=== PATIENT | female | born 1960 | race Caucasian/White ===

== ENCOUNTER 2017-08-24 15:13 | Emergency (ER) | payer OTHER, SELFPAY ==
[2017-08-24 15:14] VITALS: BP 154/72; PULSE 92; RESP 16; TEMP 36.4; O2SAT 100; BMI 22.1
[2017-08-24 15:16] VITALS: BP 154/72; PULSE 92; RESP 16; O2SAT 100
--- NOTE | 2017-08-24 15:32 | EKG12_ITS ---
Test Reason : VERTIGO Blood Pressure : / mmHG Vent. Rate : 078 BPM Atrial Rate : 078 BPM P-R Int : 194 ms QRS Dur : 082 ms QT Int : 398 ms P-R-T Axes : 075 069 052 degrees QTc Int : 453 ms Normal sinus rhythm Normal ECG Confirmed by PAUL CLAYTON, PAWEL ([id number]), social media editor JONAH TAPIA ([id number]) on 08/28/2017 3:16:38 PM Referred By: DAYANARA Confirmed By:PAWEL MILLER MD
--- NOTE | 2017-08-24 15:32 | CT_ITS ---
STUDY: CT BRAIN WITHOUT CONTRAST REASON FOR EXAM: Female, 56 years old. COOK RADIATION DOSAGE (If Supplied By Facility): CTDIvol = ( 44.99 ) mGy, DLP = ( 812.98 ) mGycm TECHNIQUE: Transaxial CT imaging of the brain was performed without administration of intravenous contrast material. Individualized dose optimization techniques were used for this CT. COMPARISON: None. FINDINGS: Normal soft tissue structures. Normal calvarium. Normal size ventricles and extra-axial spaces for the patient's age. Normal white matter tracts of the cerebral hemispheres. Normal basal ganglia and thalami. Normal brainstem. Normal cerebellum. There is no intracranial hemorrhage. There are no findings of an acute ischemic infarction. Normal visualized paranasal sinuses. CT/Brain/Head without Contrast IMPRESSION: Normal unenhanced CT scan of the brain. Electronically Signed: Wilder Arroyo MD at 16:21 EST , Service support ,
--- NOTE | 2017-08-24 15:37 | ED.DCSUM_ITS ---
- ER Visit Summary Date of Service: 08/24/17 Chief Complaint: Dizzy and headache History of Present Illness: The patient is a 56 F who reports flulike illness last week with body aches, cough, fever, chills. This week the patient has had intermittent nausea and body aches. She states other day she feels perfectly normal. She woke yesterday morning with vertigo symptoms. She also complains of mild waxing and waning headache to the bilateral temples for the past 1 week. Patient is diabetic and states her blood sugars have been fluctuating with her illness. She denies chest pain or palpitations. Physical Examination: Blood pressure is 154/72, temperature 97.6, heart rate 92 , respiratory rate 16, pulse ox 100% on room air. Patient sitting in a bedside chair no acute distress. Head neck examination is unremarkable. TMs are clear. She has moist mucous membranes. No nystagmus is noted. Heart is regular rate and rhythm. Lung sounds are clear. Abdomen is soft nontender. Neuro exam is unremarkable. Test Results: CT the head is unremarkable. EKG is sinus at 78 with no sign of acute ischemia. CBC and chemistry studies are significant only for glucose of 291. Emergency Department Course and Treatment: Patient was given IV fluids and p.o. Antivert. On repeat evaluation she has ambulated to the bathroom and back without difficulty. She is sitting in a bedside chair fully dressed requesting to go home. She will be given prescription for Antivert at home. Treatment Plan: [] Disposition: Discharge Impression: Vertigo, improved This note was generated with [employer] dictation software. It may contain incorrect words, spelling, and punctuation that were not noted in review of the chart prior to signing ED Disposition - Plan for ED Patient: Chief Complaint: Dizziness Referrals: Nitin Falcon MD [Primary Care Provider] -
[2017-08-24] MEDS: Meclizine 12.5 MG Tablet 25 MG PO (15:40)
[2017-08-24] MEDS: 0.9% Normal Saline 1,000 ML 1000 ML IV (15:42)
[2017-08-24 16:11] LABS: Absolute Lymphocyte Count 1.83 X10^3/ul (0.83-4.51); Absolute Neutrophil Count 2.9 X10^3/uL (2.0-7.7); Basophil# 0.02 X10^3/uL; Basophil% 0.4 % (0-1); Eosinophil# 0.11 X10^3/uL; Eosinophils% 2.1 % (0-5); Hematocrit 36.7 % (37-47); Hemoglobin 12.4 g/dl (12.0-15.0); Lymphocyte # 1.83 X10^3/ul (4.0); Lymphocyte % 34.9 % (19-41); Mean Corp Hgb Conc 33.8 g/gl (32-36); Mean Corpuscular Hgb 30.2 pg (27.0-32.0); Mean Corpuscular Volume 89.5 fL (81-99); Mean Platelet Vol. 11.4 fl (6.2-12.0); Monocyte# 0.42 X10^3/uL; Neutrophil # 2.85 X10^3/uL (2.7-7.7); Neutrophil % 54.4 % (47-70); Platelet Count 165 K/mm3 (150-450); RBC Distribution Width CV 11.8 % (11.6-14.6); RBC Distribution Width SD 37.4 fl (35.1-43.9); White Blood Count 5.2 K/mm3 (4.4-11.0)
[2017-08-24 16:12] LABS: POSITIVE COUNT NO; POSITIVE DIFFERENTIAL NO; POSITIVE MORPHOLOGY NO
[2017-08-24 16:23] LABS: Anion Gap 9 (5-15); BUN 16 mg/dL (7-18); BUN/Creat Ratio 18.6 RATIO (10-20); Calcium,Total 9.6 mg/dL (8.5-10.1); Chloride 101 mmol/L (98-107); Creatinine, Serum 0.86 mg/dL (0.55-1.02); EST Glomerular Filtration Rate 72 mL/min (>60); Est Glom Filt Rate - Afr Amer 87 mL/min (>60); Estimated Creatinine Clearance 72.81 ml/min; Glucose 291 mg/dL (70-110); Potassium 3.9 mmol/L (3.5-5.1); Sodium Level 137 mmol/L (136-145)
[2017-08-24 16:49] VITALS: BP 133/74; PULSE 70; RESP 16; O2SAT 99
--- NOTE | 2017-08-24 17:36 | ED.DEP ---
ED Disposition - Plan for ED Patient: Disposition: Home or Assisted Living Chief Complaint: Dizziness Instructions: ED Vertigo Unspecified Prescriptions: Meclizine HCl [Antivert] 25 mg PO 4X/DAY PRN PRN #20 tablet PRN Reason: Dizziness Referrals: Nitin Falcon MD [Primary Care Provider] - 3-5 Days if not improving
[2017-08-24 17:40] VITALS: RESP 12
== END 2017-08-24 17:40 | disposition home or self-care (01) ==
PROVIDERS: Emergency Provider Emergency Medicine; Family Provider Family Medicine; PCP Family Medicine
DX: R42 Dizziness and giddiness (principal); R51 Headache; E11.9 Type 2 diabetes mellitus without complications; Z79.4 Long term (current) use of insulin; Z79.899 Other long term (current) drug therapy
CPT/HCPCS: 70450; 80048; 85025; 93005; 99284

== ENCOUNTER → 2017-11-27 14:50 | Outpatient (CLI) | payer OTHER, SELFPAY ==
[2017-11-27 16:21] LABS: Cholesterol 189 mg/dL (200); High Density Lipoprotein 92 mg/dL; Triglycerides 80 mg/dL; Very Low Density Lipoprotein 16 mg/dL (5-40)
[2017-11-27 16:27] LABS: Hemoglobin A1c 8.7 % (4.2-6.3)
== END ==
PROVIDERS: Family Provider Family Medicine; PCP Family Medicine; Visit Provider Family Medicine
DX: E10.9 Type 1 diabetes mellitus without complications (principal); E78.5 Hyperlipidemia, unspecified
CPT/HCPCS: 36415; 80061; 83036

== ENCOUNTER → 2017-12-12 14:50 | Outpatient (CLI) | payer OTHER, SELFPAY ==
--- NOTE | 2017-12-12 14:52 | RAD_ITS ---
STUDY: X-RAY - RIGHT SHOULDER REASON FOR EXAM: Female, 57 years old. Pain TECHNIQUE: 3 view(s) of the shoulder. COMPARISON: None. FINDINGS: Narrowed glenohumeral articulation. Normal acromioclavicular joint. Normal acromion. Normal humeral head and visualized proximal humerus. The soft tissue structures are unremarkable. Incidental finding of small irregular nodular density in the right upper lobe possibly scarring. Recommend correlation with prior chest radiograph if and when available. CT may be necessary for further evaluation. RAD/Shoulder min 2 Views IMPRESSION: Mild degenerative changes. No evidence for acute fracture Cannot exclude right upper lobe nodule. Electronically Signed: Ajith Pablo MD at 18:05 EDT , Service support ,
== END ==
PROVIDERS: Family Provider Family Medicine; PCP Family Medicine; Visit Provider Orthopaedic Surgery
DX: M19.011 Primary osteoarthritis, right shoulder (principal)
CPT/HCPCS: 73030

== ENCOUNTER → 2018-01-26 14:54 | Outpatient (CLI) | payer OTHER, SELFPAY ==
--- NOTE | 2018-01-26 14:56 | CT_ITS ---
STUDY: CT CHEST WITHOUT CONTRAST REASON FOR EXAM: Female, 57 years old. Pulmonary nodule RADIATION DOSAGE (If Supplied By Facility): CTDIvol = ( 7.23 ) mGy, DLP = ( 254.40 ) mGycm TECHNIQUE: Transaxial imaging was performed without the administration of intravenous contrast material. Coronal and sagittal reformatted images were created. Individualized dose optimization techniques were used for this CT. COMPARISON: X-ray dated 12/12/2017 FINDINGS: There are no pulmonary infiltrates or pleural effusions. There are 2 spiculated nodules in the right upper lobe, measuring 1.8 x 1.2 cm (image 66 series 4) and 2.1 x 1.9 cm (image 73 series 4). There are no additional pulmonary nodules or masses. There is no pneumothorax. The heart and pericardium are within normal limits. There is no thoracic lymphadenopathy. There is no evidence of thoracic aortic aneurysm. Images through the upper abdomen demonstrate no significant abnormality. There are no destructive osseous lesions. There is asymmetric soft tissue density in the lateral aspect of the left breast with a 2.6 cm nodular density present (image [address]/Chest without Contrast IMPRESSION: 2 spiculated nodules in the right upper lobe with the larger measuring 2.1 x 1.9 cm. Further evaluation with PET/CT is recommended to exclude neoplasm. Asymmetric soft tissue density in the lateral aspect of the left breast measuring up to 2.6 cm. Correlation with mammography is recommended. Electronically Signed: Michael Callahan, at 16:00 EDT Tel , Service support ,
== END ==
PROVIDERS: Family Provider Family Medicine; PCP Family Medicine; Visit Provider Family Medicine
DX: R91.8 Other nonspecific abnormal finding of lung field (principal)
CPT/HCPCS: 71250

== ENCOUNTER → 2018-02-12 08:14 | Outpatient (CLI) | payer OTHER, SELFPAY ==
--- NOTE | 2018-02-12 09:00 | PET_ITS ---
EXAMINATION: FDG PET CT INDICATIONS: A 57-year-old female with reported history of pulmonary nodularity. COMPARISON EXAMINATION: CT of the chest report dated 01/26/18. INDEX LESION SIZE SUV INTERPRETATION Right hemithorax pulmonary parenchyma, right upper lobe (n = 2) 19.8 mm largest (frame 194) 0.8 (max) Quantitative criteria for viable neoplasm are not fulfilled, sequential radiologic investigation recommended Midline mid pelvic mesentery-uterus 30.2 mm x 40.1 mm (frame 45) 18.5 May be further investigated with pelvic ultrasound secondary to the quantitative degree of uptake TECHNIQUE: Following the intravenous administration of 14.44 mCi of F-18 deoxyglucose via the left hand, multiplanar image acquisitions of the neck, chest, abdomen and pelvis to level of mid thigh, obtained at one hour post radiopharmaceutical administration contemporaneously interpreted with the current CT of the neck, chest, abdomen and pelvis to level of mid thigh, dated 02/12/[address] of the chest report dated 01/26/18 reveal: SERUM GLUCOSE LEVEL: 166 mg/dl. HEIGHT: 68 inches. WEIGHT: 145 lbs. FINDINGS: 1. Mild increased glucose metabolism is defined in the right upper hemithorax pulmonary parenchyma, right upper lobe in two separate nodular presentations generating a calculated maximum standard uptake value of 0.8. The maximal axial diameter of the largest individual noncalcified density on review of CT of the thorax dated 02/12/18 is 19.8 mm (AP). 2. Intense increased glucose metabolism is defined in the mid pelvic mesentery contiguous to the uterus generating a calculated maximum standard uptake value 18.5. The maximal axial diameter of the corresponding metabolic, morphologic abnormality on review of CT of the pelvis dated 02/12/18 is 30.2 mm (transverse) x 40.1 mm (AP). 3. Normal physiologic distribution of the radiopharmaceutical is apparent in the hepatic (3.1) and splenic parenchyma, both renal units, bladder and visualized intestinal tract. There is uniform distribution of the radiopharmaceutical concentration compared on the cerebellar hemispheres and cerebral cortex. Diffuse intestinal tract activity is noted throughout all four quadrants of the abdominal-pelvic retroperitoneum, mesentery consistent with normal physiologic distribution of the radiopharmaceutical. Prominent glucose metabolism is defined in the descending thoracic aorta. Pertinent CT findings are as follows. CHEST: Atherosclerotic calcification is defined in the thoracic aorta without evidence of dilatation, aneurysm formation. Bilateral axillary soft tissue densities demonstrate no evidence of quantitatively significant increased glucose metabolism. There are no additional parenchymal densities-nodules noted in the right-left hemithorax demonstrating discernible, quantitatively significant enhanced glucose metabolism. ABDOMEN AND PELVIS: Atherosclerotic calcification is defined in the abdominal aorta without evidence of dilatation, aneurysm formation. Abdominal-pelvic arterial calcification is observed. Right-left inguinal soft tissue densities are ametabolic. Calcification is demonstrated in the lower pelvis contiguous to the adnexal regions, uterus without evidence of facilitated glucose metabolism. Calcifications are defined in the bilateral lower hemipelvis. SKELETAL: Degenerative changes defined in the cervical, thoracic and lumbar spine demonstrate no evidence for glucose hypermetabolism. PET/PET/CT Tumor Base -Thigh Init IMPRESSION: 1. Increased glucose metabolism manifest in the lower pelvis contiguous to the uterus may be further investigated with pelvic ultrasound secondary to the quantitative degree of uptake. 2. Subtle increased radiopharmaceutical concentration barely perceptible in the right upper hemithorax pulmonary parenchyma in two separate nodular presentations does not fulfill quantitative criteria for viable neoplasm. (Marcano et al, Annals of Internal Medicine, 138:724, 2003). 3. Metabolic and/or anatomic stability may be ensured in the right hemithorax pulmonary parenchymal abnormalities with repeat FDG PET study and/or CT of the thorax in three months. (Xiu, Journal of Nuclear Medicine 45:88, P2004. Srikanth, Seminars in Thoracic and Cardiovascular Surgery 14:292, 2002). 4. Facilitated FDG uptake observed in the descending thoracic aorta is commensurate with activated leukocytes associated with atherosclerotic plaque formation. (Brianna et al, Clinical Nuclear Medicine 29:93, 2004). Electronic Signature Jf Landaverde D.O. Electronically Signed: Jf Landaverde DO at 9:51 EDT Tel , Service support ,
--- NOTE | 2018-02-12 10:48 | BI_ITS ---
MAMMOGRAPHY - BILATERAL SCREENING 3-D VISHNU SYNTHESIS REASON FOR EXAM: Female, 57 years old. Bilateral Screening 3-D tomosynthesis PERTINENT HISTORY: History of benign breast biopsy.. TECHNIQUE: 2-D mammograms and 3-D Vishnu synthesis of the breast (s) were performed. CAD was performed. COMPARISON: 02/25/2015 FINDINGS: The breast composition is heterogeneously dense that can obscure small breast masses. Scattered benign calcifications are seen. No dense spiculated masses or suspicious microcalcifications are identified. No architectural distortion is identified. There is no skin thickening or retraction. There has been no significant change since the prior study. BI/SCREENING MAMM (CAD), BILAT IMPRESSION: No mammographic signs of malignancy. Routine yearly mammograms recommended. ASSESSMENT CATEGORY: BIRADS Category 2: Benign. A letter regarding these results will be sent to the patient by the facility within 30 days. FOLLOW UP RECOMMENDATION: Yearly follow up mammogram recommended. (A) Approximately 10% of breast cancers are not detected by mammography. A normal mammogram should not delay biopsy of a clinically suspicious abnormality. Electronically Signed: Yohannes Sánchez MD at 8:11 EDT , Service support ,
== END ==
PROVIDERS: Family Provider Family Medicine; PCP Family Medicine; Visit Provider Family Medicine
DX: R91.1 Solitary pulmonary nodule (principal); Z12.31 Encounter for screening mammogram for malignant neoplasm of breast
CPT/HCPCS: 77063; 77067; 78815; A9552; A4216

== ENCOUNTER → 2018-02-16 14:22 | Outpatient (CLI) | payer OTHER, SELFPAY ==
--- NOTE | 2018-02-16 14:23 | US_ITS ---
STUDY: ULTRASOUND OF THE FEMALE PELVIS - COMPLETE REASON FOR EXAM: Female, 57 years old. Abnormal PET scan in a postmenopausal female. LMP: 4 years ago. TECHNIQUE: Transabdominal and Transvaginal TECHNICAL QUALITY: Adequate. COMPARISON: PET/CT scan, February 12, 2018. FINDINGS: The uterus is retroverted and is in a midline position. The uterus measures 9.9 x 5.6 x 4.9 cm. Normal uterine cervix. The endometrium measures 4 mm in thickness, and is hyperechoic. There is no demonstrated endometrial mass. There are 2 fibroids within the uterus measuring 1.2 x 2.1 0.8 cm 3.4 x 3.7 x 3.4 cm actively. There is also a 8 mm calcification in the lower uterine segment. I.U.D. - The patient does not have an I.U.D. The right ovary is visualized. The right ovary measures 2.9 x 1.6 x 1.0 cm. There is no right ovarian cyst or ovarian mass. There is no visualized right adnexal mass or complex lesion. There is normal arterial and normal venous vascularity. The left ovary is not visualized. There is no visualized left adnexal mass or complex lesion. There is no fluid in the cul-de-sac. The pre void volume of the bladder was 157 ml. The urinary bladder is grossly unremarkable. US/Pelvic (Non ) IMPRESSION: 1. Retroverted fibroid uterus. The largest fibroid appears to coincide with the enhancing lesion seen on the PET/CT. 2. Normal right ovary. The left ovary is not visualized. Electronically Signed: De Bailey DO at 16:23 EDT Tel [phone], Service support ,
--- NOTE | 2018-02-16 15:06 | US_ITS ---
STUDY: ULTRASOUND OF THE FEMALE PELVIS - COMPLETE REASON FOR EXAM: Female, 57 years old. Abnormal PET scan in a postmenopausal female. LMP: 4 years ago. TECHNIQUE: Transabdominal and Transvaginal TECHNICAL QUALITY: Adequate. COMPARISON: PET/CT scan, February 12, 2018. FINDINGS: The uterus is retroverted and is in a midline position. The uterus measures 9.9 x 5.6 x 4.9 cm. Normal uterine cervix. The endometrium measures 4 mm in thickness, and is hyperechoic. There is no demonstrated endometrial mass. There are 2 fibroids within the uterus measuring 1.2 x 2.1 0.8 cm 3.4 x 3.7 x 3.4 cm actively. There is also a 8 mm calcification in the lower uterine segment. I.U.D. - The patient does not have an I.U.D. The right ovary is visualized. The right ovary measures 2.9 x 1.6 x 1.0 cm. There is no right ovarian cyst or ovarian mass. There is no visualized right adnexal mass or complex lesion. There is normal arterial and normal venous vascularity. The left ovary is not visualized. There is no visualized left adnexal mass or complex lesion. There is no fluid in the cul-de-sac. The pre void volume of the bladder was 157 ml. The urinary bladder is grossly unremarkable. US/Transvaginal Non- IMPRESSION: 1. Retroverted fibroid uterus. The largest fibroid appears to coincide with the enhancing lesion seen on the PET/CT. 2. Normal right ovary. The left ovary is not visualized. Electronically Signed: De Bailey DO at 16:23 EDT Tel [phone], Service support ,
== END ==
PROVIDERS: Family Provider Family Medicine; PCP Family Medicine; Visit Provider Nurse Practitioner Family
DX: R94.8 Abnormal results of function studies of other organs and systems (principal)
CPT/HCPCS: 76830; 76856; 93976

== ENCOUNTER 2018-02-19 14:30 | Outpatient (RCR) | payer OTHER, SELFPAY ==
--- NOTE | 2017-12-20 15:46 | HP.PTEVAL_ITS ---
Patient's Visit Information FORREST PERES is a 57 year old F referred to Physical Therapy by Leonor Lowe DO with a diagnosis of Right shoulder- adhesive capsulitis. Date of Evaluation: 12/20/17 Physical Therapist: Joyce Robertson - Visit Plan Frequency: 2x /Week Duration: 6 Weeks Plan: Focus on ROM and strength of the right shoulder - Subjective Subjective: Right shoulder has not been moving for about 4 years. 2010 her left shoulder was frozen and had PT. 2013 the right one started getting stiff. Tried to keep it moving- end of 2013 had PT and manipulation and it just never really got any better. Has just gotten use to the pain and uses the left to reach overhead and behind her. Right hand dominate. Has had an x-ray of the shoulder but no MRI. Best: 0/10 Eases: not using it. Worst: 9/10 agg: movement. Pain is located in the top of the shoulder and into the axilla- no pain radiates to the fingers but the neck does get stiff. No increase in COOK, blurred vision, dizziness. NT in the fingers. Sleep: disturbed- wants to sleep on that side. 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 PMHx: DM (41 years), retinopathy, frozen shoulder bilateral, cataract surgery, retina surgery. Meds: fosinopril, insulin x 2, novolog, basaglar, pravastatin, fosinopril, omeprazole. Is very diligent of checking sugars (60-400). Does not passout- can regulate depending on her feelings. - Objective Posture: guarding of the right UE. Gait: decreased arm swing. Palpation: not tender to touch. AROM: 115 flexion, 110 abduction, IR: Belt line, ER: 20 degrees. Strength:4+/5 in neutral Scap: fair - Goals Goal 1:: Patient will be i with HEP and progression Goal Time Frame: 4-6 Weeks Goal 2:: Patient will demo full AROM of the right shoulder Goal Time Frame: 4-6 Weeks Goal 3:: Patient will demo ability to stack cones on a shelf x3 Goal Time Frame: 4-6 Weeks - Rehabilitation Potential Physical Therapy Diagnosis: Patient presents with hypomobility- she has decreased ROm, strength and muscular endurance leading to abnormal ADL's and pain Rehabilitation Potential: Fair - Anticipated Interventions Patient/Client Instruction: Educate patient on: Benefits of Fitness Program For the Purpose of:: To improve ability to perform ADL's Therapeutic Exercise to Include: Strength training, Endurance training, Body mechanics, Postural training, In an aquatic setting, Passive ROM, Active ROM, Scapular Strength/Stabilization For the Purpose of:: To increase ROM, To improve muscle performance and motor function Thank you for the opportunity to evaluate your patient. For Medicare and Medicare HMO plans, please review the plan of care and approve it. It will need to be FAXED BACK to us at [phone] for Medicare purposes. Please let me know if there are questions or concerns regarding this plan of care. Physician Signature: Date:
--- NOTE | 2018-03-16 10:31 | HP.PT.NRP ---
HP - Discharge Summary (1) - Patient Information FORREST PERES was seen in my office for initial evaluation on 12/20/17. The following Plan of Care was established for this patient: Initial Frequency: 2x /Week Initial Duration: 6 Weeks - Anticipated Interventions Patient/Client Instruction: Educate patient on: Benefits of Fitness Program For the Purpose of:: To improve ability to perform ADL's Therapeutic Exercise to Include: Strength training, Endurance training, Body mechanics, Postural training, In an aquatic setting, Passive ROM, Active ROM, Scapular Strength/Stabilization For the Purpose of:: To increase ROM, To improve muscle performance and motor function This patient was last seen in our office . Pertinent comments regarding their Physical therapy will appear below: Return to MD for further evaluation- d/c at this time At this point I will be discontinuing this patient from physical therapy. I would be happy to see this patient again in the future if found appropriate by the physician. Thank you! Joyce Robertson
== END 2018-02-19 19:00 | disposition home or self-care (01) ==
LOC: PT 14:30
PROVIDERS: Family Provider Family Medicine; PCP Family Medicine; Visit Provider Orthopaedic Surgery
DX: M75.01 Adhesive capsulitis of right shoulder (principal)
CPT/HCPCS: 97113; 97161; 97164

== ENCOUNTER 2018-02-27 08:10 | Day surgery (SDC) | payer OTHER, SELFPAY ==
[2018-02-27] VITALS (7 sets, daily range): BP systolic 84–126; BP diastolic 46–55; PULSE 70–76; RESP 16; TEMP 36.2–36.4; O2SAT 95–99; BMI 21.8
[2018-02-27 09:01] LABS: Bedside Glucose 235 mg/dL (70-110)
--- NOTE | 2018-02-27 09:21 | H&P.OPEN ---
Past Medical/Surgical History - Planned Operation Planned Operative Procedure/s: cscope Date of Operative Procedure: 02/27/18 Permit Signed: No S.O.S: No Is This Patient Having a Total Joint: No - Previous Hospitalizations/Surgeries HX Hospitalizations: No HX of Surgeries: 2003 fx left hip. retina surgery 1997. tubal ligation 1996. csection 1980. cataract bilat 2002. biopsy breast bilat. bunionectomy. left thumb surgery Any Problems With Anesthesia: Yes - sensitive to anesthesia/nausea You/Your Family Experience Fever (Hyperthermia) With Anes: No Cholinesterase deficiency: No - Cardiovascular Hx Chest Pain within Last 2 months: No Hx of Irregular Heartbeat and/or Afib: Yes - irreg Hx Heart Attack: No Hx Congestive Heart Failure: No Hx Rheumatic Fever: No Hx Hypertension: Yes - controlled with med Hx Internal Defibrillator: No Hx Pacemaker: No Hx Cardiac Catheterization: No Hx Cardiac Surgery/Stents/Etc.: No Hx Stress Test: Yes - 2017 at [facility] HX Edema: No Hx Pain in Legs when Walking/Leg Cramps: No - Respiratory Chronic Cough: No HX of Shortness of Breath: No Hoarseness: No Hx Chronic Obstructive Pulmonary Disease (COPD): No Hx Asthma: No Hx Emphysema: No Hx Sleep Apnea: No Hx Oxygen Use at Home: No Hx Respiratory Tract Infection/Cold (presently): No Do You Snore Loudly (louder than talking or can be heard): Yes Do You Often Feel Tired/ Fatigued/ Sleepy Dring Daytime?: No Has Anyone Observed You Stop Breathing During Sleep?: No Result (for STOP score): Positive Hx Smoking: No Smoking Status: Never smoker - Gastrointestinal Hx Gastroesophageal Reflux: No Hx Gastrointestinal Disorders: No Hx Gastrointestinal Bleed: No Hx Ulcer: No Hx Hiatal Hernia: No Difficulty Chewing/Swallowing: No Recent Onset of Swallowing Problems: No Special diet followed at home: Yes - diabetic Hx Unplanned Weight Loss of 20#: No HX Unplanned Weight Gain of 20#: No - Neurological Hx Seizures: No HX Syncope/Blackout Spells/Unconsciousness: Yes - vertigo in the past Hx CVA/Stroke: No Hx Transient Ischemic Attacks (TIA): No Hx Multiple Sclerosis: No Hx Parkinson's Disease: No Hx Head/Neck Injury: No Hx Headaches: No Hx Back Injury/Pain: No Recent Onset of Speech Difficulty: No Restless Legs: No Does patient have nerve stimulator: No Patient instructed to have device shut off: No Rep notified?: No - Blood Disorder Hx Leukemia: No Bleeding Tendencies: No Hx Deep Vein Thrombosis: No Hx High Cholesterol: No Blood Transmitted Disease: No Hx Hepatitis: No Hx Cirrhosis: No Hx Anemia: No Hx Blood Disorders: No - Reproduction : No Is Patient Lactating: No Hx Hysterectomy: No Hx Tubal Ligation: Yes Are You Post Menopause: Yes - Genitourinary Hx Renal Disease: No - Musculoskeletal Hx Arthritis: Yes Hx Rheumatoid Arthritis: No Hx Gout: No Recent Onset of an Orthopedic Problem: No - Endocrine Hx Diabetes: Yes Insulin: Yes Thyroid Disease: No Hx Steroid Therapy: No - Psycho/Social Hx Substance Use: No Hx Alcohol Use: Yes - 2 drinks daily Hx Anxiety: Yes - on med Hx Depression: Yes - on med Mental Illness: No Hx Dementia: No - Miscellaneous Hx Cancer: No Recent Exposure to Contagious Disease: No Active MRSA: No Hx of C-Diff: No Any Loose Teeth: No Allergies No Known Allergies Allergy (Verified 02/26/18 13:42) - Discharge Is Pt Admitted From a Custodial, or a Snf: No Who Could Help: family After D/C, Where Do you Plan to Go: Return Home Subjective: Patient reports she has never had a colonoscopy in the past. She says she is having no bleeding or abdominal pain. She has no family history of colon cancer. - Physical Exam General: Alert, Oriented x3, Cooperative Neck: No JVD Lungs: Normal air movement Cardiovascular: Regular rate, Regular Rhythm Abdomen: Soft, Non Tender, Non-Distended Vital Signs Temp Pulse Resp BP Pulse Ox 97.6 F L 76 16 126/51 H 99 02/27/18 08:40 02/27/18 08:40 02/27/18 08:40 02/27/18 08:40 02/27/18 08:40 Oxygen Delivery Method Room Air Weight: 143 lb 11.862 oz Body Mass Index (BMI) 21.8 POC Glucose 02/27/18 08:47 POC Glucose 235 H Assessment/Plan All Active Problems (Last Updated 11/15/17 @ 16:16 by Beth Allen) Onychomycosis due to dermatophyte (Acute) History of hip fracture (Acute) 57-year-old female for screening colonoscopy 1. I explained endoscopy in detail to the patient. I explained the risks including but not limited to stroke or heart attack with anesthesia, perforation of the GI tract, bleeding, infection. I explained that any of these could necessitate further emergency surgery. The patient understands and all questions were answered sufficiently. The patient wishes to proceed with procedure. Zoran Obrien MD Pager: [facility] [address] [place] [address] [address] [place] [address] Office: Surgery Risks - Colonoscopy Risks Include but are not Limited To: Risks include but are not limited to: Bleeding, perforation requiring further surgery, inability to complete colonoscopy requiring barium enema.
--- NOTE | 2018-02-27 09:59 | PCM.OPRPT ---
Problem List (1) Screen for colon cancer Status: Acute Report of Operation Date of Procedure: 02/27/18 Pre-Operative Diagnosis: Colon cancer screening Post-Operative Diagnosis: Normal colonoscopy Surgery/Procedure Performed:: Colonoscopy Description of Procedure: The major risks and benefits associated with the procedure were explained to the patient in detail. The patient verbalized understanding and agreement with the same. The patient was brought to the endoscopy suite. After adequate sedation was achieved, the patient was placed in the left lateral decubitus position and a digital rectal exam was performed. This examination was within normal limits. A well-lubricated colonoscope was then inserted into the rectum and advanced under direct visualization to the level of the cecum. The bowel prep was good. The cecum was identified by both visual and anatomic landmarks. A photograph was taken of the end of the cecum. The scope was then fully withdrawn while examining the color, texture, anatomy and integrity of the mucosa from the cecum to the anal canal. The findings were consistent with normal colonic mucosa. Over 6 minutes were taken to examine the colonic mucosa. Upon reaching the rectum the scope was retroflexed to examine the distal rectal vault. The scope was then straightened and was completely retrieved upon exiting the anal canal and the procedure was terminated. The patient was then transferred to the recovery room in stable condition. Recommendations for follow up: 10 years
== END 2018-02-27 10:53 | disposition home or self-care (01) ==
LOC: EN 08:10 → AC 08:11
PROVIDERS: Family Provider Family Medicine; PCP Family Medicine; Visit Provider Surgery
PROC: 0DJD8ZZ Inspection of Lower Intestinal Tract, Via Natural or Artificial Opening Endoscopic (ICD-10-PCS; CPT 45378; principal; 2018-02-27 09:10)
DX: Z12.11 Encounter for screening for malignant neoplasm of colon (principal); I10 Essential (primary) hypertension; F32.9 Major depressive disorder, single episode, unspecified; F41.9 Anxiety disorder, unspecified; E10.9 Type 1 diabetes mellitus without complications; Z79.4 Long term (current) use of insulin; Z79.899 Other long term (current) drug therapy
CPT/HCPCS: 45378; 82962; J7120; J2405

== ENCOUNTER → 2018-03-16 14:37 | Outpatient (CLI) | payer OTHER, SELFPAY ==
[2018-03-16 16:18] LABS: Hemoglobin A1c 7.7 % (4.2-6.3)
== END ==
PROVIDERS: Family Provider Family Medicine; PCP Family Medicine; Visit Provider Family Medicine
DX: M75.41 Impingement syndrome of right shoulder (principal); E78.5 Hyperlipidemia, unspecified; E10.9 Type 1 diabetes mellitus without complications; H81.10 Benign paroxysmal vertigo, unspecified ear
CPT/HCPCS: 36415; 83036

== ENCOUNTER 2018-03-28 15:00 | Outpatient (RCR) | payer OTHER, SELFPAY ==
--- NOTE | 2018-03-21 17:16 | HP.PTEVAL_ITS ---
Patient's Visit Information FORREST PERES is a 57 year old F referred to Physical Therapy by Nitin Falcon DO with a diagnosis of vertigo. Date of Evaluation: 03/21/18 Physical Therapist: Nicholas Goldberg DPT, OC - Visit Plan Frequency: 1x/Week Duration: 2-4 Plan: weekly as needed for positional checks and ex and other vestibular if indicated. - Subjective Subjective: Vertigo started in October and never had it before. Woke up with room spinning in am and spinning lying down the night before. It lasted for short duration if laid still and that lasted a couple weeks. Still spins wtih turning in bed. Went away but came back a month ago. 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 In between these episodes pf postiional vertigo, she feels normal, no COKO , no lightheadedness, no balance problems. Sleep is OK. Has not missed work due to this but must slow down at times. Enjoys shopping and still can. Basic ADLs are OK for the most part unless she has to bend over. No falls and balance is good outside of spinning. - Objective Neck ROM is good and painfree, R shoulder limited AROM to 130 and L to 150. - R hallpike lobo. + L hallpike for asymmetrical dizzyness but no obnvious nystagmus, treated with L Adalberto and then no dizzyness. Balance looks good and transfer and walk I. - Goals Goal 1:: Abolish dizzyness at work with bending over. Goal Time Frame: 2-4 Weeks Goal 2:: Turn at night without dizzyness. Goal Time Frame: 2-4 Weeks Goal 3:: Pt feel back to 100% normal Goal Time Frame: 2-4 Weeks - Rehabilitation Potential Physical Therapy Diagnosis: BPPV L posterior Rehabilitation Potential: Good - Anticipated Interventions Patient/Client Instruction: Educate patient on: Condition, Plan of Care For the Purpose of:: To increase tolerance to activity/condition/position, To improve ability of physical actions for home/community/work/leisure Comment: positional ex adn techniques and vestibular For the Purpose of:: To increase tolerance to activity/condition/position Thank you for the opportunity to evaluate your patient. For Medicare and Medicare HMO plans, please review the plan of care and approve it. It will need to be FAXED BACK to us at [phone] for Medicare purposes. Please let me know if there are questions or concerns regarding this plan of care. Physician Signature: Date:
--- NOTE | 2018-06-19 11:48 | HP.PT.NRP ---
HP - Discharge Summary (1) - Patient Information FORREST PERES was seen in my office for initial evaluation on 03/21/18. The following Plan of Care was established for this patient: Initial Frequency: 1x/Week Initial Duration: 2-4 - Anticipated Interventions Patient/Client Instruction: Educate patient on: Condition, Plan of Care For the Purpose of:: To increase tolerance to activity/condition/position, To improve ability of physical actions for home/community/work/leisure For the Purpose of:: To increase tolerance to activity/condition/position This patient was last seen in our office 03/28/18. Pertinent comments regarding their Physical therapy will appear below: Pt seen 2 visits of positional treatments adn was much better. She was to f/u a week later to ensure abolishment but did not attend. at this point, it has been over 6 weeks adn I will disocntinue due to nonattendance. At this point I will be discontinuing this patient from physical therapy. I would be happy to see this patient again in the future if found appropriate by the physician. Thank you! Nicholas Goldberg, DPT, OC
== END 2018-03-28 19:00 | disposition home or self-care (01) ==
LOC: PT 15:00
PROVIDERS: Family Provider Family Medicine; PCP Family Medicine; Visit Provider Family Medicine
DX: H81.10 Benign paroxysmal vertigo, unspecified ear (principal); M75.41 Impingement syndrome of right shoulder; M75.01 Adhesive capsulitis of right shoulder
CPT/HCPCS: 97161; 97530

== ENCOUNTER → 2018-04-19 20:46 | Outpatient (CLI) | payer OTHER, SELFPAY ==
[2018-04-25 20:08] LABS: HPV Genotype 16, Aptima Negative (Negative)
[2018-04-26 13:25] LABS: HPV APTIMA, High Risk Positive (Negative); HPV Genotype 18,45 Aptima Negative (Negative)
== END ==
PROVIDERS: Family Provider Family Medicine; PCP Family Medicine; Referring Provider Obstetrics & Gynecology; Visit Provider Obstetrics & Gynecology
DX: Z12.4 Encounter for screening for malignant neoplasm of cervix (principal)
CPT/HCPCS: 88175; G0145

== ENCOUNTER → 2018-06-07 15:04 | Outpatient (CLI) | payer OTHER, SELFPAY ==
[2018-06-06 15:16] VITALS: BMI 23.4
[2018-06-07 16:18] LABS: Hemoglobin A1c 8.4 % (4.2-6.3)
== END ==
PROVIDERS: Family Provider Family Medicine; PCP Family Medicine; Referring Provider Family Medicine; Visit Provider Family Medicine
DX: E10.9 Type 1 diabetes mellitus without complications (principal)
CPT/HCPCS: 36415; 83036

== ENCOUNTER 2018-07-03 09:47 | Day surgery (SDC) | payer OTHER, SELFPAY ==
[2018-06-06 15:16] VITALS: BMI 23.4
[2018-07-03] VITALS (12 sets, daily range): BP systolic 126–145; BP diastolic 51–68; PULSE 59–81; RESP 14–16; TEMP 36.5–37.1; O2SAT 95–100; BMI 23.8
[2018-07-03 10:19] LABS: Absolute Lymphocyte Count 1.65 X10^3/ul (0.83-4.51); Absolute Neutrophil Count 3.7 X10^3/uL (2.0-7.7); Basophil# 0.01 X10^3/uL; Basophil% 0.2 % (0-1); Eosinophil# 0.09 X10^3/uL; Eosinophils% 1.5 % (0-5); Hematocrit 40.5 % (37-47); Hemoglobin 13.4 g/dl (12.0-15.0); Lymphocyte # 1.65 X10^3/ul (4.0); Mean Corp Hgb Conc 33.1 g/gl (32-36); Mean Corpuscular Hgb 30.3 pg (27.0-32.0); Mean Corpuscular Volume 91.6 fL (81-99); Mean Platelet Vol. 10.4 fl (6.2-12.0); Monocyte# 0.48 X10^3/uL; Monocyte% 8.1 % (0-10); Neutrophil # 3.66 X10^3/uL (2.7-7.7); Neutrophil % 62.2 % (47-70); Platelet Count 215 K/mm3 (150-450); RBC Distribution Width CV 12.2 % (11.6-14.6); RBC Distribution Width SD 41.3 fl (35.1-43.9); Red Blood Count 4.42 M/mm3 (4.2-5.4); White Blood Count 5.9 K/mm3 (4.4-11.0)
[2018-07-03 10:20] LABS: POSITIVE COUNT NO; POSITIVE DIFFERENTIAL NO; POSITIVE MORPHOLOGY NO
[2018-07-03] MEDS: Phenazopyridine 95 MG Tablet 190 MG PO (10:28)
[2018-07-03 10:29] LABS: Anion Gap 4 (5-15); BUN 18 mg/dL (7-18); BUN/Creat Ratio 28.3 RATIO (10-20); Calcium,Total 9.2 mg/dL (8.5-10.1); Chloride 105 mmol/L (98-107); Creatinine, Serum 0.64 mg/dL (0.55-1.02); EST Glomerular Filtration Rate 102 mL/min (>60); Est Glom Filt Rate - Afr Amer 123 mL/min (>60); Estimated Creatinine Clearance 96.65 ml/min; Glucose 201 mg/dL (74-106); Sodium Level 137 mmol/L (136-145)
--- NOTE | 2018-07-03 10:54 | PCM.HPOB.BLA ---
History and Physical Date of Admission: 07/03/18 Intake Visit Reasons: F/U FROM DR. DONOVAN - DISCUSS SURGERY Chief Complaint: Surgical Consult Employment Security Officer Required: No Allergies No Known Allergies Allergy (Verified 05/25/18 08:05) Medications fluoxetine 20 mg capsule 20 mg PO DAILY #90 cap 11/15/17 [Rx Confirmed 05/25/18] pravastatin 20 mg tablet 20 mg PO QHS #90 tab 11/15/17 [Rx Confirmed 05/25/18] Ascorbic Acid [Vitamin C] 500 mg PO DAILY@0800 02/26/18 [History Confirmed 05/25/18] Insulin Aspart [Novolog Flexpen] 8 unit SC TID 02/26/18 [History Confirmed 05/25/18] Insulin Glargine,Hum.rec.anlog [Basaglar Kwikpen U-100] 24 unit SC QHS 02/26/18 [History Confirmed 05/25/18] Multivitamin [Multiple Vitamins] 1 ea PO DAILY 02/26/18 [History Confirmed 05/25/18] fosinopril 20 mg tablet 20 mg PO DAILY tab 03/14/18 [History Confirmed 05/25/18] estradiol 0.01% (0.1 mg/gram) vaginal cream See Rx Instructions VAGINAL .COMPLEX #42.5 g 04/19/18 [Rx Confirmed 05/25/18] Is last menstrual period known: No Post menopausal: Yes Patient : No : No PFSH Medical History History of hip fracture (Acute) Retinopathy (Chronic) Hyperlipemia (Chronic) Type 1 diabetes mellitus (Chronic) Surgical History History of section (Acute) History of colonoscopy (Acute) History of endometrial ablation (Acute) History of eye surgery (Acute) Family History Mother Cancer Hypertension Arthritis Father Arthritis Myocardial infarction, Onset Age: 40 Heart disease Sister Diabetes Social History Smoking Status: Never smoker alcohol intake: current alcohol intake frequency: a few times a week Alcohol type: wine details: social substance use type: does not use caffeine: Yes what type of physical activity do you participate in: walking, yoga frequency: 3-4 times per week seatbelt use: always do you feel safe at home: Yes additional social history: Akshat- Teacher at [employer] 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 HPI F/U FROM DR. DONOVAN - DISCUSS SURGERY: Details: FORREST PERES is a 57 year old who presents for discussion of surgery. she denies any urinary complaints or loss of urine, she had abnormal uptake in her fibroids in her uterus and was originally referred to me for evaluation and after consultation with funeral assistant onc and oncology it has been recommended to have diagnostic hysterectomy or close follow up for treatment. she has decided on treatment. Pregancy History 1 Elective abortions Hx Para 1 Spontaneous abortions Hx # Term Pregnancies Ectopic pregnancies Hx # Pregnancies Multiple births # of living children Past Pregnancies Del. Date Name GA/Weeks Outcome Route Bth Weight Infant Gen Labor Lgth Anesthesia Del Locatn Provider FOB Unknown 1980 Joyce live - full term Female Dr. Falcon BIM ROS Const Constitutional: Denies poor appetite, headache(s), fever(s), increased appetite, weight gain, weight loss or fatigue ENT ENT: Denies dry mouth GI GI: Reports as per HPI; denies vomiting, nausea, abdominal pain or constipation : Reports as per HPI; denies difficulty urinating, blood in urine, pelvic pain, urinary frequency, urinary incontinence, urinary hesitancy, urinary urgency, vaginal discharge, vaginal dryness, vaginal odor, vaginal itching, other, painful urination or nipple discharge Skin Skin/Breast: Denies hair loss, change in hair, dry skin, breast pain, breast skin changes, breast lump or nipple discharge Exam Const General: cooperative, healthy appearing, comfortable, no acute distress, well developed Nutritional Appearance: average body habitus Orientation: alert [facility] Head: normal to inspection, normocephalic Ears: hearing grossly normal bilaterally, external ears normal Nose: external nose normal, nares normal Face and sinus: normal facial exam Neck Neck: normal visual inspection, trachea midline, no lymphadenopathy Thyroid: thyroid normal Resp Effort & Inspection: normal respiratory effort Musc Other: gross motor intact no deficits, full bilateral strength Skin General: no rashes or lesions noted Neuro Motor: muscle tone normal throughout Assessment & Plan Problems 1. Abnormal positron emission tomography (PET) scan R94.8 Status post ONCGYN (Colin) hyst ([facility]) vs repeat imaging in 3-4 months. Patient to call and decide. Needs EMB Plan discussed surgical risks including risks of anesthesia, infection, bleeding, injury to bowel, bladder or blood vessels, and patient wishes to proceed with surgery. UPDATE- I have seen the patient and performed any clinically relevant updates to the history and physical exam. Mery Ingram MD
--- NOTE | 2018-07-03 12:00 | UT_PTH ---
PATIENT: FORREST PERES LOC: [facility] [place] U#:[id number] AGE/SX: 57/F ROOM: RE07/03/[address]: Dr. Mery Ingram MD : 1960 BED: DIS: 07/03/2018 SPEC #: [id number] RECD: 07/03/18 15:34 STATUS: KAMALJIT REBella #: [id number] RALEIGH: 07/03/18 12:[address]: Mery Ingram DEPT: SURGICAL PATHOLOGY RECD BY: Jeramie Valenzuela ENTERED: 07/04/18 08:32 SP TYPE: UTERUS OTHR DR: Dr. 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 See comment. Additional findings: Cervix - chronic inflammation. Endometrium - weakly proliferative endometrium. Myometrium - intramural leiomyomas. Bilateral fallopian tubes - no pathologic diagnosis. SJ:enma 07/10/18 COMMENT All the slides of tumor (leiomyosarcoma) are sent to [facility] for expert opinion and reviewed by Dr. Vizcaino and above diagnosis is rendered. Dr. Vizcaino also commented that the tumor consists of cellular smooth muscle tumor with brisk mitosis, marked cytologic atypia and coagulative necrosis consistent with leiomyosarcoma. The complete report is viewable in the patient's EMR. The tumor is circumscribed, does not infiltrates into the adjacent myometrium and appears to be completely excised. Case has been reviewed in consultation with Dr. Colon who concurs with the above diagnosis. IDC:AM MICROSCOPIC DESCRIPTION Slides are reviewed. GROSS DESCRIPTION Received in fixative is one container labeled with the patient's name and designated uterus, cervix, bilateral fallopian tubes. The specimen consists of a hysterectomy specimen which is previously opened anteriorly and consisting of uterus with cervix and attached bilateral fallopian tubes. The uterus with cervix weighs 129 gm and measures 9 x 7 x 6 cm. The serosal surface is pritchett, glistening. The ectocervical mucosa shows a focal area of erosion. The external os is circular in contour. The endocervical canal measures 3 cm in length and the endocervical mucosa is pritchett, glistening and unremarkable. The endometrial cavity is compressed to one side and measures 3 cm in length and up to 1 cm in width. The endometrium appears completely denuded and without any mass lesion. Sections of the uterine wall reveal multiple pritchett, nodular masses The largest mass measures 3.5 cm in diameter. . Sections of the largest nodular mass reveal soft and fleshy cut surfaces Areas of hemorrhage and necrosis are not seen. Sections of the other masses reveal pritchett whorled cut surfaces without areas of hemorrhage, necrosis or cystic degeneration. The uninvolved uterine wall measures up to 2.5 cm in thickness. The right fallopian tube measures 6 cm in length and 0.5 cm in diameter. The fimbrial end is identified. The proximal portion of the fallopian tube also shows two Filshie clips which appear intact. Sections do not reveal any mass lesion. The left fallopian tube is also similar appearance to right and shows two Filshie clips which appear intact and measures 7 cm in length and 0.6 cm in diameter. Bronzer sections are submitted in 12 cassettes as follows: 1 - anterior cervix, 2 - posterior cervix, 3 & 4 - anterior uterine wall, 5 & 6 - posterior uterine wall. The uterine wall section also contains the smaller nodular masses. 7-10 - largest nodular mass, 11 - right fallopian tube, 12 - left fallopian tube. / SJ:rg 07/04/18 The largest nodular mass appears to be circumscribed and no invasion into the adjacent uterine wall is noted. More sections are submitted as follows: 13-15 - largest nodular mass with adjacent uterine wall, 16 - largest nodular mass with adjacent uterine wall and uterine wall with possible endometrium. / SJ:rg 07/05/18 TC:0 CPT: 66474
--- NOTE | 2018-07-03 12:48 | PCM.OPRPT ---
Problem List (1) Uterine fibroid Status: Acute Report of Operation Date of Procedure: 07/03/18 Pre-Operative Diagnosis: uterine fibroids Post-Operative Diagnosis: same Surgery/Procedure Performed:: lavh bs cysto Description of Surgical Findings:: endoetriosis severe lateral side wall adhesion and thickening of broad ligament metal building assembler: Monica Dupree Type of Anesthesia:: General Special Medications: bryan Specimen's removed: uterus tubes Drains: mojica Estimated Blood Loss (mL): 100 Fluids Replaced: crystalloid Description of Procedure: Patient received preoperative antibiotics and SCDs were on preoperatively. Patient was taken back to the operating room and placed in the dorsal lithotomy position. General anesthesia was induced and patient was prepped and draped in normal sterile fashion. Uterine manipulator was placed inside the uterus and Mojica catheter placed in the bladder. The umbilicus was grasped with towel clamps and an intraumbilical incision was made after injecting with quarter percent Marcaine and a Veress needle entered into the abdomen confirmed to be intra-abdominal with a low opening pressure. Abdomen was insufflated with CO2 gas and the Veress needle removed and the 5 mm trocar was placed under direct visualization without complication. Right and left lower quadrants were transilluminated and injected with quarter percent Marcaine and 5 mm ports placed under direct visualization. Pelvis was well visualized see operative findings for additional information. Bilateral fallopian tubes were identified and transected with the LigaSure device across the mesosalpinx to the level of the utero-ovarian ligament which was also transected with the LigaSure device. The broad ligament was opened up by transecting the round ligament bilaterally and skeletonizing the uterine vessels bilaterally and creating a bladder flap using the LigaSure device. extenive thickening and scar tisue was encountered and taken down sharply and bluntly. The uterine arteries were transected bilaterally with good visualization of the bladder and the ureters were seen to be inferior lateral to the operative area. Attention was then paid to the vaginal portion of the procedure and the cervix was grasped with Yossi clamps and circumferentially injected with dilute vasopressin. A circumferential incision was made and the vaginal mucosa was mobilized off posteriorly and the cul-de-sac entered into sharply and a longneck speculum placed. The anterior cul-de-sac was then identified and entered into sharply. The uterosacral ligaments were clamped cut and suture ligated with 0 Monocryl bilaterally followed by the cardinal ligaments which were clamped cut and suture ligated bilaterally with 0 Monocryl. The uterus serially descended and was removed without difficulty with minimal morcellation. Pelvic sidewall pedicles were checked and noted to have excellent hemostasis. The vaginal mucosa was reapproximated incorporating the posterior peritoneum. This was reapproximated using 0 Vicryl [id number] sutures. Excellent hemostasis was noted. The cystoscopy was then performed and bilateral ureteral strong spray was noted and the bladder was noted to have no abnormality or lesions seen. Mojica catheter was replaced and then attention paid to the abdominal portion of the procedure again. The pelvis and cul-de-sac was well visualized and no significant active bleeding noted but some raw areas were seen on the peritoneum and therefore Bryan was applied. Pressure was taken down and the areas visualized and noted of excellent hemostasis. All ports were removed under direct visualization without complication and the abdomen was desufflated of air. The instruments removed from the abdomen and the vagina vaginal sweep was negative. Port sites on the abdomen were closed with 4-0 Monocryl interrupted sutures and Steri's and windows were applied. She was awoken and taken recovery in stable condition. Grafts/Implants Used: none - Complications none - Admit VTE Documentation VTE Present on Admission: No VTE Mechan Device Prophylaxis: SCD's
--- NOTE | 2018-07-03 12:51 | DCINST_ITS ---
Discharge Diet: No Restrictions Discharge Activity: Return to Normal Activity, May Not Drive, May Shower May resume sexual activity in: 6-8 weeks Call your doctor if your incision/area has: Continuous Slow Oozing, Sudden Increased Bleeding, Increased Pain/ Swelling, Increased Redness, Foul Smelling Discharge Call your doctor if you observe: Fever of 101 or Higher, Inability to urinate, Inability to have a bowel movement, Using more than one pad per hour Allergies/Adverse Reactions: Allergies No Known Allergies Allergy (Verified 06/26/18 12:46) Medications to take at Discharge fluoxetine 20 mg capsule 20 mg PO DAILY #90 cap 11/15/17 pravastatin 20 mg tablet 20 mg PO QHS #90 tab 11/15/17 Ascorbic Acid [Vitamin C] 500 mg PO DAILY@0800 02/26/18 Insulin Glargine,Hum.rec.anlog [Basaglar Kwikpen U-100] 24 unit SC QHS 02/26/18 Multivitamin [Multiple Vitamins] 1 ea PO DAILY 02/26/18 fosinopril 20 mg tablet 20 mg PO DAILY tab 03/14/18 estradiol 0.01% (0.1 mg/gram) vaginal cream See Rx Instructions VAGINAL .COMPLEX #42.5 g 04/19/18 insulin aspart U- 100 100 unit/mL subcutaneous pen 8 unit SC TID #15 ml 06/06/18 Naproxen [Naprosyn] 250 - 500 mg PO Q8H PRN PRN #30 tablet 07/03/18 Oxycodone HCl/Acetaminophen [Percocet 5-325] 1 - 2 tablet PO Q4H PRN PRN 7 Days #15 tablet 07/03/18 The following prescriptions were given: Oxycodone HCl/Acetaminophen [Percocet 5-325] 1 - 2 tablet PO Q4H PRN PRN 7 Days #15 tablet PRN Reason: Pain Naproxen [Naprosyn] 250 - 500 mg PO Q8H PRN PRN #30 tablet PRN Reason: MILD PAIN Orders to be completed after discharge: Type & Screen Time Frame: 07/03/18, Location: None Selected Basic Metabolic Profile (BMP) Time Frame: 07/03/18, Location: Laboratory CBC W/Diff, Automated Time Frame: 07/03/18, Location: Laboratory Primary Care Physician: Brown,Nitin R, DO [Primary Care Provider] - Test Results: Test results from this visit will be discussed in further detail at your follow- up appointment, if applicable. Please Follow Up With: Mery Ingram MD - [phone]
[2018-07-03] MEDS: Lubricating Jelly 60 GM Tube 30 GM TOPICAL (13:00)
[2018-07-03] MEDS: Vasopressin 20 UNITS/ML Vial (13:57)
[2018-07-03] MEDS: Bupivacaine 0.25% 30 ML Vial (14:40)
[2018-07-03 15:16] LABS: Bedside Glucose 242 mg/dL (70-110)
[2018-07-03] MEDS: Acetaminophen 500 MG Tablet 1000 MG PO (17:30)
[2018-07-03] MEDS: oxyCODONE 5 MG Tablet PO (17:31)
[2018-07-03] MEDS: Ondansetron ODT 4 MG Tablet PO (17:37)
[2018-07-03 18:37] LABS: Absolute Lymphocyte Count 0.82 X10^3/ul (0.83-4.51); Absolute Neutrophil Count 8.1 X10^3/uL (2.0-7.7); Basophil# 0.01 X10^3/uL; Basophil% 0.1 % (0-1); Eosinophil# 0.02 X10^3/uL; Eosinophils% 0.2 % (0-5); Hematocrit 39.1 % (37-47); Hemoglobin 13.1 g/dl (12.0-15.0); Lymphocyte # 0.82 X10^3/ul (4.0); Lymphocyte % 8.6 % (19-41); Mean Corp Hgb Conc 33.5 g/gl (32-36); Mean Corpuscular Hgb 30.8 pg (27.0-32.0); Mean Corpuscular Volume 91.8 fL (81-99); Mean Platelet Vol. 11.2 fl (6.2-12.0); Monocyte# 0.49 X10^3/uL; Monocyte% 5.2 % (0-10); Neutrophil # 8.13 X10^3/uL (2.7-7.7); Neutrophil % 85.7 % (47-70); Platelet Count 178 K/mm3 (150-450); RBC Distribution Width SD 39.1 fl (35.1-43.9); Red Blood Count 4.26 M/mm3 (4.2-5.4); White Blood Count 9.5 K/mm3 (4.4-11.0)
[2018-07-03 18:38] LABS: POSITIVE COUNT NO; POSITIVE DIFFERENTIAL NO; POSITIVE MORPHOLOGY NO
[2018-07-03 20:20] LABS: Bedside Glucose 300 mg/dL (70-110)
[2018-07-03] MEDS: Ketorolac 30 MG/ML Syringe IV (20:28)
[2018-07-03] MEDS: 0.9% NaCl Peripheral Flush Adult/Peds IV (20:28)
--- OUTSIDE RECORDS SUMMARY | 2018-08-19 09:38 | XMS RPT_ITS ---
:1960 Author Organization OHIP Support Name Relationship Address Phone HOME [employer] Unavailable [address] + [place] [address] MAST, AKSHAT Unavailable [address] + [place] [address] [employer] Unavailable [address] + [place] [address] MAST, AKSHAT Unavailable [address] + [place] [address] [employer] Unavailable [address] + [place] [address] MAST, AKSHAT Unavailable [address] + [place] [address] [employer] Unavailable [address] + [place] [address] MAST, AKSHAT Unavailable [address] + [place] [address] [employer] Unavailable [address] + [place] [address] MAST, AKSHAT Unavailable [address] + [place] [address] [employer] Unavailable [address] + [place] [address] MAST, AKSHAT Unavailable [address] + [place] [address] [employer] Unavailable [address] + [place] [address] MAST, AKSHAT Unavailable [address] + [place] [address] [employer] Unavailable [address] + [place] [address] MAST, AKSHAT Unavailable [address] + [place] [address] [employer] Unavailable [address] + [place] [address] MAST, AKSHAT Unavailable [address] + [place] [address] [employer] Unavailable [address] + [place] [address] MAST, AKSHAT Unavailable [address] + [place] [address] [employer] Unavailable [address] + [place] [address] MAST, AKSHAT Unavailable [address] + [place] [address] [employer] Unavailable [address] + [place] [address] MAST, AKSHAT Unavailable [address] + [place] [address] [employer] Unavailable [address] + [place] [address] MAST, AKSHAT Unavailable [address] + [place] [address] [employer] Unavailable [address] + [place] [address] MAST, AKSHAT Unavailable [address] + [place] [address] [employer] Unavailable [address] + [place] [address] MAST, AKSHAT Unavailable [address] + [place] [address] [employer] Unavailable [address] + [place] [address] MAST, AKSHAT Unavailable [address] + [place] [address] [employer] Unavailable [address] + [place] [address] MAST, AKSHAT Unavailable [address] + [place] [address] [employer] Unavailable [address] + [place] [address] MAST, AKSHAT Unavailable [address] + [place] [address] [employer] Un[address] + [place] [address] MAST, AKSHAT Unavailable [address] + [place] [address] [employer] Un[address] + [place] [address] MAST, AKSHAT Unavailable [address] + [place] [address] [employer] Unavailable [address] + [place] [address] MAST, AKSHAT Unavailable [address] + [place] [address] [employer] Unavailable [address] + [place] [address] MAST, AKSHAT Unavailable [address] + [place] [address] [employer] Un[address] + [place] [address] MAST, AKSHAT Unavailable [address] + [place] [address] [employer] Unavailable [address] + [place] [address] MAST, AKSHAT Unavailable [address] + [place] [address] [employer] Unavailable . + ., [place] [address] MAST, AKSHAT Unavailable [address] + [place] [address] MAST, AKSHAT Unavailable [address] + [place] [address] [employer] Unavailable [address] + [place] [address] MAST, AKSHAT Unavailable [address] + [place] [address] [employer] Unavailable [address] + [place] [address] Care Team Providers Name Role Phone Mery Ingram Attending Unavailable Mery Ingram Referring Unavailable Brown, Nitin Primary Care Unavailable Mery Ingram Consulting Unavailable JaydenonyMery Attending Unavailable Brown, Nitin Referring Unavailable Brown, Nitin Primary Care Unavailable Jovana Medina Attending Unavailable Brown, Nitin Attending Unavailable Brown, Nitin Referring Unavailable Brown, Nitin Attending Unavailable Brown, Nitin Referring Unavailable Brown, Nitin Primary Care Unavailable Mery Ingram Attending Unavailable Marcanthony, Mery Referring Unavailable Brown, Nitin Primary Care Unavailable Kilo Shaw Unavailable Brown, Nitin Attending Unavailable Brown, Nitin Referring Unavailable Brown, Nitin Primary Care Unavailable Leonor Lowe Attending Unavailable Brown, Nitin Referring Unavailable Brown, Nitin Primary Care Unavailable Chicorelli, Leonor Attending Unavailable Chicorelli, Leonor Referring Unavailable Brown, Nitin Primary Care Unavailable Chicorelli, Leonor Attending Unavailable Chicorelli, Leonor Referring Unavailable Brown, Nitin Primary Care Unavailable Brown, Nitin Attending Unavailable Brown, Nitin Referring Unavailable Brown, Nitin Primary Care Unavailable Brown, Nitin Attending Unavailable Brown, Nitin Referring Unavailable Brown, Nitin Primary Care Unavailable Brown, Nitin Attending Unavailable Brown, Nitin Primary Care Unavailable Kota Dooley FEED MANAGER-C Attending Unavailable Kota Dooley FEED MANAGER-C Referring Unavailable Brown, Nitin Primary Care Unavailable Nurse, Surgery Attending Unavailable Brown, Nitin Referring Unavailable Zoran Obrien Attending Unavailable Calabretta, Zoran Referring Unavailable Brown, Nitin Primary Care Unavailable Jez Veloz Attending Unavailable Brown, Nitin Referring Unavailable Brown, Nitin Primary Care Unavailable Moustapha Obrienony Attending Unavailable Calabretta, Zoran Referring Unavailable Brown, Nitin Primary Care Unavailable Calabretta Zoran Consulting Unavailable Brown, Nitin Attending Unavailable Brown, Nitin Referring Unavailable Brown, Nitin Primary Care Unavailable Brown, Nitin Attending Unavailable Brown, Nitin Primary Care Unavailable Brown, Nitin Attending Unavailable Brown, Nitin Referring Unavailable Brown, Nitin Primary Care Unavailable Marcanthony, Mery Attending Unavailable Brown, Nitin Referring Unavailable Marcanthony, Mery Attending Unavailable Brown, Nitin Primary Care Unavailable Marcanthony, Mery Referring Unavailable Marcanthony, Mery Attending Unavailable Brown, Nitin Referring Unavailable Brown, Nitin Attending Unavailable Brown, Nitin Referring Unavailable Brown, Nitin Attending Unavailable Brown, Nitin Referring Unavailable Brown, Nitin Primary Care Unavailable Marcanthony, Mery Attending Unavailable Marcanthony, Mery Referring Unavailable Brown, Nitin Primary Care Unavailable PROBLEMS PROBLEMS DATE TYPE CONDITION / CODE ATTENDING STATUS SOURCE 08/10/2018 Unknown C55 - Malignant Marcanthony, Active [place] neoplasm of uterus, [facility] part unspecified / Hospital C55(ICD-10) Repository 07/20/2018 Unknown C49.9 - Malignant Marcanthony, Active [place] neoplasm of [facility] connective and soft Hospital tissue, unspecified Repository / C49.9(ICD-10) 07/03/2018 Unknown G89.18 - Other acute Marcanthony, Active [place] postprocedural pain [facility] / G89.18(ICD-10) Hospital Repository 06/06/2018 Unknown E10.9 - Type 1 Brown, Nitin Active [place] diabetes mellitus [facility] without Hospital complications / Repository E10.9(ICD-10) 04/20/2018 Unknown Z12.4 - Encounter Marcanthony, Active [place] for screening for [facility] malignant neoplasm Hospital of cervix / Repository Z12.4(ICD-10) 06/27/2018 Unknown H81.10 - Benign Brown, Nitin Active [place] paroxysmal vertigo, [facility] unspecified ear / Hospital H81.10(ICD-10) Repository 03/16/2018 Unknown E78.5 - Brown, Nitin Active [place] Hyperlipidemia, Community unspecified / Hospital E78.5(ICD-10) Repository 03/16/2018 Unknown M75.41 - Impingement Brown, Nitin Active [place] syndrome of right [facility] shoulder / Hospital M75.41(ICD-10) Repository 03/19/2018 Unknown 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, 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 / Hospital M75.01(ICD-10) Repository 12/12/2017 Unknown M25.511 - Pain in Chicorelli, Active [place] right shoulder / [facility] M25.511(ICD-10) Hospital Repository PROCEDURES PROCEDURES No Procedure Records FoundRESULTS RESULTS ABDOMEN/PELVIS WITH Observed: 08/03/2018 Status: F Source: [place] CONTRAST 1:51 PM [facility] REPOSITORY [facility] Imaging Services [address] [place] [address] Abdomen/Pelvis WITH Contrast MR#: [id number] Acct: [id number] Name: FORREST PERES Rep #: [id number] : 1960 F 57 From: Ajith Pablo MD PCP: Nitin Falcon, Status: REG CLI Study: Abdomen/Pelvis WITH Contrast Date of Exam: 08/03/18 Exam# [id number] Ordering Dr: Mery Ingram MD STUDY: CT ABDOMEN AND PELVIS WITH CONTRAST REASON FOR EXAM: Female, 57 years old. Leiomyosarcoma status post hysterectomy RADIATION DOSAGE (If Supplied By Facility): CTDIvol = ( 12.15 ) mGy, DLP = ( 1475.56 ) mGycm TECHNIQUE: Transaxial images were obtained from the dome of the diaphragm to the symphysis pubis without oral contrast. 100 ml of Isovue 300 contrast was administered. Sagittal and coronal images were reconstructed. Individualized dose optimization techniques were used for this CT. COMPARISON: None. FINDINGS: The visualized lung bases are unremarkable. The visualized portions of the heart are within normal limits. Normal liver. Normal gallbladder and extrahepatic biliary system. Normal spleen. Normal pancreas. Normal bilateral adrenal glands. Normal right kidney. Normal left kidney. Normal visualized stomach. Normal small intestine. Normal colon. No evidence for acute appendicitis. Minor atherosclerotic changes of the aorta without evidence for aneurysm.. Normal inferior vena cava. Normal retroperitoneum. Normal urinary bladder. Uterus not visualized consistent with hysterectomy. Normal abdominal wall. Lumbar spine demonstrates mild spondylosis. CT/Abdomen/Pelvis WITH Contrast IMPRESSION: No acute abnormality status post hysterectomy No definitive evidence for recurrent tumor lymphadenopathy or metastatic disease. Electronically Signed: Ajith Pablo MD at 19:55 EST , Service support , CC: Nitin Falcon DO; Mery Ingram MD Program Developer: Signed CHEST WITH CONTRAST Observed: 08/03/2018 Status: F Source: [place] 1:51 PM [facility] REPOSITORY [facility] Imaging Services [address] [place] [address] Chest WITH Contrast MR#: [id number] Acct: [id number] Name: FORREST PERES Rep #: [id number] : 1960 F 57 From: Ajith Pablo MD PCP: Nitin Falcon DO Status: REG CLI Study: Chest WITH Contrast Date of Exam: 08/03/18 Exam# [id number] Ordering Dr: Mery Ingram MD STUDY: CT CHEST WITH CONTRAST REASON FOR EXAM: Female, 57 years old. Leiomyosarcoma of the uterus RADIATION DOSAGE (If Supplied By Facility): CTDIvol = ( 12.15 ) mGy, DLP = ( 1475.56 ) mGycm TECHNIQUE: Transaxial imaging was performed following intravenous administration of 100 ml of Isovue 300 contrast material. Individualized dose optimization techniques were used for this CT. COMPARISON: January 26, 2018 FINDINGS: Examination is limited due to omission of the upper portion of the lungs bilaterally due to less than optimal positioning Irregular nodular airspace opacity in the right upper lobe measuring 2.35 x 1.85 cm There is no demonstrated pleural abnormality. Normal heart and pericardium. Normal mediastinum. Normal hilar regions. Normal enhanced pulmonary arteries. Normal aorta arch and descending thoracic aorta. Dorsal spine demonstrates moderate spondylosis There is an asymmetric density in the left breast unchanged since previous study There is no demonstrated abnormality of the visualized upper abdomen. The nodule in the right upper lobe is relatively unchanged in size since previous study. The second previously noted nodule was not identified due to omission from the film CT/Chest WITH Contrast IMPRESSION: Persistent irregular nodular density in the right upper lobe not significantly changed since previous study. The second previously noted nodules not visualized as it has likely not been included on the film due to suboptimal positioning. No other significant change Electronically Signed: Ajith Pablo MD at 22:48 EST , Service support , CC: Nitin Falcon DO; Mery Ingram MD Program Developer: Signed LOG CHECK SCALER OFFICE VISIT Observed: 07/20/2018 Status: F Source: [place] REPORT 10:11 AM [facility] REPOSITORY [facility] [address] [place] [address]. 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 Is patient in pain?: No Allergies No Known Allergies Allergy (Verified 07/20/18 09:48) Medications fluoxetine 20 mg capsule 20 mg PO DAILY #90 cap 11/15/17 [Rx Confirmed 07/20/18] pravastatin 20 mg tablet 20 mg PO QHS #90 tab 11/15/17 [Rx Confirmed 07/20/18] Ascorbic Acid [Vitamin C] 500 mg PO DAILY@0800 02/26/18 [History Confirmed 07/20/18] Insulin Glargine,Hum.rec.anlog [Basaglar Kwikpen U-100] 24 unit SC QHS 02/26/18 [History Confirmed 07/20/18] Multivitamin [Multiple Vitamins] 1 ea PO DAILY 02/26/18 [History Confirmed 07/20/18] fosinopril 20 mg tablet 20 mg PO DAILY tab 03/14/18 [History Confirmed 07/20/18] estradiol 0.01% (0.1 mg/gram) vaginal cream See Rx Instructions VAGINAL .COMPLEX #42.5 g 04/19/18 [Rx Confirmed 07/20/18] insulin aspart U- 100 100 unit/mL subcutaneous pen 8 unit SC TID #15 ml 06/06/18 [Rx Confirmed 07/20/18] Naproxen [Naprosyn] 250 - 500 mg PO Q8H PRN PRN #30 tab 07/03/18 [Rx Confirmed 07/20/18] Is last menstrual period known: No Post menopausal: No Patient : No : No PFSH Medical History History of hip fracture (Acute) Retinopathy (Chronic) Hyperlipemia (Chronic) Type 1 diabetes mellitus (Chronic) Surgical History History of section (Acute) History of colonoscopy (Acute) History of endometrial ablation (Acute) History of eye surgery (Acute) Family History Mother Cancer Hypertension Arthritis Father Arthritis Myocardial infarction, Onset Age: 40 Heart disease Sister Diabetes Social History Smoking Status: Never smoker alcohol intake: current alcohol intake frequency: a few times a week Alcohol type: wine details: social substance use type: does not use caffeine: Yes what type of physical activity do you participate in: walking, yoga frequency: 3-4 times per week seatbelt use: always do you feel safe at home: Yes additional social history: Akshat- Teacher at [employer] 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 HPI 2 WEEK POST OP: Details: FORREST PERES is a 57 year old who presents for fu after surgery. path was leiomyosarcoma with complete excision Pregancy History 1 Elective abortions Hx Para 1 Spontaneous abortions Past Pregnancies Del. DatName GA/WeeksOutcome [facility] LgAn[facility]hesDel LocaProviderFOB e ht en ia tn Unknown 1980 Manuel[facility] live birC-sectio Female Dr. Salmeron n th - jason n BIM l term ROS Const Constitutional: Denies poor appetite, headache(s), fever(s), increased appetite, weight gain, weight loss or fatigue ENT ENT: Denies dry mouth GI GI: Reports as per HPI; denies vomiting, nausea, abdominal pain or constipation : Reports as per HPI; denies difficulty urinating, blood in urine, pelvic pain, urinary frequency, urinary incontinence, urinary hesitancy, urinary urgency, vaginal discharge, vaginal dryness, vaginal odor, vaginal itching, other, painful urination or nipple discharge Skin Skin/Breast: Denies hair loss, change in hair, dry skin, breast pain, breast skin changes, breast lump or nipple discharge Exam Const General: cooperative, healthy appearing, comfortable, no acute distress, well developed Nutritional Appearance: average body habitus Orientation: alert HENMS Head: normal to inspection, normocephalic Ears: hearing grossly normal bilaterally, external ears normal Nose: external nose normal, nares normal Face and sinus: normal facial exam Neck Neck: normal visual inspection, trachea midline, no lymphadenopathy Thyroid: thyroid normal Resp Effort AND Inspection: normal respiratory effort Musc Other: gross motor intact no deficits, full bilateral strength Skin General: no rashes or lesions noted Neuro Motor: muscle tone normal throughout Assessment AND Plan Problems 1. Leiomyosarcoma C49.[address] scans, fu with Dr Shaw. Plan recommend imaging and fu with dr shaw. Coding Level of Care Code No Charge Diagnoses Leiomyosarcoma C49.9 07/20/18 1011 <Electronically signed by Mery Ingram MD> Date Mery Ingram MD Cosigner Signature: Date (if applicable) CC: OPERATIVE REPORT Observed: 07/03/2018 Status: F Source: [place] 10:46 PM [facility] REPOSITORY [facility] Medical Records Department [address] [place] [address] Operative Report 07/03/18 1248 MR#: [id number] Acct: [id number] Name: FORREST PERES Rep #: [id number] : 1960 57 From: Mery Ingram MD PCP: Nitin Falcon DO Status: DEP [facility] Y Location: [facility] Problem List (1) Uterine fibroid Status: Acute Report of Operation Date of Procedure: 07/03/18 Pre-Operative Diagnosis: uterine fibroids Post-Operative Diagnosis: same Surgery/Procedure Performed:: lavh bs cysto Description of Surgical Findings:: endoetriosis severe lateral side wall adhesion and thickening of broad ligament police officer booking: Monica Dupree Type of Anesthesia:: General Special Medications: maulik Specimen's removed: uterus tubes Drains: mojica Estimated Blood Loss (mL): 100 Fluids Replaced: crystalloid Description of Procedure: Patient received preoperative antibiotics and SCDs were on preoperatively. Patient was taken back to the operating room and placed in the dorsal lithotomy position. General anesthesia was induced and patient was prepped and draped in normal sterile fashion. Uterine manipulator was placed inside the uterus and Mojica catheter placed in the bladder. The umbilicus was grasped with towel clamps and an intraumbilical incision was made after injecting with quarter percent Marcaine and a Veress needle entered into the abdomen confirmed to be intra-abdominal with a low opening pressure. Abdomen was insufflated with CO2 gas and the Veress needle removed and the 5 mm trocar was placed under direct visualization without complication. Right and left lower quadrants were transilluminated and injected with quarter percent Marcaine and 5 mm ports placed under direct visualization. Pelvis was well visualized see operative findings for additional information. Bilateral fallopian tubes were identified and transected with the LigaSure device across the mesosalpinx to the level of the utero-ovarian ligament which was also transected with the LigaSure device. The broad ligament was opened up by transecting the round ligament bilaterally and skeletonizing the uterine vessels bilaterally and creating a bladder flap using the LigaSure device. extenive thickening and scar tisue was encountered and taken down sharply and bluntly. The uterine arteries were transected bilaterally with good visualization of the bladder and the ureters were seen to be inferior lateral to the operative area. Attention was then paid to the vaginal portion of the procedure and the cervix was grasped with Yossi clamps and circumferentially injected with dilute vasopressin. A circumferential incision was made and the vaginal mucosa was mobilized off posteriorly and the cul-de-sac entered into sharply and a longneck speculum placed. The anterior cul-de-sac was then identified and entered into sharply. The uterosacral ligaments were clamped cut and suture ligated with 0 Monocryl bilaterally followed by the cardinal ligaments which were clamped cut and suture ligated bilaterally with 0 Monocryl. The uterus serially descended and was removed without difficulty with minimal morcellation. Pelvic sidewall pedicles were checked and noted to have excellent hemostasis. The vaginal mucosa was reapproximated incorporating the posterior peritoneum. This was reapproximated using 0 Vicryl [id number] sutures. Excellent hemostasis was noted. The cystoscopy was then performed and bilateral ureteral strong spray was noted and the bladder was noted to have no abnormality or lesions seen. Mojica catheter was replaced and then attention paid to the abdominal portion of the procedure again. The pelvis and cul-de-sac was well visualized and no significant active bleeding noted but some raw areas were seen on the peritoneum and therefore Maulik was applied. Pressure was taken down and the areas visualized and noted of excellent hemostasis. All ports were removed under direct visualization without complication and the abdomen was desufflated of air. The instruments removed from the abdomen and the vagina vaginal sweep was negative. Port sites on the abdomen were closed with 4-0 Monocryl interrupted sutures and Steri's and windows were applied. She was awoken and taken recovery in stable condition. Grafts/Implants Used: none - Complications none - Admit VTE Documentation VTE Present on Admission: No VTE Mechan Device Prophylaxis: SCD's 07/03/182245 <Electronically signed by Mery Ingram MD> Date Mery Ingram MD CC: Nitin Falcon DO; Mery Ingram MD Signed BEDSIDE GLUCOSE Collected: 07/03/2018 Status: F Source: [place] 8:12 PM [facility] REPOSITORY TYPE CODE TESTS RESULT OUT OF REFERENCE UNITS RANGE LAB L501.080 70-110 mg/dL High BEDSIDE GLU 300 Result Comment: MANAGEMENT OF PATIENT CARE PER NURSING PROTOCOL Performed By: #### L501.080 #### [facility] Laboratory Point of Care [address] [place] [address] CBC W/DIFF, AUTOMATED Collected: 07/03/2018 Status: F Source: [place] 6:10 PM [facility] REPOSITORY TYPE CODE TESTS RESULT OUT OF RANGE REFERENCE UNITS LAB L100.1000 4.4-11.0 K/mm3 Normal WBC 9.5 LAB L100.1200 4.2-5.4 M/mm3 Normal RBC 4.26 LAB L100.1300 12.0-15.0 g/dl Normal HGB 13.1 LAB L100.1400 37-47 % Normal HCT 39.1 LAB L100.1500 81-99 fL Normal MCV 91.8 LAB L100.1600 27.0-32.0 pg Normal MCH 30.8 LAB L100.1700 32-36 g/gl Normal MCHC 33.5 LAB L100.1810 11.6-14.6 % Normal RDW CV 12.0 LAB L100.1820 35.1-43.9 fl Normal RDW SD 39.1 LAB L100.1900 150-450 K/mm3 Normal PLT 178 LAB L100.2000 6.2-12.0 fl Normal MPV 11.2 LAB L100.2100 47-70 % High NEUT% 85.7 LAB L100.2200 19-41 % Low LY% 8.6 LAB L100.2300 0-10 % Normal MONO% 5.2 LAB L100.2400 0-5 % Normal EO% 0.2 LAB L100.2500 0-1 % Normal BASO% 0.1 LAB L100.2550 0.0-0.9 % Normal IM GRAN % 0.200 Result Comment: IG% - Immature Granulocytes (promyelocytes, myelocytes and metamyelocytes) > 1% indicates that a LEFT SHIFT is Present. LAB L100.2620 2.0-7.7 X10 3/uL High Absolute Neut 8.1 LAB L100.2720 0.83-4.51 X10 3/ul Low Absolute Lymph 0.82 Performed By: #### L100.0100 #### [facility] [address] [place], [place], [address] BEDSIDE GLUCOSE Collected: 07/03/2018 Status: F Source: [place] 3:10 PM [facility] REPOSITORY TYPE CODE TESTS RESULT OUT OF REFERENCE UNITS RANGE LAB L501.080 70-110 mg/dL High BEDSIDE GLU 242 Result Comment: MANAGEMENT OF PATIENT CARE PER NURSING PROTOCOL Performed By: #### L501.080 #### [facility] Point of Care [address] [place] [address] DISCHARGE INSTRUCTION Observed: 07/03/2018 Status: F Source: [place] 12:51 PM [facility] REPOSITORY [facility] Medical Records Department [address] [place] [address] Instructions for Home/Discharge Instructions 07/03/18 1250 MR#: [id number] Acct: [id number] Name: FORREST PERES Rep #: [id number] : 1960 57 From: Mery Ingram MD PCP: Nitin Falcon, DO Status: REG SDC Discharge Diet: No Restrictions Discharge Activity: Return to Normal Activity, May Not Drive, May Shower May resume sexual activity in: 6-8 weeks Call your doctor if your incision/area has: Continuous Slow Oozing, Sudden Increased Bleeding, Increased Pain/ Swelling, Increased Redness, Foul Smelling Discharge Call your doctor if you observe: Fever of 101 or Higher, Inability to urinate, Inability to have a bowel movement, Using more than one pad per hour Allergies/Adverse Reactions: Allergies No Known Allergies Allergy (Verified 06/26/18 12:46) Medications to take at Discharge fluoxetine 20 mg capsule 20 mg PO DAILY #90 cap 11/15/17 pravastatin 20 mg tablet 20 mg PO QHS #90 tab 11/15/17 Ascorbic Acid [Vitamin C] 500 mg PO DAILY@0800 02/26/18 Insulin Glargine,Hum.rec.anlog [Basaglar Kwikpen U-100] 24 unit SC QHS 02/26/18 Multivitamin [Multiple Vitamins] 1 ea PO DAILY 02/26/18 fosinopril 20 mg tablet 20 mg PO DAILY tab 03/14/18 estradiol 0.01% (0.1 mg/gram) vaginal cream See Rx Instructions VAGINAL .COMPLEX #42.5 g 04/19/18 insulin aspart U- 100 100 unit/mL subcutaneous pen 8 unit SC TID #15 ml 06/06/18 Naproxen [Naprosyn] 250 - 500 mg PO Q8H PRN PRN #30 tablet 07/03/18 Oxycodone HCl/Acetaminophen [Percocet 5-325] 1 - 2 tablet PO Q4H PRN PRN 7 Days #15 tablet 07/03/18 The following prescriptions were given: Oxycodone HCl/Acetaminophen [Percocet 5-325] 1 - 2 tablet PO Q4H PRN PRN 7 Days #15 tablet PRN Reason: Pain Naproxen [Naprosyn] 250 - 500 mg PO Q8H PRN PRN #30 tablet PRN Reason: MILD PAIN Orders to be completed after discharge: Type AND Screen Time Frame: 07/03/18, Location: None Selected Basic Metabolic Profile (BMP) Time Frame: 07/03/18, Location: Laboratory CBC W/Diff, Automated Time Frame: 07/03/18, Location: Laboratory Primary Care Physician: Nitin Falcon DO [Primary Care Provider] - Test Results: Test results from this visit will be discussed in further detail at your follow-up appointment, if applicable. Please Follow Up With: Mery Ingram MD - [phone] 07/03/18 1251 <Electronically signed by Mery Ingram MD> Date Mery Ingram MD CC: Nitin Falcon DO HISTORY AND PHYSICAL Observed: 07/03/2018 Status: F Source: [place] EXAM 12:46 PM [facility] REPOSITORY [facility] Medical Records Department [address] [place] [address] History and Physical 07/03/18 1054 MR#: [id number] Acct: [id number] Name: FORREST PERES Rep #: [id number] : 1960 57 From: Mery Ingram MD PCP: Nitin Falcon DO Status: REG SDC Y Location: [facility] LP303-3 History and Physical Date of Admission: 07/03/18 Intake Visit Reasons: F/U FROM DR. 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 Allergies No Known Allergies Allergy (Verified 05/25/18 08:05) Medications fluoxetine 20 mg capsule 20 mg PO DAILY #90 cap 11/15/17 [Rx Confirmed 05/25/18] pravastatin 20 mg tablet 20 mg PO QHS #90 tab 11/15/17 [Rx Confirmed 05/25/18] Ascorbic Acid [Vitamin C] 500 mg PO DAILY@0800 02/26/18 [History Confirmed 05/25/18] Insulin Aspart [Novolog Flexpen] 8 unit SC TID 02/26/18 [History Confirmed 05/25/18] Insulin Glargine,Hum.rec.anlog [Basaglar Kwikpen U-100] 24 unit SC QHS 02/26/18 [History Confirmed 05/25/18] Multivitamin [Multiple Vitamins] 1 ea PO DAILY 02/26/18 [History Confirmed 05/25/18] fosinopril 20 mg tablet 20 mg PO DAILY tab 03/14/18 [History Confirmed 05/25/18] estradiol 0.01% (0.1 mg/gram) vaginal cream See Rx Instructions VAGINAL .COMPLEX #42.5 g 04/19/18 [Rx Confirmed 05/25/18] Is last menstrual period known: No Post menopausal: Yes Patient : No : No PFSH Medical History History of hip fracture (Acute) Retinopathy (Chronic) Hyperlipemia (Chronic) Type 1 diabetes mellitus (Chronic) Surgical History History of section (Acute) History of colonoscopy (Acute) History of endometrial ablation (Acute) History of eye surgery (Acute) Family History Mother Cancer Hypertension Arthritis Father Arthritis Myocardial infarction, Onset Age: 40 Heart disease Sister Diabetes Social History Smoking Status: Never smoker alcohol intake: current alcohol intake frequency: a few times a week Alcohol type: wine details: social substance use type: does not use caffeine: Yes what type of physical activity do you participate in: walking, yoga frequency: 3-4 times per week seatbelt use: always do you feel safe at home: Yes additional social history: Akshat- Teacher at [employer] 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 HPI F/U FROM DR. SHAW - DISCUSS SURGERY: Details: FORREST PERES is a 57 year old who presents for discussion of surgery. she denies any urinary complaints or loss of urine, she had abnormal uptake in her fibroids in her uterus and was originally referred to me for evaluation and after consultation with scrubber system attendant onc and oncology it has been recommended to have diagnostic hysterectomy or close follow up for treatment. she has decided on treatment. Pregancy History 1 Elective abortions Hx Para 1 Spontaneous abortions Past Pregnancies Del. DatName GA/WeeksOutcome Route [facility] LocaProviderFOB e ht en th ia tn Unknown 1980 Manuela live birC-sectio Female Dr. Salmeron n th - fuln n BIM l term ROS Const Constitutional: Denies poor appetite, headache(s), fever(s), increased appetite, weight gain, weight loss or fatigue ENT ENT: Denies dry mouth GI GI: Reports as per HPI; denies vomiting, nausea, abdominal pain or constipation : Reports as per HPI; denies difficulty urinating, blood in urine, pelvic pain, urinary frequency, urinary incontinence, urinary hesitancy, urinary urgency, vaginal discharge, vaginal dryness, vaginal odor, vaginal itching, other, painful urination or nipple discharge Skin Skin/Breast: Denies hair loss, change in hair, dry skin, breast pain, breast skin changes, breast lump or nipple discharge Exam Const General: cooperative, healthy appearing, comfortable, no acute distress, well developed Nutritional Appearance: average body habitus Orientation: alert HENMS Head: normal to inspection, normocephalic Ears: hearing grossly normal bilaterally, external ears normal Nose: external nose normal, nares normal Face and sinus: normal facial exam Neck Neck: normal visual inspection, trachea midline, no lymphadenopathy Thyroid: thyroid normal Resp Effort AND Inspection: normal respiratory effort Musc Other: gross motor intact no deficits, full bilateral strength Skin General: no rashes or lesions noted Neuro Motor: muscle tone normal throughout Assessment AND Plan Problems 1. Abnormal positron emission tomography (PET) scan R94.8 Status post ONCGYN (Colin) hyst ([facility]) vs repeat imaging in 3-4 months. Patient to call and decide. Needs EMB Plan discussed surgical risks including risks of anesthesia, infection, bleeding, injury to bowel, bladder or blood vessels, and patient wishes to proceed with surgery. UPDATE- I have seen the patient and performed any clinically relevant updates to the history and physical exam. Mery Ingram MD 07/03/18 3310 <Electronically signed by Mery Ingram MD> Date Mery Ingram MD Cosigner Signature: Date (if applicable) CC: Nitin Falcon DO; Mery Ingram MD Signed UTERUS Observed: 07/03/2018 Status: F Source: [place] 12:00 PM [facility] REPOSITORY Patient: FORREST PERES : 1960 (57/F) Acct Num: [id number] Phys: Nataly CLAYTON,Mery Unit Num: [id number] Loc: [facility] [place] Specimen: [id number] Received: 07/03/181533 Spec Type: UTERUS TISSUES 1 TISSUES: Uterus, NOS COMMENT All the slides of tumor (leiomyosarcoma) are sent to [facility] for expert opinion and reviewed by Dr. Vizcaino and above diagnosis is rendered. Dr. Vizcaino also commented that the tumor consists of cellular smooth muscle tumor with brisk mitosis, marked cytologic atypia and coagulative necrosis consistent with leiomyosarcoma. The complete report is viewable in the patient's EMR. The tumor is circumscribed, does not infiltrates into the adjacent myometrium and appears to be completely excised. Case has been reviewed in consultation with Dr. Colon who concurs with the above diagnosis. IDC:AM GROSS DESCRIPTION Received in fixative is one container labeled with the patient's name and designated uterus, cervix, bilateral fallopian tubes. The specimen consists of a hysterectomy specimen which is previously opened anteriorly and consisting of uterus with cervix and attached bilateral fallopian tubes. The uterus with cervix weighs 129 gm and measures 9 x 7 x 6 cm. The serosal surface is pritchett, glistening. The ectocervical mucosa shows a focal area of erosion. The external os is circular in contour. The endocervical canal measures 3 cm in length and the endocervical mucosa is pritchett, glistening and unremarkable. The endometrial cavity is compressed to one side and measures 3 cm in length and up to 1 cm in width. The endometrium appears completely denuded and without any mass lesion. Sections of the uterine wall reveal multiple pritchett, nodular masses The largest mass measures 3.5 cm in diameter. . Sections of the largest nodular mass reveal soft and fleshy cut surfaces Areas of hemorrhage and necrosis are not seen. Sections of the other masses reveal pritchett whorled cut surfaces without areas of hemorrhage, necrosis or cystic degeneration. The uninvolved uterine wall measures up to 2.5 cm in thickness. The right fallopian tube measures 6 cm in length and 0.5 cm in diameter. The fimbrial end is identified. The proximal portion of the fallopian tube also shows two Filshie clips which appear intact. Sections do not reveal any mass lesion. The left fallopian tube is also similar appearance to right and shows two Filshie clips which appear intact and measures 7 cm in length and 0.6 cm in diameter. Center Rep sections are submitted in 12 cassettes as follows: 1 - anterior cervix, 2 - posterior cervix, 3 AND 4 - anterior uterine wall, 5 AND 6 - posterior uterine wall. The uterine wall section also contains the smaller nodular masses. 7-10 - largest nodular mass, 11 - right fallopian tube, 12 - left fallopian tube. / ROSEMARIE:enma 07/04/18 The largest nodular mass appears to be circumscribed and no invasion into the adjacent uterine wall is noted. More sections are submitted as follows: 13-15 - largest nodular mass with adjacent uterine wall, 16 - largest nodular mass with adjacent uterine wall and uterine wall with possible endometrium. / ROSEMARIE:enma 07/05/18 TC:0 CPT: 83943 HEADER OPERATION: Laparoscopic assisted vaginal hysterectomy, bilateral salpingectomy PRE-OP DIAGNOSIS: Abnormal positron emission tomography scan TISSUE SUBMITTED: Uterus, cervix, bilateral fallopian tubes MICROSCOPIC DESCRIPTION Slides are reviewed. 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 See comment. Additional findings: Cervix - chronic inflammation. Endometrium - weakly proliferative endometrium. Myometrium - intramural leiomyomas. Bilateral fallopian tubes - no pathologic diagnosis. ROSEMARIE:enma 07/10/18 Signed Nile Lang MD 07/10/18 <signature on file> Performed By: #### PUT #### [facility] [address] [place], [place], [address] CBC W/DIFF, AUTOMATED Collected: 07/03/2018 Status: F Source: LUZ 10:12 AM [facility] REPOSITORY TYPE CODE TESTS RESULT OUT OF RANGE REFERENCE UNITS LAB L100.1000 4.4-11.0 K/mm3 Normal WBC 5.9 LAB L100.1200 4.2-5.4 M/mm3 Normal RBC 4.42 LAB L100.1300 12.0-15.0 g/dl Normal HGB 13.4 LAB L100.1400 37-47 % Normal HCT 40.5 LAB L100.1500 81-99 fL Normal MCV 91.6 LAB L100.1600 27.0-32.0 pg Normal MCH 30.3 LAB L100.1700 32-36 g/gl Normal MCHC 33.1 LAB L100.1810 11.6-14.6 % Normal RDW CV 12.2 LAB L100.1820 35.1-43.9 fl Normal RDW SD 41.3 LAB L100.1900 150-450 K/mm3 Normal PLT 215 LAB L100.2000 6.2-12.0 fl Normal MPV 10.4 LAB L100.2100 47-70 % Normal NEUT% 62.2 LAB L100.2200 19-41 % Normal LY% 28.0 LAB L100.2300 0-10 % Normal MONO% 8.1 LAB L100.2400 0-5 % Normal EO% 1.5 LAB L100.2500 0-1 % Normal BASO% 0.2 LAB L100.2550 0.0-0.9 % Normal IM GRAN % 0.000 Result Comment: IG% - Immature Granulocytes (promyelocytes, myelocytes and metamyelocytes) > 1% indicates that a LEFT SHIFT is Present. LAB L100.2620 2.0-7.7 X10 3/uL Normal Absolute Neut 3.7 LAB L100.2720 0.83-4.51 X10 3/ul Normal Absolute Lymph 1.65 Performed By: #### L100.0100 #### [facility] [address] [place], [address] BASIC METABOLIC Collected: 07/03/2018 Status: F Source: [place] PROFILE (BMP) 10:12 AM [facility] REPOSITORY TYPE CODE TESTS RESULT OUT OF RANGE REFERENCE UNITS LAB L501.0100 74-106 mg/dL High GLU 201 Result Comment: Glucose result greater than or equal to 200 mg/dL suggests DIABETES MELLITUS per A.D.A. criteria. Please note revised GLUCOSE reference range effective 2017. LAB L501.1000 7-18 mg/dL Normal BUN 18 LAB L501.1100 0.55-1.02 mg/dL Normal CREAT,SERUM 0.64 Result Comment: The validity of the calculated GFR AND GFRAA in patients over 70 years has not been determined. Clinical correlation is essential. LAB L501.1110 >60 mL/min Normal EST GFR 102 Result Comment: Non- GFR Calc LAB L501.1115 >60 mL/min Normal EST GFR - AA 123 Result Comment: GFR Calc LAB L501.1255 ml/min Normal Estimated CRCL 96.65 LAB L501.1300 10-20 RATIO High BUN/CRE 28.3 LAB L501.2200 8.5-10 mg/dL Normal .1 CA 9.2 LAB L501.5300 136-14 mmol/L Normal 5 NA 137 LAB L501.5600 3.5-5. mmol/L Normal 1 K 4.0 LAB L501.5900 98-107 mmol/L Normal CL 105 LAB L501.6100 21.0-3 mmol/L Normal 2.0 CO2 28.0 LAB L501.6200 5-15 Low GAP 4 Performed By: #### L500.2500 #### [facility] [address] [facility] [place], [place], [address] TYPE AND SCREEN Collected: 07/03/2018 Status: F Source: [place] 10:12 AM [facility] REPOSITORY Order Comment: Reason for Type AND Screen/Red Cells: SURGERY TYPE CODE TESTS RESULT OUT OF RANGE REFERENCE UNITS LAB B10.0800 O Normal BLOOD TYPE GEL POSITIVE LAB B100.4000 Normal Antibody NEGATIVE Screen Performed By: #### B101.7450 #### [facility] [address] [facility] [place], [place], [address] HEMOGLOBIN A1C Collected: 06/07/2018 Status: F Source: [place] 3:15 PM [facility] REPOSITORY TYPE CODE TESTS RESULT OUT OF RANGE REFERENCE UNITS LAB L501.9985 4.2-6.3 % High HGB A1C 8.4 Performed By: #### L501.9985 #### [facility] [address] [place], [address] INTERNAL MEDICINE Observed: 06/06/2018 Status: F Source: [place] OFFICE VISIT 4:02 PM [facility] REPOSITORY [facility] [address] [place] [address] [place] [address] OFFICE VISIT Date of Service: 06/06/18 MR#: [id number] Acct: [id number] Name: FORREST PERES Rep #: [id number] : 1960 Provider: Nitin Falcon DO Age/Sex: 57/F Location: [facility] Status: Signed Intake Vital Signs06/06/18 Body Mass Index (BMI) 23.4 06/06/18 Height 5 ft 8 in 06/06/18 Weight: 155 lb 06/06/18 Body Mass Index (BMI) 23.6 06/06/18 Blood Pressure 150/78 H Intake Visit Reasons: 3 MO FU Chief Complaint: 3 Mo FU Is patient in pain?: No Allergies No Known Allergies Allergy (Verified 06/06/18 15:13) Medications fluoxetine 20 mg capsule 20 mg PO DAILY #90 cap 11/15/17 [Rx Confirmed 06/06/18] pravastatin 20 mg tablet 20 mg PO QHS #90 tab 11/15/17 [Rx Confirmed 06/06/18] Ascorbic Acid [Vitamin C] 500 mg PO DAILY@0800 02/26/18 [History Confirmed 06/06/18] Insulin Glargine,Hum.rec.anlog [Basaglar Kwikpen U-100] 24 unit SC QHS 02/26/18 [History Confirmed 06/06/18] Multivitamin [Multiple Vitamins] 1 ea PO DAILY 02/26/18 [History Confirmed 06/06/18] fosinopril 20 mg tablet 20 mg PO DAILY tab 03/14/18 [History Confirmed 06/06/18] estradiol 0.01% (0.1 mg/gram) vaginal cream See Rx Instructions VAGINAL .COMPLEX #42.5 g 04/19/18 [Rx Confirmed 06/06/18] insulin aspart U- 100 100 unit/mL subcutaneous pen 8 unit SC TID #15 ml 06/06/18 [Rx Confirmed 06/06/18] PFSH Medical History History of hip fracture (Acute) Retinopathy (Chronic) Hyperlipemia (Chronic) Type 1 diabetes mellitus (Chronic) Surgical History History of section (Acute) History of colonoscopy (Acute) History of endometrial ablation (Acute) History of eye surgery (Acute) Family History Mother Cancer Hypertension Arthritis Father Arthritis Myocardial infarction, Onset Age: 40 Heart disease Sister Diabetes Social History Smoking Status: Never smoker alcohol intake: current alcohol intake frequency: a few times a week Alcohol type: wine details: social substance use type: does not use caffeine: Yes what type of physical activity do you participate in: walking, yoga frequency: 3-4 times per week seatbelt use: always do you feel safe at home: Yes additional social history: Akshat- Teacher at [employer] 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 HPI HPI Chief Complaint: 3 Mo FU Details: FORREST PERES, is a 57 F who presents to the office today for a recheck on her blood sugar. She has had a Pap smear was HPV positive has had a PET scan which showed activity in the uterus presumably from fibroids but they were unable to complete eliminate the possibility of malignancy. Therefore she is scheduled for a hysterectomy in June. ROS Const Constitutional: No chills, fatigue, fever(s), frequent falls, malaise, weakness, sleep problems or change in appetite Eyes Eyes: No blurry vision, change in vision, double vision, discharge or visual disturbances ENT ENT: No abnormal hearing, ear pain, ear pressure, tinnitus or dizziness/vertigo Resp Respiratory: No cough, shortness of breath or wheezing Cardio Cardiology: No chest pain at rest, chest pain with exertion, shortness of breath, dyspnea on exertion, generalized swelling, irregular heart rhythm, lightheadedness, orthopnea, fast heart rate or palpitations Gastro GI: No abdominal pain, change in bowel habits, constipation, diarrhea, nausea/dyspepsia or vomiting Genitourinary-Female: No difficulty urinating, burning urination, painful urination, urinary incontinence, urinary frequency, urinary urgency, urinary hesitancy, urinary retention, Frequent nighttime urination/ nocturia, sexual problems, genital lesions, abnormal vaginal bleeding, pelvic pain, vaginal dryness, vaginal odor or Vaginal Itching Musc Musculoskeletal: No joint pain, back pain, joint swelling, limited range of motion, numbness, tingling or muscle weakness Skin Skin: No change in skin color, itching, rash or wounds Breast Breast: No breast lump or breast pain Neuro Neurology: No frequent falls, weakness, visual disturbances, abnormal hearing, numbness, tingling, unsteady gait/balance, dizziness, loss of vision or memory loss Psych Psychiatric: No change in appetite, No memory loss, No anxiety, No depression, No Thoughts of harming yourself/Others Endo Endocrine: No fatigue, heat intolerance, increased thirst/drinking, increased hunger or increased urination Aller/Imm Allergy/Immunologic: No wheezing, itchy eyes or seasonal allergy symptoms Asher/Lymp Hematologic/Lymphatic: No easy bleeding, easy bruising or enlarged lymph nodes Exam Const General: cooperative, healthy appearing Nutritional Appearance: average body habitus Resp Effort AND Inspection: normal respiratory effort Auscultation: Bilateral: Clear to Auscultation Cardio Rate: regular rate Rhythm: regular rhythm Musc Musculoskeletal: No muscle weakness Skin General: no rashes or lesions noted Neuro General: normal sensation to monofilament Extrem General: no clubbing, cyanosis or edema Assessment AND Plan Problems 1. Type 1 diabetes mellitus E10.9 2. Hyperlipemia E78.5 3. Impingement syndrome of right shoulder M75.41 4. 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 The last time we checked her hemoglobin A1c it was quite good she is anticipating a hysterectomy on 03 July. This examination was normal and I see no reason she could not go through the surgery hemoglobin A1c was ordered I would communicate those results to her. She was encouraged to continue her long-acting insulin and discontinue her short acting insulin through the hospital stay and to contact me if she had any other questions on medications preoperatively. 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 06/06/18 1602 <Electronically signed by Nitin Falcon DO> Date Nitin Falcon DO Cosigner Signature: Date (if applicable) CC: LOG CHECK SCALER OFFICE VISIT Observed: 05/25/2018 Status: F Source: [place] REPORT 8:27 AM [facility] [address] [place] [address] OFFICE VISIT Date of Service: 05/25/18 MR#: [id number] Acct: [id number] Name: FORREST PERES Rep #: [id number] : 1960 Provider: Mery Ingram MD Age/Sex: 57/F Location: [facility] [place] [facility] Status: Signed Intake Vital Signs05/25/18 Height 5 ft 8 in 05/25/18 Weight: 154 lb 05/25/18 Body Mass Index (BMI) 23.4 05/25/18 Blood Pressure 138/70 H Intake Visit Reasons: F/U FROM DR. 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 Allergies No Known Allergies Allergy (Verified 05/25/18 08:05) Medications fluoxetine 20 mg capsule 20 mg PO DAILY #90 cap 11/15/17 [Rx Confirmed 05/25/18] pravastatin 20 mg tablet 20 mg PO QHS #90 tab 11/15/17 [Rx Confirmed 05/25/18] Ascorbic Acid [Vitamin C] 500 mg PO DAILY@0800 02/26/18 [History Confirmed 05/25/18] Insulin Aspart [Novolog Flexpen] 8 unit SC TID 02/26/18 [History Confirmed 05/25/18] Insulin Glargine,Hum.rec.anlog [Basaglar Kwikpen U-100] 24 unit SC QHS 02/26/18 [History Confirmed 05/25/18] Multivitamin [Multiple Vitamins] 1 ea PO DAILY 02/26/18 [History Confirmed 05/25/18] fosinopril 20 mg tablet 20 mg PO DAILY tab 03/14/18 [History Confirmed 05/25/18] estradiol 0.01% (0.1 mg/gram) vaginal cream See Rx Instructions VAGINAL .COMPLEX #42.5 g 04/19/18 [Rx Confirmed 05/25/18] Is last menstrual period known: No Post menopausal: Yes Patient : No : No [facility] Medical History History of hip fracture (Acute) Retinopathy (Chronic) Hyperlipemia (Chronic) Type 1 diabetes mellitus (Chronic) Surgical History History of section (Acute) History of colonoscopy (Acute) History of endometrial ablation (Acute) History of eye surgery (Acute) Family History Mother Cancer Hypertension Arthritis Father Arthritis Myocardial infarction, Onset Age: 40 Heart disease Sister Diabetes Social History Smoking Status: Never smoker alcohol intake: current alcohol intake frequency: a few times a week Alcohol type: wine details: social substance use type: does not use caffeine: Yes what type of physical activity do you participate in: walking, yoga frequency: 3-4 times per week seatbelt use: always do you feel safe at home: Yes additional social history: Akshat- Teacher at [employer] 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 HPI F/U FROM DR. SHAW - DISCUSS SURGERY: Details: FORREST PERES is a 57 year old who presents for discussion of surgery. she denies any urinary complaints or loss of urine, she had abnormal uptake in her fibroids in her uterus and was originally referred to me for evaluation and after consultation with scrubber system attendant onc and oncology it has been recommended to have diagnostic hysterectomy or close follow up for treatment. she has decided on treatment. Pregancy History 1 Elective abortions Hx Para 1 Spontaneous abortions Past Pregnancies Del. DatName GA/WeeksOutcome Route [facility] LgAnesthesDel LocaProviderFOB e ht en tn Unknown 1980 Manuela live birC-sectio Female Dr. Salmeron n th - fuln n BIM l term ROS Const Constitutional: Denies poor appetite, headache(s), fever(s), increased appetite, weight gain, weight loss or fatigue ENT ENT: Denies dry mouth GI GI: Reports as per HPI; denies vomiting, nausea, abdominal pain or constipation : Reports as per HPI; denies difficulty urinating, blood in urine, pelvic pain, urinary frequency, urinary incontinence, urinary hesitancy, urinary urgency, vaginal discharge, vaginal dryness, vaginal odor, vaginal itching, other, painful urination or nipple discharge Skin Skin/Breast: Denies hair loss, change in hair, dry skin, breast pain, breast skin changes, breast lump or nipple discharge Exam Const General: cooperative, healthy appearing, comfortable, no acute distress, well developed Nutritional Appearance: average body habitus Orientation: alert HENMT Head: normal to inspection, normocephalic Ears: hearing grossly normal bilaterally, external ears normal Nose: external nose normal, nares normal Face and sinus: normal facial exam Neck Neck: normal visual inspection, trachea midline, no lymphadenopathy Thyroid: thyroid normal Resp Effort AND Inspection: normal respiratory effort Musc Other: gross motor intact no deficits, full bilateral strength Skin General: no rashes or lesions noted Neuro Motor: muscle tone normal throughout Assessment AND Plan Problems 1. Abnormal positron emission tomography (PET) scan R94.8 Status post ONCGYN ([facility]) hyst ([facility]) vs repeat imaging in 3-4 months. Patient to call and decide. Needs EMB Plan discussed surgical risks including risks of anesthesia, infection, bleeding, injury to bowel, bladder or blood vessels, and patient wishes to proceed with surgery. Coding Level of Care Code Off vis,est,level 4 Diagnoses Abnormal positron emission tomography (PET) scan R94.8 05/25/18 0827 <Electronically signed by Mery Ingram MD> Date Mery Ingram MD Cosigner Signature: Date (if applicable) CC: LOG CHECK SCALER OFFICE VISIT Observed: 04/19/2018 Status: F Source: [place] REPORT 4:16 PM [facility] Emergency Department [address] [place] [address] OFFICE VISIT Date of Service: 04/19/18 MR#: [id number] Acct: [id number] Name: FORREST PERES Rep #: [id number] : 1960 Provider: Mery Ingram MD Age/Sex: 57/F Location: [facility] Status: Signed Intake Vital Signs04/19/18 Height 5 ft 8 in 04/19/18 Weight: 150 lb 04/19/18 Body Mass Index (BMI) 22.8 04/19/18 Blood Pressure 120/70 Intake Visit Reasons: Referral from [facility]- Fibroids Chief Complaint: Referral from Dr. 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 Is patient in pain?: No Allergies No Known Allergies Allergy (Verified 04/19/18 15:33) Medications fluoxetine 20 mg capsule 20 mg PO DAILY #90 cap 11/15/17 [Rx Confirmed 04/19/18] pravastatin 20 mg tablet 20 mg PO QHS #90 tab 11/15/17 [Rx Confirmed 04/19/18] Ascorbic Acid [Vitamin C] 500 mg PO DAILY@0800 02/26/18 [History Confirmed 04/19/18] Insulin Aspart [Novolog Flexpen] 8 unit SC TID 02/26/18 [History Confirmed 04/19/18] Insulin Glargine,Hum.rec.anlog [Basaglar Kwikpen U-100] 24 unit SC QHS 02/26/18 [History Confirmed 04/19/18] Multivitamin [Multiple Vitamins] 1 ea PO DAILY 02/26/18 [History Confirmed 04/19/18] fosinopril 20 mg tablet 20 mg PO DAILY tab 03/14/18 [History Confirmed 04/19/18] estradiol 0.01% (0.1 mg/gram) vaginal cream See Rx Instructions VAGINAL .COMPLEX #42.5 g 04/19/18 [Rx Confirmed 04/19/18] Is last menstrual period known: No Post menopausal: Yes Patient : No : No [facility] Medical History History of hip fracture (Acute) Retinopathy (Chronic) Hyperlipemia (Chronic) Type 1 diabetes mellitus (Chronic) Surgical History History of section (Acute) History of colonoscopy (Acute) History of endometrial ablation (Acute) History of eye surgery (Acute) Family History Mother Cancer Hypertension Arthritis Father Arthritis Myocardial infarction, Onset Age: 40 Heart disease Sister Diabetes Social History Smoking Status: Never smoker alcohol intake: current alcohol intake frequency: a few times a week Alcohol type: wine details: social substance use type: does not use caffeine: Yes what type of physical activity do you participate in: walking, yoga frequency: 3-4 times per week seatbelt use: always do you feel safe at home: Yes additional social history: Akshat- Teacher at [employer] 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 HPI Referral from [facility]- Fibroids: Details: FORREST PERES is a 57 year old who presents for uterine fibroids diagnosed on pet scan and confirmed on ultrasound- they were 3 and 2 cm i nsize. she has had an ablation in the past. she had talked about a hysterectomy in the past but didn't end u pneeding one. she has been postmenopausal for 4 years. she hasn't had a pap in a few years. Pregancy History 1 Elective abortions Hx Para 1 Spontaneous abortions Past Pregnancies Del. DatName GA/WeeksOutcome [facility] LocaProviderFOB e ht en ia tn Unknown 1980 Manuela live birC-sectio Female Dr. Salmeron n th - jason n BIM l term ROS Const Constitutional: Denies poor appetite, headache(s), fever(s), increased appetite, weight gain, weight loss or fatigue Cardio Card: Denies chest pain Resp Resp: Denies dyspnea or cough GI GI: Reports as per HPI; denies vomiting, nausea, abdominal pain or constipation : Reports as per HPI; denies urinary urgency, vaginal discharge, urinary frequency, vaginal itching, vaginal odor, vaginal dryness, urinary incontinence, urinary hesitancy, difficulty urinating, painful urination or nipple discharge Skin Skin/Breast: Denies breast lump, breast pain, breast skin changes, nipple discharge or change in hair Exam Const General: cooperative, healthy appearing, comfortable, no acute distress, well developed Nutritional Appearance: average body habitus Orientation: alert [facility] Head: normal to inspection, normocephalic Neck Neck: normal visual inspection, trachea midline Thyroid: thyroid normal Resp Effort AND Inspection: normal respiratory effort GI Inspection: normal to inspection, non-distended Palpation: soft, no hepatosplenomegaly General: bladder normal to palpation External Female Exam: normal external appearance, normal appearance of the urethra Urethra: normal appearance of the urethra, normal palpation, no discharge Speculum Exam - Vagina: normal appearance of the vagina, normal vaginal discharge Speculum Exam - Cervix: normal appearance of the cervix, nontender, no masses Bimanual Exam- Vagina AND Uterus: bladder normal to palpation, No cervical tenderness, normal bimanual exam, uterine size normal, uterine shape normal, uterine mobility normal, uterine consistency normal, normal cervical palpation, uterus non-tender Bimanual Exam- Adnexa, other: normal adnexae, adnexae mobile, no adnexal masses, pelvic support normal Pelvic Support: normal Skin General: no rashes or lesions noted Assessment AND Plan Problems 1. Screening for HPV (human papillomavirus) Z11.51 2. Screening for cervical cancer Z12.4 3. Intramural leiomyoma of uterus D25.1 4. Dyspareunia Plan discussed fibroid likely a normal finding. also discussed dyspareunia and prescribed estrace cream. pap done because due. will discussed fibroid seen on pet scan with oncology to ensure no further followup needed. Orders Orders: Medications New: estradiol 0.01%(0.1mg/gram) (Estrace) use fingertip amount or 1-2g every night vaginally x 2 weeks, then 1-3x weekly for maintenance 42.5 gram s 3RF Coding Level of Care Code Off vis,new,level 3 Diagnoses Screening for HPV (human papillomavirus) Z11.51 Screening for cervical cancer Z12.4 Intramural leiomyoma of uterus D25.1 Uterine leiomyoma location: intramural Dyspareunia 04/19/18 1616 <Electronically signed by Mery Ingram MD> Date Mery Ingram MD [facility] Signature: Date (if applicable) CC: PAP IG HPV APTIMA Collected: 04/19/2018 Status: F Source: [place] 16/18,45 3:30 PM [facility] REPOSITORY Order Comment: CYTOLOGY INFORMATION: - CLINICAL INFORMATION: - DATE LMP/MENOPAUSE: - COLLECTION VIAL: Thin Prep Vial - INDUSTRIAL ROOFER SOURCE: CERVICAL - COLLECTION TECHNIQUE: CX BROOM ONLY Specimen Comment: [id number] Specimen Comment: Source.............Cervix Specimen Comment: No. of containers..01 ThinPrep Vial TYPE CODE TESTS RESULT OUT OF RANGE REFERENCE UNITS LAB L7400.0800 . Normal DIAGN Comment Result Comment: NEGATIVE FOR INTRAEPITHELIAL LESION AND MALIGNANCY. FUNGAL ORGANISMS MORPHOLOGICALLY CONSISTENT WITH SHIREEN SPECIES ARE PRESENT. LAB L7400.0900 . Normal ADEQ Comment Result Comment: Satisfactory for evaluation. Endocervical and/or squamous metaplastic cells (endocervical component) are present. LAB L7400.1400 . Normal PERFORM Comment Result Comment: Roscoe Tucker Carbon Paper Machine Operator (ASCP) LAB L7400.2575 . Normal TEST METHOD Comment Result Comment: This liquid based ThinPrep(R) pap test was screened with the use of an image guided system. LAB L7400.2600 . Normal . COMM LAB L7400.2700 . Normal PAPSMR Comment Result Comment: The Pap smear is a screening test designed to aid in the detection of premalignant and malignant conditions of the uterine cervix. It is not a diagnostic procedure and should not be used as the sole means of detecting cervical cancer. Both false-positive and false-negative reports do occur. LAB L7400.2760 Negative High HPV APTIMA, HR Positive Result Comment: This test detects fourteen high-risk HPV types (16/18/31/33/35/39/45/ 51/52/56/58/59/66/68) without differentiation. LAB L7400.2940 Negative Normal HPV Genotype Negative 16 LAB L7400.2945 Negative Normal HPV Zahra 18,45 Negative Result Comment: Performed at: [facility] - [facility] [address], [place] [id number] Extension Forester: Penny Russ MD, Phone: [phone] Performed at: =G - [facility] [place] [address] [place], [place] [id number] Extension Forester: Penny Russ MD, Phone: [phone] Performed By: #### L7400.0280 #### [facility] (refer to report for specific site) refer to report for address and phone number INITAL EVALUATION (1) Observed: 03/22/2018 Status: F Source: [place] - PT 9:32 AM [facility] REPOSITORY [facility] Physical Therapy Health[address] [place] [address] Fax REHABILITATION SERVICES INITIAL EVALUATION MR#: [id number] Acct: [id number] Name: FORREST PERES Rep #: [id number] : 1960 57 From: Nicholas Goldberg DPT, OCS, CSCS Referring Dr.: Nitin Falcon DO Status: REG RCR Insurance: [facility] SELF PAY INSURANCE Patient's Visit Information FORREST PERES is a 57 year old F referred to Physical Therapy by Nitin Falcon DO with a diagnosis of vertigo. Date of Evaluation: 03/21/18 Physical Therapist: Nicholas Goldberg DPT, OC - Visit Plan Frequency: 1x/Week Duration: 2-4 Plan: weekly as needed for positional checks and ex and other vestibular if indicated. - Subjective Subjective: Vertigo started in October and never had it before. Woke up with room spinning in am and spinning lying down the night before. It lasted for short duration if laid still and that lasted a couple weeks. Still spins wtih turning in bed. Went away but came back a month ago. 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 In between these episodes pf postiional vertigo, she feels normal, no COOK, no lightheadedness, no balance problems. Sleep is OK. Has not missed work due to this but must slow down at times. Enjoys shopping and still can. Basic ADLs are OK for the most part unless she has to bend over. No falls and balance is good outside of spinning. - Objective Neck ROM is good and painfree, R shoulder limited AROM to 130 and L to 150. - R hallpike lobo. + L hallpike for asymmetrical dizzyness but no obnvious nystagmus, treated with L Adalberto and then no dizzyness. Balance looks good and transfer and walk I. - Goals Goal 1:: Abolish dizzyness at work with bending over. Goal Time Frame: 2-4 Weeks Goal 2:: Turn at night without dizzyness. Goal Time Frame: 2-4 Weeks Goal 3:: Pt feel back to 100% normal Goal Time Frame: 2-4 Weeks - Rehabilitation Potential Physical Therapy Diagnosis: BPPV L posterior Rehabilitation Potential: Good - Anticipated Interventions Patient/Client Instruction: Educate patient on: Condition, Plan of Care For the Purpose of:: To increase tolerance to activity/condition/position, To improve ability of physical actions for home/community/work/leisure Comment: positional ex adn techniques and vestibular For the Purpose of:: To increase tolerance to activity/condition/position Thank you for the opportunity to evaluate your patient. For Medicare and Medicare HMO plans, please review the plan of care and approve it. It will need to be FAXED BACK to us at [phone] for Medicare purposes. Please let me know if there are questions or concerns regarding this plan of care. Physician Signature: Date: <Electronically signed by Nicholas Goldberg DPT, OCS, CSCS> 03/22/18 0932 CC: Nitin Falcon DO EBHelena Signed For Medicare only, by signing this I certify the plan of care. Physicians Signature Date HEMOGLOBIN A1C Collected: 03/16/2018 Status: F Source: [place] 2:49 PM [facility] REPOSITORY TYPE CODE TESTS RESULT OUT OF RANGE REFERENCE UNITS LAB L501.9985 4.2-6.3 % High HGB A1C 7.7 Performed By: #### L501.9985 #### [facility] [address] [place], [address] INTERNAL MEDICINE Observed: 03/14/2018 Status: F Source: [place] OFFICE VISIT 4:40 PM [facility] REPOSITORY [facility] [address] [place] [address] [place] [address] OFFICE VISIT Date of Service: 03/14/18 MR#: [id number] Acct: [id number] Name: FORREST PERES Rep #: [id number] : 1960 Provider: Nitin Falcon DO Age/Sex: 57/F Location: [facility] Status: Signed Intake Vital Signs03/14/18 Height 5 ft 8 in 03/14/18 Weight: 148 lb 03/14/18 Body Mass Index (BMI) 22.5 03/14/18 Blood Pressure 148/78 Intake Visit Reasons: 3 mo fu Chief Complaint: 3 mo follow-up diabetes AND results of tests Is patient in pain?: No Allergies No Known Allergies Allergy (Verified 03/14/18 16:03) Medications fluoxetine 20 mg capsule 20 mg PO DAILY #90 cap 11/15/17 [Rx Confirmed 03/14/18] pravastatin 20 mg tablet 20 mg PO QHS #90 tab 11/15/17 [Rx Confirmed 03/14/18] Ascorbic Acid [Vitamin C] 500 mg PO DAILY@0800 02/26/18 [History Confirmed 03/14/18] Insulin Aspart [Novolog Flexpen] 8 unit SC TID 02/26/18 [History Confirmed 03/14/18] Insulin Glargine,Hum.rec.anlog [Basaglar Kwikpen U-100] 24 unit SC QHS 02/26/18 [History Confirmed 03/14/18] Multivitamin [Multiple Vitamins] 1 ea PO DAILY 02/26/18 [History Confirmed 03/14/18] terbinafine HCl 250 mg tablet 250 mg PO QDAY #30 tab 03/06/18 [Rx Confirmed 03/14/18] fosinopril 20 mg tablet 20 mg PO DAILY tab 03/14/18 [History Confirmed 03/14/18] meclizine 25 mg tablet 25 mg PO .qid tab 03/14/18 [History Confirmed 03/14/18] [facility] Medical History History of hip fracture (Acute) Retinopathy (Chronic) Hyperlipemia (Chronic) Type 1 diabetes mellitus (Chronic) Surgical History History of section (Acute) History of colonoscopy (Acute) History of endometrial ablation (Acute) History of eye surgery (Acute) Family History Mother Cancer Hypertension Arthritis Father Arthritis Myocardial infarction, Onset Age: 40 Heart disease Sister Diabetes Social History Smoking Status: Never smoker alcohol intake: current alcohol intake frequency: a few times a week Alcohol type: wine substance use type: does not use what type of physical activity do you participate in: walking, yoga frequency: 3-4 times per week HPI HPI Chief Complaint: 3 mo follow-up diabetes AND results of tests Details: FORREST PERES, is a 57 F who presents to the office today for discussion of lab results and recheck of the diabetes ROS Const Constitutional: No chills, fatigue, fever(s), frequent falls, malaise, weakness, sleep problems or change in appetite Eyes Eyes: No blurry vision, change in vision, double vision, discharge or visual disturbances ENT ENT: Positive for dizziness/vertigo (x 2 weeks); no abnormal hearing, ear pain, ear pressure or tinnitus Resp Respiratory: No cough, shortness of breath or wheezing Cardio Cardiology: No chest pain at rest, chest pain with exertion, shortness of breath, dyspnea on exertion, generalized swelling, irregular heart rhythm, lightheadedness, orthopnea, fast heart rate or palpitations Gastro GI: No abdominal pain, change in bowel habits, constipation, diarrhea, nausea/dyspepsia or vomiting Genitourinary-Female: No difficulty urinating, burning urination, painful urination, urinary incontinence, urinary frequency, urinary urgency, urinary hesitancy, urinary retention, Frequent nighttime urination/ nocturia, sexual problems, genital lesions, abnormal vaginal bleeding, pelvic pain, vaginal dryness, vaginal odor or Vaginal Itching Musc Musculoskeletal: No joint pain, back pain, joint swelling, limited range of motion, muscle weakness, numbness or tingling Skin Skin: No change in skin color, itching, rash or wounds Breast Breast: No breast lump or breast pain Neuro Neurology: No frequent falls, weakness, abnormal hearing, numbness, tingling, unsteady gait/balance, dizziness, loss of vision, memory loss or visual disturbances Psych Psychiatric: No memory loss, No anxiety, No change in appetite, No depression, No Thoughts of harming yourself/Others Endo Endocrine: No fatigue, heat intolerance, increased thirst/drinking, increased hunger or increased urination Aller/Imm Allergy/Immunologic: No wheezing, itchy eyes or seasonal allergy symptoms Asher/Lymp Hematologic/Lymphatic: No easy bleeding, easy bruising or enlarged lymph nodes Exam Const General: cooperative, healthy appearing Nutritional Appearance: average body habitus Resp Effort AND Inspection: normal respiratory effort Auscultation: Bilateral: Clear to Auscultation Cardio Rate: regular rate Rhythm: regular rhythm Musc Musculoskeletal: No muscle weakness Skin General: no rashes or lesions noted Neuro General: normal sensation to monofilament Extrem General: no clubbing, cyanosis or edema Assessment AND Plan Problems 1. Impingement syndrome of right shoulder M75.41 2. History of hip fracture Z87.81 3. Hyperlipemia E78.5 4. Type 1 diabetes mellitus E10.9 5. BPV (benign positional vertigo) H81.10 Plan Patient is here for checkup of her diabetes. I discussed the PET scan and the ultrasound and we decided to do repeat chest x-ray in 3-4 months to make sure that the shadow on the chest x-ray and PET scan shows no sign of progression. She is having problems with vertigo so we send her to physical therapy for repositioning exercises her shoulder is much better but she would like to continue for therapy for the shoulder. Physical examination remained unchanged Orders Orders: Referrals: Plan Detail Follow Up 3 Months Coding Level of Care Code Off vis,est,level 3 Diagnoses Impingement syndrome of right shoulder M75.41 History of hip fracture Z87.81 Hyperlipemia E78.5 Type 1 diabetes mellitus E10.9 BPV (benign positional vertigo) H81.10 03/14/18 1640 <Electronically signed by Nitin Falcon DO> Date [facility]itin Falcon DO [facility] Signature: Date (if applicable) CC: OPERATIVE REPORT Observed: 02/27/2018 Status: F Source: [place] 10:01 AM [facility] REPOSITORY [facility] Medical Records Department [address] [place] [address] Operative Report 02/27/18 0959 MR#: [id number] Acct: [id number] Name: FORREST PERES Rep #: [id number] : 1960 57 From: Zoran Obrien MD PCP: Nitin Falcon, DO Status: REG [facility] Location: [place] [address] Problem List (1) Screen for colon cancer Status: Acute Report of Operation Date of Procedure: 02/27/18 Pre-Operative Diagnosis: Colon cancer screening Post-Operative Diagnosis: Normal colonoscopy Surgery/Procedure Performed:: Colonoscopy Description of Procedure: The major risks and benefits associated with the procedure were explained to the patient in detail. The patient verbalized understanding and agreement with the same. The patient was brought to the endoscopy suite. After adequate sedation was achieved, the patient was placed in the left lateral decubitus position and a digital rectal exam was performed. This examination was within normal limits. A well- lubricated colonoscope was then inserted into the rectum and advanced under direct visualization to the level of the cecum. The bowel prep was good. The cecum was identified by both visual and anatomic landmarks. A photograph was taken of the end of the cecum. The scope was then fully withdrawn while examining the color, texture, anatomy and integrity of the mucosa from the cecum to the anal canal. The findings were consistent with normal colonic mucosa. Over 6 minutes were taken to examine the colonic mucosa. Upon reaching the rectum the scope was retroflexed to examine the distal rectal vault. The scope was then straightened and was completely retrieved upon exiting the anal canal and the procedure was terminated. The patient was then transferred to the recovery room in stable condition. Recommendations for follow up: 10 years 02/27/18 1001 <Electronically signed by Zoran Obrien MD> Date Zoran Obrien MD CC: Zoran Obrien MD; Nitin Falcon DO Signed HISTORY AND PHYSICAL Observed: 02/27/2018 Status: F Source: [place] EXAM 9:22 AM [facility] REPOSITORY [facility] Medical Records Department [address] [place] [address] History and Physical 02/27/18 0921 MR#: [id number] Acct: [id number] Name: FORREST PERES Rep #: [id number] : 1960 57 From: Zoran Obrien MD PCP: Nitin Falcon DO Status: REG [facility] Location: [place] [address] Past Medical/Surgical History - Planned Operation Planned Operative Procedure/s: cscope Date of Operative Procedure: 02/27/18 Permit Signed: No S.O.S: No Is This Patient Having a Total Joint: No - Previous Hospitalizations/Surgeries HX Hospitalizations: No HX of Surgeries: 2003 fx left hip. retina surgery 1997. tubal ligation 1996. csection 1980. cataract bilat 2002. biopsy breast bilat. bunionectomy. left thumb surgery Any Problems With Anesthesia: Yes - sensitive to anesthesia/nausea You/Your Family Experience Fever (Hyperthermia) With Anes: No Cholinesterase deficiency: No - Cardiovascular Hx Chest Pain within Last 2 months: No Hx of Irregular Heartbeat and/or Afib: Yes - irreg Hx Heart Attack: No Hx Congestive Heart Failure: No Hx Rheumatic Fever: No Hx Hypertension: Yes - controlled with med Hx Internal Defibrillator: No Hx Pacemaker: No Hx Cardiac Catheterization: No Hx Cardiac Surgery/Stents/Etc.: No Hx Stress Test: Yes - 2017 at [facility] HX Edema: No Hx Pain in Legs when Walking/Leg Cramps: No - Respiratory Chronic Cough: No HX of Shortness of Breath: No Hoarseness: No Hx Chronic Obstructive Pulmonary Disease (COPD): No Hx Asthma: No Hx Emphysema: No Hx Sleep Apnea: No Hx Oxygen Use at Home: No Hx Respiratory Tract Infection/Cold (presently): No Do You Snore Loudly (louder than talking or can be heard): Yes Do You Often Feel Tired/ Fatigued/ Sleepy Dring Daytime?: No Has Anyone Observed You Stop Breathing During Sleep?: No Result (for STOP score): Positive Hx Smoking: No Smoking Status: Never smoker - Gastrointestinal Hx Gastroesophageal Reflux: No Hx Gastrointestinal Disorders: No Hx Gastrointestinal Bleed: No Hx Ulcer: No Hx Hiatal Hernia: No Difficulty Chewing/Swallowing: No Recent Onset of Swallowing Problems: No Special diet followed at home: Yes - diabetic Hx Unplanned Weight Loss of 20#: No HX Unplanned Weight Gain of 20#: No - Neurological Hx Seizures: No HX Syncope/Blackout Spells/Unconsciousness: Yes - vertigo in the past Hx CVA/Stroke: No Hx Transient Ischemic Attacks (TIA): No Hx Multiple Sclerosis: No Hx Parkinson's Disease: No Hx Head/Neck Injury: No Hx Headaches: No Hx Back Injury/Pain: No Recent Onset of Speech Difficulty: No Restless Legs: No Does patient have nerve stimulator: No Patient instructed to have device shut off: No Rep notified?: No - Blood Disorder Hx Leukemia: No Bleeding Tendencies: No Hx Deep Vein Thrombosis: No Hx High Cholesterol: No Blood Transmitted Disease: No Hx Hepatitis: No Hx Cirrhosis: No Hx Anemia: No Hx Blood Disorders: No - Reproduction : No Is Patient Lactating: No Hx Hysterectomy: No Hx Tubal Ligation: Yes Are You Post Menopause: Yes - Genitourinary Hx Renal Disease: No - Musculoskeletal Hx Arthritis: Yes Hx Rheumatoid Arthritis: No Hx Gout: No Recent Onset of an Orthopedic Problem: No - Endocrine Hx Diabetes: Yes Insulin: Yes Thyroid Disease: No Hx Steroid Therapy: No - Psycho/Social Hx Substance Use: No Hx Alcohol Use: Yes - 2 drinks daily Hx Anxiety: Yes - on med Hx Depression: Yes - on med Mental Illness: No Hx Dementia: No - Miscellaneous Hx Cancer: No Recent Exposure to Contagious Disease: No Active MRSA: No Hx of C-Diff: No Any Loose Teeth: No Allergies No Known Allergies Allergy (Verified 02/26/18 13:42) - Discharge Is Pt Admitted From a Skilled Nursing, or a Half-Way: No Who Could Help: family After D/C, Where Do you Plan to Go: Return Home Subjective: Patient reports she has never had a colonoscopy in the past. She says she is having no bleeding or abdominal pain. She has no family history of colon cancer. - Physical Exam General: Alert, Oriented x3, Cooperative Neck: No JVD Lungs: Normal air movement Cardiovascular: Regular rate, Regular Rhythm Abdomen: Soft, Non Tender, Non-Distended Vital Signs Temp Pulse Resp BP Pulse Ox 97.6 F L 76 16 126/51 H 99 02/27/18 08:40 02/27/18 08:40 02/27/18 08:40 02/27/18 08:40 02/27/18 08:40 Oxygen Delivery Method Room Air Weight: 143 lb 11.862 oz Body Mass Index (BMI) 21.8 POC Glucose POC Glucose 235 H Assessment/Plan All Active Problems (Last Updated 11/15/17 @ 16:16 by Beth Allen) Onychomycosis due to dermatophyte (Acute) History of hip fracture (Acute) 57-year-old female for screening colonoscopy 1. I explained endoscopy in detail to the patient. I explained the risks including but not limited to stroke or heart attack with anesthesia, perforation of the GI tract, bleeding, infection. I explained that any of these could necessitate further emergency surgery. The patient understands and all questions were answered sufficiently. The patient wishes to proceed with procedure. Zoran Obrien MD Pager: [facility] [address] [place] [address], [address] [place] [address] Office: Surgery Risks - Colonoscopy Risks Include but are not Limited To: Risks include but are not limited to: Bleeding, perforation requiring further surgery, inability to complete colonoscopy requiring barium enema. 02/27/18921 <Electronically signed by Zoran Obrien MD> Date Zoran Obrien MD Cosigner Signature: Date (if applicable) CC: Zoran Obrien MD; Nitin Falcon DO Signed BEDSIDE GLUCOSE Collected: 02/27/2018 Status: F Source: [place] 8:47 AM [facility] REPOSITORY TYPE CODE TESTS RESULT OUT OF REFERENCE UNITS RANGE LAB L501.080 70-110 mg/dL High BEDSIDE GLU 235 Result Comment: MANAGEMENT OF PATIENT CARE PER NURSING PROTOCOL Performed By: #### L501.080 #### [facility] Point [place] [address] ORTHOPEDIC VISIT Observed: 02/22/2018 Status: F Source: LUZ REPORT 12:14 PM [facility] REPOSITORY [facility] [address] [address] [place] [address] OFFICE VISIT Date of Service: 02/20/18 MR#: [id number] Acct: [id number] Name: FORREST PERES Rep #: [id number] : 1960 Provider: SANDOVAL Veloz Age/Sex: 57/F Location: [facility] [place] [place] Status: Signed Intake Intake Visit Reasons: RIGHT SHOULDER Chief Complaint: follow-up diabetes Is patient in pain?: Yes Allergies No Known Allergies Allergy (Verified 02/20/18 14:18) Medications fluoxetine 20 mg capsule 20 mg PO DAILY #90 cap 11/15/17 [Rx Confirmed 11/15/17] fosinopril 20 mg tablet 20 mg PO QDAY #90 tab 11/15/17 [Rx Confirmed 11/15/17] insulin aspart U-100 100 unit/mL subcutaneous pen 8 unit SC 4X/DAY #15 ml 11/15/17 [Rx Confirmed 11/15/17] insulin glargine (U-100) 100 unit/mL (3 mL) subcutaneous pen 12 unit SC QHS #15 ml 11/15/17 [Rx Confirmed 11/15/17] pravastatin 20 mg tablet 20 mg PO QHS #90 tab 11/15/17 [Rx Confirmed 11/15/17] terbinafine HCl 250 mg tablet 250 mg PO QDAY #30 tab 11/15/17 [Rx Confirmed 11/15/17] omeprazole 20 mg capsule,delayed release 20 mg PO QDAY 12/12/17 [History Confirmed 12/12/17] PFSH Medical History History of hip fracture (Acute) Retinopathy (Chronic) Hyperlipemia (Chronic) Type 1 diabetes mellitus (Chronic) Surgical History History of section (Acute) History of endometrial ablation (Acute) History of eye surgery (Acute) Family History Mother Cancer Hypertension Arthritis Father Arthritis Myocardial infarction, Onset Age: 40 Heart disease Sister Diabetes Social History Smoking Status: Never smoker alcohol intake: current alcohol intake frequency: a few times a week Alcohol type: wine substance use type: does not use what type of physical activity do you participate in: walking, yoga frequency: 3-4 times per week HPI RIGHT SHOULDER: Details: FORREST PERES is a 57 year old F here today for a followup on her right shoulder. She states that she is doing better. Her range of motion has improved especially with reaching behind her. She completed aquatic therapy which was helpful. Patient has pain only with range of motion past normal range of motion. She is able to sleep on her right shoulder now. Denies numbness, tingling or other associated symptoms. ROS Const Reports system reviewed and no additional complaints, except as docu Eyes Reports system reviewed and no additional complaints, except as docu ENT Reports system reviewed and no additional complaints, except as docu Card Reports system reviewed and no additional complaints, except as docu Resp Reports system reviewed and no additional complaints, except as docu GI Reports system reviewed and no additional complaints, except as docu Reports system reviewed and no additional complaints, except as docu Musc Reports joint pain Skin/Breast Reports system reviewed and no additional complaints, except as docu Neuro Yes system reviewed and no additional complaints, except as docu Psych Reports system reviewed and no additional complaints, except as docu Endo Reports system reviewed and no additional complaints, except as docu Ortho Exam Right Shoulder Contralateral Normal: Yes Testing: Positive Hawkin's, Neer's and AROM-External Rotation at side 0-60; negative AROM-Forward Elevation 0-180 (110), PROM-Forward Elevation 0-180 (130), TTP AC Joint, Speed's or TTP Biceps Internal Rotation: Tip of Scapula SHOULDER: She still has decreased ROM of the shoulder with abduction and forward flexion at the same time is improved from previous visit. Strength against resistance is also improved. Her internal rotation is vastly improved as is her strength . Assessment AND Plan Problems 1. Impingement syndrome of right shoulder M75.41 2. Adhesive capsulitis of right shoulder M75.01 Plan Patient has seen good improvement in strength and ROM with PT at the same time there is still plenty of motion to be gained. Although she is pleased I would like to continue with PT to try and increase her ROM. She is going to check with her insurance and let use know about how much she has available Coding Level of Care Code Off vis,est,level 3 Diagnoses Impingement syndrome of right shoulder M75.41 Adhesive capsulitis of right shoulder M75.01 Laterality: right 02/22/18 1214 <Electronically signed by Jez NICK> Date Jez NICK Cosigner Signature: Date (if applicable) CC: TRANSVAGINAL Observed: 02/16/2018 Status: F Source: [place] NON- 3:07 PM [facility] REPOSITORY [facility] Imaging Services [address] [place] [address] Transvaginal Non- MR#: [id number] Acct: [id number] Name: FORREST PERES Rep #: [id number] : 1960 F 57 From: De Bailey DO PCP: Nitin Falcon DO Status: REG CLI Study: Transvaginal Non- Date of Exam: 02/16/18 Exam# [id number] Ordering Dr: Kota Dooley FEED MANAGER-C STUDY: ULTRASOUND OF THE FEMALE PELVIS - COMPLETE REASON FOR EXAM: Female, 57 years old. Abnormal PET scan in a postmenopausal female. LMP: 4 years ago. TECHNIQUE: Transabdominal and Transvaginal TECHNICAL QUALITY: Adequate. COMPARISON: PET/CT scan, February 12, 2018. FINDINGS: The uterus is retroverted and is in a midline position. The uterus measures 9.9 x 5.6 x 4.9 cm. Normal uterine cervix. The endometrium measures 4 mm in thickness, and is hyperechoic. There is no demonstrated endometrial mass. There are 2 fibroids within the uterus measuring 1.2 x 2.1 0.8 cm 3.4 x 3.7 x 3.4 cm actively. There is also a 8 mm calcification in the lower uterine segment. I.U.D. - The patient does not have an I.U.D. The right ovary is visualized. The right ovary measures 2.9 x 1.6 x 1.0 cm. There is no right ovarian cyst or ovarian mass. There is no visualized right adnexal mass or complex lesion. There is normal arterial and normal venous vascularity. The left ovary is not visualized. There is no visualized left adnexal mass or complex lesion. There is no fluid in the cul-de-sac. The pre void volume of the bladder was 157 ml. The urinary bladder is grossly unremarkable. US/Transvaginal Non- IMPRESSION: 1. Retroverted fibroid uterus. The largest fibroid appears to coincide with the enhancing lesion seen on the PET/CT. 2. Normal right ovary. The left ovary is not visualized. Electronically Signed: De Bailey DO at 16:23 EDT Tel [phone], Service support , CC: Nitin Falcon DO; Kota Dooley NP Program Developer: Signed PELVIC (NON ) Observed: 02/16/2018 Status: F Source: [place] 2:24 PM [facility] REPOSITORY [facility] Imaging Services [address] [place] [address] Pelvic (Non ) MR#: [id number] Acct: [id number] Name: FORREST PERES Rep #: [id number] : 1960 F 57 From: De Bailey DO PCP: Nitin Falcon DO Status: REG CLI Study: Pelvic (Non ) Date of Exam: 02/16/18 Exam# [id number] Ordering Dr: Kota Dooley FEED MANAGER-C STUDY: ULTRASOUND OF THE FEMALE PELVIS - COMPLETE REASON FOR EXAM: Female, 57 years old. Abnormal PET scan in a postmenopausal female. LMP: 4 years ago. TECHNIQUE: Transabdominal and Transvaginal TECHNICAL QUALITY: Adequate. COMPARISON: PET/CT scan, February 12, 2018. FINDINGS: The uterus is retroverted and is in a midline position. The uterus measures 9.9 x 5.6 x 4.9 cm. Normal uterine cervix. The endometrium measures 4 mm in thickness, and is hyperechoic. There is no demonstrated endometrial mass. There are 2 fibroids within the uterus measuring 1.2 x 2.1 0.8 cm 3.4 x 3.7 x 3.4 cm actively. There is also a 8 mm calcification in the lower uterine segment. I.U.D. - The patient does not have an I.U.D. The right ovary is visualized. The right ovary measures 2.9 x 1.6 x 1.0 cm. There is no right ovarian cyst or ovarian mass. There is no visualized right adnexal mass or complex lesion. There is normal arterial and normal venous vascularity. The left ovary is not visualized. There is no visualized left adnexal mass or complex lesion. There is no fluid in the cul-de-sac. The pre void volume of the bladder was 157 ml. The urinary bladder is grossly unremarkable. US/Pelvic (Non ) IMPRESSION: 1. Retroverted fibroid uterus. The largest fibroid appears to coincide with the enhancing lesion seen on the PET/CT. 2. Normal right ovary. The left ovary is not visualized. Electronically Signed: De Bailey DO at 16:23 EDT Tel [phone], Service support , CC: Nitin Falcon DO; Kota Dooley NP Program Developer: Signed SCREENING MAMM (CAD), Observed: 02/12/2018 Status: F Source: LUZ BILAT 10:51 AM [facility] REPOSITORY [facility] Imaging Services [address] [place] [address] SCREENING MAMM (CAD), BILAT MR#: [id number] Acct: [id number] Name: FORREST PERES Rep #: [id number] : 1960 F 57 From: Marquez Sánchez MD PCP: Nitin Falcon DO Status: REG CLI Study: SCREENING MAMM (CAD), BILAT Date of Exam: 02/12/18 Exam# [id number] Ordering Dr: Nitin Falcon DO MAMMOGRAPHY - BILATERAL SCREENING 3-D LUIS ALFREDO SYNTHESIS REASON FOR EXAM: Female, 57 years old. Bilateral Screening 3-D tomosynthesis PERTINENT HISTORY: History of benign breast biopsy.. TECHNIQUE: 2-D mammograms and 3-D Luis Alfredo synthesis of the breast (s) were performed. CAD was performed. COMPARISON: 02/25/2015 FINDINGS: The breast composition is heterogeneously dense that can obscure small breast masses. Scattered benign calcifications are seen. No dense spiculated masses or suspicious microcalcifications are identified. No architectural distortion is identified. There is no skin thickening or retraction. There has been no significant change since the prior study. BI/SCREENING MAMM (CAD), BILAT IMPRESSION: No mammographic signs of malignancy. Routine yearly mammograms recommended. ASSESSMENT CATEGORY: BIRADS Category 2: Benign. A letter regarding these results will be sent to the patient by the facility within 30 days. FOLLOW UP RECOMMENDATION: Yearly follow up mammogram recommended. (A) Approximately 10% of breast cancers are not detected by mammography. A normal mammogram should not delay biopsy of a clinically suspicious abnormality. Electronically Signed: Yohannes Sánchez MD at 8:11 EDT , Service support , CC: Nitin Falcon DO Program Developer: Signed PET/CT TUMOR BASE Observed: 02/12/2018 Status: F Source: LUZ -THIGH INIT 6:15 AM [facility] REPOSITORY [facility] Imaging Services [address] [place] [address] PET/CT Tumor Base -Thigh Init MR#: [id number] Acct: [id number] Name: FORREST PERES Rep #: [id number] : 1960 F 57 From: Jf Landaverde DO PCP: Nitin Falcon DO Status: REG CLI Study: PET/CT Tumor Base -Thigh Init Date of Exam: 02/12/18 Exam# [id number] Ordering Dr: Nitin Falcon DO EXAMINATION: FDG PET CT INDICATIONS: A 57-year-old female with reported history of pulmonary nodularity. COMPARISON EXAMINATION: CT of the chest report dated 01/26/18. INDEX LESION SIZE SUV INTERPRETATION Right hemithorax pulmonary parenchyma, right upper lobe (n = 2) 19.8 mm largest (frame 194) 0.8 (max) Quantitative criteria for viable neoplasm are not fulfilled, sequential radiologic investigation recommended Midline mid pelvic mesentery-uterus 30.2 mm x 40.1 mm (frame 45) 18.5 May be further investigated with pelvic ultrasound secondary to the quantitative degree of uptake TECHNIQUE: Following the intravenous administration of 14.44 mCi of F-18 deoxyglucose via the left hand, multiplanar image acquisitions of the neck, chest, abdomen and pelvis to level of mid thigh, obtained at one hour post radiopharmaceutical administration contemporaneously interpreted with the current CT of the neck, chest, abdomen and pelvis to level of mid thigh, dated 02/12/[address] of the chest report dated 01/26/18 reveal: SERUM GLUCOSE LEVEL: 166 mg/dl. HEIGHT: 68 inches. WEIGHT: 145 lbs. FINDINGS: 1. Mild increased glucose metabolism is defined in the right upper hemithorax pulmonary parenchyma, right upper lobe in two separate nodular presentations generating a calculated maximum standard uptake value of 0.8. The maximal axial diameter of the largest individual noncalcified density on review of CT of the thorax dated 02/12/18 is 19.8 mm (AP). 2. Intense increased glucose metabolism is defined in the mid pelvic mesentery contiguous to the uterus generating a calculated maximum standard uptake value 18.5. The maximal axial diameter of the corresponding metabolic, morphologic abnormality on review of CT of the pelvis dated 02/12/18 is 30.2 mm (transverse) x 40.1 mm (AP). 3. Normal physiologic distribution of the radiopharmaceutical is apparent in the hepatic (3.1) and splenic parenchyma, both renal units, bladder and visualized intestinal tract. There is uniform distribution of the radiopharmaceutical concentration compared on the cerebellar hemispheres and cerebral cortex. Diffuse intestinal tract activity is noted throughout all four quadrants of the abdominal-pelvic retroperitoneum, mesentery consistent with normal physiologic distribution of the radiopharmaceutical. Prominent glucose metabolism is defined in the descending thoracic aorta. Pertinent CT findings are as follows. CHEST: Atherosclerotic calcification is defined in the thoracic aorta without evidence of dilatation, aneurysm formation. Bilateral axillary soft tissue densities demonstrate no evidence of quantitatively significant increased glucose metabolism. There are no additional parenchymal densities- nodules noted in the right-left hemithorax demonstrating discernible, quantitatively significant enhanced glucose metabolism. ABDOMEN AND PELVIS: Atherosclerotic calcification is defined in the abdominal aorta without evidence of dilatation, aneurysm formation. Abdominal-pelvic arterial calcification is observed. Right-left inguinal soft tissue densities are ametabolic. Calcification is demonstrated in the lower pelvis contiguous to the adnexal regions, uterus without evidence of facilitated glucose metabolism. Calcifications are defined in the bilateral lower hemipelvis. SKELETAL: Degenerative changes defined in the cervical, thoracic and lumbar spine demonstrate no evidence for glucose hypermetabolism. PET/PET/CT Tumor Base -Thigh Init IMPRESSION: 1. Increased glucose metabolism manifest in the lower pelvis contiguous to the uterus may be further investigated with pelvic ultrasound secondary to the quantitative degree of uptake. 2. Subtle increased radiopharmaceutical concentration barely perceptible in the right upper hemithorax pulmonary parenchyma in two separate nodular presentations does not fulfill quantitative criteria for viable neoplasm. (Marcano et al, Annals of Internal Medicine, 138:724, 2003). 3. Metabolic and/or anatomic stability may be ensured in the right hemithorax pulmonary parenchymal abnormalities with repeat FDG PET study and/or CT of the thorax in three months. (Xiu, Journal of Nuclear Medicine 45:88, P2004. Srikanth, Seminars in Thoracic and Cardiovascular Surgery 14:292, 2002). 4. Facilitated FDG uptake observed in the descending thoracic aorta is commensurate with activated leukocytes associated with atherosclerotic plaque formation. (Brianna jara al, Clinical Nuclear Medicine 29:93, 2004). Electronic Signature Jf Landaverde D.O. Electronically Signed: Jf Landaverde DO at 9:51 EDT Tel , Service support , CC: Nitin Falcon DO Program Developer: Signed CHEST WITHOUT Observed: 01/26/2018 Status: F Source: [place] CONTRAST 2:57 PM [facility] REPOSITORY [facility] Imaging Services [address] [place] [address] Chest without Contrast MR#: [id number] Acct: [id number] Name: FORREST PERES Rep #: [id number] : 1960 F 57 From: Michael Callahan MD PCP: Nitin Falcon DO Status: REG CLI Study: Chest without Contrast Date of Exam: 01/26/18 Exam# [id number] Ordering Dr: Nitin Falcon DO STUDY: CT CHEST WITHOUT CONTRAST REASON FOR EXAM: Female, 57 years old. Pulmonary nodule RADIATION DOSAGE (If Supplied By Facility): CTDIvol = ( 7.23 ) mGy, DLP = ( 254.40 ) mGycm TECHNIQUE: Transaxial imaging was performed without the administration of intravenous contrast material. Coronal and sagittal reformatted images were created. Individualized dose optimization techniques were used for this CT. COMPARISON: X-ray dated 12/12/2017 FINDINGS: There are no pulmonary infiltrates or pleural effusions. There are 2 spiculated nodules in the right upper lobe, measuring 1.8 x 1.2 cm (image 66 series 4) and 2.1 x 1.9 cm (image 73 series 4). There are no additional pulmonary nodules or masses. There is no pneumothorax. The heart and pericardium are within normal limits. There is no thoracic lymphadenopathy. There is no evidence of thoracic aortic aneurysm. Images through the upper abdomen demonstrate no significant abnormality. There are no destructive osseous lesions. There is asymmetric soft tissue density in the lateral aspect of the left breast with a 2.6 cm nodular density present (image [address]/Chest without Contrast IMPRESSION: 2 spiculated nodules in the right upper lobe with the larger measuring 2.1 x 1.9 cm. Further evaluation with PET/CT is recommended to exclude neoplasm. Asymmetric soft tissue density in the lateral aspect of the left breast measuring up to 2.6 cm. Correlation with mammography is recommended. Electronically Signed: Michael Callahan, at 16:00 EDT Tel , Service support , CC: Nitin Falcon DO Program Developer: Signed ORTHOPEDIC VISIT Observed: 01/09/2018 Status: F Source: [place] REPORT 12:23 PM [facility] REPOSITORY [facility] [address] [place] [address] [address] [place] [address] OFFICE VISIT Date of Service: 12/12/17 MR#: [id number] Acct: [id number] Name: FORREST PERES Rep #: [id number] : 1960 Provider: Leonor Lowe DO Age/Sex: 57/F Location: [facility] [place] [place] Status: Signed Intake Vital Signs12/12/17 Height 5 ft 8 in Intake Visit Reasons: RIGHT SHOULDER Chief Complaint: follow-up diabetes 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 Accompanied by: None Is patient in pain?: No Allergies No Known Allergies Allergy (Verified 08/24/17 15:15) Medications fluoxetine 20 mg capsule 20 mg PO DAILY #90 cap 11/15/17 [Rx Confirmed 11/15/17] fosinopril 20 mg tablet 20 mg PO QDAY #90 tab 11/15/17 [Rx Confirmed 11/15/17] insulin aspart U-100 100 unit/mL subcutaneous pen 8 unit SC 4X/DAY #15 ml 11/15/17 [Rx Confirmed 11/15/17] insulin glargine (U-100) 100 unit/mL (3 mL) subcutaneous pen 12 unit SC QHS #15 ml 11/15/17 [Rx Confirmed 11/15/17] pravastatin 20 mg tablet 20 mg PO QHS #90 tab 11/15/17 [Rx Confirmed 11/15/17] terbinafine HCl 250 mg tablet 250 mg PO QDAY #30 tab 11/15/17 [Rx Confirmed 11/15/17] omeprazole 20 mg capsule,delayed release 20 mg PO QDAY 12/12/17 [History Confirmed 12/12/17] [facility] Medical History History of hip fracture (Acute) Retinopathy (Chronic) Hyperlipemia (Chronic) Type 1 diabetes mellitus (Chronic) Surgical History History of section (Acute) History of endometrial ablation (Acute) History of eye surgery (Acute) Family History Mother Cancer Hypertension Arthritis Father Arthritis Myocardial infarction, Onset Age: 40 Heart disease Sister Diabetes Social History Smoking Status: Never smoker alcohol intake: current alcohol intake frequency: a few times a week Alcohol type: wine substance use type: does not use what type of physical activity do you participate in: walking, yoga frequency: 3-4 times per week HPI RIGHT SHOULDER: Details: FORREST PERES is a 57 year old F here today for right shoulder pain. Patient had no known injury. Patient states in 2013 her shoulder was frozen and she had it manipulated by Dr. Temple and he then referred her for PT. Patient states her pain is when moving certain ways upon reaching back or above the pain is then described as intense and can radiate to her neck. Denies swelling and popping/clicking. Has occasional numbness and tingling when laying on right side. No recent xray, mri, or injections. PT was in 2014. Patient takes ibuprofen for the pain which seems to help. Ortho Exam Right Shoulder Skin/Wound: Yes CDI Contralateral Normal: Yes Testing: Positive AROM-Forward Elevation 0-180 (90), PROM- Forward Elevation 0-180 (110), AROM-External Rotation at side 0-60 (40) and PROM-External Rotation at side 0-60 (50) Internal Rotation: L3 Assessment AND Plan 1. Adhesive capsulitis of right shoulder M75.01 Plan Personally reviewed the patient's medical history, medications, surgeries and recent exams if available. X-rays were reviewed. There is no obvious fracture, dislocation, or lucency noted. Educated the patient on the anatomy of the shoulder and etiology of her pain, on exam she has adhesive capsulitis, her treatment options are aquatic therapy, MEÑO, topical anti inflammatory cream, injections though they will increase her sugars and her A1C is 8.7 last check. Educated on the relationship to increased sugar and inflammation and that better controlled DM she will have better control of the shoulder rom. Today we will give PT script to work on ROM while she works on reducing her A1C prior to doing an MEÑO, if the meño fails discussed a shoulder scope for debridement. Follow up in 3 months or sooner if pain, swelling, numbness or associated symptoms, or concerns develop. All questions answered. Patient in agreement of plan. Plan Detail Other Orders Orders: Coding Diagnoses Adhesive capsulitis of right shoulder M75.01 01/09/18 1223 <Electronically signed by Leonor Lowe DO> Date Leonor Lowe DO Cosigner Signature: Date (if applicable) CC: INITAL EVALUATION (1) Observed: 12/20/2017 Status: F Source: [place] - PT 3:46 PM [facility] REPOSITORY [facility] Physical Therapy Health[address] [place], [place] [address] Fax REHABILITATION SERVICES INITIAL EVALUATION MR#: [id number] Acct: [id number] Name: FORREST PERES Rep #: [id number] : 1960 57 From: Joyce Robertson DPT Referring Dr.: Leonor Lowe DO Status: REG R Insurance: [facility] SELF PAY INSURANCE Patient's Visit Information FORREST PERES is a 57 year old F referred to Physical Therapy by Leonor Lowe DO with a diagnosis of Right shoulder- adhesive capsulitis. Date of Evaluation: 12/20/17 Physical Therapist: Joyce Robertson - Visit Plan Frequency: 2x /Week Duration: 6 Weeks Plan: Focus on ROM and strength of the right shoulder - Subjective Subjective: Right shoulder has not been moving for about 4 years. 2010 her left shoulder was frozen and had PT. 2013 the right one started getting stiff. Tried to keep it moving- end of 2013 had PT and manipulation and it just never really got any better. Has just gotten use to the pain and uses the left to reach overhead and behind her. Right hand dominate. Has had an x-ray of the shoulder but no MRI. Best: 0/10 Eases: not using it. Worst: 9/10 agg: movement. Pain is located in the top of the shoulder and into the axilla- no pain radiates to the fingers but the neck does get stiff. No increase in COOK, blurred vision, dizziness. NT in the fingers. Sleep: disturbed- wants to sleep on that side. 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 PMHx: DM (41 years), retinopathy, frozen shoulder bilateral, cataract surgery, retina surgery. Meds: fosinopril, insulin x 2, novolog, basaglar, pravastatin, fosinopril, omeprazole. Is very diligent of checking sugars (60-400). Does not passout- can regulate depending on her feelings. - Objective Posture: guarding of the right UE. Gait: decreased arm swing. Palpation: not tender to touch. AROM: 115 flexion, 110 abduction, IR: Belt line, ER: 20 degrees. Strength:4+/5 in neutral Scap: fair - Goals Goal 1:: Patient will be i with HEP and progression Goal Time Frame: 4-6 Weeks Goal 2:: Patient will demo full AROM of the right shoulder Goal Time Frame: 4-6 Weeks Goal 3:: Patient will demo ability to stack cones on a shelf x3 Goal Time Frame: 4-6 Weeks - Rehabilitation Potential Physical Therapy Diagnosis: Patient presents with hypomobility- she has decreased ROm, strength and muscular endurance leading to abnormal ADL's and pain Rehabilitation Potential: Fair - Anticipated Interventions Patient/Client Instruction: Educate patient on: Benefits of Fitness Program For the Purpose of:: To improve ability to perform ADL's Therapeutic Exercise to Include: Strength training, Endurance training, Body mechanics, Postural training, In an aquatic setting, Passive ROM, Active ROM, Scapular Strength/Stabilization For the Purpose of:: To increase ROM, To improve muscle performance and motor function Thank you for the opportunity to evaluate your patient. For Medicare and Medicare HMO plans, please review the plan of care and approve it. It will need to be FAXED BACK to us at [phone] for Medicare purposes. Please let me know if there are questions or concerns regarding this plan of care. Physician Signature: Date: <Electronically signed by Joyce Robertson DPT> 12/20/17 1546 CC: Leonor Lowe DO; Nitin Falcon DO ELR Signed For Medicare only, by signing this I certify the plan of care. Physicians Signature Date SHOULDER MIN 2 VIEWS Observed: 12/12/2017 Status: F Source: [place] 2:52 PM [facility] REPOSITORY [facility] Imaging Services [address] [place] [address] Shoulder min 2 Views MR#: [id number] Acct: [id number] Name: FORREST PERES Rep #: [id number] : 1960 F 57 From: jAith Pablo MD PCP: Nitin Falcon DO Status: REG CLI Study: Shoulder min 2 Views Date of Exam: 12/12/17 Exam# [id number] Ordering Dr: eLonor Lowe DO STUDY: X-RAY - RIGHT SHOULDER REASON FOR EXAM: Female, 57 years old. Pain TECHNIQUE: 3 view(s) of the shoulder. COMPARISON: None. FINDINGS: Narrowed glenohumeral articulation. Normal acromioclavicular joint. Normal acromion. Normal humeral head and visualized proximal humerus. The soft tissue structures are unremarkable. Incidental finding of small irregular nodular density in the right upper lobe possibly scarring. Recommend correlation with prior chest radiograph if and when available. CT may be necessary for further evaluation. RAD/Shoulder min 2 Views IMPRESSION: Mild degenerative changes. No evidence for acute fracture Cannot exclude right upper lobe nodule. Electronically Signed: Ajith Pablo MD at 18:05 EDT , Service support , CC: Leonor Lowe DO; Nitin Falcon DO Program Developer: Signed LIPID PROFILE Collected: 11/27/2017 Status: F Source: [place] 2:55 PM [facility] REPOSITORY TYPE CODE TESTS RESULT OUT OF RANGE REFERENCE UNITS LAB L501.4900 200 mg/dL Normal CHOL 189 Result Comment: <200 mg/dL Desirable 200-240 mg/dL Borderline >240 mg/dL High Risk LAB L501.5000 mg/dL Normal TRIG 80 Result Comment: The drugs N-Acetylcysteine and Metamizole may falsely depress this assay. Serum Triglycerides Reference Interval Normal <150 mg/dL Borderline high 150 - 199 mg/dL High 200 - 499 mg/dL Very High > or = 500 mg/dL LAB L501.6400 mg/dL Normal HDL 92 Result Comment: The drugs N-Acetylcysteine and Metamizole may falsely depress this assay. Reference Range HDL <40 mg/dL Low HDL Cholesterol HDL >or= 60 mg/dL High HDL Cholesterol LAB L501.6500 0-130 mg/dL Normal LDL 81 LAB L501.6600 5-40 mg/dL Normal VLDL 16 Performed By: #### L500.4100 #### [facility] [address] [place], [address] HEMOGLOBIN A1C Collected: 11/27/2017 Status: F Source: [place] 2:55 PM [facility] REPOSITORY TYPE CODE TESTS RESULT OUT OF RANGE REFERENCE UNITS LAB L501.9985 4.2-6.3 % High HGB A1C 8.7 Performed By: #### L501.9985 #### [facility] [address] [place], [address] INTERNAL MEDICINE Observed: 11/16/2017 Status: F Source: LUZ OFFICE VISIT 9:18 AM [facility] REPOSITORY [facility] [address] [place] [address] OFFICE VISIT Date of Service: 11/15/17 MR#: [id number] Acct: [id number] Name: FORREST PERES Rep #: [id number] : 1960 Provider: Nitin Falcon DO Age/Sex: 57/F Location: [facility] Status: Signed Intake Vital Signs11/15/17 Height 5 ft 8 in Intake Visit Reasons: CHECK UP Chief Complaint: follow-up diabetes Is patient in pain?: No Allergies No Known Allergies Allergy (Verified 08/24/17 15:15) Medications fluoxetine 20 mg capsule 20 mg PO DAILY #90 cap 11/15/17 [Rx Confirmed 11/15/17] fosinopril 20 mg tablet 20 mg PO QDAY #90 tab 11/15/17 [Rx Confirmed 11/15/17] insulin aspart U-100 100 unit/mL subcutaneous pen 8 unit SC 4X/DAY #15 ml 11/15/17 [Rx Confirmed 11/15/17] insulin glargine (U-100) 100 unit/mL (3 mL) subcutaneous pen 12 unit SC QHS #15 ml 11/15/17 [Rx Confirmed 11/15/17] pravastatin 20 mg tablet 20 mg PO QHS #90 tab 11/15/17 [Rx Confirmed 11/15/17] terbinafine HCl 250 mg tablet 250 mg PO QDAY #30 tab 11/15/17 [Rx Confirmed 11/15/17] PFSH Medical History History of hip fracture (Acute) Retinopathy (Chronic) Hyperlipemia (Chronic) Type 1 diabetes mellitus (Chronic) Surgical History History of section (Acute) History of endometrial ablation (Acute) History of eye surgery (Acute) Family History Mother Cancer Hypertension Arthritis Father Arthritis Myocardial infarction, Onset Age: 40 Heart disease Sister Diabetes Social History Smoking Status: Never smoker alcohol intake: current alcohol intake frequency: a few times a week Alcohol type: wine substance use type: does not use what type of physical activity do you participate in: walking, yoga frequency: 3-4 times per week HPI HPI Chief Complaint: follow-up diabetes Details: FORREST PERES is a 57 F who presents to the office today for ROS Const Constitutional: No weight change, body ache, chills, fatigue, sleep problems, fever(s), change in appetite, snoring, weakness, frequent falls, headache(s) or excessive sweating Eyes Eyes: No change in vision, eye pain, light sensitivity or blurry vision ENT ENT: No headache(s), abnormal hearing, ear pain, tinnitus, nasal congestion, sore throat or neck pain Resp Respiratory: No snoring, cough, shortness of breath or wheezing Cardio Cardiology: No excessive sweating, chest pain at rest, chest pain with exertion, shortness of breath, dyspnea on exertion, palpitations, orthopnea or lightheadedness Gastro GI: No abdominal pain, change in bowel habits, constipation, diarrhea, vomiting, nausea/dyspepsia or cramping Genitourinary-Female: No burning urination, painful urination, urinary incontinence, urinary frequency, abnormal vaginal bleeding, pelvic pain or other Musc Musculoskeletal: Positive for joint pain (in hands and knees); no neck pain, abnormal walking, back pain, limited range of motion, numbness or tingling Skin Skin: No redness, dry skin, itching, lesions, wounds or rash Neuro Neurology: No weakness, frequent falls, headache(s), abnormal hearing, abnormal walking, numbness, tingling, abnormal speech, dizziness or memory loss Psych Psychiatric: No change in appetite, No memory loss, No anxiety, No depression, No Thoughts of harming yourself/Others Endo Endocrine: No fatigue, excessive sweating, cold intolerance, increased thirst/drinking, heat intolerance, flushing or increased hunger Aller/Imm Allergy/Immunologic: No wheezing, itchy eyes, hives or seasonal allergy symptoms Asher/Lymp Hematologic/Lymphatic: No easy bleeding, easy bruising or enlarged lymph nodes Exam Const General: healthy appearing, no acute distress Nutritional Appearance: average body habitus Orientation: oriented x3 [facility] Head: normal to inspection Ears: hearing grossly normal bilaterally Neck Neck mass: No Thyroid: thyroid normal Resp Effort AND Inspection: normal respiratory effort Auscultation: Bilateral: Clear to Auscultation Cardio Rate: regular rate Rhythm: regular rhythm Heart Sounds: S1 normal, S2 normal Musc Musculoskeletal: Yes joint tenderness and decreased ROM (right shoulder, marked decrease) Skin General: no rashes or lesions noted Neuro General: normal sensation to monofilament Assessment AND Plan Problems 1. Type 1 diabetes mellitus E10.9 2. Retinopathy H35.00 3. Hyperlipemia E78.5 4. Onychomycosis due to dermatophyte B35.1 5. Impingement syndrome of right shoulder M75.41 Plan This patient is an insulin-dependent diabetic who has been moderately well controlled over the years and has remained free of any secondary side effects from her diabetes. At this visit her basic concern was her right shoulder which is getting worse so she was referred to orthopedic surgery she also showed me nails that were markedly affected by onychomycosis and medication was prescribed for that Orders Orders: Referrals: Medications New: Changed: Plan Detail Follow Up 3 Months Coding Level of Care Code Off vis,est,level 4 Diagnoses Type 1 diabetes mellitus E10.9 Retinopathy H35.00 Hyperlipemia E78.5 Onychomycosis due to dermatophyte B35.1 Impingement syndrome of right shoulder M75.41 11/16/17 0918 <Electronically signed by Nitin Falcon DO> Date Nitin Falcon DO Cosigner Signature: Date (if applicable) CC: 12 LEAD ELECTROCARDIOGRAM Observed: 08/28/2017 Status: F Source: [place] 3:17 PM [facility] REPOSITORY [facility] Cardiovascular Services [address] [place] [address] 12 Lead EKG 08/24/17 1628 MR#: [id number] Acct: [id number] Name: FORREST PERES Rep #: [id number] : 1960 56 From: Tono Castillo MD Attending Dr: Status: DEP ER Ordering Dr: Jovana Medina MD Date: 08/24/17 Location: ED Sex: F C Admitted: Test Reason : VERTIGO Blood Pressure : / mmHG Vent. Rate : 078 BPM Atrial Rate : 078 BPM P-R Int : 194 ms QRS Dur : 082 ms QT Int : 398 ms P-R-T Axes : 075 069 052 degrees QTc Int : 453 ms Normal sinus rhythm Normal ECG Confirmed by PAUL CLAYTON, TONO ([id number]), editor managing newspaper JONAH TAPIA ([id number]) on 08/28/2017 3:16:38 PM Referred By: DAYANARA Confirmed By:TONO CASTILLO MD 08/28/17 1516 Date Tono Castillo MD CC: Nitin Falcon MD Signed EMERGENCY DEPARTMENT Observed: 08/24/2017 Status: F Source: [place] SUMMARY 11:21 PM [facility] REPOSITORY [facility] Medical Records Department [address] [place] [address] Emergency Department Summary 08/24/17 1536 MR#: [id number] Acct: [id number] Name: FORREST PERES Rep #: [id number] : 1960 56 From: Jovana Medina MD PCP: Nitin Falcon MD Status: DEP ER - ER Visit Summary Date of Service: 08/24/17 Chief Complaint: Dizzy and headache History of Present Illness: The patient is a 56 F who reports flulike illness last week with body aches, cough, fever, chills. This week the patient has had intermittent nausea and body aches. She states other day she feels perfectly normal. She woke yesterday morning with vertigo symptoms. She also complains of mild waxing and waning headache to the bilateral temples for the past 1 week. Patient is diabetic and states her blood sugars have been fluctuating with her illness. She denies chest pain or palpitations. Physical Examination: Blood pressure is 154/72, temperature 97.6, heart rate 92, respiratory rate 16, pulse ox 100% on room air. Patient sitting in a bedside chair no acute distress. Head neck examination is unremarkable. TMs are clear. She has moist mucous membranes. No nystagmus is noted. Heart is regular rate and rhythm. Lung sounds are clear. Abdomen is soft nontender. Neuro exam is unremarkable. Test Results: CT the head is unremarkable. EKG is sinus at 78 with no sign of acute ischemia. CBC and chemistry studies are significant only for glucose of 291. Emergency Department Course and Treatment: Patient was given IV fluids and p.o. Antivert. On repeat evaluation she has ambulated to the bathroom and back without difficulty. She is sitting in a bedside chair fully dressed requesting to go home. She will be given prescription for Antivert at home. Treatment Plan: [] Disposition: Discharge Impression: Vertigo, improved This note was generated with [employer] management dictation software. It may contain incorrect words, spelling, and punctuation that were not noted in review of the chart prior to signing ED Disposition - Plan for ED Patient: Chief Complaint: Dizziness Referrals: Nitin Falcon MD [Primary Care Provider] - What to do if you have Problems For any increased pain, shortness of breath, bleeding, nausea or vomiting, chest pain, or any unexpected problems, contact your Primary Care Provider. Call [facility] ([phone]) or report to the closest Emergency Room. Call 911 if necessary. 08/24/17 2321 <Electronically signed by Jovana Medina MD> Date Jovana Medina MD Cosigner Signature (If Indicated): Date CC: Nitin Falcon MD DISCHARGE INSTRUCTION Observed: 08/24/2017 Status: F Source: [place] 5:37 PM [facility] REPOSITORY [facility] Medical Records Department [address] [place] [address] Discharge Instruction 08/24/17 1736 MR#: [id number] Acct: [id number] Name: FORREST PERES Rep #: [id number] : 1960 56 From: Jovana Medina MD PCP: Nitin Falcon MD Status: REG ER ED Disposition - Plan for ED Patient: Disposition: Home or Assisted Living Chief Complaint: Dizziness Instructions: ED Vertigo Unspecified Prescriptions: Meclizine HCl [Antivert] 25 mg PO 4X/DAY PRN PRN #20 tablet PRN Reason: Dizziness Referrals: Nitin Falcon MD [Primary Care Provider] - 3-5 Days if not improving What to do if you have Problems For any increased pain, shortness of breath, bleeding, nausea or vomiting, chest pain, or any unexpected problems, contact your Primary Care Provider. Call [facility] ([phone]) or report to the closest Emergency Room. Call 911 if necessary. 08/24/17 5648 <Electronically signed by Jovana Medina MD> Date Jovana Medina MD Cosigner Signature (If Indicated): Date CC: Nitin Falcon MD CBC W/DIFF, AUTOMATED Collected: 08/24/2017 Status: F Source: [place] 3:50 PM [facility] REPOSITORY TYPE CODE TESTS RESULT OUT OF RANGE REFERENCE UNITS LAB L100.1000 4.4-11.0 K/mm3 Normal WBC 5.2 LAB L100.1200 4.2-5.4 M/mm3 Low RBC 4.10 LAB L100.1300 12.0-15.0 g/dl Normal HGB 12.4 LAB L100.1400 37-47 % Low HCT 36.7 LAB L100.1500 81-99 fL Normal MCV 89.5 LAB L100.1600 27.0-32.0 pg Normal MCH 30.2 LAB L100.1700 32-36 g/gl Normal MCHC 33.8 LAB L100.1810 11.6-14.6 % Normal RDW CV 11.8 LAB L100.1820 35.1-43.9 fl Normal RDW SD 37.4 LAB L100.1900 150-450 K/mm3 Normal PLT 165 LAB L100.2000 6.2-12.0 fl Normal MPV 11.4 LAB L100.2100 47-70 % Normal NEUT% 54.4 LAB L100.2200 19-41 % Normal LY% 34.9 LAB L100.2300 0-10 % Normal MONO% 8.0 LAB L100.2400 0-5 % Normal EO% 2.1 LAB L100.2500 0-1 % Normal BASO% 0.4 LAB L100.2550 0.0-0.9 % Normal IM GRAN % 0.200 Result Comment: IG% - Immature Granulocytes (promyelocytes, myelocytes and metamyelocytes) > 1% indicates that a LEFT SHIFT is Present. LAB L100.2620 2.0-7.7 X10 3/uL Normal Absolute Neut 2.9 LAB L100.2720 0.83-4.51 X10 3/ul Normal Absolute Lymph 1.83 Performed By: #### L100.0100 #### [facility] [address] [place], [place], [address] BASIC METABOLIC Collected: 08/24/2017 Status: F Source: [place] PROFILE ([facility]) 3:50 PM [facility] REPOSITORY TYPE CODE TESTS RESULT OUT OF RANGE REFERENCE UNITS LAB L501.0100 70-110 mg/dL High GLU 291 Result Comment: Glucose result greater than or equal to 200 mg/dL suggests DIABETES MELLITUS per A.D.A. criteria. LAB L501.1000 7-18 mg/dL Normal BUN 16 LAB L501.1100 0.55-1.02 mg/dL Normal CREAT,SERUM 0.86 Result Comment: The validity of the calculated GFR AND GFRAA in patients over 70 years has not been determined. Clinical correlation is essential. LAB L501.1110 >60 mL/min Normal EST GFR 72 Result Comment: Non- GFR Calc LAB L501.1115 >60 mL/min Normal EST GFR - AA 87 Result Comment: GFR Calc LAB L501.1255 ml/min Normal Estimated CRCL 72.81 LAB L501.1300 10-20 RATIO Normal BUN/CRE 18.6 LAB L501.2200 8.5-10 mg/dL Normal .1 CA 9.6 LAB L501.5300 136-14 mmol/L Normal 5 NA 137 LAB L501.5600 3.5-5. mmol/L Normal 1 K 3.9 LAB L501.5900 98-107 mmol/L Normal CL 101 LAB L501.6100 21.0-3 mmol/L Normal 2.0 CO2 27.0 LAB L501.6200 5-15 Normal GAP 9 Performed By: #### L500.2500 #### [facility] [address] [place], [address] BRAIN/HEAD WITHOUT Observed: 08/24/2017 Status: F Source: [place] CONTRAST 3:33 PM [facility] REPOSITORY [facility] [place] [address] Brain/Head without Contrast MR#: [id number] Acct: [id number] Name: FORREST PERES Rep #: [id number] : 1960 F 56 From: Wilder Arroyo MD PCP: Nitin Falcon MD Status: PRE ER Study: Brain/Head without Contrast Date of Exam: 08/24/17 Exam# [id number] Ordering Dr: Jovana Medina MD STUDY: CT BRAIN WITHOUT CONTRAST REASON FOR EXAM: Female, 56 years old. COOK RADIATION DOSAGE (If Supplied By Facility): CTDIvol = ( 44.99 ) mGy, DLP = ( 812.98 ) mGycm TECHNIQUE: Transaxial CT imaging of the brain was performed without administration of intravenous contrast material. Individualized dose optimization techniques were used for this CT. COMPARISON: None. FINDINGS: Normal soft tissue structures. Normal calvarium. Normal size ventricles and extra-axial spaces for the patient's age. Normal white matter tracts of the cerebral hemispheres. Normal basal ganglia and thalami. Normal brainstem. Normal cerebellum. There is no intracranial hemorrhage. There are no findings of an acute ischemic infarction. Normal visualized paranasal sinuses. CT/Brain/Head without Contrast IMPRESSION: Normal unenhanced CT scan of the brain. Electronically Signed: Wilder Arroyo MD at 16:21 EST , Service support , CC: Nitin Falcon MD; Jovana Medina MD Program Developer: Signed ALLERGIES ALLERGIES DATE TYPE / CODE NAME / CODE REACTION SEVERITY SOURCE 07/20/2018 Drug No Known Unknown [facility] Allergy/4160 Allergies/F00 Hospital 80617(SNOMED 0742100(RXNOR Repository CT) M) ENCOUNTERS ENCOUNTERS ADMIT/DISCHARGE ACCOUNT ADMITTING ENCOUNTER LOCATION SOURCE NUMBER CLASS 08/03/2018 [id number] Ambulatory [place] 2 [facility] ing:CT Repository 07/20/2018/ [id number] Ambulatory BMSBuilding:B [place] 8 4 [facility] Repository 07/03/2018 [id number] Ambulatory BMSBuilding:B [place] 1 [facility] Repository 07/03/2018/ [id number] Ambulatory [place] 8 1 [facility] ing:SDCRoom: Repository MS213 06/07/2018 [id number] Ambulatory [place] 8 [facility] ing:LAB Repository 06/06/2018/ [id number] Ambulatory BMSBuilding:B [place] 8 6 [facility] Repository 05/25/2018/ [id number] Ambulatory BMSBuilding:B [place] 0 [facility] Repository 04/19/2018 [id number] Ambulatory [place] 0 [facility] ing:LABSPEC Repository 04/19/2018/ [id number] Ambulatory BMSBuilding:B [place] 9 [facility] Repository 03/28/2018/ [id number] Ambulatory [place] 8 0 [facility] ing:PT Repository 03/16/2018 [id number] Ambulatory [place] 4 [facility] ing:LAB Repository 03/14/2018/ [id number] Ambulatory BMSBuilding:B [place] 8 9 [facility] Repository 02/27/2018/ [id number] Ambulatory [place] 8 0 [facility] ing:EN Repository 02/27/2018 [id number] Ambulatory BMSBuilding:B [place] 2 [facility] Repository 02/20/2018/ [id number] Ambulatory BMSBuilding:B [place] 8 [facility] Repository 02/19/2018/ [id number] Ambulatory [place] 8 7 [facility] ing:PT Repository 02/16/2018/ [id number] Ambulatory BMSBuilding:B [place] 8 1 [place] Repository 02/16/2018 [id number] Ambulatory [place] 7 [facility] ing:US Repository 02/12/2018 [id number] Ambulatory [place] 3 [facility] ing:OPBI Repository 02/12/2018 [id number] Ambulatory [place] 1 [facility] ing:ONC Repository 01/26/2018 [id number] Ambulatory [place] 2 [facility] ing:CT Repository 12/12/2017 [id number] Ambulatory [place] 3 [facility] ing:HPRAD Repository 12/12/2017/ [id number] Ambulatory BMSBuilding:B [place] 8 2 [place].[facility] Repository 11/27/2017 [id number] Ambulatory [place] 7 [facility] ing:LAB Repository 11/15/2017/ [id number] Ambulatory BMSBuilding:B Luz 8 1 MS.BIM [facility] Repository 10/26/2017 [id number] Ambulatory BMSBuilding:B Luz 6 MS.BIM [facility] Repository 08/24/2017/ [id number] Emergency Luz [place] 8 0 [facility] ing:ED Repository PAYERS PAYERS ENCOUNTER GUARANTOR PAYER SUBSCRIBER SOURCE 08/03/2018 FORREST Abbott Primary AKSHAT L MASTDOB: [place] [id number] Insurance:MEDICAL [id number] Community Hospital [address]Dja: Number: Repository [id number] (HP) Date:1007-58-10JP [address] [place] [address]FS: 08/03/2018 Secondary NOT GIVENUNK [place] Insurance:SELF PAY [facility] Number: Effective Repository Date:2018-07-27 07/20/2018 FORREST L Primary AKSHAT L MASTDOB: Luz [id number] Insurance:MEDICAL [id number] Community Hospital [address]Mdf: Number: Repository [id number] (HP) Date:6274-34-31OF [address] [place], [place] [phone]: 07/20/2018 Secondary NOT GIVENUNK [place] Insurance:SELF PAY [facility] Number: Effective Repository Date:2018-07-20 07/03/2018 AKSHAT L [id number] Primary AKSHAT L MASTDOB: Luz [address] Insurance:MEDICAL [id number] Springs Hospital [address]Csb: (330) Number: Repository [phone] () [id number] Date:5496-53-79HT [place] [phone]: 07/03/2018 Secondary NOT GIVENUNK [place] Insurance:SELF PAY [facility] Number: Effective Repository Date:2018-07-03 07/03/2018 AKSHAT L [id number] Primary AKSHAT L MASTDOB: [place] [address] Insurance:MEDICAL [id number] Springs Hospital [address]Rcx: (330) Number: Repository [phone] () [id number] Date:1375-23-83OY [place] [phone]: 07/03/2018 Secondary NOT GIVENUNK [place] Insurance:SELF PAY [facility] Number: Effective Repository Date:2018-05-25 06/07/2018 FORREST L Primary AKSHAT L MASTDOB: Luz [id number] Insurance:MEDICAL [id number] Community Hospital [address]Cxi: Number: Repository [id number] (HP) Date:4461-21-78GB [place] [phone]: 06/07/2018 Secondary NOT GIVENUNK Luz Insurance:SELF PAY [facility] Number: Effective Repository Date:2018-06-07 06/06/2018 FORREST L Primary AKSHAT L MASTDOB: Luz [id number] Insurance:MEDICAL [id number] Community Hospital [address]Sfs: Number: Repository [id number] (HP) Date:6529-11-86ME [address] [place], [place] [phone]: 06/06/2018 Secondary NOT GIVENUNK [place] Insurance:SELF PAY [facility] Number: Effective Repository Date:2018-06-06 05/25/2018 AKSHAT L [id number] Primary AKSHAT L MASTDOB: [place] [address] Insurance:MEDICAL [id number] [place] [address]Tel: (330) Number: Repository [phone] () [id number] Date:2675-34-39TI [address] [place], [place] [phone]: 05/25/2018 Secondary NOT GIVENUNK Luz Insurance:SELF PAY [facility] Number: Effective Repository Date:2018-05-25 04/19/2018 AKSHAT L [id number] Primary AKSHAT L MASTDOB: [place] [address] Insurance:MEDICAL [id number] [place] [address]Tel: (330) Number: Repository [phone] () [id number] Date:8542-80-04HI [address] [place], [place] [phone]: 04/19/2018 Secondary NOT GIVENUNK Luz Insurance:SELF PAY [facility] Number: Effective Repository Date:2018-04-19 04/19/2018 Akshat L [id number] Primary Akshat L MastDOB: [place] [address] Insurance:MEDICAL [id number] Springs Hospital [address]Ztv: (330) Number: Repository [phone] () [id number] Date:1347-37-37WC [address] [place] [address]NK: 04/19/2018 Secondary NOT GIVENUNK Luz Insurance:SELF PAY [facility] Number: Effective Repository Date:2018-04-04 03/28/2018 Akshat L [id number] Primary Akshat L MastDOB: [place] [address] Insurance:MEDICAL [id number] Springs Hospital [address]Fhl: (330) Number: Repository [phone] () [id number] Date:8034-99-17VE [address] [place], [place] [phone]: 03/28/2018 Secondary NOT GIVENUNK [place] Insurance:SELF PAY [facility] Number: Effective Repository Date:2018-03-16 03/16/2018 Akshat L [id number] Primary Akshat L MastDOB: Luz [address] Insurance:MEDICAL [id number] Springs Hospital [address]Hfg: (330) Number: Repository [phone] () [id number] Date:2245-30-78NV [address] [address]HW: 03/16/2018 Secondary NOT GIVENUNK Luz Insurance:SELF PAY [facility] Number: Effective Repository Date:2018-03-16 03/14/2018 Akshat L [id number] Primary Akshat L MastDOB: Luz [address] Insurance:MEDICAL [id number] Springs Hospital [address]Pim: (330) Number: Repository [phone] () [id number] Date:0822-73-43DA [address] [place] [address]YH: 03/14/2018 Secondary NOT GIVENUNK Luz Insurance:SELF PAY [facility] Number: Effective Repository Date:2017-11-16 02/27/2018 Akshat L [id number] Primary Akshat L MastDOB: Luz [address] Insurance:MEDICAL [id number] Springs Hospital [address]Lem: (330) Number: Repository [phone] () [id number] Date:9708-42-51UG [place] [phone]: 02/27/2018 Secondary NOT GIVENUNK Luz Insurance:SELF PAY [facility] Number: Effective Repository Date:2018-02-16 02/27/2018 Akshat L [id number] Primary Akshat L MastDOB: Luz [address] Insurance:MEDICAL [id number] Springs Hospital [address]Ysz: (330) Number: Repository [phone] () [id number] Date:6789-85-88RZ[place] [phone]: 02/27/2018 Secondary NOT GIVENUNK Luz Insurance:SELF PAY [facility] Number: Effective Repository Date:2018-02-27 02/20/2018 Akshat L [id number] Primary Akshat L MastDOB: [place] [address] Insurance:MEDICAL [id number] Springs Hospital [address]Vtm: (330) Number: Repository [phone] () [id number] Date:2019-22-25GZ [address] [place] [phone]: 02/20/2018 Secondary NOT GIVENUNK [place] Insurance:SELF PAY [facility] Number: Effective Repository Date:2018-02-20 02/19/2018 Akshat L [id number] Primary Akshat L MastDOB: Luz [address] Insurance:MEDICAL [id number] Springs Hospital [address]Qqd: (330) Number: Repository [phone] () [id number] Date:6889-23-11XD [address] [address]KW: 02/19/2018 Secondary NOT GIVENUNK Luz Insurance:SELF PAY [facility] Number: Effective Repository Date:2017-12-12 02/16/2018 Akshat L [id number] Primary Akshat L MastDOB: [place] [address] Insurance:MEDICAL [id number] Springs Hospital [address]Bqz: (330) Number: Repository [phone] () [id number] Date:3461-52-07BY [place] [phone]: 02/16/2018 Secondary NOT GIVENUNK [place] Insurance:SELF PAY [facility] Number: Effective Repository Date:2018-02-16 02/16/2018 Akshat L [id number] Primary Akshat L MastDOB: Luz [address] Insurance:MEDICAL [id number] Springs Hospital [address]Nbo: (330) Number: Repository [phone] () [id number] Date:1788-88-69MH [place] [phone]: 02/16/2018 Secondary NOT GIVENUNK Luz Insurance:SELF PAY [facility] Number: Effective Repository Date:2018-02-14 02/12/2018 Akshat L [id number] Primary Akshat L MastDOB: [place] [address] [place] Insurance:MEDICAL [id number] Army Community Hospital [address]Xyd: (330) Number: Repository [phone] () [id number] Date:5077-45-50QT [address] [address]JS: 02/12/2018 Secondary NOT GIVENUNK Luz Insurance:SELF PAY [facility] Number: Effective Repository Date:2018-01-30 02/12/2018 Akshat L [id number] Primary Akshat L MastDOB: Luz [address] Insurance:MEDICAL [id number] [facility] [address]Zvl: (330) Number: Repository [phone] () [id number] Date:4415-41-81PR [place] [phone]: 02/12/2018 Secondary NOT GIVENUNK [place] Insurance:SELF PAY [facility] Number: Effective Repository Date:2018-02-08 01/26/2018 Akshat L [id number] Primary Akshat L MastDOB: Luz [address] [place] Insurance:MEDICAL [id number] Army Community Hospital [address]Zeo: (330) Number: Repository [phone] () [id number] Date:8353-75-98OJ [place] [address]: 01/26/2018 Secondary NOT GIVENUNK [place] Insurance:SELF PAY [facility] Number: Effective Repository Date:2018-01-15 12/12/2017 Akshat L [id number] Primary Akshat L MastDOB: Luz [address] [place] Insurance:MEDICAL [id number] Army Community Hospital [address]Hqg: (330) Number: Repository [phone] () [id number] Date:6260-89-16CK [place] [phone]: 12/12/2017 Secondary NOT GIVENUNK [place] Insurance:SELF PAY [facility] Number: Effective Repository Date:2017-12-12 12/12/2017 Akshat L [id number] Primary Akshat L MastDOB: Lu[place] [address] [place] Insurance:MEDICAL [id number] Army Community Hospital [address]Eee: (330) Number: Repository [phone] () [id number] Date:7728-29-56EU [place] [phone]: 12/12/2017 Secondary NOT GIVENUNK [place] Insurance:SELF PAY [facility] Number: Effective Repository Date:2017-12-12 11/27/2017 Akshat L [id number] Primary Akshat L MastDOB: [place] [address] [place] Insurance:MEDICAL [id number] [place] [id number]: (330) Number: Repository [phone] () [id number] Date:4157-94-00GB [place] [phone]: 11/27/2017 Secondary NOT GIVENUNK [place] Insurance:SELF PAY [facility] Number: Effective Repository Date:2017-11-27 11/15/2017 Akshat L [id number] Primary Akshat L MastDOB: [place] [address] [place] Insurance:MEDICAL [id number] [place] [address]Tel: (330) Number: Repository [phone] () [id number] Date:3302-84-56AX [place] [phone]: 11/15/2017 Secondary NOT GIVENUNK Luz Insurance:SELF PAY [facility] Number: Effective Repository Date:2017-11-15 10/26/2017 Akshat L [id number] Primary Akshat L MastDOB: Luz [address] [place] Insurance:MEDICAL [id number] [place] [address]Tel: (330) Number: Repository [phone] () [id number] Date:6618-87-01CW [place] [phone]: 10/26/2017 Secondary NOT GIVENUNK Luz Insurance:SELF PAY [facility] Number: Effective Repository Date:2017-10-02 08/24/2017 Akshat L [id number] Primary Akshat L MastDOB: [place] [address] [place] Insurance:MEDICAL [id number] [facility] HospitalmelissaBrad[facility] [address]Wdy: (330) Number: Repository [phone] ) [id number] Date:4233-73-97[address] [address]XC: 08/24/2017 Secondary NOT GIVENUNK [place] Insurance:SELF PAY [facility] Number: Effective Repository Date:2017-08-24
== END 2018-07-03 20:43 | disposition home or self-care (01) ==
LOC: SDC 09:48 → AC 09:49 → MS2 09:56
PROVIDERS: Family Provider Family Medicine; PCP Family Medicine; Referring Provider Obstetrics & Gynecology; Visit Provider Obstetrics & Gynecology
PROC: 0UT9FZZ Resection of Uterus, Via Natural or Artificial Opening With Percutaneous Endoscopic Assistance (ICD-10-PCS; CPT 58552; principal; 2018-07-03 11:35)
DX: D25.1 Intramural leiomyoma of uterus (principal); I10 Essential (primary) hypertension; E78.5 Hyperlipidemia, unspecified; E10.319 Type 1 diabetes mellitus with unspecified diabetic retinopathy without macular edema; E78.00 Pure hypercholesterolemia, unspecified; F32.9 Major depressive disorder, single episode, unspecified; Z79.4 Long term (current) use of insulin; Z79.899 Other long term (current) drug therapy
CPT/HCPCS: 00840; 58552; 36415; 80048; 82962; 85025; 86850; 86900; 88307; 88309; 94762; J7120; A4216; J2405

== ENCOUNTER → 2018-08-03 13:49 | Outpatient (CLI) | payer OTHER, SELFPAY ==
[2018-07-20 09:49] VITALS: BMI 23.8
--- NOTE | 2018-08-03 13:51 | CT_ITS ---
STUDY: CT CHEST WITH CONTRAST REASON FOR EXAM: Female, 57 years old. Leiomyosarcoma of the uterus RADIATION DOSAGE (If Supplied By Facility): CTDIvol = ( 12.15 ) mGy, DLP = ( 1475.56 ) mGycm TECHNIQUE: Transaxial imaging was performed following intravenous administration of 100 ml of Isovue 300 contrast material. Individualized dose optimization techniques were used for this CT. COMPARISON: January 26, 2018 FINDINGS: Examination is limited due to omission of the upper portion of the lungs bilaterally due to less than optimal positioning Irregular nodular airspace opacity in the right upper lobe measuring 2.35 x 1.85 cm There is no demonstrated pleural abnormality. Normal heart and pericardium. Normal mediastinum. Normal hilar regions. Normal enhanced pulmonary arteries. Normal aorta arch and descending thoracic aorta. Dorsal spine demonstrates moderate spondylosis There is an asymmetric density in the left breast unchanged since previous study There is no demonstrated abnormality of the visualized upper abdomen. The nodule in the right upper lobe is relatively unchanged in size since previous study. The second previously noted nodule was not identified due to omission from the film CT/Chest WITH Contrast IMPRESSION: Persistent irregular nodular density in the right upper lobe not significantly changed since previous study. The second previously noted nodules not visualized as it has likely not been included on the film due to suboptimal positioning. No other significant change Electronically Signed: Ajith Pablo MD at 22:48 EST , Service support ,
--- NOTE | 2018-08-03 13:51 | CT_ITS ---
STUDY: CT ABDOMEN AND PELVIS WITH CONTRAST REASON FOR EXAM: Female, 57 years old. Leiomyosarcoma status post hysterectomy RADIATION DOSAGE (If Supplied By Facility): CTDIvol = ( 12.15 ) mGy, DLP = ( 1475.56 ) mGycm TECHNIQUE: Transaxial images were obtained from the dome of the diaphragm to the symphysis pubis without oral contrast. 100 ml of Isovue 300 contrast was administered. Sagittal and coronal images were reconstructed. Individualized dose optimization techniques were used for this CT. COMPARISON: None. FINDINGS: The visualized lung bases are unremarkable. The visualized portions of the heart are within normal limits. Normal liver. Normal gallbladder and extrahepatic biliary system. Normal spleen. Normal pancreas. Normal bilateral adrenal glands. Normal right kidney. Normal left kidney. Normal visualized stomach. Normal small intestine. Normal colon. No evidence for acute appendicitis. Minor atherosclerotic changes of the aorta without evidence for aneurysm.. Normal inferior vena cava. Normal retroperitoneum. Normal urinary bladder. Uterus not visualized consistent with hysterectomy. Normal abdominal wall. Lumbar spine demonstrates mild spondylosis. CT/Abdomen/Pelvis WITH Contrast IMPRESSION: No acute abnormality status post hysterectomy No definitive evidence for recurrent tumor lymphadenopathy or metastatic disease. Electronically Signed: Ajith Pablo MD at 19:55 EST , Service support ,
== END ==
PROVIDERS: Family Provider Family Medicine; PCP Family Medicine; Referring Provider Obstetrics & Gynecology; Visit Provider Obstetrics & Gynecology
DX: C55 Malignant neoplasm of uterus, part unspecified (principal)
CPT/HCPCS: 71260; 74177; Q9967

== ENCOUNTER → 2018-12-25 14:52 | Outpatient (CLI) | payer OTHER, SELFPAY ==
[2018-09-05 14:45] VITALS: BMI 23.8
[2018-12-05 15:13] VITALS: BMI 23.8
--- NOTE | 2018-12-25 14:58 | CT_ITS ---
STUDY: CT ABDOMEN AND PELVIS WITH CONTRAST REASON FOR EXAM: Female, 58 years old. History of leiomyosarcoma of the uterus RADIATION DOSAGE (If Supplied By Facility): CTDIvol = ( 11.41 ) mGy, DLP = ( 1004.59 ) mGycm TECHNIQUE: Transaxial images were obtained from the dome of the diaphragm to the symphysis pubis without oral contrast. 100ml IV/Oral Isovue 300 was administered. Sagittal and coronal images were reconstructed. Individualized dose optimization techniques were used for this CT. COMPARISON: None. FINDINGS: A 2.6 x 1.4 cm pleuroparenchymal density in the lingula division of the left upper The liver is normal. No dilated intrahepatic biliary radicles. The gallbladder is normal with no calcifications within it. There is no pericholecystic fluid collection or streakiness The spleen is normal. The pancreas is normal. Both adrenals are normal. The kidneys are normal with no masses, calculi or hydronephrosis The stomach is normal. There is no bowel distention, acute appendicitis or diverticulitis. No constricting lesions are seen in large bowel. The abdominal wall is intact with no hernias. There is no ascites or any free intraperitoneal air. No indication of epiploic appendagitis The vascular structures in the retroperitoneum are normal. There is no retrocrural, retroperitoneal or mesenteric adenopathy. Mild degenerative changes at L4-5. No osteolytic or osteoblastic changes The urinary bladder is normal.--Previous hysterectomy. There is no inguinal or pelvic adenopathy. There is no inguinal hernia. . CT/Abdomen/Pelvis WITH Contrast IMPRESSION: No acute findings in the abdomen or pelvis. Specifically there is no acute appendicitis or diverticulitis. No indication of any metastatic disease. A 2.6 x 1.4 cm pleuroparenchymal density in the lingula division of the left upper lobe Electronically Signed: Gamal Olivo MD at 4:55 EDT Tel , Service support ,
--- NOTE | 2018-12-25 14:58 | CT_ITS ---
STUDY: CT CHEST WITH CONTRAST REASON FOR EXAM: Female, 58 years old. History of a leiomyosarcoma of the uterus RADIATION DOSAGE (If Supplied By Facility): CTDIvol = ( 11.41 ) mGy, DLP = ( 1004.59 ) mGycm TECHNIQUE: Transaxial imaging was performed following intravenous administration of 100ml IV Isovue 300. Individualized dose optimization techniques were used for this CT. COMPARISON: Previous studies of January 26, 2018 and August 03, 2018. PET/CT study of February 12, 2018 FINDINGS: TRACHEA, THYROID, ESOPHAGUS: No tracheomalacia,stricture or wall thickening. Thyroid and esophagus are normal CARDIOVASCULAR SYSTEM: The thoracic aorta is normal with no focal aneurysm or dissection. There are no abnormal calcifications/metallic densities at the aortic root. The pulmonary trunk and the left and right pulmonary arteries and their lobar and segmental branches all fail to show any abnormal and persistent filling defects to indicate the presence of pulmonary embolism. The heart is normal in size with no demonstration of any right ventricular strain. No developmental vascular anomalies are seen. MARTELL AND LYMPH NODES: No hilar masses and no mediastinal, hilar, axillary or supraclavicular adenopathy LUNGS, LOW-ATTENUATION: No traction bronchiectasis, honeycombing,emphysema, lung cysts or cavitations LUNGS, HIGH ATTENUATION: There continues to be 2 spiculated groundglass nodules n the right upper lobe measuring 1.8 x 1.1 cm and 2.5 x 2.4 cm. These have not changed since the last examination. The smaller of the 2 was not included in the [id number] in the latest study of August 03, 2018 but must have been present at the time. A new 2.1 x 1.8 cm pleuroparenchymal density is now noted in the lingula division of the left upper lobe. No ground glass opacities/consolidations or increased interstitial markings LUNGS, MOSAIC/CRAZY PAVING: Not evident PLEURA AND CHEST WALL: No plural effusions, pneumothoraces,rib fractures or any osteolytic/osteoblastic changes . The soft tissue chest wall including the breasts are normal UPPER ABDOMEN: Unremarkable . CT/Chest WITH Contrast IMPRESSION: Stable spiculated groundglass nodules in the right upper lobe. They have not changed since January 26, 2018 and were demonstrated by a PET CT scan on February 12, 2018 to not represent a viable neoplastic process. A new 2.1 x 1.8 cm pleuroparenchymal density in the lingula division of the left upper lobe. A PET CT scan is suggested for further elucidation Electronically Signed: Gamal Olivo MD at 4:21 EDT Tel , Service support ,
[2018-12-25 15:16] LABS: CREATININE FINGERSTICK 0.6 mg/dL (0.55-1.02)
== END ==
PROVIDERS: Family Provider Family Medicine; PCP Family Medicine; Referring Provider Obstetrics & Gynecology Gynecologic Oncology; Visit Provider Obstetrics & Gynecology Gynecologic Oncology
DX: C55 Malignant neoplasm of uterus, part unspecified (principal)
CPT/HCPCS: 71260; 74177; Q9967

== ENCOUNTER → 2019-01-05 09:35 | Outpatient (CLI) | payer OTHER, SELFPAY ==
[2018-12-05 15:13] VITALS: BMI 23.8
[2019-01-05 10:43] LABS: Microalbumin:Creatinine Ratio 4.8 mg/g CRE (<30 mg/g CRE)
[2019-01-05 11:23] LABS: AST(SGOT) 22 U/L (15-37); Alanine Aminotransfer ALT/SGPT 35 U/L (13-56); Albumin, Serum 3.4 g/dL (3.2-5.0); Alkaline Phosphatase 82 U/L (45-117); Anion Gap 4 (5-15); BUN 14 mg/dL (7-18); BUN/Creat Ratio 22.5 RATIO (10-20); Calcium,Total 9.2 mg/dL (8.5-10.1); Chloride 109 mmol/L (98-107); Cholesterol 189 mg/dL (200); Creatinine, Serum 0.62 mg/dL (0.55-1.02); EST Glomerular Filtration Rate 104 mL/min (>60); Est Glom Filt Rate - Afr Amer 126 mL/min (>60); Globulin 3.3 g/dL (2.2-4.2); Glucose 110 mg/dL (74-106); High Density Lipoprotein 89 mg/dL; Potassium 4.2 mmol/L (3.5-5.1); Protein, Total 6.7 g/dL (6.4-8.2); Sodium Level 144 mmol/L (136-145); Triglycerides 47 mg/dL; Very Low Density Lipoprotein 9 mg/dL (5-40)
== END ==
PROVIDERS: Family Provider Family Medicine; PCP Family Medicine; Referring Provider Family Medicine; Visit Provider Family Medicine
DX: E10.9 Type 1 diabetes mellitus without complications (principal); E78.5 Hyperlipidemia, unspecified
CPT/HCPCS: 36415; 80053; 80061; 82043; 82570

== ENCOUNTER → 2019-07-16 14:52 | Outpatient (CLI) | payer OTHER, SELFPAY ==
[2019-05-21 15:11] VITALS: BMI 24.0
--- NOTE | 2019-07-16 14:56 | CT_ITS ---
STUDY: CT ABDOMEN AND PELVIS WITH CONTRAST REASON FOR EXAM: Female, 58 years old. LEIOMYOSARCOMA, 6 MON F/U, HYSTER 1 YR AGO, TUBAL LIGATION, , DB, HTN RADIATION DOSAGE (If Supplied By Facility): CTDIvol = ( 16.62 ) mGy, DLP = ( 1469.89 ) mGycm TECHNIQUE: Transaxial images were obtained from the dome of the diaphragm to the symphysis pubis without with contrast. 100ML ISOVUE 300 was administered. Sagittal and coronal images were reconstructed. Individualized dose optimization techniques were used for this CT. COMPARISON: Prior abdomen and pelvic CT exam of December 25, 2018 FINDINGS: Atelectasis at the base of the lingula has essentially resolved. Mild posterior atelectatic versus chronic changes. The visualized portions of the heart are within normal limits. Normal liver. Normal gallbladder and extrahepatic biliary system. Normal spleen. 2 small splenules. There is diffuse atrophy of the pancreas. Normal bilateral adrenal glands. Normal right kidney. Normal left kidney. Normal visualized stomach. Normal small intestine. Normal colon. The appendix is visualized and appears normal. Minimal calcified plaque of the aorta. Normal inferior vena cava. Normal retroperitoneum. Normal urinary bladder. There is absence of the uterus consistent with a prior hysterectomy. Negative for pelvic mass or free fluid of the pelvis. Normal abdominal wall. Negative for osteolytic or blastic bone lesion. Degenerative changes of the lumbar spine. Status post prior left femoral fracture repair with hardware removed. There aren''t calcific/sclerotic densities within the left femoral head without osteochondral collapse. Stable finding from prior exam. CT/Abdomen/Pelvis WITH Contrast IMPRESSION: No acute abdominal or pelvic findings and no evidence of recurrent or metastatic disease of the abdomen or pelvis. Atelectasis resolved at the base of the lingula. Mild posterior atelectatic versus chronic changes. A benign osseous findings as described above. Electronically Signed: Gena Kaufman MD at 19:33 EST , Service support ,
--- NOTE | 2019-07-16 14:57 | CT_ITS ---
STUDY: CT CHEST WITH CONTRAST REASON FOR EXAM: Female, 58 years old. LEIOMYOSARCOMA OF UTERUS,, 6 MON F/U, HYSTER 1 YR AGO, TUBAL LIGATION, , DB, HTN RADIATION DOSAGE (If Supplied By Facility): CTDIvol = ( 16.62 ) mGy, DLP = ( 1469.89 ) mGycm TECHNIQUE: Transaxial imaging was performed following intravenous administration of 100ML ISOVUE 300. Multiplanar coronal and sagittal images were reformatted. Individualized dose optimization techniques were used for this CT. COMPARISON: Prior chest CT exam of December 25, 2018 FINDINGS: 2 completely stable appearing areas of apical retraction and spiculation in the right upper lobe. Minimal posterior atelectatic changes of the right lower lung zone. Negative for pleural effusion. Substantial improvement in the lingular atelectasis from prior exam. Mild posterior atelectatic changes of the left lower lung zone. Normal heart and pericardium. Normal mediastinum. Normal hilar regions. Normal enhanced pulmonary arteries. Mild plaque and elongation of the thoracic aorta. There are multi-level degenerative changes of the thoracic spine. Negative for osteolytic or blastic bone lesions. CT/Chest WITH Contrast IMPRESSION: 2 stable appearing spiculated areas of apical retraction not substantially changed from the prior exam. Resolving lingular atelectasis. Mild posterior bibasilar atelectatic versus chronic changes. Negative for new evidence of metastatic disease. Negative for osteolytic or blastic bone lesions. Electronically Signed: Gena Kaufman MD at 19:48 EST , Service support ,
[2019-07-16 15:11] LABS: CREATININE FINGERSTICK < 0.6 mg/dL (0.55-1.02); EGFR FINGERSTICK > 60.0000 mL/min (>60)
== END ==
PROVIDERS: Family Provider Family Medicine; PCP Family Medicine; Referring Provider Obstetrics & Gynecology Gynecologic Oncology; Visit Provider Obstetrics & Gynecology Gynecologic Oncology
DX: C54.9 Malignant neoplasm of corpus uteri, unspecified (principal)
CPT/HCPCS: 71260; 74177; Q9967

== ENCOUNTER → 2020-01-13 07:52 | Outpatient (CLI) | payer OTHER, SELFPAY ==
[2019-11-19 14:22] VITALS: BMI 24.0
--- NOTE | 2020-01-13 08:06 | CT_ITS ---
STUDY: CT CHEST WITH CONTRAST REASON FOR EXAM: Female, 59 years old. LEIOMYOSARCOMA OF UTERUS, TUBAL LIGATION, PEDRO -STILL HAS OVARIES, TYPE DB-INSULIN, BREAST BX RADIATION DOSAGE (If Supplied By Facility): CTDIvol = ( 13.05 ) mGy, DLP = ( 891.85 ) mGycm TECHNIQUE: Transaxial imaging was performed following intravenous administration of Oral and amp; IV Read i-CAT and amp; 100mL Isovue-300. Multiplanar coronal and sagittal images were reformatted. Individualized dose optimization techniques were used for this CT. COMPARISON: 07/16/2019 FINDINGS: Lung windows show stable fibrotic scarring and spiculation in the right upper lobe. No new suspicious noncalcified mass or nodule. No organized infiltrate or effusion. Soft tissue windows show normal-appearing thyroid gland. There are scattered subcentimeter axillary and mediastinal lymph nodes. No pleural or pericardial effusions. The lungs are normal. There is no demonstrated pleural abnormality. Normal heart and pericardium. Normal mediastinum. Normal hilar regions. Normal enhanced pulmonary arteries. Peripheral calcifications in the thoracic aorta without aneurysm or dissection. There are multi-level degenerative changes of the thoracic spine. CT/Chest WITH Contrast IMPRESSION: Stable fibrotic scarring and spiculation in the right upper lobe. No change dating back to 01/26/2018. No new suspicious noncalcified mass or nodule. No organized infiltrate or suspicious groundglass opacifications No pleural or pericardial effusions No suspicious adenopathy No significant interval change Electronically Signed: Yohannes Sánchez MD at 9:06 EDT , Service support ,
--- NOTE | 2020-01-13 08:07 | CT_ITS ---
STUDY: CT ABDOMEN AND PELVIS WITH CONTRAST REASON FOR EXAM: Female, 59 years old. LEIOMYOSARCOMA OF UTERUS, TUBAL LIGATION, PEDRO -STILL HAS OVARIES, TYPE DB-INSULIN, BREAST BX RADIATION DOSAGE (If Supplied By Facility): CTDIvol = ( 13.05 ) mGy, DLP = ( 891.85 ) mGycm TECHNIQUE: Transaxial images were obtained from the dome of the diaphragm to the symphysis pubis without oral contrast. Oral and amp; IV Read i-CAT and amp; 100mL Isovue-300 was administered. Sagittal and coronal images were reconstructed. Individualized dose optimization techniques were used for this CT. COMPARISON: 07/16/2019 FINDINGS: Normal liver. Normal gallbladder and extrahepatic biliary system. Normal spleen. Normal pancreas. Normal bilateral adrenal glands. Normal right kidney. Normal left kidney. Normal visualized stomach. Normal small intestine. Retained stool noted throughout the colon. There is non-visualization of the appendix. Normal abdominal aorta. Normal inferior vena cava. Normal retroperitoneum. Normal urinary bladder. There is absence of the uterus consistent with a prior hysterectomy. Normal abdominal wall. There are diffuse degenerative changes of the visualized lumbar spine, and pelvis. Stable postsurgical changes in the left femur CT/Abdomen/Pelvis WITH Contrast IMPRESSION: No suspicious solid organ abnormality No free intraperitoneal fluid, air, or suspicious adenopathy Retained stool in the colon Degenerative bony changes Electronically Signed: Yohannes Sánchez MD at 9:09 EDT , Service support ,
[2020-01-13 08:25] LABS: CREATININE FINGERSTICK < 0.6 mg/dL (0.55-1.02)
== END ==
PROVIDERS: PCP Family Medicine; Referring Provider Obstetrics & Gynecology Gynecologic Oncology; Visit Provider Obstetrics & Gynecology Gynecologic Oncology
DX: C55 Malignant neoplasm of uterus, part unspecified (principal)
CPT/HCPCS: 71260; 74177; Q9967

== ENCOUNTER → 2020-07-01 16:33 | Outpatient (CLI) | payer OTHER, SELFPAY ==
[2020-07-01 15:56] VITALS: BMI 24.1
[2020-07-01 17:25] LABS: Microalbumin,Random Urine 6.1 mg/L (NO RANGE EST.); Microalbumin:Creatinine Ratio 2.8 mg/g CRE (<30 mg/g CRE)
[2020-07-01 17:45] LABS: ALB/GLOB Ratio 1.3 RATIO (0.9-2.4); AST(SGOT) 14 U/L (15-37); Alanine Aminotransfer ALT/SGPT 31 U/L (13-56); Albumin, Serum 4.1 g/dL (3.2-5.0); Alkaline Phosphatase 111 U/L (45-117); Anion Gap 5 (5-15); BUN 15 mg/dL (7-18); BUN/Creat Ratio 10.8 RATIO (10-20); Chloride 104 mmol/L (98-107); Cholesterol 216 mg/dL (200); Creatinine, Serum 1.39 mg/dL (0.55-1.02); EST Glomerular Filtration Rate 41 mL/min (>60); Est Glom Filt Rate - Afr Amer 50 mL/min (>60); Globulin 3.1 g/dL (2.2-4.2); Glucose 234 mg/dL (74-106); High Density Lipoprotein 100 mg/dL; Potassium 4.5 mmol/L (3.5-5.1); Protein, Total 7.2 g/dL (6.4-8.2); Sodium Level 140 mmol/L (136-145); Triglycerides 134 mg/dL; Very Low Density Lipoprotein 27 mg/dL (5-40)
== END ==
PROVIDERS: PCP Family Medicine; Referring Provider Family Medicine; Visit Provider Family Medicine
DX: E10.9 Type 1 diabetes mellitus without complications (principal); E78.5 Hyperlipidemia, unspecified
CPT/HCPCS: 36415; 80053; 80061; 82043; 82570

== ENCOUNTER → 2020-07-20 16:55 | Outpatient (CLI) | payer OTHER, SELFPAY ==
[2020-07-01 15:56] VITALS: BMI 24.1
--- NOTE | 2020-07-20 16:58 | CT_ITS ---
STUDY: CT ABDOMEN AND PELVIS WITH CONTRAST REASON FOR EXAM: Female, 59 years old. LEIOMYOSARCOMA OF BODY OF UTERUS. RADIATION DOSAGE (If Supplied By Facility): CTDIvol = ( 6.225 ) mGy, DLP = ( 317.26 ) mGycm TECHNIQUE: Transaxial images were obtained from the dome of the diaphragm to the symphysis pubis without oral contrast. Oral and amp; IV Readi-CAT and amp; 100mL Isovue-370 was administered. Sagittal and coronal images were reconstructed. Individualized dose optimization techniques were used for this CT. COMPARISON: None. FINDINGS: The visualized lung bases are unremarkable. The visualized portions of the heart are within normal limits. Normal liver. Normal gallbladder and extrahepatic biliary system. Normal spleen. Normal pancreas. Normal bilateral adrenal glands. Normal right kidney. Normal left kidney. Normal visualized stomach. Normal small intestine. Normal colon. There is non-visualization of the appendix. Normal abdominal aorta. Normal inferior vena cava. Normal retroperitoneum. Normal urinary bladder. Normal abdominal wall. Normal osseous structures. CT/Abdomen/Pelvis WITH Contrast IMPRESSION: No evidence of metastatic lesion in the abdomen and pelvis. Electronically Signed: Florencia Monroy, at 12:52 EST Tel , Service support ,
--- NOTE | 2020-07-20 16:58 | CT_ITS ---
STUDY: CT CHEST WITH CONTRAST REASON FOR EXAM: Female, 59 years old. LEIOMYOSARCOMA OF BODY OF UTERUS RADIATION DOSAGE (If Supplied By Facility): CTDIvol = ( 6.225 ) mGy, DLP = ( 317.26 ) mGycm TECHNIQUE: Transaxial imaging was performed following intravenous administration of Oral and IV Readi-CAT and 100mL Isovue-370. Individualized dose optimization techniques were used for this CT. COMPARISON: 07/16/2019 FINDINGS: 2 groundglass nodules are seen in the right lung upper lobe. Lesion #1 is superior, measures 2.8 x 1.2 x 2.5 cm, measured previously 2.5 x 1.1 x 2.2 cm. Lesion #2 there is rather, measures 2.7 x 1.7 x 1.6 cm, it measured previously 2.7 x 2 x 1.6. There is no demonstrated pleural abnormality. Normal heart and pericardium. Normal mediastinum. Normal hilar regions. Normal enhanced pulmonary arteries. Normal aorta arch and descending thoracic aorta. Normal osseous structures. There is no demonstrated abnormality of the visualized upper abdomen. CT/Chest WITH Contrast IMPRESSION: 2 groundglass nodules are seen in the right lung upper lobe without change since the previous study. Electronically Signed: Florencia Monroy, at 13:25 EST Tel , Service support ,
== END ==
PROVIDERS: PCP Family Medicine; Referring Provider Obstetrics & Gynecology Gynecologic Oncology; Visit Provider Obstetrics & Gynecology Gynecologic Oncology
DX: C54.9 Malignant neoplasm of corpus uteri, unspecified (principal); R93.89 Abnormal findings on diagnostic imaging of other specified body structures
CPT/HCPCS: 71260; 74177; Q9967

== ENCOUNTER → 2020-10-22 10:37 | Outpatient (CLI) | payer OTHER, SELFPAY ==
[2020-10-22 10:05] VITALS: BMI 24.1
[2020-10-22 13:16] LABS: Progesterone Level < 0.21 ng/mL (See Comment)
[2020-11-02 16:40] LABS: Androstenedione 41 ng/dL (17-99)
== END ==
PROVIDERS: PCP Family Medicine; Referring Provider Family Medicine; Visit Provider Family Medicine
DX: F52.9 Unspecified sexual dysfunction not due to a substance or known physiological condition (principal)
CPT/HCPCS: 36415; 82157; 82627; 82670; 84144; 84270; 84403; 82626

== ENCOUNTER → 2020-12-16 | Outpatient (CLI) | payer OTHER, SELFPAY ==
[2020-12-16 14:55] VITALS: BMI 24.1
[2020-12-16 15:33] LABS: Bacteria 0 SEEN /hpf (None Seen); Mucous, Urine 0 SEEN /hpf (<or=2+); Red Blood Cells-Urine 0 SEEN /hpf (0-5)
[2020-12-16 16:46] LABS: Color, Urine Yellow (Yellow); Glucose, Dipstick Normal (Normal); Ketone-Dipstick Negative (Negative); Leukocyte Esterase-Dipstick Negative /ul (Negative); Nitrite-Dipstick Negative (Negative); Occult Blood-Urine Negative /ul (Negative); Protein-Dipstick Negative (Negative); Urine Bilirubin Dipstick Negative (Negative); Urine Clarity Clear (Clear); Urine Urobilinogen Normal (Normal)
[2020-12-16 17:00] LABS: Squamous Epithelial Cells - UA 0-5 SEEN /hpf (5-10)
[2020-12-16 17:01] LABS: White Blood Cells 0-5 SEEN /hpf (0-5)
== END | disposition home or self-care (01) ==
LOC: LABSPEC 15:31
PROVIDERS: PCP Family Medicine; Referring Provider Physician Assistant; Visit Provider Physician Assistant
DX: R30.0 Dysuria (principal)
CPT/HCPCS: 81001; 87086; 87088

== ENCOUNTER → 2021-01-08 15:18 | Outpatient (CLI) | payer OTHER, SELFPAY ==
[2021-01-08 14:46] VITALS: BMI 24.1
[2021-01-08 16:53] LABS: Anion Gap 6 (5-15); BUN 15 mg/dL (7-18); BUN/Creat Ratio 20.6 RATIO (10-20); Calcium,Total 9.9 mg/dL (8.5-10.1); Chloride 101 mmol/L (98-107); Creatinine, Serum 0.73 mg/dL (0.55-1.02); EST Glomerular Filtration Rate 86 mL/min (>60); Est Glom Filt Rate - Afr Amer 105 mL/min (>60); Glucose 199 mg/dL (74-106); Sodium Level 137 mmol/L (136-145)
== END ==
PROVIDERS: PCP Family Medicine; Referring Provider Family Medicine; Visit Provider Family Medicine
DX: E10.9 Type 1 diabetes mellitus without complications (principal)
CPT/HCPCS: 36415; 80048

== ENCOUNTER 2021-03-03 01:58 | Emergency (ER) | payer OTHER, SELFPAY ==
[2021-01-08 14:46] VITALS: BMI 24.1
[2021-03-03 01:59] VITALS: BP 174/79; PULSE 75; RESP 18; TEMP 36; O2SAT 100; BMI 23.3
[2021-03-03 02:01] VITALS: BP 174/79; PULSE 75; RESP 18; TEMP 36; O2SAT 100
[2021-03-03 02:16] LABS: Mucous, Urine 0 SEEN /hpf (<or=2+); Squamous Epithelial Cells - UA 0 SEEN /hpf (5-10)
[2021-03-03 02:17] LABS: Color, Urine Yellow (Yellow); Glucose, Dipstick Normal (Normal); Ketone-Dipstick Negative (Negative); Leukocyte Esterase-Dipstick 500 /ul (Negative); Nitrite-Dipstick Positive (Negative); Occult Blood-Urine 250 /ul (Negative); Protein-Dipstick 100 mg/dl (Negative); Urine Bilirubin Dipstick Negative (Negative); Urine Clarity Cloudy (Clear); Urine Urobilinogen Normal (Normal)
[2021-03-03 02:33] LABS: Bacteria 2+ /hpf (None Seen); White Blood Cells >100 SEEN /hpf (0-5)
[2021-03-03 02:35] LABS: Red Blood Cells-Urine 10-25 SEEN /hpf (0-5)
--- NOTE | 2021-03-03 02:46 | EX.ED.DYSGE1 ---
HPI History of Present Illness Chief Complaint: Complaint Informant: patient Onset/Context/Timing Onset: Yesterday Context: Gradual Onset Current Severity: Moderate Maximum Severity: Moderate Narrative Narrative: Patient presents with dysuria and frequency consistent with prior UTIs. Symptoms started approximately 6 hours prior to arrival. She denies back pain. She has had some chills. [facility] Medical History (Updated 03/03/21 @ 02:[address] Jovana Medina MD) History of hip fracture Hyperlipemia Retinopathy Type 1 diabetes mellitus Home Medications ascorbic acid (vitamin C) 500 mg PO DAILY@0800 02/26/18 [History Last Taken 07/02/18 08:00] multivitamin 1 ea PO DAILY 02/26/18 [History Last Taken 07/02/18 10:00] estradiol See Rx Instructions VAGINAL .COMPLEX #42.5 g 04/19/18 [Rx Last Taken Unknown] flash glucose scanning reader #1 ea 05/21/19 [Rx Last Taken Unknown] flash glucose sensor #1 ea 05/21/19 [Rx Last Taken Unknown] fluoxetine 20 mg capsule 20 mg PO DAILY #90 cap 06/10/20 [Rx Last Taken Unknown] fosinopril 20 mg tablet 20 mg PO DAILY #90 tab 06/10/20 [Rx Last Taken Unknown] insulin glargine 100 unit/mL (3 mL) subcutaneous pen 24 unit SC QHS #15 ml 06/10/20 [Rx Last Taken Unknown] blood sugar diagnostic #100 each 11/09/20 [Rx Last Taken Unknown] blood-glucose meter #1 each 11/09/20 [Rx Last Taken Unknown] pravastatin 20 mg tablet 20 mg PO QHS #90 tab 11/13/20 [Rx Last Taken Unknown] insulin aspart U-100 5 - 6 unit SC TID 03/03/21 [History Last Taken Unknown] phenazopyridine [Pyridium] 200 mg PO BID PRN PRN #6 tab 03/03/21 [Rx Last Taken Unknown] sulfamethoxazole-trimethoprim [Bactrim DS] 1 tab PO BID #6 tab 03/03/21 [Rx Last Taken Unknown] Allergy/AdvReac Type Severity Reaction Status Date / Time No Known Allergies Allergy Verified 01/08/21 14:44 Family History Mother Cancer Hypertension Arthritis Father Arthritis Myocardial infarction, Onset Age: 40 Heart disease Sister Diabetes Surgical History History of bunionectomy History of section History of colonoscopy History of endometrial ablation History of eye surgery History of hysterectomy for cancer Social History Smoking Status: Never smoker alcohol intake: current alcohol intake frequency: a few times a week Alcohol type: wine details: social substance use type: does not use caffeine: Yes what type of physical activity do you participate in: walking and yoga frequency: 3-4 times per week seatbelt use: always do you feel safe at home: Yes additional social history: Akshat- Teacher at [employer] 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 ROS ROS ED Constitutional Constitutional ED: Reports chills; Denies fever(s) Eyes Eyes: Denies change in vision ENT ENT ED: Denies sore throat Cardiovascular Cardiovascular: Denies chest pain Respiratory/Chest Respiratory/Chest: Denies cough or dyspnea Gastrointestinal Gastrointestinal: Reports abdominal pain; Denies diarrhea, nausea or vomiting Genitourinary Genitourinary ED: Reports dysuria and urinary frequency; Denies hematuria Musculoskeletal Musculoskeletal: Denies back pain Integumentary Denies rash Neurologic Neurologic: Denies headache(s) or weakness Psychiatric Psychiatric: Denies anxiety or depression Allergic/Immunologic Allergic/Immunologic ED: Denies urticaria EXAM Physical Exam Const Vital Signs: 03/03/21 01:59 03/03/21 02:01 Temperature 96.8 F L 96.8 F L Temperature Source Temporal Temporal Pulse Rate 75 75 Respiratory Rate 18 18 Blood Pressure 174/79 H 174/79 H Blood Pressure Mean 110 110 Pulse Ox 100 100 Oxygen Delivery Method Room Air Room Air Positive well nourished and well developed General Appearance ED: well developed HEENT Reports normocephalic and head/scalp atraumatic Eyes PERRL and EOMs intact bilaterally Neck supple Chest Wall inspection of chest normal and palpation of chest normal Resp normal respiratory effort and clear to auscultation bilaterally Cardio regular rate and regular rhythm GI normal to inspection, nondistended, normoactive bowel sounds Palpation: soft and tender suprapubic Back/Spine no CVA tenderness Extremity normal to inspection Neuro oriented x3 and no sensory deficits noted Sensorium / Orientation: alert Motor Exam: strength 5/5 throughout Psych mental status grossly normal Skin no rashes or lesions noted MDM MDM MDM Narrative Medical decision making narrative: Urinalysis was sent per nursing protocol. Lab Data Labs: Laboratory Results - last 24 hr 03/03/21 02:10 Urine Color Yellow Urine Clarity Cloudy Urine pH 6.0 Ur Specific [place] 1.020 Urine Protein 100 H Urine Glucose (UA) Normal Urine Ketones Negative Urine Occult Blood 250 H Urine Nitrite Positive H Urine Bilirubin Negative Urine Urobilinogen Normal Ur Leukocyte Esterase 500 H Urine RBC 10-25 SEEN Urine WBC >100 SEEN Ur Squamous Epith Cells 0 SEEN Urine Bacteria 2+ Urine Mucus 0 SEEN Treatment and Re-Evaluation Comments:: Patient does have evidence of UTI. She will be treated with a course of Bactrim as well as Azo to help control pain. Urine culture has been sent. Discharge Plan Triage Chief Complaint: Complaint ED Provider: Jovana Medina Dx/Rx/DC Orders Clinical Impression: Cystitis Instructions: ED CYSTITIS Female Adult Prescriptions: New sulfamethoxazole-trimethoprim [Bactrim DS] 800-160 mg tablet 1 tab PO BID Qty: 6 RF: 0 phenazopyridine [Pyridium] 200 mg tablet 200 mg PO BID PRN PRN (Reason: Pain) Qty: 6 RF: 0 No Action estradiol [Estrace] 0.01 % (0.1 mg/gram) cream See Rx Instructions Vaginal .COMPLEX Qty: 42.5 RF: 3 (DME) FreeStyle Bruna 14 Day [place] Misc See Rx Instructions .ROUTE .MEDSUPPLY Qty: 1 RF: 3 (DME) FreeStyle Bruna 14 Day Sensor Kit See Rx Instructions .ROUTE .MEDSUPPLY Qty: 1 RF: 3 multivitamin 1 EACH tablet 1 ea PO DAILY RF: 0 ascorbic acid (vitamin C) 500 MG tablet 500 mg PO DAILY@0800 RF: 0 insulin aspart U-100 100 unit/mL (3 mL) insulin pen 5 - 6 unit SC TID RF: 0 fluoxetine 20 mg capsule 20 mg PO DAILY Qty: 90 RF: 4 fosinopril 20 mg tablet 20 mg PO DAILY Qty: 90 RF: 4 insulin glargine 100 unit/mL (3 mL) insulin pen 24 unit SC QHS Qty: 15 RF: 3 (DME) OneTouch Ultra Blue Test Strip Strip See Rx Instructions .ROUTE .MEDSUPPLY Qty: 100 RF: 3 (DME) blood-glucose meter [OneTouch Ultra2 Meter] Misc See Rx Instructions .ROUTE .MEDSUPPLY Qty: 1 RF: 0 pravastatin 20 mg tablet 20 mg PO QHS Qty: 90 RF: 3 Primary Care Provider: Nitin Falcon Referrals: Nitin Falcon, DO [Primary Care Provider] - 1 Week if not improving Disposition Disposition: Home, Self Care
[2021-03-03] MEDS: Phenazopyridine 95 MG Tablet 190 MG PO (02:53)
[2021-03-03] MEDS: Smz/Tmp Ds Tablet 1 TABLET PO (02:54)
== END 2021-03-03 03:04 | disposition home or self-care (01) ==
LOC: ED 02:57
PROVIDERS: Emergency Provider Emergency Medicine; PCP Family Medicine
DX: N30.90 Cystitis, unspecified without hematuria (principal); E78.5 Hyperlipidemia, unspecified; E10.319 Type 1 diabetes mellitus with unspecified diabetic retinopathy without macular edema; Z79.4 Long term (current) use of insulin; Z79.899 Other long term (current) drug therapy
CPT/HCPCS: 81001; 87077; 87086; 87088; 87186; 99283

== ENCOUNTER → 2021-03-19 | Outpatient (CLI) | payer OTHER, SELFPAY | END | disposition home or self-care (01) | LOC: LABSPEC 11:53 | PROVIDERS: PCP Family Medicine; Referring Provider Nurse Practitioner Adult Health; Visit Provider Nurse Practitioner Adult Health | DX: Z20.822 Contact with and (suspected) exposure to COVID-19 (principal) | CPT/HCPCS: 87635; U0005; U0003 ==

== ENCOUNTER → 2021-04-02 | Outpatient (CLI) | payer OTHER, SELFPAY | END | disposition home or self-care (01) | LOC: LABSPEC 16:27 | PROVIDERS: PCP Family Medicine; Visit Provider Nurse Practitioner Family | DX: Z20.822 Contact with and (suspected) exposure to COVID-19 (principal) | CPT/HCPCS: 87635; U0005; U0003 ==

== ENCOUNTER → 2021-04-08 14:35 | Outpatient (CLI) | payer OTHER, SELFPAY ==
[2021-04-08 18:13] LABS: Hemoglobin A1c 7.4 % (3.8-5.6)
== END ==
PROVIDERS: PCP Family Medicine; Referring Provider Family Medicine; Visit Provider Family Medicine
DX: E10.9 Type 1 diabetes mellitus without complications (principal)
CPT/HCPCS: 36415; 83036

== ENCOUNTER 2021-08-06 15:03 | Outpatient (CLI) | payer OTHER, SELFPAY | END 2021-08-06 23:59 | disposition short-term general hospital (02) | LOC: LABSPEC 15:05 | PROVIDERS: PCP Family Medicine; Visit Provider Physician Assistant Surgical | DX: R51.9 Headache, unspecified (principal) | CPT/HCPCS: 87635; U0003; U0005 ==

== ENCOUNTER → 2022-01-11 | Outpatient (CLI) | payer OTHER, SELFPAY ==
[2022-01-11 12:44] LABS: AST(SGOT) 19 U/L (15-37); Alanine Aminotransfer ALT/SGPT 31 U/L (13-56); Albumin, Serum 3.6 g/dL (3.2-5.0); Alkaline Phosphatase 89 U/L (45-117); Anion Gap 6 (5-15); BUN 15 mg/dL (7-18); BUN/Creat Ratio 23.8 RATIO (10-20); Calcium,Total 9.7 mg/dL (8.5-10.1); Chloride 105 mmol/L (98-107); Cholesterol 207 mg/dL (200); Creatinine, Serum 0.63 mg/dL (0.55-1.02); EST Glomerular Filtration Rate 102 mL/min (>60); Est Glom Filt Rate - Afr Amer 123 mL/min (>60); Globulin 3.5 g/dL (2.2-4.2); Glucose 139 mg/dL (74-106); High Density Lipoprotein 96 mg/dL; Protein, Total 7.1 g/dL (6.4-8.2); Sodium Level 140 mmol/L (136-145); Triglycerides 85 mg/dL; Very Low Density Lipoprotein 17 mg/dL (5-40)
[2022-01-11 12:55] LABS: Microalbumin,Random Urine 11.7 mg/L (NO RANGE EST.); Microalbumin:Creatinine Ratio 8.9 mg/g CRE (<30 mg/g CRE)
== END | disposition home or self-care (01) ==
LOC: BIMLAB 10:01
PROVIDERS: PCP Family Medicine; Visit Provider Family Medicine
DX: E10.9 Type 1 diabetes mellitus without complications (principal); E78.5 Hyperlipidemia, unspecified
CPT/HCPCS: 36415; 80053; 80061; 82043; 82570

== ENCOUNTER → 2022-01-21 | Outpatient (CLI) | payer OTHER, SELFPAY ==
--- NOTE | 2022-01-21 12:33 | BI_ITS ---
MAMMOGRAPHY - BILATERAL SCREENING REASON FOR EXAM: Female, 61 years old. Routine annual screening examination. PERTINENT HISTORY: Non-contributory. Remote bilateral excisional breast biopsies. TECHNIQUE: Digital bilateral breast vishnu (3D mammographic acquisition) in the CC and MLO projections. 2-D mediolateral oblique (MLO) and craniocaudad (CC) views of both breasts were obtained. CAD: Full Field Digital Mammography with Computer Added Detection was performed. COMPARISON: Comparison is made with prior study dated 02/12/2018 and 02/25/2015. FINDINGS: Breast Composition: The breasts are extremely dense, which lowers the sensitivity of mammography. There are no dominant masses or suspicious calcifications. Stable benign-appearing left axillary lymph nodes. No other significant abnormalities are identified. There has been no significant change since the prior study. BI/SCRN MAMM (CAD)W/VISHNU BILAT IMPRESSION: Stable bilateral screening mammogram. Yearly follow-up mammogram recommended. (A) ASSESSMENT CATEGORY: BIRADS Category 2: Benign. A letter regarding these results will be sent to the patient by the facility within 30 days. Approximately 10% of breast cancers are not detected by mammography. A normal mammogram should not delay biopsy of a clinically suspicious abnormality. [id number] Electronically Signed: Rob Marroquin MD at 13:26 EDT ,
== END | disposition home or self-care (01) ==
LOC: OPBI 12:32
PROVIDERS: PCP Family Medicine; Referring Provider Obstetrics & Gynecology; Visit Provider Obstetrics & Gynecology
DX: Z12.31 Encounter for screening mammogram for malignant neoplasm of breast (principal)
CPT/HCPCS: 77063; 77067

== ENCOUNTER → 2022-03-24 | Outpatient (CLI) | payer OTHER, SELFPAY | END | disposition home or self-care (01) | LOC: LABSPEC 14:15 | PROVIDERS: PCP Family Medicine; Referring Provider Physician Assistant; Visit Provider Physician Assistant | DX: Z20.822 Contact with and (suspected) exposure to COVID-19 (principal) | CPT/HCPCS: 87635; U0003; U0005 ==

== ENCOUNTER → 2022-08-18 | Outpatient (CLI) | payer OTHER, SELFPAY ==
[2022-08-18 16:46] LABS: Absolute Lymphocyte Count 1.42 X10^3/uL (0.83-4.51); Absolute Neutrophil Count 4.1 X10^3/uL (2.0-7.7); Basophil# 0.04 X10^3/uL; Basophil% 0.6 % (0-1); Eosinophil# 0.12 X10^3/uL; Eosinophils% 1.9 % (0-5); Hematocrit 44.2 % (37-47); Hemoglobin 13.9 g/dL (12.0-15.0); Lymphocyte # 1.42 X10^3/ul (0.83-4.51); Lymphocyte % 22.6 % (19-41); Mean Corp Hgb Conc 31.4 g/dL (32-36); Mean Corpuscular Hgb 28.9 pg (27.0-32.0); Mean Corpuscular Volume 91.9 fL (81-99); Monocyte# 0.63 X10^3/uL; NRBC Flagged by Analyzer 0 % (0-5); Neutrophil # 4.06 X10^3/uL (2.7-7.7); Neutrophil % 64.6 % (47-70); Platelet Count 224 K/mm3 (150-450); RBC Distribution Width CV 12.4 % (11.6-14.6); RBC Distribution Width SD 41.8 fl (35.1-43.9); Red Blood Count 4.81 M/mm3 (4.2-5.4); White Blood Count 6.3 K/mm3 (4.4-11.0)
[2022-08-18 16:57] LABS: AST(SGOT) 37 U/L (15-37); Alanine Aminotransfer ALT/SGPT 55 U/L (13-56); Albumin, Serum 3.6 g/dL (3.2-5.0); Alkaline Phosphatase 208 U/L (45-117); Anion Gap 8 (5-15); BUN 17 mg/dL (7-18); Calcium,Total 10.1 mg/dL (8.5-10.1); Chloride 103 mmol/L (98-107); Creatinine, Serum 1.06 mg/dL (0.55-1.02); EST Glomerular Filtration Rate 56 mL/min (>60); Est Glom Filt Rate - Afr Amer 67 mL/min (>60); Globulin 3.7 g/dL (2.2-4.2); Glucose 277 mg/dL (74-106); Potassium 4.8 mmol/L (3.5-5.1); Protein, Total 7.3 g/dL (6.4-8.2); Sodium Level 139 mmol/L (136-145); Thyroid Stim Hormone (TSH) 2.66 uIU/mL (0.358-3.74); Vitamin B12 > 2000 pg/mL (211-911); Vitamin D,25 Hydroxy 57.1 ng/mL
== END | disposition home or self-care (01) ==
LOC: BIMLAB 15:06
PROVIDERS: PCP Family Medicine; Referring Provider Nurse Practitioner Family; Visit Provider Nurse Practitioner Family
DX: C49.9 Malignant neoplasm of connective and soft tissue, unspecified (principal); R53.83 Other fatigue; R10.9 Unspecified abdominal pain
CPT/HCPCS: 36415; 80053; 82306; 82607; 84443; 85025

== ENCOUNTER → 2022-08-24 | Outpatient (CLI) | payer OTHER, SELFPAY ==
--- NOTE | 2022-08-24 09:17 | STRESSREP_ITS ---
Stress Test Report Pharmacologic myocardial perfusion stress test. 61-year-old lady with a history of chest pain Resting EKG demonstrates sinus rhythm with a rate of 80 bpm. Resting blood pressure is 150/82 mmHg. 0.4 mg of regadenoson was infused per usual protocol followed by rapid intravenous saline flush injection. Continuous EKG monitoring was performed. The maximum heart rate was 117 bpm which was 74% of max impacted heart rate the maximum workload was 1 metabolic equivalent. At rest there were no ST or T wave changes noted to suggest ischemia and at peak infusion nonspecific ST changes were noted which did not meet the criteria for ischemia. The patient did experienced chest discomfort and was given sublingual nitroglycerin. Nausea was noted. Patient's blood pressure mitzi to 210/110 mmHg. The final blood pressure was 154/86 mmHg. Myocardial perfusion protocol. 11.6 mCi of technetium 99m sestamibi was injected at rest. 0.4 mg of re gadenoson was infused per usual protocol. At peak infusion 36 mCi of technetium 99m sestamibi was injected stress images were obtained stress and rest images were reconstructed and compared in the short axis vertical long and horizontal long axis. Gated images were also obtained. Perfusion SPECT analysis: Review of the stress images demonstrate normal uptake of tracer noted in all areas of the myocardium. The resting images similar demonstrated normal uptake of tracer noted in all areas of the myocardium. No areas of reversibility are noted to suggest ischemia and no previous infarct is noted. Gated SPECT analysis: The gated ejection fraction is 64%. Conclusion: Normal pharmacologic myocardial perfusion stress test. Preserved ejection fraction. Uncontrolled hypertension
== END | disposition home or self-care (01) ==
PROVIDERS: PCP Family Medicine; Referring Provider Nurse Practitioner Family; Visit Provider Nurse Practitioner Family
DX: R06.09 Other forms of dyspnea (principal)
CPT/HCPCS: 78452; 93017; A9500; A4216; J2785

== ENCOUNTER → 2022-09-05 | Outpatient (CLI) | payer OTHER, SELFPAY ==
--- NOTE | 2022-09-05 17:17 | CT_ITS ---
ACR Level 3 findings have been noted. An addendum which confirms receipt of the report will follow. EXAM: CT ABDOMEN AND PELVIS WITH INTRAVENOUS CONTRAST CLINICAL INDICATION: abdomen pain TECHNIQUE: Helically acquired images were obtained of the abdomen and pelvis with intravenous contrast. CTDIvol = ( 12.1 ) mGy, DLP = ( 776.63 ) mGycm This CT exam was performed using one or more of the following dose reduction techniques: automated exposure control, adjustment of the mA and/or kV according to patient size, and/or use of iterative reconstruction technique. This report was created using [employer] report For[employer] technology. CONTRAST: Oral and amp; IV Readi-CAT and amp; 100mL Isovue-300 COMPARISON: July 20, 2020 FINDINGS: LOWER THORAX: Too numerous to count pulmonary metastases. No cardiomegaly. No significant pericardial effusion. ABDOMEN: LIVER: Interval development of a large heterogeneous enhancing mass involving both right and left lobe liver measuring 17.1 x 13.3 cm mass. Hypodense appearance suggests of the masses potentially necrotic infarct. GALLBLADDER AND BILE DUCTS: Unremarkable. No calcified gallstones. No gallbladder distention or wall edema. No intra- or extrahepatic biliary ductal dilation. PANCREAS: Unremarkable. No focal cystic or solid mass. SPLEEN: Unremarkable. Normal size without focal cystic or solid mass. ADRENALS: Unremarkable. No nodules. KIDNEYS AND URETERS: Unremarkable. Normal renal size and position. No hydronephrosis. STOMACH AND BOWEL: Unremarkable. No stomach or bowel distention. No focal inflammatory change. PELVIS: APPENDIX: No evidence of acute appendicitis. BLADDER: Unremarkable. REPRODUCTIVE: Unremarkable as visualized. No mass. ABDOMEN and PELVIS: INTRAPERITONEAL SPACE: Unremarkable. No free air. No ascites. No mesenteric or omental nodules. BONES/JOINTS: Remote postsurgical changes involving the left proximal femur with no evidence of residual fracture lucency. No osseous metastases. SOFT TISSUES: Unremarkable. No discrete abdominal or pelvic wall hernia. VASCULATURE: Question nonocclusive splenic vein thrombosis versus flow artifact. Abdominal aorta is non-dilated. No portal venous thrombosis. LYMPH NODES: Unremarkable. No enlarged lymph nodes. CT/Abdomen/Pelvis WITH Contrast IMPRESSION: 1. Primary hepatic malignancy with pulmonary metastases. 2. Question nonocclusive splenic vein thrombosis versus flow artifact. Electronically Signed: Nathan Florez MD at 21:29 EST ,
== END | disposition home or self-care (01) ==
LOC: CT 17:16
PROVIDERS: PCP Family Medicine; Referring Provider Nurse Practitioner Family; Visit Provider Nurse Practitioner Family
DX: C49.9 Malignant neoplasm of connective and soft tissue, unspecified (principal); R53.83 Other fatigue; R10.9 Unspecified abdominal pain
CPT/HCPCS: 74177; Q9967; A4216

== ENCOUNTER → 2022-09-19 | Outpatient (CLI) | payer OTHER, SELFPAY ==
[2022-09-19] VITALS (9 sets, daily range): BP systolic 157–177; BP diastolic 71–91; PULSE 88–104; RESP 14–21; TEMP 36.9; O2SAT 92–100; BMI 24.3
--- NOTE | 2022-09-19 | IMM_PTH ---
PATIENT: FORREST PERES LOC: CT U#:[id number] AGE/SX: 62/F ROOM: RE09/19/[address]: Dr. Kyaw Sesay MD : 1960 BED: DIS: 09/19/2022 SPEC #: [id number] RECD: 09/20/22 13:45 STATUS: KAMALJIT REQ #: [id number] [place]: 09/19/22 00:[address]: Kyaw Sesay DEPT: IMMUNOHISTOCHEMISTRY RECD BY: Lisa Carlin ENTERED: 09/20/22 13:47 SP TYPE: IMMUNO OTHR DR: Dr. Nitin Falcon, DO Tissues: Liver, NOS Procedures: RCC (add) SMA (add) MSH2 (add) MLH-1 (add) MSH6 (add) Anti-PMS2 (add) NAPSIN A (add) CK20 (add) CK5-6 (add) CK7 (add) CK8 (add) DESMIN (add) HEP PAR (add) KI-67 (add) P53 (add) OH (add) TTF1 (add) Vimentin (add) Pankeratin (add) P40 (add) ER (initial) PHYSICIAN & [place] [id number] SPECIMEN INFORMATION: Tissue Source: Liver Clinical Info: Liver mass Specimen Number: [id number] CPT code: 15754, 58515 x20 METHODOLOGY: Deparaffinized sections of prefer/formalin-fixed tissue or PAP/DQ stained slides are incubated with monoclonal/polyclonal antibodies/oligonucleotide probes. Localization is made via biotin free immunoperoxidase method. Appropriate controls are performed and reacted as expected. Results on target cell population are indicated in the following table: RESULTS: ANTIBODY / CLONE RESULT ER (6F11) negative OH (1E2) negative AE1-3 (AE1/AE3/PCK26) negative CK7 (OV-TL12/30) negative CK8 (81jarlV67) negative CK20 (KS20.8) negative Vimentin (V9) positive Actin (1A4) positive Desmin (CE-R-11) positive TTF-1 (8G7G3/1) negative Napsin A (Rabbit Polyclonal) negative HepPar (OCh1E5) negative RCC (PN-15) negative CK5-6 (D5 & 1684) negative P40 (BC28) negative P53 (DO-7) negative Ki-67 (30-9) positive, ~60% These tests were developed and their performance characteristics determined by [facility]. They may not have been cleared or approved by the U.S. Food and Drug Administration. The FDA has determined that such clearance or approval is not necessary. The above immunohistochemical/dualISH markers are ordered and reviewed by the Pathologist. INTERPRETATION: Liver mass, CT-guided core biopsy: Consistent with metastatic leiomyosarcoma. Case has been reviewed in consultation with Dr. Colon who concurs with the above diagnosis. IDC:AM SJ:enma 09/21/2022 ADDENDUM ADDENDUM ADDENDUM ADDENDUM ADDENDUM ADDENDUM ADDENDUM ADDENDUM ADDENDUM ADDENDUM ADDENDUM ADDENDUM ADDENDUM ADDENDUM ADDENDUM 10/05/2022 11:05 ADDENDUM 10/05/2022 11:05 ADDENDUM 10/05/2022 11:05 ADDENDUM 10/05/2022 11:05 ADDENDUM 10/05/2022 11:05 ANTIBODY / CLONE RESULT MLH-1 (M1) positive MSH2 (25D12) positive MSH6 (44) positive PMS2 (AQS1658) positive The above immunohistochemical/dualISH markers are ordered by Dr. Sesay and reviewed by the pathologist. INTERPRETATION: Result of Microsatellite Instability Study: Negative (no loss of mismatch protein; no microsatellite instability detected). SJ:enma 10/05/2022
[2022-09-19 08:47] LABS: Absolute Lymphocyte Count 1.23 X10^3/uL (0.83-4.51); Absolute Neutrophil Count 4.8 X10^3/uL (2.0-7.7); Basophil# 0.04 X10^3/uL; Basophil% 0.6 % (0-1); Eosinophil# 0.21 X10^3/uL; Eosinophils% 3.1 % (0-5); Hematocrit 44.5 % (37-47); Hemoglobin 14.1 g/dL (12.0-15.0); Lymphocyte # 1.23 X10^3/ul (0.83-4.51); Mean Corp Hgb Conc 31.7 g/dL (32-36); Mean Corpuscular Hgb 28.4 pg (27.0-32.0); Mean Corpuscular Volume 89.7 fL (81-99); Mean Platelet Vol. 10.4 fl (6.2-12.0); Monocyte% 8.8 % (0-10); NRBC Flagged by Analyzer 0 % (0-5); Neutrophil # 4.75 X10^3/uL (2.7-7.7); Neutrophil % 69.2 % (47-70); Platelet Count 237 K/mm3 (150-450); RBC Distribution Width CV 14.7 % (11.6-14.6); RBC Distribution Width SD 47.7 fl (35.1-43.9); Red Blood Count 4.96 M/mm3 (4.2-5.4); White Blood Count 6.9 K/mm3 (4.4-11.0)
[2022-09-19 08:55] LABS: International Normalized Ratio 1.1; Prothrombin Time (Protime)PT. 13.8 SECONDS (11.7-14.9)
[2022-09-19 09:04] LABS: ALB/GLOB Ratio 0.9 RATIO (0.9-2.4); AST(SGOT) 95 U/L (15-37); Alanine Aminotransfer ALT/SGPT 107 U/L (13-56); Albumin, Serum 3.5 g/dL (3.2-5.0); Alkaline Phosphatase 704 U/L (45-117); Anion Gap 8 (5-15); BUN 18 mg/dL (7-18); Calcium,Total 10.7 mg/dL (8.5-10.1); Chloride 105 mmol/L (98-107); Creatinine, Serum 1.06 mg/dL (0.55-1.02); EST Glomerular Filtration Rate 56 mL/min (>60); Est Glom Filt Rate - Afr Amer 67 mL/min (>60); Globulin 3.9 g/dL (2.2-4.2); Glucose 210 mg/dL (74-106); Potassium 4.5 mmol/L (3.5-5.1); Protein, Total 7.4 g/dL (6.4-8.2); Sodium Level 140 mmol/L (136-145)
[2022-09-19 09:19] LABS: Partial Thromboplast Time 37.4 Seconds (24.1-36.2)
--- NOTE | 2022-09-19 09:35 | CT_ITS ---
STUDY: CT CHEST WITH CONTRAST REASON FOR EXAM: Female, 62 years old. LUNG METS SHOWN ON PRIOR CT RADIATION DOSAGE (If Supplied By Facility): CTDIvol = ( 11.73 ) mGy, DLP = ( 259.57 ) mGycm TECHNIQUE: Transaxial imaging was performed following intravenous administration of IV 100mL Isovue-370. Multiplanar coronal and sagittal images were reformatted. Individualized dose optimization techniques were used for this CT. COMPARISON: Comparison is made with prior study dated 07/20/2020. FINDINGS: CHEST Bilateral dense fibroglandular tissue. Multiple bilateral pulmonary metastatic nodules. The largest nodule in the left hemithorax is seen in the lateral peripheral aspect of the left upper lobe and measures 4.5 cm x 2.4 cm. The largest nodule in the right hemithorax measures 3.1 cm x 2 cm. Stable focal scarring in the right upper lobe. Normal heart and pericardium. No coronary artery calcification is seen. Normal mediastinum. Normal hilar regions. Normal unenhanced pulmonary arteries. Normal aorta arch and descending thoracic aorta. There are mild degenerative changes of the thoracic spine. Stable large heterogeneous mass is seen in the right and left lobe of the liver. CT/Chest WITH Contrast IMPRESSION: Diffuse bilateral pulmonary metastasis as described. Large stable heterogeneous mass in the liver involving both the right and left lobes of the liver. Electronically Signed: Rob Marroquin MD at 14:59 EST ,
--- NOTE | 2022-09-19 09:35 | CT_ITS ---
PROCEDURE: CT DIRECTED CORE LIVER BIOPSY INDICATION: Female, 62 years old. LIVER MASS PHYSICIAN: Dr. RAHAT Jackman CONSENT: Written informed consent was obtained having explained the risks, benefits and alternatives in detail with the patient who accepted the risks and agreed to proceed. Laboratory review and clinical assessment was performed. CONSCIOUS SEDATION PROTOCOL: The Drugs used were: 2 mg Versed, IV., and 50 mcg Fentanyl, IV. The sedation time was: 17 minutes. Conscious sedation was started at 9:45 AM and terminated at 10:02 AM. The conscious sedation protocol was independently monitored. RADIATION DOSAGE (If Supplied By Facility): CTDIvol = ( 16 ) mGy, DLP = ( 286.14 ) mGycm Individualized dose optimization techniques were used for this CT. TECHNIQUE: Using CT image guidance with image documentation, a suitable location in the right lobe of the liver was identified. Using an anterior approach, puncture of the liver was uneventful with an 18-gauge core needle system. 4, 18-gauge core samples were obtained, and submitted in formalin to the pathologist for further assessment. Followup CT scan revealed no distinct sequelae. CT/Biopsy/Inj or Needle Placement IMPRESSION: 1. CT directed core needle biopsy of the liver, using CT image guidance with image documentation as described. 2. Conscious Sedation protocol utilized with independent monitoring. Electronically Signed: Rob Marroquin MD at 10:53 EST ,
[2022-09-19] MEDS: fentaNYL 100 MCG/2 ML Ampul IV (09:45)
[2022-09-19] MEDS: Midazolam 2 MG/2 ML Syringe IV (09:45)
[2022-09-19] MEDS: Lidocaine 2% (20 ml mdv) 20 ML Vial INFILT (09:57)
--- NOTE | 2022-09-19 10:00 | ASPIGT_PTH ---
PATIENT: FORREST PERES LOC: [place] U#:[id number] AGE/SX: 62/F ROOM: RE09/19/[address]: Dr. Kyaw Sesay MD : 1960 BED: DIS: 09/19/2022 SPEC #: [id number] RECD: 09/19/22 10:15 STATUS: KAMALJIT REBella #: [id number] [place]: 09/19/22 10:[address]: Kyaw Sesay DEPT: SURGICAL PATHOLOGY RECD BY: Samira Garzon ENTERED: 09/19/22 10:15 SP TYPE: ASP RAD OTHR DR: Dr. Nitin Falcon, DO Tissues: Liver, NOS Procedures: FNA Specimen Adequacy Special Stain Group II Surgery Specimen Level V Imprint (control) HEADER OPERATION: Liver biopsy PRE-OP DIAGNOSIS: Liver mass TISSUE SUBMITTED: Liver 18-gauge x4 MICROSCOPIC DIAGNOSIS Liver mass, CT-guided core biopsy: Consistent with metastatic poorly differentiated leiomyosarcoma. See comment. SJ:rg 09/20/2022 COMMENT The specimen is evaluated at the time of biopsy by Dr. Lang. Immediate Evaluation = Malignant cells present. Immunohistochemistry ([id number]) supports the above diagnosis. Molecular studies on the tumor can be performed if clinically indicated. Please notify the laboratory if they are needed. Please make reference to previous specimen ([id number]) uterus, cervix, bilateral fallopian tubes with diagnosis of ?moderately differentiated leiomyosarcoma (3.5 cm in greatest dimension).? This case is discussed with Dr. Sesay on 09/20/2022 and 09/21/22. Case has been reviewed in consultation with Dr. Colon who concurs with the above diagnosis. IDC:AM MICROSCOPIC DESCRIPTION Slides are reviewed. GROSS DESCRIPTION Received is one container labeled with the patient's name and not further designated. The specimen consists of multiple irregular and elongated fragments of pritchett tissue that in aggregate measure 1.0 x 0.5 x <0.1 cm. The specimen is totally submitted in one cassette. Two touch imprints are prepared at the time of core biopsy. / AM:emna 09/19/2022 TC:0 CPT: 00959, 05302
== END | disposition home or self-care (01) ==
PROVIDERS: PCP Family Medicine; Referring Provider Internal Medicine Hematology & Oncology; Visit Provider Internal Medicine Hematology & Oncology
DX: C55 Malignant neoplasm of uterus, part unspecified (principal); C78.7 Secondary malignant neoplasm of liver and intrahepatic bile duct; C78.00 Secondary malignant neoplasm of unspecified lung; E10.40 Type 1 diabetes mellitus with diabetic neuropathy, unspecified; E10.319 Type 1 diabetes mellitus with unspecified diabetic retinopathy without macular edema; Z79.4 Long term (current) use of insulin; E78.5 Hyperlipidemia, unspecified; Z79.899 Other long term (current) drug therapy
CPT/HCPCS: 47000; 36415; 71260; 77012; 80053; 85025; 85610; 85730; 88172; 88305; 88307; 88313; 88341; 88342; 99156; J7050; Q9967; A4216

== ENCOUNTER → 2022-09-22 | Outpatient (CLI) | payer OTHER, SELFPAY ==
--- NOTE | 2022-09-22 09:00 | NM_ITS ---
CLINICAL: 62-year-old female with history of endometrial carcinoma. WHOLE BODY 99m Tc MDP RADIONUCLIDE BONE SCINTIGRAPHY COMPARISON: None available FINDINGS: Following the intravenous administration of 25.6 mCi of 99m Tc MDP, whole body bone images reveal: 1. Increased radiotracer distribution is noted in the dorsal lateral compartment of the right ankle, the left elbow, sternoclavicular compartments of both shoulders. 2. Enhanced uptake is noted in the lesser trochanteric aspect of the left proximal femur. 3. The remaining skeletal structures are scintigraphically unremarkable with normal-appearing renal images and urinary bladder activity identified. There is increased uptake noted in the lesser trochanter aspect of the left proximal femur consistent with periostitis intertrochanteric bursitis. NM/Bone Scan Whole Body IMPRESSION: 1. Facilitated uptake visualized within the right ankle and left elbow, the shoulders bilaterally is consistent with degenerative arthritis. 2. There is no definitive scintigraphic evidence of skeletal metastatic disease. Electronically Signed: Jf Landaverde, at 13:10 EST ,
[2022-09-22 09:17] LABS: ALB/GLOB Ratio 0.8 RATIO (0.9-2.4); AST(SGOT) 85 U/L (15-37); Alanine Aminotransfer ALT/SGPT 92 U/L (13-56); Albumin, Serum 3.2 g/dL (3.2-5.0); Alkaline Phosphatase 699 U/L (45-117); Anion Gap 10 (5-15); BUN 14 mg/dL (7-18); BUN/Creat Ratio 15.9 RATIO (10-20); Calcium,Total 10.5 mg/dL (8.5-10.1); Chloride 101 mmol/L (98-107); Creatinine, Serum 0.88 mg/dL (0.55-1.02); EST Glomerular Filtration Rate 69 mL/min (>60); Est Glom Filt Rate - Afr Amer 83 mL/min (>60); Glucose 272 mg/dL (74-106); Potassium 4.1 mmol/L (3.5-5.1); Protein, Total 7.2 g/dL (6.4-8.2); Sodium Level 137 mmol/L (136-145)
[2022-09-22 16:54] LABS: Xtra Tube EP Lab EXTRA TUBE
== END | disposition home or self-care (01) ==
LOC: NM 08:46
PROVIDERS: PCP Family Medicine; Visit Provider Internal Medicine Hematology & Oncology
DX: C78.00 Secondary malignant neoplasm of unspecified lung (principal); R16.0 Hepatomegaly, not elsewhere classified; E83.52 Hypercalcemia
CPT/HCPCS: 36415; 78306; 80053; A9503

== ENCOUNTER 2022-09-23 07:24 | Day surgery (SDC) | payer OTHER, SELFPAY ==
[2022-09-23] VITALS (15 sets, daily range): BP systolic 113–151; BP diastolic 61–89; PULSE 99–107; RESP 16–20; TEMP 36.2–36.8; O2SAT 89–98; BMI 24.1
[2022-09-23] MEDS: Lactated Ringers 1,000 ML 15 ML IV ×2 (07:56→11:42)
--- NOTE | 2022-09-23 08:04 | HP.PCM.SX_ITS ---
HPI - General General Date of Admission: 09/23/22 HPI Narrative FORREST PERES, is a 62 F who presents for port placed. 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 Patient is enrolled in a trial at [facility], patient's appointment in at [facility] is 09/30. [facility] Medical History Abdominal pain Arthritis Back pain Cancer Chest pain Diabetes Dyspnea on exertion Fatigue Gastric reflux High cholesterol History of hip fracture History of irregular heartbeat History of stress test Hx of fracture of left hip Hypercalcemia of malignancy Hyperlipemia Hypertension Insulin dependent diabetes mellitus Liver metastasis Lung metastases Neuropathy Non-smoker Post-menopausal Retinopathy Shortness of breath on exertion Type 1 diabetes mellitus Wears glasses Home Medications multivitamin 1 ea PO DAILY 02/26/18 [History Last Taken 07/02/18 10:00] flash glucose scanning reader ([employer] Bruna 14 Day Maud) #1 ea 05/21/19 [Rx Last Taken Unknown] flash glucose sensor (FreeStyle Bruna 14 Day Sensor kit) #1 ea 05/21/19 [Rx Last Taken Unknown] blood sugar diagnostic (OneTouch Ultra Blue Test Strip) #100 ea 11/09/20 [Rx Last Taken Unknown] blood-glucose meter (OneTouch Ultra2 Meter) #1 ea 11/09/20 [Rx Last Taken Unknown] pravastatin 20 mg tablet 20 mg PO QHS #90 tabs 10/04/21 [Rx Last Taken Unknown] insulin glargine 100 unit/mL (3 mL) subcutaneous pen 16 - 20 unit subcut QHS 08/18/22 [History Last Taken Unknown] omeprazole 20 mg capsule,delayed release 20 mg PO DAILY #30 caps 08/18/22 [Rx Last Taken Unknown] fosinopril 40 mg tablet 40 mg PO DAILY #90 tabs 09/08/22 [Rx Last Taken Unknown] fluoxetine 20 mg capsule 20 mg PO DAILY 09/19/22 [History Last Taken Unknown] insulin aspart U-100 100 unit/mL (3 mL) subcutaneous pen 15 unit (0.15 mL) subcut TID #15 mL 09/22/22 [Rx Last Taken Unknown] wheel chair #1 ea 09/22/22 [Rx Last Taken Unknown] Allergy/AdvReac Type Severity Reaction Status Date / Time No Known Allergies Allergy Verified 09/22/22 15:30 Family History Mother Cancer Hypertension Arthritis Father Arthritis Myocardial infarction, Onset Age: 40 Heart disease Sister Diabetes Surgical History History of bunionectomy History of section History of colonoscopy History of endometrial ablation History of eye surgery History of hysterectomy for cancer Social History Smoking Status: Never smoker alcohol intake: current alcohol intake frequency: a few times a week Alcohol type: wine details: social substance use type: does not use caffeine: Yes what type of physical activity do you participate in: none seatbelt use: always do you feel safe at home: Yes additional social history: Akshat- Teacher at [employer] 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 Vital Signs Vital Signs Vital Signs: 09/23/22 07:57 09/23/22 07:57 Temperature 98.2 F Temperature Source Temporal Pulse Rate 107 H Respiratory Rate 18 Respiratory Pattern Normal Blood Pressure 137/70 H Blood Pressure Mean 92 Blood Pressure Position Semi-Fowlers Blood Pressure Location Left Arm Pulse Ox 92 Oxygen Delivery Method Room Air Weight Weight: 158 lb 12.8 oz Body Mass Index (BMI) 24.1 Physical Exam Const alert, oriented x3 and no apparent distress Constitutional Narrative: Palpation to the upper chest normal. HEENT normocephalic and head/scalp atraumatic HEENT Narrative: Neck is supple Resp normal respiratory effort Cardio regular rate GI soft to palpation and non-distended Extremity no clubbing, cyanosis or edema Neuro CN's II-XII intact bilaterally Psych mental status grossly normal Assessment & Plan Assessment/Plan (1) Encounter for insertion of venous access port: (2) Leiomyosarcoma: (3) Liver metastasis: (4) Lung metastases: PLAN: Plan I have discussed above with the patient- Port-a-Cath placement. Right possible left?dual lumen per [facility] preference Patient has been counseled as to the risks/benefits of the procedure. I have explained the risks of the surgery, including but not limited to: infection, bleeding, injury to any blood vessels/nerves, injury to lungs (such as pneumothorax or hemothorax and need for chest tube), not having any access, nonfunctioning of port due to thrombosis, infection of port, etc. the patient understands and agrees to proceed. I have answered all the patient's questions to the patient?s satisfaction and the patient has no further questions. Marcie Branch M.D. Pager: [phone] [facility] [address] [place] [address], [address] [place] [address] Office: [phone]
[2022-09-23] MEDS: Insulin Lispro 100 UNIT/ML INSULN.PEN 6 UNIT SC (08:13)
[2022-09-23 08:36] LABS: Bedside Glucose 300 mg/dL (74-106)
[2022-09-23] MEDS: Cefazolin 2 GM in 0.9% Normal Saline 100 ML IV (08:52)
[2022-09-23] MEDS: Lidocaine 1% /Epi 1:100 (20ml) 20 ML Vial (09:35)
--- NOTE | 2022-09-23 09:48 | PCM.OPRPT ---
Report of Operation Date of Procedure: 09/23/22 Pre-Operative Diagnosis: Z45.2, metastatic leiomyosarcoma Post-Operative Diagnosis: Same Surgery/Procedure Performed:: 1. Placement of dual-lumen Port-A-Cath right IJ 2. Use of ultrasound 3. Use of fluoroscopy Surgeon: Marcie Branch Type of Anesthesia: Local MAC Anesthesiologist: Zachary Beltran Special Medications: Ancef 2 g IV x1 Specimen's removed: None Estimated Blood Loss (mL): < 10 cc Description of Procedure: After informed consent was given, the patient was brought to the operating room and placed in the supine position. Appropriate time out protocol was followed. Patient was then given IV conscious sedation for anesthesia. The patient's right upper chest and neck were then prepped with a surgical skin preparation and sterile surgical drapes were placed. After proper landmarks were ascertained, the skin at the upper right chest area was then infiltrated with 1:1 mixture of 1% lidocaine with epinephrine and 0.25% marcaine. A needle trocar was then inserted into the right internal jugular vein with ultrasound guidance-multiple vessels were viewed with u/s and the right IJ was chosen-- and there was good aspiration of venous blood. A wire was then threaded into the needle trocar and this was visualized under fluoroscopy to ensure that the wire was in the superior vena cava. Once this was done, then the needle trocar was removed. A small skin mundo was made with an 11 blade knife at the wire entrance site. The dilator with the introducer sheath attached was then placed over the wire into the right internal jugular vein via the Seldinger technique and this was visualized under fluoroscopy. The dilator and sheath were in proper position as visualized by fluoroscopy. A subcutaneous pocket was then created caudad to the catheter insertion site. A transverse skin incision was made after the skin and subcutaneous tissues were infiltrated with local anesthetic. Blunt dissection was then used to create a space large enough for placement of the subcutaneous port. The catheter was then tunneled into the subcutaneous pocket. The wire and dilator were then removed. The catheter was then threaded into the introducer sheath and was positioned with its tip at the junction of the superior vena cava and the right atrium as visualized under fluoroscopy. The excess catheter was transected. The catheter was then attached to the subcutaneous port using manufacturers guidelines. The catheter was flushed with a heparin saline mixture prior to placement. Hemostasis was carefully controlled with electrocautery. The port was sutured to the subcutaneous fascia using 2-0 Vicryl suture at two sites. The port was then placed in the subcutaneous pocket. The incision were reapproximated with interrupted subdermal 3-0 vicryl sutures. The skin was reapproximated with 3-0 nylon suture in a interrupted fashion. Steristrips were used for reinforcement of the skin closure at IJ insertion site and a sterile opsite dressings were applied. The patient tolerated the procedure well. Grafts/Implants Used: [employer] DUO MRI 9.5Fr LOT [id number] REF [id number] Complications none
--- NOTE | 2022-09-23 09:53 | DCINST_ITS ---
Discharge Instructions Procedure Port-A-Cath Diet Discharge Diet: Light diet - advance as tolerated Activity May shower in (days): 5 (Keep port site clean and dry x5 days. Neck incision okay to get wet after 1 day. Okay to lower shower and upper sponge bath. OR okay to taper off port site with a Ziploc bag to shower) Lifting Restrictions: No lifting > 15 pounds for 3 days with the arm on the side of the port Dressing / Incision Call your doctor if your incision/area has: Continuous Slow Oozing, Sudden Increased Bleeding, Increased Pain/ Swelling, Increased Redness, Foul Smelling Discharge and Swelling at the incision site Call your doctor if you observe: Fever of 101 or Higher Change Dressing in: 2 days Follow Up Care Please Follow Up With: Marcie Branch MD When: In 10 days for permanent suture removal?call office for appointment Test Results: Test results from this visit will be discussed in further detail at your follow- up appointment, if applicable. Discharge Plan Admission Attending Provider: Marcie Branch Primary Care Provider: Nitin Falcon Discharge Orders/Prescriptions Prescriptions: No Action (DME) FreeStyle Bruna 14 Day [place] [facility] See Rx Instructions .ROUTE .MEDSUPPLY Qty: 1 3RF Rx Instructions: As directed (DME) FreeStyle Bruna 14 Day Sensor Kit See Rx Instructions .ROUTE .MEDSUPPLY Qty: 1 3RF Rx Instructions: As directed insulin glargine 100 unit/mL (3 mL) insulin pen 16 - 20 unit SC QHS Label Comments: took 10 units at bedtime prior to procedure omeprazole 20 mg capsule,delayed release(DR/EC) 20 mg PO DAILY Qty: 30 1RF fosinopril 40 mg tablet 40 mg PO DAILY Qty: 90 3RF multivitamin 1 EACH tablet 1 ea PO DAILY fluoxetine 20 mg capsule 20 mg PO DAILY (DME) OneTouch Ultra Blue Test Strip Strip See Rx Instructions .ROUTE .MEDSUPPLY Qty: 100 3RF Rx Instructions: As directed (DME) blood-glucose meter [OneTouch Ultra2 Meter] [facility] See Rx Instructions .ROUTE .MEDSUPPLY Qty: 1 0RF Rx Instructions: As directed pravastatin 20 mg tablet 20 mg PO QHS Qty: 90 3RF insulin aspart U-100 100 unit/mL (3 mL) insulin pen 15 unit SC TID Qty: 15 3RF Rx Instructions: 8 units prior to arrival sliding scale (DME) wheel chair See Rx Instructions .Route .MEDSUPPLY Qty: 1 0RF Rx Instructions: As directed Referrals / Follow Up: Nitin Falcon, [Primary Care Provider] - Disposition Disposition (needs filled in before D/C Order can be placed): Home, Self Care
--- NOTE | 2022-09-23 10:05 | RAD_ITS ---
STUDY: X-RAY CHEST REASON FOR EXAM: Female, 62 years old. Port -- pacu TECHNIQUE: Single AP portable view of the chest. COMPARISON: None. FINDINGS: A right-sided yael catheter has been placed with the tip in the right atrium. Diffuse bilateral pulmonary nodules more prominent in the left hemithorax. There is no demonstrated pleural abnormality. Normal size heart. Normal mediastinum and jessica. Normal visualized pulmonary arteries. There is atherosclerotic calcification of the aortic arch with tortuosity. There are diffuse degenerative changes of the visualized thoracic spine. Normal visualized ribs, clavicles, and shoulders. There is no demonstrated abnormality of the visualized soft tissue structures of the upper abdomen. RAD/CXR for Line Placement IMPRESSION: The tip of the right portacatheter is in the right atrium. No evidence of pneumothorax Diffuse bilateral pulmonary nodules. Electronically Signed: Rob Marroquin MD at 10:19 EST ,
[2022-09-23 10:36] LABS: Bedside Glucose 218 mg/dL (74-106)
--- NOTE | 2022-09-23 11:56 | SUR.PHASEI ---
PATIENT SAT RANGING FROM 87 TO 91% ON ROOM AIR. DENIES ANY SHORTNESS OF BREATH BUT SAYS THAT WORKING ON TAKING DEEP BREATHS OVER AND OVER IS MAKING HER TIRED. PATIENT PLACED BACK ON 2L PER NC AND O2 SAT 92 TO 95%. PATIENT SAID THAT SHE IS TO SEE DR. HENSLEY NEXT WEEK TO DISCUSS HOME OXYGEN. WILL UPDATE ANESTHESIA.
--- NOTE | 2022-09-23 12:34 | PCM.PN.BLA ---
Progress Note Patient require home O2. On room air patient dropped to 87%. On 2 L nasal cannula at rest she is able to get up to 92%. Patient had been borderline prior to the procedure and actually has a discussion/appointment with Dr. Sesay regarding possible home O2 next week.
--- NOTE | 2022-09-23 13:00 | CASEMGMT ---
Addendum entered by Batool Colbert 09/23/22 13:47: Referral sent to [facility] via [facility] at this time for oxygen. Placed information on dc plan. Original Note: Received tc from that pt needs set up with oxygen to dc home today. RN CM to PACU, met pt and visitor in room. Discussed the homegoing oxygen process. Provided pt with a verbal local in network list of DME companies,pt states that was setting this up through [facility] on Monday. Pt chose [facility]. Explained testing process to nurse. TC to Lizeth at [facility] to make aware of referral coming for portable tank. Rx signed.
--- NOTE | 2022-09-23 13:31 | SUR.PHASEII ---
1310 Pt in semi-fowlers position Spo2 94% on 2LPM O2 via N/C 1316 Pt in semi fowlers position Spo2 88% on room air 1317 O2 reapplied at 2lpm via N/C 1322 Pt ambulated on 2LPM O2 via N/C and Spo2 95%
--- NOTE | 2022-09-23 14:17 | SUR.PHASEII ---
[employer] rep here to set up pt with home oxygen
== END 2022-09-23 14:34 | disposition home or self-care (01) ==
LOC: SDC 07:24 → AC 07:26
PROVIDERS: PCP Family Medicine; Referring Provider Surgery; Visit Provider Surgery
PROC: (CPT 36561; principal; 2022-09-23 08:45)
DX: Z45.2 Encounter for adjustment and management of vascular access device (principal); C78.7 Secondary malignant neoplasm of liver and intrahepatic bile duct; C78.00 Secondary malignant neoplasm of unspecified lung; C49.9 Malignant neoplasm of connective and soft tissue, unspecified; E10.40 Type 1 diabetes mellitus with diabetic neuropathy, unspecified; Z79.4 Long term (current) use of insulin; I10 Essential (primary) hypertension; E78.00 Pure hypercholesterolemia, unspecified; K21.9 Gastro-esophageal reflux disease without esophagitis; Z79.899 Other long term (current) drug therapy
CPT/HCPCS: 36561; 00532; 71045; 77001; 82962; J7120; C1788; J2405

== ENCOUNTER → 2022-09-29 | Outpatient (CLI) | payer OTHER, SELFPAY ==
--- NOTE | 2022-09-29 12:38 | ECHODONC_ITS ---
Reason For Study: OTHER Procedure This was a 2D Doppler, Color Flow transthoracic echocardiogram. Myocardial strain analysis was performed in this exam to aid in the assessment of cardiac function. Exam performed in department. Left Ventricle Normal LV size. Left ventricular systolic function is normal. The estimated ejection fraction is 65 %. Stage 1 diastolic dysfunction. No regional wall motion abnormalities noted. Right Ventricle Normal RV size. Normal systolic function. Atria Normal left atrium. Normal right atrium. Mitral Valve Normal mitral valve. Tricuspid Valve The tricuspid valve is not well visualized. Mild tricuspid valve insufficiency. Pulmonary artery systolic pressure is 30 mmHg. Aortic Valve Trisinus/trileaflet aortic valve. Pulmonic Valve Normal pulmonic valve. Great Vessels Normal aortic root. The pulmonary artery is normal size. Normal inferior vena cava. Pericardium/Pleural No pericardial effusion. MMode/2D Measurements & Calculations LVIDd: 3.9 cm IVSd: 1.1 cm Ao root diam: 2.8 cm LVIDs: 3.5 cm LVPWd: 1.5 cm FS: 11.4 % LAV(MOD-sp4): 43.0 ml LVAd ap4: 21.8 cm2 SV(MOD-sp4): 31.1 ml LVLd ap4: 7.0 cm EDV(MOD-sp4): 55.9 ml EDV(sp4-el): 57.4 ml LVAs ap4: 13.2 cm2 LVLs ap4: 5.8 cm ESV(MOD-sp4): 24.8 ml ESV(sp4-el): 25.5 ml EF(MOD-sp4): 55.7 % EF(sp4-el): 55.6 % SV(sp4-el): 31.9 ml LA A4 area: 15.8 cm2 LA dimension(2D): 3.7 cm RA A4 area: 9.3 cm2 Time Measurements MV dec time: 0.13 sec Doppler Measurements & Calculations MV E max bal: 80.2 cm/sec Lat Peak E' Bal: 9.9 cm/sec MV V2 max: 87.3 cm/sec MV A max bal: 83.4 cm/sec E/E' lat: 8.1 MV max P.1 mmHg MV E/A: 0.96 MV V2 mean: 72.1 cm/sec MV mean P.2 mmHg MV V2 VTI: 18.8 cm Ao V2 max: 104.7 cm/sec LV V1 max: 94.5 cm/sec MV dec slope: 641.5 cm/sec2 Ao max P.4 mmHg LV V1 max P.6 mmHg Ao V2 mean: 79.6 cm/sec LV V1 mean P.9 mmHg Ao mean P.8 mmHg LV V1 mean: 64.0 cm/sec Ao V2 VTI: 20.7 cm LV V1 VTI: 15.8 cm AV (velocity ratio): 0.76 PA V2 max: 113.4 cm/sec TR max bal: 252.2 cm/sec PA V2 mean: 74.7 cm/sec TR max P.4 mmHg ECHO/ONC Echo Complete Interpretation Summary Normal LV size. Left ventricular systolic function is normal. The estimated ejection fraction is 65 %. Stage 1 diastolic dysfunction. The global longitudinal strain is normal. The global longitudinal strain = -18. 2 % (normal). Ordering Physician: Kyaw Sesay Referring Physician: Ceasar Falcon M.D. Performed By: Camille Morales RCS
== END | disposition home or self-care (01) ==
LOC: CVS 12:34
PROVIDERS: PCP Family Medicine; Visit Provider Internal Medicine Hematology & Oncology
DX: C49.9 Malignant neoplasm of connective and soft tissue, unspecified (principal); I36.1 Nonrheumatic tricuspid (valve) insufficiency
CPT/HCPCS: 93306; 93356

== ENCOUNTER 2022-10-01 11:05 | Emergency (ER) | payer OTHER, SELFPAY ==
[2022-10-01 11:07] VITALS: BP 163/98; PULSE 100; RESP 18; TEMP 36.3; O2SAT 98; BMI 24.3
--- NOTE | 2022-10-01 11:24 | RAD_ITS ---
INDICATION: shortness of breath EXAMINATION/TECHNIQUE: X-RAY - XR Chest 2 Views COMPARISON: None. FINDINGS: LINES/DEVICES: Right-sided Port-A-Cath in stable position with its tip in the cavoatrial junction region or right atrium. LUNGS: Numerous bilateral pulmonary nodules increased in size and number since the previous exam. No evidence of pleural effusions. MEDIASTINUM AND CARDIOVASCULAR STRUCTURES: Cardiac silhouette not enlarged. Central airways and mediastinal contour are unremarkable. BONES AND SOFT TISSUES: Stable soft tissues and osseous structures. RAD/Chest PA and Lateral IMPRESSION: Numerous bilateral pulmonary nodules increased in size and number since the previous exam. Electronically Signed: Oskar Mortensen MD at 12:39 EST ,
--- NOTE | 2022-10-01 11:24 | VDLE_ITS ---
Reason For Study: Swelling RIGHT LEFT CFV is compressible, spontaneous, phasic, GSV is normal. competent and demonstrates normal CFV is compressible, spontaneous, phasic, augmentation. competent, and demonstrates normal FV is compressible, spontaneous, phasic, augmentation. competent and demonstrates normal FV is compressible, spontaneous, phasic, augmentation. competent and demonstrates normal POP V is compressible, spontaneous, phasic, augmentation. competent and demonstrates normal POP V is compressible, spontaneous, phasic, augmentation. competent and demonstrates normal T/P Trunk is compressible. augmentation. PTV is compressible. T/P Trunk is compressible. RT PerV is compressible. PTV is compressible. Rt GSV not visualized s/p EVLA. LT PerV is compressible. Procedure This is a venous duplex using B-mode, color flow and spectral Doppler. Exam performed portable in ED. A preliminary report was called and/or faxed to Eugenio Alonzo NP. VL/Venous Duplex US - Raheem Extrem Interpretation Summary No evidence for acute deep venous thrombosis bilateral lower extremities Previously ablated right great saphenous vein Patent and compressible left great saphenous vein Ordering Physician: Eugenio Alonzo Referring Physician: Nitin Falcon Performed By: Barbra Monroy, CLEMENTE, RVT
--- NOTE | 2022-10-01 11:38 | EDS_ITS ---
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 She currently gets treated by Dr. Otero, she was at the oncologist at [facility], she stayed the night at her son's house that is in [place]. Today she woke up with some pitting edema to her lower legs. Patient denies any increase shortness of breath. Patient is concerned, she called her oncologist was told to come to the emerged department to rule out any CHF, to rule out any DVT. PFS <WILLIE Jurado - Last Filed: 10/01/22 14:02> [facility] Medical History Abdominal pain Arthritis Back pain Cancer Chest pain Diabetes Dyspnea on exertion Fatigue Gastric reflux High cholesterol History of hip fracture History of irregular heartbeat History of stress test Hx of fracture of left hip Hypercalcemia of malignancy Hyperlipemia Hypertension Insulin dependent diabetes mellitus Liver metastasis Lung metastases Neuropathy Non-smoker Post-menopausal Retinopathy Shortness of breath on exertion Type 1 diabetes mellitus Wears glasses Home Medications multivitamin 1 ea PO DAILY 02/26/18 [History Last Taken 09/23/22] flash glucose scanning reader (FreeStyle Bruna 14 Day [place]) #1 ea 05/21/19 [Rx Last Taken Unknown] flash glucose sensor (FreeStyle Bruna 14 Day Sensor kit) #1 ea 05/21/19 [Rx Last Taken Unknown] blood sugar diagnostic (OneTouch Ultra Blue Test Strip) #100 ea 11/09/20 [Rx Last Taken Unknown] blood-glucose meter (OneTouch Ultra2 Meter) #1 ea 11/09/20 [Rx Last Taken Unknown] pravastatin 20 mg tablet 20 mg PO QHS #90 tabs 10/04/21 [Rx Last Taken 09/23/22] insulin glargine 100 unit/mL (3 mL) subcutaneous pen 16 - 20 unit subcut QHS 08/18/22 [History Last Taken 09/22/22 21:00] omeprazole 20 mg capsule,delayed release 20 mg PO DAILY #30 caps 08/18/22 [Rx Last Taken 09/23/22] fosinopril 40 mg tablet 40 mg PO DAILY #90 tabs 09/08/22 [Rx Last Taken 09/23/22] fluoxetine 20 mg capsule 20 mg PO DAILY 09/19/22 [History Last Taken 09/23/22] insulin aspart U-100 100 unit/mL (3 mL) subcutaneous pen 15 unit (0.15 mL) subcut TID #15 mL 09/22/22 [Rx Last Taken 09/23/22 06:30] wheel chair #1 ea 09/22/22 [Rx Last Taken Unknown] furosemide 40 mg tablet (Lasix) 40 mg PO DAILY #4 tabs 10/01/22 [Rx Last Taken Unknown] Allergy/AdvReac Type Severity Reaction Status Date / Time No Known Allergies Allergy Verified 10/01/22 11:09 Family History Mother Cancer Hypertension Arthritis Father Arthritis Myocardial infarction, Onset Age: 40 Heart disease Sister Diabetes Surgical History History of bunionectomy History of section History of colonoscopy History of endometrial ablation History of eye surgery History of hysterectomy for cancer Social History Smoking Status: Never smoker alcohol intake: current alcohol intake frequency: a few times a week Alcohol type: wine details: social substance use type: does not use caffeine: Yes what type of physical activity do you participate in: none seatbelt use: always do you feel safe at home: Yes additional social history: Akshat- Teacher at [employer] 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 ROS <WILLIE Jurado - Last Filed: 10/01/22 14:02> [facility] ROS Narrative Constitutional: Negative for fever, chills, weight loss, weakness Eyes: Negative for vision loss, vision change, double vision ENT: Negative for any sore throat, ear pain, congestion Cardiovascular: Negative for any chest pain, tightness, palpitations Respiratory: Negative for any cough, sputum production, hemoptysis, dyspnea, dyspnea on exertion, orthopnea Gastrointestinal: Negative for any abdominal pain, nausea, vomiting, diarrhea, constipation, blood in stool, blood in vomit : Negative for any urinary frequency, dysuria, retention, blood in urine Muscle skeletal: Negative for any muscle joint pain, stiffness, myalgias, arthralgias, neck pain, back pain. Positive for bilateral lower leg edema, tightness Neurological: Negative for any headache, syncope, numbness or tingling, dizziness Skin: Negative for any rashes, lumps, itching, abrasions, lacerations Psychiatric: Negative for any depression, anxiety, stress, suicidal ideation, homicidal ideation Hematologic: Negative for any easy bruising, excessive bruising, easy bleeding Allergies: Negative for any eczema, hives, rash EXAM <WILLIE Jurado - Last Filed: 10/01/22 14:02> Physical Exam Narrative Exam Narrative: Vital signs reviewed. Patient appears generally well. Patient vital signs are stable on her 2 L HEET: Head normocephalic atraumatic, TMs clear bilaterally. Posterior pharynx is clear, moist mucous membranes. Nares clear bilaterally. Neck: Supple with no lymphadenopathy or tenderness. No signs of meningismus, negative jolt sign. Cardiac: Regular rate and rhythm no murmurs gallops or rubs, equal peripheral pulses bilaterally. Respiratory: Lungs clear to auscultation bilaterally. No chest tenderness. Abdomen: Soft, nontender. No abdominal bruit or pulsatile masses. No hepatosplenomegaly. Patient is also complaints of abdominal bloating however this is been ongoing secondary to a large mass in her liver. States it is not bigger than normal. Extremities: Patient has +1 pitting edema below the knees bilaterally. There is no signs or symptoms of redness, no significant signs of cellulitis. Patient does have palpable pedal pulses. Patient states that her lower extremities feel tight however there is no evidence of any deformity or trauma., no signs of gross trauma or deformity. Active full range of motion of all extremities. Neuro: Cranial nerves II through XII intact, no focal neurological deficits. Skin: Clean dry and intact with no rash, purpura, petechiae, vesicles or pustules. Backs/flank: No CVA tenderness, no midline spinal tenderness, no deformity. Psych: Normal mood and affect. No SI, HI or acute psychosis. Const Vital Signs: 10/01/22 11:07 10/01/22 11:52 10/01/22 13:12 Temperature 97.4 F L 98.1 F Temperature Source Temporal Oral Pulse Rate 100 95 86 Respiratory Rate 18 19 H 18 Respiratory Effort Blood Pressure 163/98 H 165/71 H Blood Pressure Mean 119 102 Pulse Ox 98 95 98 Oxygen Delivery Method Nasal Cannula Nasal Cannula Nasal Cannula Oxygen Flow Rate (L/min) 2 2 3 10/01/22 13:22 Temperature Temperature Source Pulse Rate Respiratory Rate Respiratory Effort Normal Blood Pressure Blood Pressure Mean Pulse Ox Oxygen Delivery Method Oxygen Flow Rate (L/min) <Dr. Austin Terry DO - Last Filed: 10/01/22 20:22> Physical Exam Const Vital Signs: 10/01/22 11:07 10/01/22 11:52 10/01/22 13:12 Temperature 97.4 F L 98.1 F Temperature Source Temporal Oral Pulse Rate 100 95 86 Respiratory Rate 18 19 H 18 Respiratory Effort Blood Pressure 163/98 H 165/71 H Blood Pressure Mean 119 102 Pulse Ox 98 95 98 Oxygen Delivery Method Nasal Cannula Nasal Cannula Nasal Cannula Oxygen Flow Rate (L/min) 2 2 3 10/01/22 13:22 Temperature Temperature Source Pulse Rate Respiratory Rate Respiratory Effort Normal Blood Pressure Blood Pressure Mean Pulse Ox Oxygen Delivery Method Oxygen Flow Rate (L/min) MDM <WILLIE Jurado - Last Filed: 10/01/22 14:02> [facility] Lab Data Labs: Laboratory Results - last 24 hr 10/01/22 10/01/22 10/01/22 11:50 11:50 11:50 WBC 6.4 RBC 4.63 Hgb 13.0 Hct 41.4 MCV 89.4 MCH 28.1 MCHC 31.4 L RDW Std Deviation 50.4 H RDW Coeff of Flaco 15.4 H Plt Count 192 MPV 11.3 Immature Gran % (Auto) 0.300 Neut % (Auto) 69.7 Lymph % (Auto) 15.6 L [place] % (Auto) 9.2 Eos % (Auto) 4.4 Baso % (Auto) 0.8 Absolute Neuts (auto) 4.5 Absolute Lymphs (auto) 1.00 Nucleated RBC % 0 Sodium 138 Potassium 4.1 Chloride 105 Carbon Dioxide 26.0 Anion Gap 7 BUN 15 Creatinine 0.64 Estim Creat Clear Calc 90.76 Est GFR (MDRD) Af Amer 120 Est GFR (MDRD) Non-Af 99 BUN/Creatinine Ratio 23.4 H Glucose 292 H Calcium 10.1 Total Bilirubin 1.00 Direct Bilirubin 0.58 H AST 98 H ALT 73 H Alkaline Phosphatase 743 H B-Natriuretic Peptide 207.5 H Total Protein 6.8 Albumin 2.9 L Globulin 3.9 Lipase 24 L Radiography Diagnostic Testing: Clinical Impression(s) from Imaging Studies Chest X-Ray 10/01/22 11:24 IMPRESSION: Numerous bilateral pulmonary nodules increased in size and number since the previous exam. Electronically Signed: Oskar Mortensen MD at 12:39 EST , EKG Normal sinus rhythm, rate of 95 bpm, VT 170 ms,: Comments: Normal sinus rhythm, interval right ER physician, normal sinus rhythm, 95 bpm, VT interval 170 ms, QRS duration 78 ms, no acute ST elevation, no acute infarct noted. Treatment and Re-Evaluation :: All radiologic examinations were read, reviewed by the emergency department attending. From these reads, a plan of care will be put in place. Patient appears generally well, patient is maintaining well on her 2 L nasal cannula which is chronic for her secondary to the pulmonary tumors. Patient presents the emergency department for bilateral lower leg swelling that has been occurring over the last 24 hours. Patient was concern for deep vein thrombosis which is in the differential for the edema, she also concern for cellulitis was also in the differential. These were both unremarkable. Patient has no signs or symptoms of cellulitis. Patient has no fever or chills. Patient did receive a venous duplex of bilateral lower extremities, this was negative. Patient's laboratory valuesShows a normal CBC, no elevation in the white count. Patient's chemistries show slight hyperglycemia with a blood glucose of 292. Patient's creatinine was unremarkable. Patient's proBNP was 207.5, there is nothing to compare this to. Patient did receive a chest x-ray, this showed numerous bilateral pulmonary nodules was increased in size in the number since the previous exam. Patient is known to have metastatic disease. Patient was given 40 mg of IV Lasix. I do believe that this could be occurring secondary to the patient's large 17 cm tumor in her liver. This could be compressing on some vasculature that is decreasing her return. I did speak with the patient's oncologist, he is in agreement. He is going to see her in 2 days. He would like her to be placed on a short course of Lasix. I spoke with the patient as well as the patient's , they are all in agreement. They will also be educated to elevate the legs, as well as use compression stockings which they have at home. They were given return precautions. At this time, there is no pneumonia, CHF exacerbation. Patient stable for discharge. <Dr. Austin Terry, DO - Last Filed: 10/01/22 20:22> MDM MDM Narrative Medical decision making narrative: Interventions / MDM: Differential diagnosis:. Peripheral edema, DVT, venous insufficiency hepatic lesion, CHF Diagnosis considered but do not suspect: N/A My EKG interpretation: Sinus rate of 95, no ST or T wave changes. Imaging independently reviewed and interpreted by myself: N/A External documents reviewed: CT scan recently large hepatic mass. Test considered but not ordered:N/A ED course: Attending note: Patient seen and evaluated with it quality assurance analyst. I perform my own [id number] evaluation. I agree with the plan of work-up. Increasing leg swelling overnight. No dyspnea orthopnea. 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 She is followed by Dr. Otero. Per spouse, recently evaluated [facility] states to extent for trial studies, however plans for chemotherapy by her oncologist to be seen on Monday. Exam 1+ lower extremity edema bilaterally. Lower stable creatinine 0.64. Ultrasound legs were negative for DVT. With patient's history and findings concerns for potential vas insufficiency from her hepatic mass. She was given Lasix. Discussed with her oncologist agrees, will place on diuretics, patient has appointment in 2 days in the office. Re-evaluation: stable Disposition discussed with patient/family/significant other: Patient and significant other Case discussed with consulting clinician: Oncology, Dr. otero Lab Data Attestation: I reviewed the patient's lab results. Labs: Laboratory Results - last 24 hr 10/01/22 10/01/22 10/01/22 11:50 11:50 11:50 WBC 6.4 RBC 4.63 Hgb 13.0 Hct 41.4 MCV 89.4 MCH 28.1 MCHC 31.4 L RDW Std Deviation 50.4 H RDW Coeff of Flaco 15.4 H Plt Count 192 MPV 11.3 Immature Gran % (Auto) 0.300 Neut % (Auto) 69.7 Lymph % (Auto) 15.6 L [place] % (Auto) 9.2 Eos % (Auto) 4.4 Baso % (Auto) 0.8 Absolute Neuts (auto) 4.5 Absolute Lymphs (auto) 1.00 Nucleated RBC % 0 Sodium 138 Potassium 4.1 Chloride 105 Carbon Dioxide 26.0 Anion Gap 7 BUN 15 Creatinine 0.64 Estim Creat Clear Calc 90.76 Est GFR (MDRD) Af Amer 120 Est GFR (MDRD) Non-Af 99 BUN/Creatinine Ratio 23.4 H Glucose 292 H Calcium 10.1 Total Bilirubin 1.00 Direct Bilirubin 0.58 H AST 98 H ALT 73 H Alkaline Phosphatase 743 H B-Natriuretic Peptide 207.5 H Total Protein 6.8 Albumin 2.9 L Globulin 3.9 Lipase 24 L Radiography Diagnostic Testing: Clinical Impression(s) from Imaging Studies Chest X-Ray 10/01/22 11:24 IMPRESSION: Numerous bilateral pulmonary nodules increased in size and number since the previous exam. Electronically Signed: Oskar Mortensen MD at 12:39 EST , Discharge Plan Triage Chief Complaint: Edema Other Complaint: Lower Extremity Injury ED Midlevel Provider: Eugenio Alonzo ED Provider: Austin Terry Dx/Rx/DC Orders Clinical Impression: Leg edema, Liver tumor, Leiomyosarcoma, Peripheral edema Instructions: Taking a Diuretic, ED Peripheral Edema, Bilateral Prescriptions: New furosemide [Lasix] 40 mg tablet 40 mg PO DAILY Qty: 4 0RF No Action (DME) FreeStyle Bruna 14 Day [place] Misc See Rx Instructions .ROUTE .MEDSUPPLY Qty: 1 3RF Rx Instructions: As directed (DME) FreeStyle Bruna 14 Day Sensor Kit See Rx Instructions .ROUTE .MEDSUPPLY Qty: 1 3RF Rx Instructions: As directed insulin glargine 100 unit/mL (3 mL) insulin pen 16 - 20 unit SC QHS Label Comments: took 10 units at bedtime prior to procedure omeprazole 20 mg capsule,delayed release(DR/EC) 20 mg PO DAILY Qty: 30 1RF fosinopril 40 mg tablet 40 mg PO DAILY Qty: 90 3RF multivitamin 1 EACH tablet 1 ea PO DAILY fluoxetine 20 mg capsule 20 mg PO DAILY (DME) OneTouch Ultra Blue Test Strip Strip See Rx Instructions .ROUTE .MEDSUPPLY Qty: 100 3RF Rx Instructions: As directed (DME) blood-glucose meter [OneTouch Ultra2 Meter] [facility] See Rx Instructions .ROUTE .MEDSUPPLY Qty: 1 0RF Rx Instructions: As directed pravastatin 20 mg tablet 20 mg PO QHS Qty: 90 3RF insulin aspart U-100 100 unit/mL (3 mL) insulin pen 15 unit SC TID Qty: 15 3RF Rx Instructions: 8 units prior to arrival sliding scale (DME) wheel chair See Rx Instructions .Route .MEDSUPPLY Qty: 1 0RF Rx Instructions: As directed Primary Care Provider: Nitin Falcon Referrals: Nitin Falcon, [Primary Care Provider] - Kyaw Otero MD [[facility] Staff - Active Staff] - Activity Restrictions/Additional Instructions: Please follow-up with your oncologist on Monday as scheduled. You will elevate your legs, use compression stockings. Use the Lasix starting tomorrow in the morning. Disposition Disposition: Home, Self Care Discharge Date/Time: 10/01/22 15:14
[2022-10-01 11:52] VITALS: PULSE 95; RESP 19; O2SAT 95
[2022-10-01 12:09] LABS: Absolute Neutrophil Count 4.5 X10^3/uL (2.0-7.7); Basophil# 0.05 X10^3/uL; Basophil% 0.8 % (0-1); Eosinophil# 0.28 X10^3/uL; Eosinophils% 4.4 % (0-5); Hematocrit 41.4 % (37-47); Lymphocyte % 15.6 % (19-41); Mean Corp Hgb Conc 31.4 g/dL (32-36); Mean Corpuscular Hgb 28.1 pg (27.0-32.0); Mean Corpuscular Volume 89.4 fL (81-99); Mean Platelet Vol. 11.3 fl (6.2-12.0); Monocyte# 0.59 X10^3/uL; Monocyte% 9.2 % (0-10); NRBC Flagged by Analyzer 0 % (0-5); Neutrophil # 4.48 X10^3/uL (2.7-7.7); Neutrophil % 69.7 % (47-70); Platelet Count 192 K/mm3 (150-450); RBC Distribution Width CV 15.4 % (11.6-14.6); RBC Distribution Width SD 50.4 fl (35.1-43.9); Red Blood Count 4.63 M/mm3 (4.2-5.4); White Blood Count 6.4 K/mm3 (4.4-11.0)
[2022-10-01 12:25] LABS: AST(SGOT) 98 U/L (15-37); Alanine Aminotransfer ALT/SGPT 73 U/L (13-56); Albumin, Serum 2.9 g/dL (3.2-5.0); Alkaline Phosphatase 743 U/L (45-117); Anion Gap 7 (5-15); BUN 15 mg/dL (7-18); BUN/Creat Ratio 23.4 RATIO (10-20); Bilirubin, Direct 0.58 mg/dL (0.00-0.30); Calcium,Total 10.1 mg/dL (8.5-10.1); Chloride 105 mmol/L (98-107); Creatinine, Serum 0.64 mg/dL (0.55-1.02); EST Glomerular Filtration Rate 99 mL/min (>60); Est Glom Filt Rate - Afr Amer 120 mL/min (>60); Estimated Creatinine Clearance 90.76 ml/min; Globulin 3.9 g/dL (2.2-4.2); Glucose 292 mg/dL (74-106); Lipase 24 U/L (73-393); Potassium 4.1 mmol/L (3.5-5.1); Protein, Total 6.8 g/dL (6.4-8.2); Sodium Level 138 mmol/L (136-145)
[2022-10-01 12:34] LABS: BNP,B-Type NATRIURETIC PEPTIDE 207.5 pg/mL (0-100)
[2022-10-01 13:12] VITALS: BP 165/71; PULSE 86; RESP 18; TEMP 36.7; O2SAT 98
[2022-10-01] MEDS: Furosemide 40 MG/4 ML Vial IV (13:18)
== END 2022-10-01 15:14 | disposition home or self-care (01) ==
PROVIDERS: Nurse Practitioner; Emergency Provider Emergency Medicine; PCP Family Medicine; Visit Provider Emergency Medicine
DX: R60.0 Localized edema (principal); C78.01 Secondary malignant neoplasm of right lung; C78.02 Secondary malignant neoplasm of left lung; C78.7 Secondary malignant neoplasm of liver and intrahepatic bile duct; C49.9 Malignant neoplasm of connective and soft tissue, unspecified; E10.40 Type 1 diabetes mellitus with diabetic neuropathy, unspecified; Z79.4 Long term (current) use of insulin; I10 Essential (primary) hypertension; E78.00 Pure hypercholesterolemia, unspecified; Z79.899 Other long term (current) drug therapy
CPT/HCPCS: 36591; 71046; 80048; 80076; 83690; 83880; 85025; 93005; 93970; 96374; 99285; A4216; J1940

== ENCOUNTER → 2022-10-04 | Outpatient (CLI) | payer OTHER, SELFPAY ==
--- NOTE | 2022-10-04 07:07 | MRI_ITS ---
STUDY: MRI BRAIN WITH AND WITHOUT CONTRAST REASON FOR EXAM: Female, 62 years old. STAGING SARCOMA TECHNIQUE: Standardized multiplanar fat and water weighted pulse sequences were obtained. IV 14ml Clariscan VIA PORT was administered for the contrast portion of the examination. COMPARISON: CT of the brain August 24, 2017 FINDINGS: Normal size of the ventricles and extra-axial spaces for the patient''s age. Minor periventricular white matter disease most likely small vessel ischemic changes in patient of this age without mass effect or restricted diffusion. Normal bilateral basal ganglia. Normal thalami. There is no extra-axial fluid accumulation. Normal flow voids within the major intracranial circulation suggesting patency by spin echo criteria. Normal venous enhancement. There is no enhancing intra-axial or extra-axial abnormality. Normal sella turcica, pituitary gland, infundibular stalk, optic chiasm and hypothalamus. Normal tectal plate and pineal gland. Normal midbrain, samantha and medulla. Normal cerebellum. Normal basal cisterns. Normal bilateral temporal bones. Normal bilateral internal auditory canals. Postsurgical changes of the orbits.. Normal visualized paranasal sinuses. Normal calvarium and skull base. Normal visualized soft tissue structures. Normal visualized upper cervical spine. MRI/Brain W/WO Contrast IMPRESSION: Minor nonspecific periventricular white matter disease.. No evidence for acute infarction. No evidence for metastatic disease Electronically Signed: Ajith Pablo MD at 20:07 EDT ,
[2022-10-04] MEDS: 0.9% Saline Lock 10 ML Syringe IV (08:25)
== END | disposition home or self-care (01) ==
PROVIDERS: PCP Family Medicine; Referring Provider Internal Medicine Hematology & Oncology; Visit Provider Internal Medicine Hematology & Oncology
DX: R16.0 Hepatomegaly, not elsewhere classified (principal); C78.00 Secondary malignant neoplasm of unspecified lung; C49.9 Malignant neoplasm of connective and soft tissue, unspecified
CPT/HCPCS: 70553; A9575; A4216

== ENCOUNTER → 2022-12-08 | Outpatient (CLI) | payer OTHER, SELFPAY ==
--- NOTE | 2022-12-08 11:18 | EKG12_ITS ---
Test Reason : PRE CHEMO Blood Pressure : / mmHG Vent. Rate : 109 BPM Atrial Rate : 109 BPM P-R Int : 184 ms QRS Dur : 074 ms QT Int : 344 ms P-R-T Axes : 081 091 020 degrees QTc Int : 463 ms Sinus tachycardia Otherwise normal ECG Confirmed by PAUL CLAYTON, PAWEL ([id number]), slot editor ALLAN GARCIA ([id number]) on 12/09/2022 8:45:47 AM Referred By: Emma Flores Confirmed By:PAWEL MILLER MD
--- NOTE | 2022-12-08 11:18 | VDLE_ITS ---
Reason For Study: Bilateral leg swelling RIGHT LEFT GSV is normal. GSV is normal. CFV is compressible, spontaneous, phasic, CFV is compressible, spontaneous, phasic, competent and demonstrates normal competent, and demonstrates normal augmentation. augmentation. FV is compressible, spontaneous, phasic, FV is compressible, spontaneous, phasic, competent and demonstrates normal competent and demonstrates normal augmentation. augmentation. POP V is compressible, spontaneous, phasic, POP V is compressible, spontaneous, phasic, competent and demonstrates normal competent and demonstrates normal augmentation. augmentation. T/P Trunk is compressible. T/P Trunk is compressible. PTV is compressible. PTV is compressible. RT PerV is compressible. LT PerV is compressible. Procedure This is a venous duplex using B-mode, color flow and spectral Doppler. Exam performed in department. A preliminary report was called and/or faxed to Maya. VL/Venous Duplex US - Raheem Extrem Interpretation Summary No evidence for acute deep venous thrombosis bilateral lower extremities with p atent and compressible bilateral great saphenous veins. Ordering Physician: Emma Flores Referring Physician: Ceasar Falcon M.D. Performed By: Blanca Valdes RVT
== END | disposition home or self-care (01) ==
LOC: PSN 11:17
PROVIDERS: PCP Family Medicine; Referring Provider Nurse Practitioner Family; Visit Provider Nurse Practitioner Family
DX: R00.0 Tachycardia, unspecified (principal); C49.9 Malignant neoplasm of connective and soft tissue, unspecified; R60.0 Localized edema
CPT/HCPCS: 93005; 93970

== ENCOUNTER → 2022-12-23 | Outpatient (CLI) | payer OTHER, SELFPAY ==
--- NOTE | 2022-12-23 12:38 | ECHODONC_ITS ---
Version 2 Reason For Study: MALIGNANT NEOPLASM OF COPNNECTIVE TISSUE Procedure This was a 2D Doppler, Color Flow transthoracic echocardiogram. Myocardial strain analysis was performed in this exam to aid in the assessment of cardiac function. Exam performed in department. Left Ventricle Normal LV size. Left ventricular systolic function is normal. The estimated ejection fraction is 60 %. Stage 1 diastolic dysfunction. No regional wall motion abnormalities noted. Right Ventricle Normal RV size. Normal systolic function. Atria Normal left atrium. Normal right atrium. Mitral Valve Normal mitral valve. Tricuspid Valve Normal tricuspid valve. Mild (1+) tricuspid valve insufficiency. Pulmonary artery systolic pressure is 25 mmHg. Aortic Valve Trisinus/trileaflet aortic valve. Pulmonic Valve Normal pulmonic valve. Great Vessels Normal aortic root. The pulmonary artery is normal size. Inferior vena cava collapse with respiration. Pericardium/Pleural No pericardial effusion. MMode/2D Measurements & Calculations LVIDd: 4.1 cm IVSd: 0.84 cm Ao root diam: 2.9 cm LVIDs: 3.1 cm LVPWd: 1.0 cm RVDd: 2.9 cm FS: 25.2 % LAV(MOD-sp4): 44.4 ml LVAd ap4: 23.0 cm2 SV(MOD-sp4): 32.6 ml LVLd ap4: 7.1 cm EDV(MOD-sp4): 59.1 ml EDV(sp4-el): 63.7 ml LVAs ap4: 12.7 cm2 LVLs ap4: 5.4 cm ESV(MOD-sp4): 26.5 ml ESV(sp4-el): 25.0 ml EF(MOD-sp4): 55.1 % EF(sp4-el): 60.8 % SV(sp4-el): 38.8 ml LA A4 area: 16.1 cm2 LA dimension(2D): 3.7 cm RA A4 area: 10.2 cm2 Doppler Measurements & Calculations MV E max bal: 63.1 cm/sec Lat Peak E' Bal: 12.6 cm/sec Med Peak E' Bal: 6.8 cm/sec MV A max bal: 78.4 cm/sec E/E' lat: 5.0 E/E' med: 9.3 MV E/A: 0.80 Ao V2 max: 108.1 cm/sec LV V1 max: 88.2 cm/sec MR max bal: 97.6 cm/sec Ao max P.7 mmHg LV V1 max P.1 mmHg MR max P.8 mmHg Ao V2 mean: 73.6 cm/sec LV V1 mean P.9 mmHg MR mean bal: 67.7 cm/sec Ao mean P.5 mmHg LV V1 mean: 65.0 cm/sec MR mean P.0 mmHg Ao V2 VTI: 19.9 cm LV V1 VTI: 16.2 cm MR VTI: 12.9 cm AV (velocity ratio): 0.81 TR max bal: 236.8 cm/sec TR max P.4 mmHg ECHO/ONC Echo Complete Interpretation Summary Normal LV size. Left ventricular systolic function is normal. The estimated ejection fraction is 60 %. Stage 1 diastolic dysfunction. Pulmonary artery systolic pressure is 25 mmHg. The global longitudinal strain is normal. The global longitudinal strain = -18. 7 % (normal). Compared to previous study, the left ventricular systolic function is the same. . Ordering Physician: Emma Flores Referring Physician: Emma Flores Performed By: Camille Morales RCS
--- NOTE | 2022-12-23 13:47 | CT_ITS ---
STUDY: CT CHEST, ABDOMEN T PELVIS WITH CONTRAST REASON FOR EXAM: Female, 62 years old. Met ca-assess response to Tx IV contrast only. 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 RADIATION DOSAGE (If Supplied By Facility): CTDIvol = ( 9.52 ) mGy, DLP = ( 952.79 ) mGycm TECHNIQUE: Transaxial imaging was performed following intravenous administration of IV 100mL Isovue-300. Individualized dose optimization techniques were used for this CT. COMPARISON: Comparison is made with prior examination dated September 19, 2022. FINDINGS: CHEST A right-sided yale catheter seen with the tip in the superior vena cava. Since prior study, there has been a marked degree of regression in number and size of the pulmonary nodules bilaterally. Stable heterogeneous appearance in the posterior aspect of the right upper lobe suggestive of possible scarring. This is unchanged. There is no demonstrated pleural abnormality. Normal heart and pericardium. Normal mediastinum. Normal hilar regions. Normal unenhanced pulmonary arteries. Normal aorta arch and descending thoracic aorta. There are degenerative changes of the thoracic spine. Persistent large heterogeneous mass in the right lobe of the liver extending towards the left lobe. ABDOMEN There is a 12.7 cm x 12.8 cm heterogeneous enhancing mass lesion involving the right lower liver extending to the left side of the midline. The mass has become more lucent as compared to prior study suggestive of progressive necrosis. Heterogeneous appearance of the inferior aspect of the right lobe of the liver most likely secondary to the chemotherapy. The mass has decreased in size as compared to prior study. Normal gallbladder and extrahepatic biliary system. Normal spleen. Normal pancreas. Normal bilateral adrenal glands. Normal right kidney. Normal left kidney. Normal visualized stomach. Normal small intestine. Normal colon. The appendix is visualized and appears normal. Normal abdominal aorta. Normal inferior vena cava. There is borderline retroperitoneal lymphadenopathy with enlarged nodes no greater than 10mm in the short axis diameter. Normal abdominal wall. There are degenerative changes of the visualized lumbar spine. PELVIS Normal urinary bladder. The patient is status post hysterectomy. Normal visualized pelvic arteries. CT/CT Chest, Abd, Pel w/Contrast IMPRESSION: Interval decrease in size and number of the multiple pulmonary metastatic deposits. Persistent heterogeneous enhancing mass in the liver as described although this has decreased as compared to prior study. Electronically Signed: Rob Marroquin MD at 15:21 EDT ,
[2022-12-23] MEDS: 0.9% Saline Lock 10 ML Syringe IV (14:25)
== END | disposition home or self-care (01) ==
PROVIDERS: PCP Family Medicine; Referring Provider Nurse Practitioner Family; Visit Provider Nurse Practitioner Family
DX: C49.9 Malignant neoplasm of connective and soft tissue, unspecified (principal); C78.00 Secondary malignant neoplasm of unspecified lung; C78.7 Secondary malignant neoplasm of liver and intrahepatic bile duct; R00.2 Palpitations; Z51.81 Encounter for therapeutic drug level monitoring; Z79.899 Other long term (current) drug therapy
CPT/HCPCS: 71260; 74177; 93306; 93356; Q9967; A4216

== ENCOUNTER 2023-01-06 10:00 | Emergency (ER) | payer OTHER, SELFPAY ==
[2023-01-06 10:00] VITALS: BP 115/66; PULSE 138; RESP 18; TEMP 35.9; O2SAT 99; BMI 21.9
--- NOTE | 2023-01-06 10:10 | EKG12_ITS ---
Test Reason : PALPS Blood Pressure : / mmHG Vent. Rate : 136 BPM Atrial Rate : 136 BPM P-R Int : 160 ms QRS Dur : 074 ms QT Int : 356 ms P-R-T Axes : 078 082 044 degrees QTc Int : 535 ms Sinus tachycardia Otherwise normal ECG Confirmed by GEOVANNY CLAYTON, ANKIT ([id number]), general expeditor ALLAN GARCIA ([id number]) on 01/09/2023 10:49:07 A M Referred By: LAVELLE/ARLIN Confirmed By:KEVIN SMALL MD
--- NOTE | 2023-01-06 10:22 | CT_ITS ---
STUDY: CT ABDOMEN AND PELVIS WITHOUT CONTRAST REASON FOR EXAM: Female, 62 years old. Abdominal pain. History of uterine leiomyosarcoma with metastasis. RADIATION DOSAGE (If Supplied By Facility): CTDIvol = ( 6.96 ) mGy, DLP = ( 378.82 ) mGycm TECHNIQUE: Transaxial images were obtained from the dome of the diaphragm to the symphysis pubis without oral contrast, and without intravenous contrast. Sagittal and coronal images were reconstructed. Individualized dose optimization techniques were used for this CT. COMPARISON: Comparison is made with prior study of September 05, 2022. FINDINGS: Nodular densities are seen at the lung bases suggest metastatic disease. Increased linear markings at the lung bases suggestive of scarring. A pacemaker device is seen. Minimal anterior pericardial thickening. Hepatomegaly. Large heterogeneous mass is seen in the right lobe of the liver superiorly. This extends inferiorly and crosses the midline to the left side. This is included with the metastatic disease. With the lack of IV contrast, complete assessment cannot be performed. Normal gallbladder and extrahepatic biliary system. Normal spleen. Normal pancreas. Normal bilateral adrenal glands. Normal right kidney. Normal left kidney. Normal visualized stomach. Normal small intestine. Large amount of fecal material is seen in the colon. The appendix is visualized and appears normal. There is diffuse atherosclerotic calcification of the abdominal aorta and its major visceral branches, without a demonstrated aneurysm. Normal inferior vena cava. Normal retroperitoneum. Normal urinary bladder. Small amount of free fluid is seen in the pelvis. The patient is status post hysterectomy. Normal abdominal wall. Mild disc space narrowing and degeneration at the L4-L5 level. CT/Abdomen/Pelvis without Cont IMPRESSION: Large heterogeneous mass in the liver as described. With the lack of IV contrast, detailed evaluation cannot be performed. Small amount of fluid in the pelvis. Moderate amount of fecal material is seen in the colon. Pulmonary metastasis seen at the lung bases. Electronically Signed: Rob Marroquin MD at 12:11 EDT ,
--- NOTE | 2023-01-06 10:48 | EX.ED.DYSGE1 ---
HPI History of Present Illness Chief Complaint: Palpitations Informant: patient Onset/Context/Timing Onset: Today Context: Sudden Onset Timing: Continuous Quality: Tired, dizzy Location: Generalized Worsened by: Nothing Relieved by: Nothing Narrative Narrative: Patient presents with tachycardia and low pulses normal reading that was noticed today. Patient states she feels tired and dizzy today. Patient states she has a history of leiomyosarcoma and is undergoing chemotherapy for that with Adriamycin. Patient states that this has spread to her lungs. Patient admits to some subjective chills but denies any fevers. Patient admits to some abdominal pain. Patient denies any chest pain. Patient states she called her oncologist who referred her to the emergency department for further evaluation. [facility] Medical History Abdominal pain Anemia Arthritis Back pain Cancer Chest pain CINV (chemotherapy-induced nausea and vomiting) Constipation Dehydration Diabetes Dyspnea on exertion Edema of both legs Encounter for chemotherapy management Encounter for education Fatigue Gastric reflux High cholesterol History of hip fracture History of irregular heartbeat History of stress test Hx of fracture of left hip Hypercalcemia of malignancy Hyperlipemia Hypertension Insulin dependent diabetes mellitus Liver metastasis Lung metastases Malodorous urine Nausea Neuropathy Non-smoker Post-menopausal Retinopathy Shortness of breath on exertion Tachycardia Type 1 diabetes mellitus Wears glasses Home Medications flash glucose scanning reader (yetu Bruna 14 Day [place]) #1 ea 05/21/19 [Rx Last Taken Unknown] flash glucose sensor (FreeStyle Bruna 14 Day Sensor kit) #1 ea 05/21/19 [Rx Last Taken Unknown] blood sugar diagnostic (OneTouch Ultra Blue Test Strip) #100 ea 11/09/20 [Rx Last Taken Unknown] blood-glucose meter (OneTouch Ultra2 Meter) #1 ea 11/09/20 [Rx Last Taken Unknown] pravastatin 20 mg tablet 20 mg PO QHS #90 tabs 10/04/21 [Rx Last Taken 09/23/22] insulin glargine 100 unit/mL (3 mL) subcutaneous pen 16 - 20 unit subcut QHS 08/18/22 [History Last Taken 09/22/22 21:00] insulin aspart U-100 100 unit/mL (3 mL) subcutaneous pen 15 unit (0.15 mL) subcut TID #15 mL 09/22/22 [Rx Last Taken 09/23/22 06:30] wheel chair #1 ea 09/22/22 [Rx Last Taken Unknown] sennosides 8.6 mg tablet (Senna Lax) 8.6 mg PO DAILY 10/19/22 [History Last Taken Unknown] insulin aspart U-100 100 unit/mL (3 mL) subcutaneous pen (Novolog FlexPen U-100 Insulin aspart) 50 unit (0.5 mL) subcut TID #15 mL 11/02/22 [Rx Last Taken Unknown] morphine 15 mg immediate release tablet 15 mg PO BID PRN 11/09/22 [History Last Taken Unknown] MAGIC MOUTH WASH (BMX) 180 mL suspension 15 ml PO .Q6HR PRN 12/01/22 [History Last Taken Unknown] fluoxetine 20 mg capsule 20 mg PO DAILY 12/01/22 [History Last Taken Unknown] lactulose 10 gram/15 mL (15 mL) oral solution 10 g PO DAILY PRN 12/01/22 [History Last Taken Unknown] polyethylene glycol 3350 17 gram/dose oral powder (Miralax) 4 g PO DAILY 12/01/22 [History Last Taken Unknown] omeprazole 20 mg capsule,delayed release See Rx Instructions .Route .COMPLEX #90 caps 12/21/22 [Rx Last Taken Unknown] spironolactone 50 mg tablet (Aldactone) 50 mg PO DAILY 30 days #30 tabs 12/26/22 [Rx Last Taken Unknown] meclizine 25 mg tablet 25 mg PO DAILY PRN 12/29/22 [History Last Taken Unknown] apixaban 5 mg tablet (Eliquis) 5 mg PO BID #74 tabs 01/06/23 [Rx Last Taken Unknown] ciprofloxacin HCl 500 mg tablet 500 mg PO BID #14 TABLETS 01/06/23 [Rx Last Taken Unknown] Allergy/AdvReac Type Severity Reaction Status Date / Time No Known Allergies Allergy Verified 12/29/22 10:01 Family History Mother Cancer Hypertension Arthritis Father Arthritis Myocardial infarction, Onset Age: 40 Heart disease Sister Diabetes Surgical History History of bunionectomy History of section History of colonoscopy History of endometrial ablation History of eye surgery History of hysterectomy for cancer Social History Smoking Status: Never smoker alcohol intake: current alcohol intake frequency: a few times a week Alcohol type: wine details: social substance use type: does not use caffeine: Yes what type of physical activity do you participate in: none seatbelt use: always do you feel safe at home: Yes additional social history: Akshat- Teacher at [employer] 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 ROS ROS ED Constitutional Constitutional ED: Reports chills and subjective; Denies fever(s) Eyes Eyes: Denies blurry vision or change in vision ENT ENT ED: Denies rhinorrhea or sore throat Cardiovascular Cardiovascular: Reports palpitations and racing heartbeat; Denies chest pain Respiratory/Chest Respiratory/Chest: Denies cough or dyspnea Gastrointestinal Gastrointestinal: Reports abdominal pain; Denies nausea or vomiting Genitourinary Genitourinary ED: Denies dysuria or hematuria Musculoskeletal Musculoskeletal: Denies back pain or neck pain Integumentary Denies abscess or rash Neurologic Neurologic: Denies headache(s) or weakness Allergic/Immunologic Allergic/Immunologic ED: Denies mouth swelling or urticaria EXAM Physical Exam Const Vital Signs: 01/06/23 10:00 01/06/23 10:47 01/06/23 11:00 Temperature 96.6 F L Temperature Source Temporal Pulse Rate 138 H Respiratory Rate 18 18 Respiratory Effort Normal Non-Labored Blood Pressure 115/66 Blood Pressure Mean 82 Pulse Ox 99 Oxygen Delivery Method Nasal Cannula Oxygen Flow Rate (L/min) 3 01/06/23 12:00 01/06/23 13:25 01/06/23 14:01 Temperature 98.4 F 98.5 F Temperature Source Oral Oral Pulse Rate 135 H 131 H Respiratory Rate 15 14 Respiratory Effort Blood Pressure 110/68 95/65 Blood Pressure Mean 82 75 Pulse Ox 95 95 Oxygen Delivery Method Room Air Room Air Oxygen Flow Rate (L/min) Positive well nourished and well developed General Appearance ED: well developed HEENT Reports moist mucous membranes Neck supple and no JVD Resp normal respiratory effort and clear to auscultation bilaterally Cardio regular rhythm Rate: tachycardic GI normal to inspection, nondistended, normoactive bowel sounds Palpation: soft and tender RLQ and RUQ; Negative for guarding or rebound tenderness present Extremity normal to inspection General Extremety ED: Negative for edema or tenderness General Extremity: Negative for edema Neuro oriented x3, CN's II-XII intact bilaterally and no sensory deficits noted Sensorium / Orientation: alert Motor Exam: strength 5/5 throughout Psych mental status grossly normal Skin no rashes or lesions noted MDM MDM MDM Narrative Medical decision making narrative: Differential diagnosis includes pulmonary embolism, dehydration, infection, sepsis, neutropenia, pneumonia, COVID-19 infection, influenza infection, viral illness, pneumothorax, cardiac dysrhythmia, cardiac ischemia, pancreatitis, and electrolyte abnormality. CBC will be obtained to assess for leukocytosis and anemia. Comprehensive metabolic profile will be obtained to assess for hepatic function, renal function, and electrolyte abnormality. Lipase will be obtained to assess for pancreatitis. PT with INR and PTT will be obtained to assess for coagulopathy. High-sensitivity troponin will be obtained to assess for cardiac ischemia. EKG will be obtained to assess for cardiac dysrhythmia and cardiac ischemia. Urinalysis will be obtained to assess for urinary tract infection. COVID-19 rapid antigen will be obtained to assess for COVID infection. Influenza A and influenza B antigens will be obtained to assess for influenza infection. D-dimer will be obtained to assess for pulmonary embolism. Chest x-ray will be obtained to assess for pneumonia and pneumothorax. CT scan of the abdomen and pelvis will be obtained to assess for pancreatitis, bowel obstruction, perforation, and metastatic disease. Lab Data Attestation: I reviewed the patient's lab results. Lab results narrative: She was reviewed. White blood cell count was 1.6. Hemoglobin was 7.7 and hematocrit was 23.9. Platelets were low at 65. Comprehensive metabolic profile was reviewed. BUN was slightly elevated at 20. Glucose was 193. Alkaline phosphatase was 290. High-sensitivity troponin was reviewed and was 66. Lipase was reviewed and was less than 10. D-dimer was reviewed and was elevated at 8.07. Lactate was reviewed and was normal at 1.3. Urinalysis was reviewed. There is no evidence of urinary tract infection. COVID-19 rapid antigen was reviewed and was negative. Influenza A and influenza B antigens were reviewed and were negative. Labs: Laboratory Results - last 24 hr 01/06/23 01/06/23 01/06/23 10:44 10:44 10:44 WBC 1.6 L RBC 2.58 L Hgb 7.7 L Hct 23.9 L MCV 92.6 MCH 29.8 MCHC 32.2 RDW Std Deviation 67.0 H RDW Coeff of Flaco 19.6 H Plt Count 65 L MPV 12.2 H Neut % (Auto) Not Reportable Absolute Neuts (auto) 0.8 L Absolute Lymphs (auto) 0.59 L Total Counted 100 Neutrophils % (Manual) 46 L Band Neutrophils % 7 H Lymphocytes % (Manual) 37 Monocytes % (Manual) 3 Eosinophils % (Manual) 2 Basophils % (Manual) 1 Myelocytes % 4 H Diff Path Review May foll Platelet Estimate MKD DEC Hypochromasia 1+ Anisocytosis 2+ Microcytosis 1+ Macrocytosis 1+ PT 14.0 INR 1.1 APTT 37.2 H D-Dimer Quant (PE/DVT) Sodium 136 Potassium 4.0 Chloride 102 Carbon Dioxide 26.0 Anion Gap 8 BUN 20 H Creatinine 0.77 Estim Creat Clear Calc 75.44 Est GFR (MDRD) Af Amer 97 Est GFR (MDRD) Non-Af 80 BUN/Creatinine Ratio 25.8 H Glucose 193 H Lactic Acid Calcium 9.3 Total Bilirubin 0.60 AST 22 ALT 24 Alkaline Phosphatase 290 H Troponin I High Sens 66 H Total Protein 6.1 L Albumin 2.8 L Globulin 3.3 Albumin/Globulin Ratio 0.8 L Lipase < 10 L Urine Color Urine Clarity Urine pH Ur Specific [place] Urine Protein Urine Glucose (UA) Urine Ketones Urine Occult Blood Urine Nitrite Urine Bilirubin Urine Urobilinogen Ur Leukocyte Esterase Urine RBC Urine WBC Ur Squamous Epith Cells Urine Bacteria Urine Mucus 01/06/23 01/06/23 01/06/23 10:44 10:44 10:54 WBC RBC Hgb Hct MCV MCH MCHC RDW Std Deviation RDW Coeff of Flaco Plt Count MPV Neut % (Auto) Absolute Neuts (auto) Absolute Lymphs (auto) Total Counted Neutrophils % (Manual) Band Neutrophils % Lymphocytes % (Manual) Monocytes % (Manual) Eosinophils % (Manual) Basophils % (Manual) Myelocytes % Diff Path Review Platelet Estimate Hypochromasia Anisocytosis Microcytosis Macrocytosis PT INR APTT D-Dimer Quant (PE/DVT) 8.07 H* Sodium Potassium Chloride Carbon Dioxide Anion Gap BUN Creatinine Estim Creat Clear Calc Est GFR (MDRD) Af Amer Est GFR (MDRD) Non-Af BUN/Creatinine Ratio Glucose Lactic Acid 1.3 Calcium Total Bilirubin AST ALT Alkaline Phosphatase Troponin I High Sens Total Protein Albumin Globulin Albumin/Globulin Ratio Lipase Urine Color Yellow Urine Clarity Sl. Cloudy Urine pH 5.0 Ur Specific [place] 1.025 Urine Protein 100 H Urine Glucose (UA) Normal Urine Ketones 5 H Urine Occult Blood Negative Urine Nitrite Negative Urine Bilirubin 1 H Urine Urobilinogen 4 H Ur Leukocyte Esterase 25 H Urine RBC 0 SEEN Urine WBC 0-5 SEEN Ur Squamous Epith Cells 5-10 SEEN Urine Bacteria 2+ Urine Mucus 0 SEEN Radiography Chest X-Ray - ED: 1 View, Read by ED Physician, Read by Radiologist, No Acute Disease and Chronic Changes Diagnostic Testing: Clinical Impression(s) from Imaging Studies Abdomen/Pelvis CT 01/06/23 10:22 IMPRESSION: Large heterogeneous mass in the liver as described. With the lack of IV contrast, detailed evaluation cannot be performed. Small amount of fluid in the pelvis. Moderate amount of fecal material is seen in the colon. Pulmonary metastasis seen at the lung bases. Electronically Signed: Rob Marroquin MD at 12:11 EDT , Chest X-Ray 01/06/23 11:06 IMPRESSION: Marked improvement in the number of pulmonary nodules as compared to prior study. Electronically Signed: Rob Marroquin MD at 11:51 EDT , Chest CTA 01/06/23 12:51 IMPRESSION: Pulmonary emboli in branches of the right lower lobe pulmonary artery. Interval decrease in size of the previously seen pulmonary nodules. Stable appearance of the scarring in the right upper lobe. Stable hepatomegaly and large heterogeneous mass within the right lobe of the liver. Electronically Signed: Rob Marroquin MD at 13:37 EDT , CT scan of the abdomen pelvis was obtained. There is a large heterogeneous mass in the liver. There is small amount of free fluid in the pelvis. There is a moderate amount of fecal material in the colon. This was interpreted by the radiologist and was independently reviewed by myself. Portable 1 view chest x-ray was obtained. On my independent interpretation, lung eastman are improved. There are much fewer pulmonary nodules compared to previous study. There is normal cardiac silhouette. Bony thorax is normal. There is no acute infiltrate noted. Radiologist also interpreted the x-ray and agrees. Because of the elevated D-dimer, CTA of the chest was obtained. There are pulmonary emboli in the branches of the right lower lobe pulmonary artery. There is decrease in size of the previously seen pulmonary nodules. This was interpreted by the radiologist was also independently reviewed by myself. EKG Initial EKG: Attestation: I personally reviewed and interpreted this EKG as follows: Interpretation: No Acute Injury Pattern and Sinus Tachycardia (136) Comments: EKG was obtained. On my independent interpretation, it showed a sinus tachycardia with a rate of 136. IA interval, QRS interval, and QTc intervals were all normal. [place] was normal. There are no acute ST or T wave changes. Prior EKG tracings: available for review Prior: Unchanged (12/08/2022) Treatment and Re-Evaluation :: Patient was given IV fluids, morphine, and Zofran. Patient was advised of her findings. Case was discussed with Dr. Lam. He recommended starting the patient on Eliquis. He also recommended covering the patient prophylactically with Cipro. Patient was given her first dose of these here. Patient was given prescriptions for these. Patient was instructed to call the office Monday for follow-up appointment. Patient and spouse understood and were agreeable with the plan. All questions were answered. Discharge Plan Triage Chief Complaint: Palpitations ED Provider: Nicholas Childress Dx/Rx/DC Orders Clinical Impression: Pulmonary emboli, Leiomyosarcoma, Neutropenia, Pancytopenia Instructions: Embolism Pulmonary Dc Prescriptions: New ciprofloxacin HCl [ciprofloxacin HCl] 500 mg tablet 500 mg PO BID Qty: 14 0RF Eliquis 5 mg tablet 5 mg PO BID Qty: 74 0RF Rx Instructions: 10 mg twice a day for the first week. Then 5 mg twice a day. No Action (DME) FreeStyle Bruna 14 Day [place] Misc See Rx Instructions .ROUTE .MEDSUPPLY Qty: 1 3RF Rx Instructions: As directed (DME) FreeStyle Bruna 14 Day Sensor Kit See Rx Instructions .ROUTE .MEDSUPPLY Qty: 1 3RF Rx Instructions: As directed insulin aspart U-100 [Novolog FlexPen U-100 Insulin] 100 unit/mL (3 mL) insulin pen 50 unit subcut TID Qty: 15 6RF insulin glargine 100 unit/mL (3 mL) insulin pen 16 - 20 unit SC QHS Label Comments: took 10 units at bedtime prior to procedure sennosides [Senna Lax] 8.6 mg tablet 8.6 mg PO DAILY morphine 15 mg Tablet 15 mg PO BID PRN lactulose 10 gram/15 mL (15 mL) solution 10 g PO DAILY PRN polyethylene glycol 3350 [Miralax] 17 gram/dose powder 4 g PO DAILY MAGIC MOUTH WASH (BMX) 180 mL suspension 15 ml PO .Q6HR PRN Rx Instructions: diphenhydramine 12.5 mg/5 mL oral liquid 60 mL; aluminum-mag hydroxide-simethicone 400 mg-400 mg-40 mg/5 mL oral susp 60 mL; Lidocaine Viscous 2 % mucosal solution 60 mL; Per 180 mL fluoxetine 20 mg capsule 20 mg PO DAILY meclizine 25 mg tablet 25 mg PO DAILY PRN (DME) OneTouch Ultra Blue Test Strip Strip See Rx Instructions .ROUTE .MEDSUPPLY Qty: 100 3RF Rx Instructions: As directed (DME) blood-glucose meter [OneTouch Ultra2 Meter] [facility] See Rx Instructions .ROUTE .MEDSUPPLY Qty: 1 0RF Rx Instructions: As directed pravastatin 20 mg tablet 20 mg PO QHS Qty: 90 3RF Hold Instructions: Home Medication placed on hold at Doctor's office insulin aspart U-100 100 unit/mL (3 mL) insulin pen 15 unit SC TID Qty: 15 3RF Rx Instructions: 8 units prior to arrival sliding scale (DME) wheel chair See Rx Instructions .Route .MEDSUPPLY Qty: 1 0RF Rx Instructions: As directed omeprazole 20 mg capsule,delayed release(DR/EC) See Rx Instructions .ROUTE .COMPLEX Qty: 90 1RF Dose Instruction: TAKE 1 CAPSULE BY MOUTH EVERY DAY Rx Instructions: TAKE 1 CAPSULE BY MOUTH EVERY DAY; spironolactone [Aldactone] 50 mg tablet 50 mg PO DAILY 30 Days Qty: 30 3RF Rx Instructions: Skip Sundays and Wednesdays Primary Care Provider: Nitin Falcon Referrals: Nitin Falcon, [Primary Care Provider] - 5-7 Days Emma Flores NP, S[facility] PATTERN[employer]ER-C [Med Staff - [facility]] - 3-5 Days (Call Monday morning for an appointment) Disposition Disposition: Home, Self Care Discharge Date/Time: 01/06/23 15:21
[2023-01-06 10:59] LABS: Mucous, Urine 0 SEEN /hpf (<or=2+); Red Blood Cells-Urine 0 SEEN /hpf (0-5)
[2023-01-06 11:00] VITALS: RESP 18
[2023-01-06 11:06] LABS: Color, Urine Yellow (Yellow); Glucose, Dipstick Normal (Normal); Ketone-Dipstick 5 mg/dl (Negative); Leukocyte Esterase-Dipstick 25 /ul (Negative); Nitrite-Dipstick Negative (Negative); Occult Blood-Urine Negative /ul (Negative); Protein-Dipstick 100 mg/dl (Negative); Specific Gravity, Urine 1.025 (1.002-1.030); Urine Clarity Sl. Cloudy (Clear); Urine Urobilinogen 4 mg/dl (Normal)
--- NOTE | 2023-01-06 11:06 | RAD_ITS ---
STUDY: X-RAY CHEST REASON FOR EXAM: Female, 62 years old. Weakness . Tachycardia. TECHNIQUE: Single AP portable view of the chest. COMPARISON: Comparison is made with prior study dated October 01, 2022. FINDINGS: A right-sided port catheter seen with the tip in the right atrium. EKG electrodes are seen. Since prior study, there is minimally marked improvement in the bilateral pulmonary nodules. Faint nodular densities in the right midlung as well as in the peripheral lateral aspect of the left mid lung. No acute infiltrate is seen. There is no demonstrated pleural abnormality. Normal size heart. Normal mediastinum and jessica. Normal visualized pulmonary arteries. There is atherosclerotic calcification of the aortic arch with tortuosity. There are degenerative changes of the visualized thoracic spine. Normal visualized ribs, clavicles, and shoulders. There is no demonstrated abnormality of the visualized soft tissue structures of the upper abdomen. RAD/Chest 1 View (Portable) IMPRESSION: Marked improvement in the number of pulmonary nodules as compared to prior study. Electronically Signed: Rob Marroquin MD at 11:51 EDT ,
[2023-01-06 11:07] LABS: Urine Bilirubin Dipstick 1 mg/dL (Negative)
[2023-01-06 11:09] LABS: International Normalized Ratio 1.1
[2023-01-06 11:10] LABS: Partial Thromboplast Time 37.2 Seconds (24.1-36.2)
[2023-01-06 11:12] LABS: Hematocrit 23.9 % (37-47); Hemoglobin 7.7 g/dL (12.0-15.0); Mean Corp Hgb Conc 32.2 g/dL (32-36); Mean Corpuscular Hgb 29.8 pg (27.0-32.0); Mean Corpuscular Volume 92.6 fL (81-99); Mean Platelet Vol. 12.2 fl (6.2-12.0); POSITIVE COUNT YES; POSITIVE DIFFERENTIAL YES; POSITIVE MORPHOLOGY YES; Platelet Count 65 K/mm3 (150-450); RBC Distribution Width CV 19.6 % (11.6-14.6); Red Blood Count 2.58 M/mm3 (4.2-5.4); White Blood Count 1.6 K/mm3 (4.4-11.0)
[2023-01-06 11:13] LABS: Differential Indicated MANUAL DIFF
[2023-01-06 11:13] LABS: White Blood Cells 0-5 SEEN /hpf (0-5)
[2023-01-06 11:14] LABS: Bacteria 2+ /hpf (None Seen); Squamous Epithelial Cells - UA 5-10 SEEN /hpf (5-10)
[2023-01-06] MEDS: 0.9% Normal Saline 1,000 ML 1000 ML IV (11:15)
[2023-01-06 11:18] LABS: ALB/GLOB Ratio 0.8 RATIO (0.9-2.4); AST(SGOT) 22 U/L (15-37); Alanine Aminotransfer ALT/SGPT 24 U/L (13-56); Albumin, Serum 2.8 g/dL (3.2-5.0); Alkaline Phosphatase 290 U/L (45-117); Anion Gap 8 (5-15); BUN 20 mg/dL (7-18); BUN/Creat Ratio 25.8 RATIO (10-20); Calcium,Total 9.3 mg/dL (8.5-10.1); Chloride 102 mmol/L (98-107); Creatinine, Serum 0.77 mg/dL (0.55-1.02); EST Glomerular Filtration Rate 80 mL/min (>60); Est Glom Filt Rate - Afr Amer 97 mL/min (>60); Estimated Creatinine Clearance 75.44 ml/min; Globulin 3.3 g/dL (2.2-4.2); Glucose 193 mg/dL (74-106); Lipase < 10 U/L (13-75); Protein, Total 6.1 g/dL (6.4-8.2); Sodium Level 136 mmol/L (136-145); Troponin-I HS 66 pg/mL (3.0-54.0)
[2023-01-06 11:30] LABS: Lactic Acid 1.3 mmol/L (0.4-1.9)
[2023-01-06 11:51] LABS: Anisocytosis 2+; Basophil 1 % (0-1); Eosinophil 2 % (0-5); Hypochromasia 1+; Lymphocyte 37 % (19-41); Macrocytosis 1+; Microcytosis 1+; Monocyte 3 % (0-10); Myelocyte 4 % (0-0); Neutrophil-Band 7 % (0-5); Neutrophil-Segmented 46 % (47-70); Platelet Estimate MKD DEC (ADEQ); Total Cells Counted 100 (MANUAL DIFF)
[2023-01-06 11:53] LABS: Absolute Lymphocyte Count 0.59 X10^3/uL (0.83-4.51); Absolute Neutrophil Count 0.8 X10^3/uL (2.0-7.7)
[2023-01-06 12:00] VITALS: BP 110/68; PULSE 135; RESP 15; O2SAT 95
[2023-01-06 12:47] LABS: D-Dimer Quantitative (DVT/PE) 8.07 FEU/ug/m (0.27-0.49)
--- NOTE | 2023-01-06 12:51 | CT_ITS ---
STUDY: CTA CHEST REASON FOR EXAM: Female, 62 years old. Elevated D-dimer RADIATION DOSAGE (If Supplied By Facility): CTDIvol = ( 3.94 ) mGy, DLP = ( 163.44 ) mGycm TECHNIQUE: The examination was performed with the intravenous administration of IV 100mL Isovue-370. Post-processing of the angiographic images was performed, with multiplanar reformation and 3D reconstruction. Individualized dose optimization techniques were used for this CT. COMPARISON: Comparison is made with prior chest radiograph done earlier today. Comparison is also made with prior CT scan of the chest dated December 23, 2022. FINDINGS: A right-sided Port-A-Cath is seen with the tip in the superior vena cava. Intraluminal filling defects are seen in branches of the right lower lobe pulmonary artery in keeping with a pulmonary embolism. Normal thoracic aorta and visualized great vessels. There is no demonstrated aortic dissection. Normal heart and pericardium. Normal mediastinum. Normal hilar regions. Normal visualized trachea and bronchi. The lungs are well expanded. Stable focal area of heterogeneous density in the right upper lobe suggestive of scarring with bronchiectasis. Bilateral pulmonary nodules. These have decreased in size as compared to prior study. Normal pleura. Normal chest wall structures. There are degenerative changes of thoracic spine. Hepatomegaly. Large heterogeneous mass involving the right and left lobes of the liver. CT/CTA Chest W/WO Contrast IMPRESSION: Pulmonary emboli in branches of the right lower lobe pulmonary artery. Interval decrease in size of the previously seen pulmonary nodules. Stable appearance of the scarring in the right upper lobe. Stable hepatomegaly and large heterogeneous mass within the right lobe of the liver. Electronically Signed: Rob Marroquin MD at 13:37 EDT ,
[2023-01-06 13:25] VITALS: BP 95/65; PULSE 131; RESP 14; TEMP 36.9; O2SAT 95
[2023-01-06 14:01] VITALS: TEMP 36.9
[2023-01-06] MEDS: Ciprofloxacin 500 MG Tablet PO (15:13)
[2023-01-06] MEDS: APIXABAN 5 MG TABLET 10 MG PO (15:14)
[2023-01-09 12:57] LABS: Pathologist Review Reviewed
== END 2023-01-06 15:21 | disposition home or self-care (01) ==
PROVIDERS: Emergency Provider Emergency Medicine; PCP Family Medicine; Visit Provider Emergency Medicine
DX: I26.99 Other pulmonary embolism without acute cor pulmonale (principal); C49.3 Malignant neoplasm of connective and soft tissue of thorax; D70.9 Neutropenia, unspecified; D61.818 Other pancytopenia; R10.9 Unspecified abdominal pain
CPT/HCPCS: 36591; 71045; 71275; 74176; 80053; 81001; 83605; 83690; 84484; 85025; 85379; 85610; 85730; 87040; 87086; 87088; 87428; 93005; 96361; 96374; 96375; 99284; J7030; Q9967; A4216; J2405

== ENCOUNTER 2023-02-14 18:30 | Inpatient (IN) | payer OTHER, SELFPAY ==
[2023-02-14] VITALS (12 sets, daily range): BP systolic 115–141; BP diastolic 61–89; PULSE 87–169; RESP 14–24; TEMP 36.8–38.7; O2SAT 92–97; BMI 23.9
--- NOTE | 2023-02-14 19:27 | EKG12_ITS ---
Test Reason : TACHY Blood Pressure : / mmHG Vent. Rate : 164 BPM Atrial Rate : 000 BPM P-R Int : 000 ms QRS Dur : 078 ms QT Int : 284 ms P-R-T Axes : 000 093 026 degrees QTc Int : 469 ms Supraventricular tachycardia Rightward axis Septal infarct , age undetermined Abnormal ECG Confirmed by PAUL CLAYTON, PAWEL ([id number]), editor at large INA JENNINGS ([id number]) on 02/15/2023 2:27:52 PM Referred By: TIAN Confirmed By:PAWEL MILLER MD
--- NOTE | 2023-02-14 19:28 | EX.ED.DYSGE1 ---
HPI History of Present Illness Chief Complaint: General Illness Informant: patient and spouse/S.O. 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 Lam, she has had 6 rounds of IV Adriamycin chemotherapy but the last treatment was 4 weeks ago and she currently is on a break. This morning started feeling fatigued, developed a fever later, she has no other specific symptoms except for nausea which has been off-and-on since she has an chemotherapy. She denies any other focal symptoms. As far sick contacts, none that she knows of but she was just at a family reunion 3 days ago where she was in contact with a lot of people. [facility] Medical History Abdominal pain Anemia Arthritis Back pain Cancer Chest pain CINV (chemotherapy-induced nausea and vomiting) Constipation Dehydration Diabetes Dyspnea on exertion Edema of both legs Encounter for chemotherapy management Encounter for education Fatigue Gastric reflux Generalized weakness High cholesterol History of hip fracture History of irregular heartbeat History of stress test Hx of fracture of left hip Hypercalcemia of malignancy Hyperlipemia Hypertension Insulin dependent diabetes mellitus Liver metastasis Lung metastases Malodorous urine Nausea Neuropathy Non-smoker Post-menopausal Retinopathy Shortness of breath on exertion Tachycardia Type 1 diabetes mellitus Wears glasses Home Medications flash glucose scanning reader ([employer] Bruna 14 Day [place]) #1 ea 05/21/19 [Rx Last Taken Unknown] flash glucose sensor (FreeStyle Bruna 14 Day Sensor kit) #1 ea 05/21/19 [Rx Last Taken Unknown] blood sugar diagnostic (OneTouch Ultra Blue Test Strip) #100 ea 11/09/20 [Rx Last Taken Unknown] blood-glucose meter (OneTouch Ultra2 Meter) #1 ea 11/09/20 [Rx Last Taken Unknown] insulin glargine 100 unit/mL (3 mL) subcutaneous pen 16 - 20 unit subcut QHS 08/18/22 [History Last Taken 09/22/22 21:00] insulin aspart U-100 100 unit/mL (3 mL) subcutaneous pen 15 unit (0.15 mL) subcut TID #15 mL 09/22/22 [Rx Last Taken 09/23/22 06:30] wheel chair #1 ea 09/22/22 [Rx Last Taken Unknown] insulin aspart U-100 100 unit/mL (3 mL) subcutaneous pen (Novolog FlexPen U-100 Insulin aspart) 50 unit (0.5 mL) subcut TID #15 mL 11/02/22 [Rx Last Taken Unknown] MAGIC MOUTH WASH (BMX) 180 mL suspension 15 ml PO .Q6HR PRN 12/01/22 [History Last Taken Unknown] fluoxetine 20 mg capsule 20 mg PO DAILY 12/01/22 [History Last Taken Unknown] omeprazole 20 mg capsule,delayed release See Rx Instructions .Route .COMPLEX #90 caps 12/21/22 [Rx Last Taken Unknown] spironolactone 50 mg tablet (Aldactone) 50 mg PO DAILY 30 days #30 tabs 12/26/22 [Rx Last Taken Unknown] meclizine 25 mg tablet 25 mg PO DAILY PRN 12/29/22 [History Last Taken Unknown] apixaban 5 mg tablet (Eliquis) 5 mg PO BID #74 tabs 01/06/23 [Rx Last Taken Unknown] morphine 15 mg immediate release tablet 15 mg PO BID 02/01/23 [History Last Taken Unknown] polyethylene glycol 3350 17 gram/dose oral powder (Miralax) 4 g PO DAILY PRN 02/01/23 [History Last Taken Unknown] sennosides 8.6 mg tablet (Senna Lax) 17.2 mg PO BID 02/01/23 [History Last Taken Unknown] Allergy/AdvReac Type Severity Reaction Status Date / Time No Known Allergies Allergy Verified 02/14/23 18:31 Family History Mother Cancer Hypertension Arthritis Father Arthritis Myocardial infarction, Onset Age: 40 Heart disease Sister Diabetes Surgical History History of bunionectomy History of section History of colonoscopy History of endometrial ablation History of eye surgery History of hysterectomy for cancer Social History Smoking Status: Never smoker alcohol intake: current alcohol intake frequency: a few times a week Alcohol type: wine details: social substance use type: does not use caffeine: Yes what type of physical activity do you participate in: none seatbelt use: always do you feel safe at home: Yes additional social history: Akshat- Teacher at [employer] 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 ROS ROS ED Constitutional Constitutional ED: Reports chills, fatigue, fever(s), malaise and subjective Eyes Eyes: Denies change in vision or diplopia ENT ENT ED: Denies rhinorrhea or sore throat Cardiovascular Cardiovascular: Denies chest pain, palpitations or racing heartbeat Respiratory/Chest Respiratory/Chest: Denies cough or dyspnea Gastrointestinal Gastrointestinal: Reports nausea; Denies abdominal pain, diarrhea or vomiting Genitourinary Genitourinary ED: Denies dysuria or hematuria Musculoskeletal Musculoskeletal: Denies back pain or neck pain Integumentary Denies abscess or rash Neurologic Neurologic: Reports confusion; Denies headache(s), paresthesias or weakness Psychiatric Psychiatric: Denies anxiety or suicidal thoughts EXAM Physical Exam Const Vital Signs: 02/14/23 18:31 02/14/23 18:56 02/14/23 19:27 Temperature 101.3 F H 101.6 F H Temperature Source Temporal Oral Pulse Rate 169 H 165 H Respiratory Rate 20 H 24 H Blood Pressure 135/82 H 141/89 H Blood Pressure Mean 99 106 Pulse Ox 96 97 94 Oxygen Delivery Method Room Air Room Air Room Air 02/14/23 20:00 02/14/23 21:00 02/14/23 20:33 Temperature 99.8 F H Temperature Source Oral Pulse Rate 161 H 115 H 165 H Respiratory Rate 24 H 24 H 18 Blood Pressure 140/89 H 132/81 H Blood Pressure Mean 106 98 Pulse Ox 94 93 93 Oxygen Delivery Method Room Air Room Air Room Air 02/14/23 22:00 02/14/23 22:37 Temperature 99.0 F Temperature Source Oral Pulse Rate 105 H 102 H Respiratory Rate 19 H 18 Blood Pressure 120/61 120/61 Blood Pressure Mean 80 80 Pulse Ox 92 93 Oxygen Delivery Method Room Air Room Air Positive well nourished and well developed General Appearance ED: well developed and NAD HEENT Reports moist mucous membranes HEENT Narrative: P OP clear normocephalic and atraumatic Eyes PERRL and EOMs intact bilaterally Neck full ROM, no lymphadenopathy and supple Resp normal respiratory effort and clear to auscultation bilaterally Cardio regular rate, regular rhythm and no murmurs Rate: tachycardic GI non-distended GI Narrative: Mild epigastric tenderness no guarding or rebound or pulsatile mass Auscultation: normoactive bowel sounds Palpation: soft Back/Spine no CVA tenderness General Back: other FROM Extremity normal to inspection General Extremety ED: Negative for edema, pulses abnormal or tenderness General Extremity: Negative for edema or pulses abnormal Neuro oriented x3, CN's II-XII intact bilaterally and no sensory deficits noted Sensorium / Orientation: awake and alert Motor Exam: strength 5/5 throughout Psych mental status grossly normal Skin no rashes or lesions noted and no wounds MDM MDM MDM Narrative Medical decision making narrative: Patient is immunocompromise due to chemotherapy, neutropenia in the differential diagnosis although her last chemotherapy was quite a while ago, so a sepsis work-up was obtained especially given her temperature of 101.3. Furthermore, her EKG looks like SVT. However, I am considering the possibility that if she is septic and febrile and possibly dehydrated it is making her tachycardic to the point where it is difficult to tell if she is in sinus tachycardia. Therefore initially since she was clinically and hemodynamically otherwise stable, she was given Tylenol for her fever and IV fluids. Despite her temperature coming down to 99.8, and half of the liter of fluids gone in, her heart rate has not changed out of the 160s. Therefore, I consider this more likely to be SVT and I recommend giving her adenosine since it is narrow complex and she is clinically stable to see if it breaks it. She and family are amenable, 6 mg was given followed by quick flush, which quickly broke the rhythm to sinus tachycardia in the 115 range. Repeat EKG confirms she is in a sinus rhythm now and it is otherwise normal. The rest of the work-up basically she has a positive COVID test, urine is negative, her chest x-ray shows infiltrates bilaterally, but she is not hypoxic, and she is not neutropenic. Her troponin is slightly elevated, I think this is a result of her being in SVT. I had her ambulated with pulse ox check, and we repeated the troponin later after she was cardioverted pharmacologically. Troponin is a little higher, but it is nonspecifically elevated and this may simply be due to her heart rate especially since she had no chest symptoms and no findings of acute coronary syndrome on the EKGs. Her pulse ox did not go below 92%, she is resting mostly at 92-93% on room air. Discussing with the patient and significant other, she does have a history of metastases to the lungs. Radiology favors patchy infiltrates compared with her prior x-ray. COVID has very low incidence in the community at this time, post pandemic. Since the pretest probability is so low, we will send PCR to confirm, that is pending and will treat her with empiric antibiotics in the meantime, [place]. In looking at chronic lactate is normal no pain no complaints of her chest x-ray, it does not look too dissimilar to to the one it was compared to in December, which was significantly improved compared with the x-ray she had in September that showed significant metastases throughout her lungs. Discussed with hospitalist for admission, who also agrees with obtaining a CT of the chest to differentiate between mets versus infection here. Given that her troponins were abnormal, plan is still for admission/observation and further management treatment as indicated. History & Record Review Additional record(s) reviewed:: Prior outpatient record and Prior labs Lab Data Attestation: I reviewed the patient's lab results. Labs: Laboratory Results - last 24 hr 02/14/23 02/14/23 02/14/23 19:45 20:40 21:56 WBC 9.4 RBC 2.83 L Hgb 9.4 L Hct 29.0 L MCV 102.5 H MCH 33.2 H MCHC 32.4 RDW Std Deviation 58.1 H RDW Coeff of Flaco 15.3 H Plt Count 72 L MPV 12.1 H Immature Gran % (Auto) 0.500 Neut % (Auto) 76.8 H Lymph % (Auto) 7.5 L [place] % (Auto) 14.6 H Eos % (Auto) 0.1 Baso % (Auto) 0.5 Absolute Neuts (auto) 7.2 Absolute Lymphs (auto) 0.71 L Nucleated RBC % 0 Differential Comment SCANNED PT 18.3 H INR 1.5 APTT 38.9 H Sodium 131 L Potassium 4.6 Chloride 100 Carbon Dioxide 21.0 Anion Gap 10 BUN 17 Creatinine 0.88 Estim Creat Clear Calc 66.01 Est GFR (MDRD) Af Amer 84 Est GFR (MDRD) Non-Af 69 BUN/Creatinine Ratio 19.4 Glucose 290 H Lactic Acid 1.6 Calcium 9.0 Total Bilirubin 0.80 AST 30 ALT 23 Alkaline Phosphatase 282 H Troponin I High Sens 216 H* 248 H* Total Protein 6.0 L Albumin 2.8 L Globulin 3.2 Albumin/Globulin Ratio 0.9 Urine Color Yellow Urine Clarity Clear Urine pH 5.0 Ur Specific [place] 1.020 Urine Protein 15 H Urine Glucose (UA) 1000 H Urine Ketones 150 A* Urine Occult Blood Negative Urine Nitrite Negative Urine Bilirubin Negative Urine Urobilinogen Normal Ur Leukocyte Esterase Negative Urine RBC 0 SEEN Urine WBC 0 SEEN Ur Squamous Epith Cells 0 SEEN Urine Bacteria 0 SEEN Urine Mucus 0 SEEN Radiography Chest X-Ray - ED: 2 View, Read by ED Physician, Right Infiltrate and Left Infiltrate Diagnostic Testing: Clinical Impression(s) from Imaging Studies Chest X-Ray 02/14/23 20:08 IMPRESSION: Bilateral infiltrates or edema. Electronically Signed: Gamal Otero MD at 20:51 EDT , Rhythm Strip Rhythm Strip: SVT vs. ST Rate: 160 Ectopy: None EKG Initial EKG: Attestation: I personally reviewed and interpreted this EKG as follows: Interpretation: No Acute Injury Pattern and - (SVT versus sinus tach, no acute injury pattern or similar morphology to prior EKG) Prior EKG tracings: available for review Follow-up EKG: Attestation: I personally reviewed and interpreted this EKG as follows: Interpretation: No Acute Injury Pattern and Sinus Tachycardia (105) Prior: Changed (Morphology same) Management Discussion w/another healthcare provider: Hospitalist Procedures Other Procedures Procedure(s): SVT pharmacologic cardioversion with adenosine 6 mg IV push --pros and cons discussed prior to procedure, verbal consent obtained from patient and family, patient tolerated well, broke her rhythm to sinus rhythm, verified by EKG afterwards, no complications. Critical Care Time Critical Care Time: Yes Critical care time (excluding procedures): 30-74 minutes (36 min, not including procedure time), Including time spent:, Discussing w/Patient &/or Family/Foreign Languages Professor, Discussing w/Consultants, Arranging Admission or Transfer and Performing Direct Patient Care at Bedside Discharge Plan Triage Chief Complaint: General Illness ED Provider: Gamal Dove Dx/Rx/DC Orders Clinical Impression: Acquired immunocompromised state, SVT (supraventricular tachycardia), COVID-19, Hypoxia Prescriptions: No Action (DME) [employer] Bruna 14 Day [place] Misc See Rx Instructions .ROUTE .MEDSUPPLY Qty: 1 3RF Rx Instructions: As directed (DME) [employer]Style Bruna 14 Day Sensor Kit See Rx Instructions .ROUTE .MEDSUPPLY Qty: 1 3RF Rx Instructions: As directed insulin aspart U-100 [Novolog FlexPen U-100 Insulin] 100 unit/mL (3 mL) insulin pen 50 unit subcut TID Qty: 15 6RF insulin glargine 100 unit/mL (3 mL) insulin pen 16 - 20 unit SC QHS Patient Comments: took 10 units at bedtime prior to procedure sennosides [Senna Lax] 8.6 mg tablet 17.2 mg PO BID morphine 15 mg tablet 15 mg PO BID MAGIC MOUTH WASH (BMX) 180 mL suspension 15 ml PO .Q6HR PRN Rx Instructions: diphenhydramine 12.5 mg/5 mL oral liquid 60 mL; aluminum-mag hydroxide-simethicone 400 mg-400 mg-40 mg/5 mL oral susp 60 mL; Lidocaine Viscous 2 % mucosal solution 60 mL; Per 180 mL fluoxetine 20 mg capsule 20 mg PO DAILY polyethylene glycol 3350 [Miralax] 17 gram/dose powder 4 g PO DAILY PRN meclizine 25 mg tablet 25 mg PO DAILY PRN Eliquis 5 mg tablet 5 mg PO BID Qty: 74 0RF Rx Instructions: 10 mg twice a day for the first week. Then 5 mg twice a day. (DME) OneTouch Ultra Blue Test Strip Strip See Rx Instructions .ROUTE .MEDSUPPLY Qty: 100 3RF Rx Instructions: As directed (DME) blood-glucose meter [OneTouch Ultra2 Meter] [facility] See Rx Instructions .ROUTE .MEDSUPPLY Qty: 1 0RF Rx Instructions: As directed insulin aspart U-100 100 unit/mL (3 mL) insulin pen 15 unit SC TID Qty: 15 3RF Rx Instructions: 8 units prior to arrival sliding scale (DME) wheel chair See Rx Instructions .Route .MEDSUPPLY Qty: 1 0RF Rx Instructions: As directed omeprazole 20 mg capsule,delayed release(DR/EC) See Rx Instructions .ROUTE .COMPLEX Qty: 90 1RF Dose Instruction: TAKE 1 CAPSULE BY MOUTH EVERY DAY Rx Instructions: TAKE 1 CAPSULE BY MOUTH EVERY DAY; spironolactone [Aldactone] 50 mg tablet 50 mg PO DAILY 30 Days Qty: 30 3RF Rx Instructions: Skip Sundays and Wednesdays Primary Care Provider: Nitin Falcon Referrals: Nitin Falcon, [Primary Care Provider] -
[2023-02-14] MEDS: Acetaminophen 500 MG Tablet 1000 MG PO (19:51)
[2023-02-14] MEDS: 0.9% Normal Saline 1,000 ML 999 ML IV (19:52)
--- NOTE | 2023-02-14 20:08 | RAD_ITS ---
STUDY: X-RAY CHEST REASON FOR EXAM: Female, 62 years old. Fever TECHNIQUE: PA and lateral views of the chest. COMPARISON: January 06, 2023 FINDINGS: Port on the right extends to the right atrium. There are moderate patchy increased opacities of the lungs. There is no demonstrated pleural abnormality. Normal size heart. Normal mediastinum and jessica. Normal visualized pulmonary arteries. There is atherosclerotic calcification of the aortic arch with tortuosity. Normal visualized thoracic spine. Normal visualized ribs, clavicles, and shoulders. There is no demonstrated abnormality of the visualized soft tissue structures of the upper abdomen. RAD/Chest PA and Lateral IMPRESSION: Bilateral infiltrates or edema. Electronically Signed: Gamal Otero MD at 20:51 EDT ,
[2023-02-14 20:09] LABS: Absolute Lymphocyte Count 0.71 X10^3/uL (0.83-4.51); Absolute Neutrophil Count 7.2 X10^3/uL (2.0-7.7); Basophil# 0.05 X10^3/uL; Basophil% 0.5 % (0-1); Eosinophil# 0.01 X10^3/uL; Eosinophils% 0.1 % (0-5); Hemoglobin 9.4 g/dL (12.0-15.0); Lymphocyte # 0.71 X10^3/ul (0.83-4.51); Lymphocyte % 7.5 % (19-41); Mean Corp Hgb Conc 32.4 g/dL (32-36); Mean Corpuscular Hgb 33.2 pg (27.0-32.0); Mean Corpuscular Volume 102.5 fL (81-99); Mean Platelet Vol. 12.1 fl (6.2-12.0); Monocyte# 1.37 X10^3/uL; Monocyte% 14.6 % (0-10); NRBC Flagged by Analyzer 0 % (0-5); Neutrophil # 7.22 X10^3/uL (2.7-7.7); Neutrophil % 76.8 % (47-70); POSITIVE COUNT YES; Platelet Count 72 K/mm3 (150-450); RBC Distribution Width CV 15.3 % (11.6-14.6); RBC Distribution Width SD 58.1 fl (35.1-43.9); Red Blood Count 2.83 M/mm3 (4.2-5.4); White Blood Count 9.4 K/mm3 (4.4-11.0)
[2023-02-14 20:14] LABS: Differential Indicated SCAN CRITERIA MET
[2023-02-14 20:17] LABS: Lactic Acid 1.6 mmol/L (0.4-1.9)
--- NOTE | 2023-02-14 20:17 | CM.ED ---
Social Work SW performed chart review, LW and HCPOA documents on file as of 2022. Patient's HCPOA is Clyde Ferrera with Joyce Pope and Dhaval Ferrera as the alternates. Marisa Pop MSW, KENDY
[2023-02-14 20:22] LABS: Partial Thromboplast Time 38.9 Seconds (24.1-36.2)
[2023-02-14 20:23] LABS: International Normalized Ratio 1.5; Prothrombin Time (Protime)PT. 18.3 SECONDS (11.7-14.9)
[2023-02-14 20:31] LABS: ALB/GLOB Ratio 0.9 RATIO (0.9-2.4); AST(SGOT) 30 U/L (15-37); Alanine Aminotransfer ALT/SGPT 23 U/L (13-56); Albumin, Serum 2.8 g/dL (3.2-5.0); Alkaline Phosphatase 282 U/L (45-117); Anion Gap 10 (5-15); BUN 17 mg/dL (7-18); BUN/Creat Ratio 19.4 RATIO (10-20); Chloride 100 mmol/L (98-107); Creatinine, Serum 0.88 mg/dL (0.55-1.02); EST Glomerular Filtration Rate 69 mL/min (>60); Est Glom Filt Rate - Afr Amer 84 mL/min (>60); Estimated Creatinine Clearance 66.01 ml/min; Globulin 3.2 g/dL (2.2-4.2); Glucose 290 mg/dL (74-106); Potassium 4.6 mmol/L (3.5-5.1); Sodium Level 131 mmol/L (136-145); Troponin-I HS 216 pg/mL (3.0-54.0)
[2023-02-14 20:45] LABS: Differential Comment SCANNED
[2023-02-14 20:49] LABS: Bacteria 0 SEEN /hpf (None Seen); Mucous, Urine 0 SEEN /hpf (<or=2+); Red Blood Cells-Urine 0 SEEN /hpf (0-5); Squamous Epithelial Cells - UA 0 SEEN /hpf (5-10); White Blood Cells 0 SEEN /hpf (0-5)
[2023-02-14 21:03] LABS: Color, Urine Yellow (Yellow); Glucose, Dipstick 1000 mg/dl (Normal); Leukocyte Esterase-Dipstick Negative /ul (Negative); Nitrite-Dipstick Negative (Negative); Occult Blood-Urine Negative /ul (Negative); Protein-Dipstick 15 mg/dl (Negative); Urine Bilirubin Dipstick Negative (Negative); Urine Clarity Clear (Clear); Urine Urobilinogen Normal (Normal)
[2023-02-14] MEDS: Adenosine 6 MG/2 ML Syringe IV (21:13)
[2023-02-14 21:30] LABS: Ketone-Dipstick 150 mg/dl (Negative)
--- NOTE | 2023-02-14 21:49 | EKG12_ITS ---
Test Reason : GEN ILLNESS Blood Pressure : / mmHG Vent. Rate : 105 BPM Atrial Rate : 105 BPM P-R Int : 194 ms QRS Dur : 078 ms QT Int : 376 ms P-R-T Axes : 043 057 022 degrees QTc Int : 496 ms Sinus tachycardia Otherwise normal ECG Confirmed by PAUL CLAYTON, PAWEL ([id number]), editor managing director INA JENNINGS ([id number]) on 02/15/2023 2:28:10 PM Referred By: GIANFRANCO Confirmed By:PAWEL MILLER MD
[2023-02-14 22:20] LABS: Troponin-I HS 248 pg/mL (3.0-54.0)
--- NOTE | 2023-02-14 23:14 | HP.PCM.HOS_ITS ---
HPI - General General Date of Admission: 02/14/23 Date of Service: 02/14/23 Chief Complaint: Fever, fatigue, malaise. HPI Narrative The patient is a 62 y/o F w/ PMHx: Hx VTE, Anxiety and Depression, Diabetes mellitus type II, HTN, HLD, Uterine high-grade leiomyosarcoma status post laparoscopic-assisted vaginal hysterectomy and bilateral salpingectomy per Dr. Kota Meehan with bulky metastatic disease to the lungs with hypoxia and the [facility] er started on systemic therapy with single agent Adriamyosin x 6 rounds with her last round 4 weeks prior to current presentation with reportedly clinical and radiological improvement, Chronic anemia and thrombocytopenia associated with her underlying CA/chemotherapy, history bilateral PE 01/06/2023 bilateral PE initiated on systemic anticoagulation therapy at that time who presents to the [facility] ED on 02/14/23 with history of increased fatigue, malaise as well as fever in addition to nausea although she has had this on and off with chemotherapy as well as mild dyspnea without cough, reportedly at a class reunion 3 days prior to her current presentation with contact with several individuals prompting eventual ED evaluation. Her spouse was present has felt well and had no issues. The patient is vaccinated with Moderna series and did have one booster but she cannot recall the exact timeline of when her last booster was administered. Work-up in the ED included Tmax 101.6, heart rate initially 169 with most recent repeat 102, BP 135/82 initially with most recent repeat 120 for 61, respiratory rate initially 20 noted to be 96% on room air, most recent respiratory rate 18, 93% room air, CBC with WBC 9.4, hemoglobin 9.4, MCV 102.5, platelet 72 with lymphopenia, coags with PT 18.3, PTT 38.9, CMP with sodium 131, glucose 290, lactic acid 1.6, alk phos 282, initial troponin 216 with repeat delta 248 and most recently noted prior to this on 01/06/2023 troponin 66, urinalysis with specific gravity 1.020, protein 15, glucose 1000, ketones 150 otherwise urinalysis unremarkable, urine culture pending per ED, blood culture x2 pending per ED, SARS COVID rapid antigen positive, chest x-ray with bilateral infiltrates or edema, follow-up CT chest without contrast [], EKG initially with significant concern for sinus tachycardia versus SVT with administration of Tylenol and IV fluid bolus without improvement with then administration of adenosine 6 mg with conversion to sinus rhythm with no prior history of SVT. In the ED patient ministered normal saline bolus, Zofran 4 mg IV x1, Zosyn 4.5 g IV x1, adenosine 6 mg IV x1 as previously noted, Tylenol 1000 mg p.o. x1. ED physician also requested SARS COVID PCR and CTA Chest which is pending upon request evaluation of patient. COUNT INCLUDES THE [facility] Medical History Abdominal pain Anemia Arthritis Back pain Cancer Chest pain CINV (chemotherapy-induced nausea and vomiting) Constipation Dehydration Diabetes Dyspnea on exertion Edema of both legs Encounter for chemotherapy management Encounter for education Fatigue Gastric reflux Generalized weakness High cholesterol History of hip fracture History of irregular heartbeat History of stress test Hx of fracture of left hip Hypercalcemia of malignancy Hyperlipemia Hypertension Insulin dependent diabetes mellitus Liver metastasis Lung metastases Malodorous urine Nausea Neuropathy Non-smoker Post-menopausal Retinopathy Shortness of breath on exertion Tachycardia Type 1 diabetes mellitus Wears glasses Home Medications flash glucose scanning reader ([employer] Bruna 14 Day [place]) #1 ea 05/21/19 [Rx Last Taken Unknown] flash glucose sensor (FreeStyle Bruna 14 Day Sensor kit) #1 ea 05/21/19 [Rx Last Taken Unknown] blood sugar diagnostic (OneTouch Ultra Blue Test Strip) #100 ea 11/09/20 [Rx Last Taken Unknown] blood-glucose meter (OneTouch Ultra2 Meter) #1 ea 11/09/20 [Rx Last Taken Unknown] insulin glargine 100 unit/mL (3 mL) subcutaneous pen 10 unit subcut QHS diabetes 08/18/22 [History Last Taken 09/22/22 21:00] insulin aspart U-100 100 unit/mL (3 mL) subcutaneous pen 15 unit (0.15 mL) subcut TID #15 mL 09/22/22 [Rx Last Taken 09/23/22 06:30] wheel chair #1 ea 09/22/22 [Rx Last Taken Unknown] insulin aspart U-100 100 unit/mL (3 mL) subcutaneous pen (Novolog FlexPen U-100 Insulin aspart) 50 unit (0.5 mL) subcut TID #15 mL 11/02/22 [Rx Last Taken Unknown] MAGIC MOUTH WASH (BMX) 180 mL suspension 15 ml PO .Q6HR PRN 12/01/22 [History Last Taken Unknown] fluoxetine 20 mg capsule 20 mg PO DAILY depression 12/01/22 [History Last Taken Unknown] spironolactone 50 mg tablet (Aldactone) 50 mg PO DAILY edema 30 days #30 tabs 12/26/22 [Rx Last Taken Unknown] meclizine 25 mg tablet 25 mg PO DAILY PRN 12/29/22 [History Last Taken Unknown] apixaban 5 mg tablet (Eliquis) 5 mg PO BID blood thin #74 tabs 01/06/23 [Rx Last Taken 02/14/23 20:00 5 mg] morphine 15 mg immediate release tablet 15 mg PO BID pain 02/01/23 [History Last Taken Unknown] polyethylene glycol 3350 17 gram/dose oral powder (Miralax) 4 g PO DAILY PRN constipation 02/01/23 [History Last Taken Unknown] sennosides 8.6 mg tablet (Senna Lax) 17.2 mg PO BID stool softener 02/01/23 [History Last Taken Unknown] olanzapine 5 mg tablet 5 mg PO QHS nausea 02/14/23 [History Last Taken 02/14/23] omeprazole 20 mg capsule,delayed release 20 mg PO DAILY gerd 02/14/23 [History Last Taken Unknown] Allergy/AdvReac Type Severity Reaction Status Date / Time No Known Allergies Allergy Verified 02/14/23 18:31 Family History Mother Cancer Hypertension Arthritis Father Arthritis Myocardial infarction, Onset Age: 40 Heart disease Sister Diabetes Surgical History History of bunionectomy History of section History of colonoscopy History of endometrial ablation History of eye surgery History of hysterectomy for cancer Social History Smoking Status: Never smoker alcohol intake: current alcohol intake frequency: a few times a week Alcohol type: wine details: social substance use type: does not use caffeine: Yes what type of physical activity do you participate in: none seatbelt use: always do you feel safe at home: Yes additional social history: Akshat- Teacher at [employer] 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 ROS ROS Narrative Admission Review of Systems: CONSTITUTIONAL: No weight loss, + fever, chills, weakness or fatigue. HEENT: Eyes: No visual loss, blurred vision, double vision or yellow sclerae. Ears, Nose, Throat: No hearing loss, sneezing. SKIN: No rash or itching, lesions, wounds. CARDIOVASCULAR: No chest pain, chest pressure or chest discomfort, palpitations, edema, orthopnea, syncopal events. RESPIRATORY: + Mild shortness of breath. No cough or marked sputum, wheezing, hemoptysis. GASTROINTESTINAL: + anorexia, nausea. no vomiting, diarrhea, abdominal pain, melena, BRBPR. GENITOURINARY: No dysuria, frequency, urgency or retention. NEUROLOGICAL: No dizziness, syncope, paralysis, ataxia, numbness or tingling in the extremities, focal weakness, change in bowel or bladder control, seizure. MUSCULOSKELETAL: + muscle, back pain, joint pain or stiffness. HEMATOLOGIC: + anemia, bleeding or bruising. LYMPHATICS: No enlarged nodes. No history of splenectomy. PSYCHIATRIC: + history of depression or anxiety. ENDOCRINOLOGIC: No reports of sweating, cold or heat intolerance. No polyuria or polydipsia. ALLERGIES: No history of asthma, hives, eczema or rhinitis. Vital Signs Vital Signs Vital Signs: 02/14/23 18:31 02/14/23 18:56 02/14/23 19:27 Temperature 101.3 F H 101.6 F H Temperature Source Temporal Oral Pulse Rate 169 H 165 H Respiratory Rate 20 H 24 H Blood Pressure 135/82 H 141/89 H Blood Pressure Mean 99 106 Pulse Ox 96 97 94 Oxygen Delivery Method Room Air Room Air Room Air 02/14/23 20:00 02/14/23 21:00 02/14/23 20:33 Temperature 99.8 F H Temperature Source Oral Pulse Rate 161 H 115 H 165 H Respiratory Rate 24 H 24 H 18 Blood Pressure 140/89 H 132/81 H Blood Pressure Mean 106 98 Pulse Ox 94 93 93 Oxygen Delivery Method Room Air Room Air Room Air 02/14/23 22:00 02/14/23 22:37 Temperature 99.0 F Temperature Source Oral Pulse Rate 105 H 102 H Respiratory Rate 19 H 18 Blood Pressure 120/61 120/61 Blood Pressure Mean 80 80 Pulse Ox 92 93 Oxygen Delivery Method Room Air Room Air Weight Weight: 157 lb 10.088 oz Body Mass Index (BMI) 23.9 Physical Exam Narrative Physical Examination: General: Awake, alert, oriented x 3 and cooperative, seated upright in the ED bed, fatigued and ill-appearing. Skin: Normal color, normal turgor, no icterus, no cyanosis. HEENT: AT/NC, EOMI, PERRLA, moderately dry MM, no carotid bruits or JVD noted. Lungs: Diffusely diminished, greater bases, mildly increased respiratory rate, coarse bases, no rales, ronchi or wheezing. Heart: Improved from initial ED presentation, regular rate with regular rhythm; no gallop, rub audible. Abdomen: Soft, NTTP, NS, mildly hyperactive bowel sounds, no marked HSM. Extremities: No cyanosis, no clubbing, mild BL ankle to proximal leg minimally pitting edema which she notes has been chronic. Neurological: Patient awake, alert, oriented as noted, cognitive function intact; pupils equally reactive to light and accommodation, cranial nerves grossly normal, moving all 4 extremities, no focal deficits, strength moderately to severely globally decreased secondary to acute presentation. Psychiatric: Affect appears fatigued, ill-appearing, no acute evidence of d epressive or anxiety feelings but does have underlying history. Results Lab / Micro Data 02/14/23 19:45 02/14/23 19:45 Labs: Laboratory Results - last 24 hr 02/14/23 19:45: WBC 9.4, RBC 2.83 L, Hgb 9.4 L, Hct 29.0 L, MCV 102.5 H, MCH 33.2 H, MCHC 32.4, RDW Std Deviation 58.1 H, RDW Coeff of Flaco 15.3 H, Plt Count 72 L, MPV 12.1 H, Immature Gran % (Auto) 0.500, Neut % (Auto) 76.8 H, Lymph % (Auto) 7.5 L, [place] % (Auto) 14.6 H, Eos % (Auto) 0.1, Baso % (Auto) 0.5, Absolute Neuts (auto) 7.2, Absolute Lymphs (auto) 0.71 L, Nucleated RBC % 0, Differential Comment SCANNED, PT 18.3 H, INR 1.5, APTT 38.9 H, Sodium 131 L, Potassium 4.6, Chloride 100, Carbon Dioxide 21.0, Anion Gap 10, BUN 17, Creatinine 0.88, Estim Creat Clear Calc 66.01, Est GFR (MDRD) Af Amer 84, Est GFR (MDRD) Non-Af 69, BUN/Creatinine Ratio 19.4, Glucose 290 H, Lactic Acid 1.6, Calcium 9.0, Total Bilirubin 0.80, AST 30, ALT 23, Alkaline Phosphatase 282 H, Troponin I High Sens 216 H*, Total Protein 6.0 L, Albumin 2.8 L, Globulin 3.2, Albumin/Globulin Ratio 0.9 02/14/23 20:40: Urine Color Yellow, Urine Clarity Clear, Urine pH 5.0, Ur Specific [place] 1.020, Urine Protein 15 H, Urine Glucose (UA) 1000 H, Urine Ketones 150 A*, Urine Occult Blood Negative, Urine Nitrite Negative, Urine Bilirubin Negative, Urine Urobilinogen Normal, Ur Leukocyte Esterase Negative, Urine RBC 0 SEEN, Urine WBC 0 SEEN, Ur Squamous Epith Cells 0 SEEN, Urine Bacteria 0 SEEN, Urine Mucus 0 SEEN 02/14/23 21:56: Troponin I High Sens 248 H* Micro: Microbiology 02/14/23 20:00 Nasal Secretion SARS-CoV-2 & FLU Antigen (Rapid) - Final SARS-CoV-2 (COVID 19) Rhythm Strip Rhythm Strip: SVT vs. ST Rate: 160 Ectopy: None Radiology Impression Chest X-Ray 02/14/23 20:08 IMPRESSION: Bilateral infiltrates or edema. Electronically Signed: Gamal Otero MD at 20:51 EDT Reading Location ID and State: [address] [place] [address] , Service support , Assessment & Plan Assessment/Plan (1) COVID-19: PLAN: Plan The patient is a 62 y/o F w/ PMHx: Hx VTE, Anxiety and Depression, Diabetes mellitus type II, HTN, HLD, Uterine high-grade leiomyosarcoma status post laparoscopic-assisted vaginal hysterectomy and bilateral salpingectomy per Dr. Kota Meehan with bulky metastatic disease to the lungs with hypoxia and the liver started on systemic therapy with single agent Adriamyosin x 6 rounds with her last round 4 weeks prior to current presentation with reportedly clinical and radiological improvement, Chronic anemia and thrombocytopenia associated with her underlying CA/chemotherapy, history bilateral PE 01/06/2023 bilateral PE initiated on systemic anticoagulation therapy at that time who presents to the [facility] ED on 02/14/23 with history of increased fatigue, malaise as well as fever in addition to nausea although she has had this on and off with chemotherapy reportedly at a class reunion 3 days prior to her current presentation with contact with several individuals prompting eventual ED evaluation. #1. Acute Hypoxia secondary to Acute Bilateral Pneumonia secondary to Acute Viral Syndrome, COVID-19; however, certainly could have concurrent BL Bacterial PNA (given immunosupressed status could be GN/GP organisms): Will admit to the PCU, maintain on COVID precautions, will maintain on oxygen with wean as tolerated to room air, PRN albuterol, HOB, IS parameters w/ pending sputum cultures, respiratory viral panel and urine antigens, requested confirmation COVID-PCR, will obtain D-dimer, procalcitonin, CRP, CPK, Ferritin, LDH and BNP as well as cycle cardiac enzymes, will continue supportive care, judicious hydration, closely monitor for worsening status for ARDS and multiorgan failure, will initiate and continue IV decadron x 10 doses, given presentation will also initiate IV remdesivir but closely monitor liver function especially given metastatic liver disease history but defer to discretion of Infectious disease, will maintain on IV zosyn and IV vancomcyin with MRSA screen also requested. #2. SVT, not markedly symptomatic with Elevated Cardiac Enzymes, NSTEMI, type II, suspected secondary to Demand with #1 (rules in with initial troponin 216 and delta repeat 248): EKG in ED significant tachycardia not improving with Tylenol or IV fluids however following adenosine 6 mg x 1 patient converted to sinus rhythm in the acute setting of potentially bilateral COVID-pneumonia in immunosuppressed patient, will maintain on telemetry, cycle cardiac enzymes, will obtain magnesium and phosphorus levels with repletion as needed, will order echocardiogram however if COVID testing PCR is confirmatory may consider this to be done at a later date, TSH requested, FLP in AM, maintain on asa, eliquis ongoing. #3. Metastatic Uterine high-grade leiomyosarcoma with associated chronic macrocytic anemia as well as acute on chronic thrombocytopenia: Patient status post laparoscopic-assisted vaginal hysterectomy and bilateral salpingectomy with bulky metastatic disease to the lungs with hypoxia and the liver started on systemic therapy with single agent Adriamyosin x 6 rounds with her last round 4 weeks prior to current presentation with reportedly clinical and radiological improvement, following with Dr. Sesay. CBC with hemoglobin 9.4, MCV 102.5, platelets 72 with baseline noted previously hemoglobin ranging more recently 7-9 and platelets previously low at 65 01/06/2023 however had normalized but again last chemotherapy was approximately 4 weeks prior to current presentation, also mag and phos requested. #4. Chronic pain syndrome: Associate with patient significantly metastatic underlying cancer, will continue patient home chronic morphine regimen with as needed breakthrough regimen as needed. We will additionally continue patient's aggressive bowel regimen secondary to related constipation. #5. Diabetes mellitus type II: Hold oral home regimen, continue home insulin regimen, ADA diet, accu checks w/ ISS. Given steroid usage may need to adjust insulin sliding scale upward pending blood sugar trending. #6. History of VTE: Patient with bilateral PE 01/06/2023, we will continue patient home Eliquis regimen. #7. Anxiety and depression: We will continue patient home fluoxetine and olanzapine regimen. #8. GERD: We will continue patient home PPI. #9. DVT prophylaxis: We will continue patient home Eliquis regimen. #10. CODE status: Patient DASHAWN is her who is present and living will is currently in place. Discussed CODE status at length including difference between FULL code, DNR-CCA and DNR-CC status. Following discussions about the differences in these status, requested DNR-CCA, no intubation status. Advanced Care Planning Face to Face Time: 16 minutes. Charges/Coding Visit Charges Inpatient E&M: 60470 Init Hosp L3 Procedures Hospitalists Procedures: 62989 Advncd Care Plan 30 Min
[2023-02-14 23:53] LABS: Ferritin 418 ng/mL (8-252); LDH 313 U/L (84-246); Magnesium 1.6 mg/dL (1.6-2.6); Phosphorus 2.4 mg/dL (2.5-4.9)
[2023-02-14 23:54] LABS: Erythrocyte Sedimentation Rate 15 mm/hr (0-30)
[2023-02-14 23:58] LABS: Procalcitonin 2.56 ng/mL (0.00-0.09)
[2023-02-15] VITALS (8 sets, daily range): BP systolic 104–129; BP diastolic 51–58; PULSE 82–95; RESP 15–18; TEMP 36.2–37.2; O2SAT 94–96; BMI 23.2; BMI 23.9
[2023-02-15 00:01] LABS: D-Dimer Quantitative (DVT/PE) 5.61 FEU/ug/m (0.27-0.49)
[2023-02-15 00:13] LABS: BNP,B-Type NATRIURETIC PEPTIDE 522.6 pg/mL (0-100)
[2023-02-15] MEDS: dexAMETHasone 4 MG/ML Vial 6 MG IV (02:27)
[2023-02-15] MEDS: 0.9% Normal Saline 1,000 ML 100 ML IV (02:28)
[2023-02-15 03:12] LABS: Bedside Glucose 235 mg/dL (74-106)
[2023-02-15 03:29] LABS: Absolute Lymphocyte Count 0.55 X10^3/uL (0.83-4.51); Absolute Neutrophil Count 3.2 X10^3/uL (2.0-7.7); Basophil# 0.02 X10^3/uL; Basophil% 0.4 % (0-1); Eosinophil# 0.01 X10^3/uL; Eosinophils% 0.2 % (0-5); Hematocrit 23.8 % (37-47); Hemoglobin 7.5 g/dL (12.0-15.0); Lymphocyte # 0.55 X10^3/ul (0.83-4.51); Lymphocyte % 11.6 % (19-41); Mean Corp Hgb Conc 31.5 g/dL (32-36); Mean Corpuscular Volume 104.8 fL (81-99); Mean Platelet Vol. 11.5 fl (6.2-12.0); Monocyte# 0.97 X10^3/uL; Monocyte% 20.4 % (0-10); NRBC Flagged by Analyzer 0 % (0-5); Neutrophil # 3.18 X10^3/uL (2.7-7.7); POSITIVE DIFFERENTIAL YES; Platelet Count 107 K/mm3 (150-450); RBC Distribution Width CV 15.7 % (11.6-14.6); Red Blood Count 2.27 M/mm3 (4.2-5.4); White Blood Count 4.8 K/mm3 (4.4-11.0)
[2023-02-15 03:30] LABS: Differential Indicated SCAN CRITERIA MET
[2023-02-15 04:17] LABS: Troponin-I HS 231 pg/mL (3.0-54.0)
--- NOTE | 2023-02-15 04:25 | PCM.RX.CS ---
Consult Antibiotic Management Pharmacy has been consulted to manage selected antiobiotic: Vancomycin Type of Intervention Type of Consult: New start Suspected Infection Suspected Infection: Pneumonia Microbiology Microbiology: Microbiology 02/14/23 22:54 Mucosa - Nasopharyngeal Respiratory Panel (PCR) - Final 02/14/23 22:54 Mucosa - Nose Coronavirus COVID-19 PCR - Final SARS-CoV-2 (COVID 19 PCR) 02/14/23 20:00 Nasal Secretion SARS-CoV-2 & FLU Antigen (Rapid) - Final SARS-CoV-2 (COVID 19) Dosing Weight Weight used for dosin.3 kg Estimated Creatinine Clearance Estimated Creatinine Clearance: 66 Goal Trough Goal Trough: 15-20 mcg/mL Pharmacy Plan for Drug Dosing Pharmacy Plan for Drug Dosing: Pharmacy Service will continue to monitor and adjust dosing as required. Follow-Up Labs Follow-Up Labs: Trough: Vancomycin Date/Time Labs Ordered Labs to be done on [date and time ordered]: 02/16/23 @3407
[2023-02-15 04:35] LABS: Anisocytosis 1+; Macrocytosis 1+; Platelet Estimate SLT DEC (ADEQ)
[2023-02-15 05:06] LABS: ALB/GLOB Ratio 0.9 RATIO (0.9-2.4); AST(SGOT) 25 U/L (15-37); Alanine Aminotransfer ALT/SGPT 21 U/L (13-56); Albumin, Serum 2.3 g/dL (3.2-5.0); Alkaline Phosphatase 233 U/L (45-117); Anion Gap 7 (5-15); BUN 16 mg/dL (7-18); BUN/Creat Ratio 18.3 RATIO (10-20); Calcium,Total 8.2 mg/dL (8.5-10.1); Chloride 105 mmol/L (98-107); Cholesterol 98 mg/dL (200); Creatinine, Serum 0.87 mg/dL (0.55-1.02); EST Glomerular Filtration Rate 70 mL/min (>60); Est Glom Filt Rate - Afr Amer 84 mL/min (>60); Estimated Creatinine Clearance 66.77 ml/min; Globulin 2.6 g/dL (2.2-4.2); Glucose 242 mg/dL (74-106); High Density Lipoprotein 34 mg/dL; Potassium 4.2 mmol/L (3.5-5.1); Protein, Total 4.9 g/dL (6.4-8.2); Sodium Level 135 mmol/L (136-145); Thyroid Stim Hormone (TSH) 1.35 uIU/mL (0.358-3.74); Triglycerides 71 mg/dL; Very Low Density Lipoprotein 14 mg/dL (5-40)
[2023-02-15 05:08] LABS: M R Staph aureus DNA By PCR Negative (Negative); Probe Check PASS; Specimen Processing Control PASS
[2023-02-15] MEDS: Insulin Lispro 100 UNIT/ML INSULN.PEN SC ×4 (06:48→21:43)
[2023-02-15 07:08] LABS: Bedside Glucose 290 mg/dL (74-106)
[2023-02-15] MEDS: Senna Tablet 1 TABLET PO ×2 (09:20→21:32)
[2023-02-15] MEDS: Aspirin 81 MG TAB.CHEW PO (09:20)
[2023-02-15] MEDS: APIXABAN 5 MG TABLET PO ×2 (09:20→21:32)
[2023-02-15] MEDS: Pantoprazole Sodium 20 MG Tablet PO ×2 (09:20→21:32)
[2023-02-15] MEDS: morphine SR 15 MG Tablet PO ×2 (09:20→21:32)
--- NOTE | 2023-02-15 11:52 | PN_ITS ---
Subjective Subjective Patient seen and examined. She feels weak but has no other complaints. Review of systems is otherwise negative. Her breathing is improving. She denies any cough, chest pain, palpitaitons, dizziness, nausea, vomiting or diarrhea. Review of systems is otherwise negative. She is on 2L of oxygen by nasal canula. Objective Data Objective Data Vital Signs: Vital Signs Temp Pulse Resp BP Pulse Ox O2 Del Method O2 Flow Rate 98.6 F 92 15 112/55 L 95 Nasal Cannula 2 02/15/23 06:56 02/15/23 06:56 02/15/23 06:56 02/15/23 06:56 02/15/23 06:56 02/15/23 09:29 02/15/23 09:29 Oxygen Flow Rate (L/min) 2 Oxygen Delivery Method Nasal Cannula Weight: 157 lb 6.561 oz Body Mass Index (BMI) 23.9 Intake & Output: Intake and Output for Last 24 Hours 02/13/23 02/14/23 02/15/23 23:59 23:59 23:59 Intake Total 1935.00 / 1935.00 Balance 1935.00 / 1935.00 Lab / Micro Data 02/15/23 03:05 02/15/23 03:05 Labs: Laboratory Results - last 24 hr 02/14/23 19:45: WBC 9.4, RBC 2.83 L, Hgb 9.4 L, Hct 29.0 L, MCV 102.5 H, MCH 33.2 H, MCHC 32.4, RDW Std Deviation 58.1 H, RDW Coeff of Flaco 15.3 H, Plt Count 72 L, MPV 12.1 H, Immature Gran % (Auto) 0.500, Neut % (Auto) 76.8 H, Lymph % (Auto) 7.5 L, [place] % (Auto) 14.6 H, Eos % (Auto) 0.1, Baso % (Auto) 0.5, Absolut e Neuts (auto) 7.2, Absolute Lymphs (auto) 0.71 L, Nucleated RBC % 0, Differe ntial Comment SCANNED, ESR 15, PT 18.3 H, INR 1.5, APTT 38.9 H, D-Dimer Quant (PE/DVT) 5.61 H*, Sodium 131 L, Potassium 4.6, Chloride 100, Carbon Dioxide 21.0, Anion Gap 10, BUN 17, Creatinine 0.88, Estim Creat Clear Calc 66.01, Est GFR (MDRD) Af Amer 84, Est GFR (MDRD) Non-Af 69, BUN/Creatinine Ratio 19.4, Glucose 290 H, Lactic Acid 1.6, Calcium 9.0, Phosphorus 2.4 L, Magnesium 1.6, Ferritin 418 H, Total Bilirubin 0.80, AST 30, ALT 23, Alkaline Phosphatase 282 H , Lactate Dehydrogenase 313 H, Troponin I High Sens 216 H*, C-React Prot Ext Range 29.00 H, B-Natriuretic Peptide 522.6 H, Total Protein 6.0 L, Albumin 2.8 L , Globulin 3.2, Albumin/Globulin Ratio 0.9, Procalcitonin 2.56 H 02/14/23 20:40: Urine Color Yellow, Urine Clarity Clear, Urine pH 5.0, Ur Specific [place] 1.020, Urine Protein 15 H, Urine Glucose (UA) 1000 H, Urine Ketones 150 A*, Urine Occult Blood Negative, Urine Nitrite Negative, Urine Bilirubin Negative, Urine Urobilinogen Normal, Ur Leukocyte Esterase Negative, Urine RBC 0 SEEN, Urine WBC 0 SEEN, Ur Squamous Epith Cells 0 SEEN, Urine Bacteria 0 SEEN, Urine Mucus 0 SEEN 02/14/23 21:56: Troponin I High Sens 248 H* 02/15/23 01:59: MRSA (PCR) Negative 02/15/23 02:24: POC Glucose 235 H 02/15/23 03:05: WBC 4.8, RBC 2.27 L, Hgb 7.5 L, Hct 23.8 L, MCV 104.8 H, MCH 33.0 H, MCHC 31.5 L, RDW Std Deviation 61.0 H, RDW Coeff of Flaco 15.7 H, Plt Count 107 L, MPV 11.5, Immature Gran % (Auto) 0.400, Neut % (Auto) 67.0, Lymph % (Auto) 11.6 L, [place] % (Auto) 20.4 H, Eos % (Auto) 0.2, Baso % (Auto) 0.4, Absolute Neuts (auto) 3.2, Absolute Lymphs (auto) 0.55 L, Nucleated RBC % 0, Platelet Estimate SLT DEC, Anisocytosis 1+, Macrocytosis 1+, Sodium 135 L, Potassium 4.2, Chloride 105, Carbon Dioxide 23.0, Anion Gap 7, BUN 16, Creatinine 0.87, Estim Creat Clear Calc 66.77, Est GFR (MDRD) Af Amer 84, Est GFR (MDRD) Non-Af 70, BUN/Creatinine Ratio 18.3, Glucose 242 H, Calcium 8.2 L, Total Bilirubin 0.50, AST 25, ALT 21, Alkaline Phosphatase 233 H, Troponin I High Sens 231 H*, Total Protein 4.9 L, Albumin 2.3 L, Globulin 2.6, Albumin/Globulin Ratio 0.9, Triglycerides 71, Cholesterol 98, LDL Cholesterol 50, VLDL Cholesterol 14, HDL Cholesterol 34 L, TSH 1.35 02/15/23 06:44: POC Glucose 290 H Micro: Microbiology 02/14/23 20:40 Urine, Random Legionella Antigen - Final 02/14/23 20:40 Urine, Clean Catch Streptococcus pneumoniae Antigen (M - Final 02/14/23 22:54 Mucosa - Nasopharyngeal Respiratory Panel (PCR) - Final 02/14/23 22:54 Mucosa - Nose Coronavirus COVID-19 PCR - Final SARS-CoV-2 (COVID 19 PCR) 02/14/23 20:00 Nasal Secretion SARS-CoV-2 & FLU Antigen (Rapid) - Final SARS-CoV-2 (COVID 19) Radiography Diagnostic Testing: Radiology Impression Chest X-Ray 02/14/23 20:08 IMPRESSION: Bilateral infiltrates or edema. Electronically Signed: Gamal Otero MD at 20:51 EDT Reading Location ID and State: [facility] / ID , Service support , Chest CTA 02/15/23 22:57 IMPRESSION: 1. Some decrease in size of the previously identified pulmonary emboli in segmental pulmonary artery branches in the right lower lobe. No new/acute pulmonary emboli identified. 2. Multiple metastatic pulmonary nodules again noted. Electronically Signed: Wilder Stevenson MD at 0:52 EDT , Rhythm Strip Rhythm Strip: SVT vs. ST Rate: 160 Ectopy: None Physical Exam Const alert, oriented x3 and no apparent distress Constitutional Narrative: frail General Appearance: cooperative HEENT normocephalic, head/scalp atraumatic and moist oral mucous membranes Eyes PERRL and EOMs intact bilaterally Neck no lymphadenopathy and supple Lymph Lymphatic: no lymphadenopathy noted and no lymphedema noted Resp Resp Narrative: minimal breath sounds bibasally, no wheezes or crackles. On 2L of oxygen. Cardio regular rate, regular rhythm, S1 normal heart sound, S2 normal heart sound and no murmurs GI normal to inspection, nondistended, normoactive bowel sounds, soft to palpation, non-tender and non-distended Extremity normal capillary refill, no clubbing, cyanosis or edema and no calf tenderness Skin Skin Narrative: has a port in place Neuro CN's II-XII intact bilaterally, no focal motor deficits, no sensory deficits noted and deep tendon reflexes 2+ bilaterally Motor Exam: strength 5/5 throughout and general weakness Psych thought process normal, cooperative and affect normal Mood & Affect: flat affect Assessment & Plan Assessment/Plan (1) COVID-19: (2) Hypoxia: (3) Generalized weakness: PLAN: Plan #Hypoxia due to covid 19 infection and presumptive bilateral pneumonia * now on 1L of oxygen. * covid rapid antigen and PCR tests were positive. * CTA chest was negative for any evidence of PE * on remdesivir and decadron. * on IV vancomycin and zosyn * ID consulted * breathing treatment with bronchodilators * tirate oxygen to maintain sats >90% * #SVT and nonstemi * initial troponin was markedly elevated at 216, and trended upwards slightly * SVT resolved afer being given adenosine * consult cardiology * had 2D echo in December 2022 which showed EF of 60% with stage 1 diastolic dysfunction and normal LV size and function. * on aspirin and eliquis * discussed with Dr Castillo (cardiology); per discussion, her SVT and elevated troponins are likely due to covid. Since she recently had a 2D echo in December 2022, there is no need to do any further becki and to monitor for now. * #MEtastatic uterine leiomyosarcoma * s/p laparoscopic vaginal hysterectomy and bilateral salpingectomy with mets to the lungs nad liver * completed chemotherapy with adriamycin * #Chronic anemia and thrombocytopenia: due to cancer and chemotherapy. Will monitor #Type 2 diabetes mellitus: on ISS. Accuchecknat KENNY #History of bilateral PE: occurred in December 2022. On eliquis #GERD: on PPI DVT prophylaxis: already on eliquis Code status; DNRCCA no intubation Charges/Coding Visit Charges Inpatient E&M: 29365 [facility] Hosp L3
[2023-02-15 11:56] LABS: Bedside Glucose 299 mg/dL (74-106)
--- NOTE | 2023-02-15 12:55 | CASEMGMT ---
RN?CM?SECURITY AND COMPLIANCE ANALYST?CM?placed call to pt for initial transition planning/care coordination?assessment and also got suction worker w/RN CM.?RN?CM?introduced self and role at [facility].? Pt voices understanding and consents to?assessment?at this time.? Pt is A/O at this time and answers all questions appropriately.?? Care providers, pharmacy, and demographics verified/updated at this time. PCP: Dr Nitin Falcon Specialists:Dr Sesay--oncology Palliative: [facility]. Conf[facility] to notify them of pt's admission to [facility]. Preferred Pharmacy: [facility] Insurance:MMO Prescription Benefit:?Yes Living Will/HPOA:? Has both LW and HCPOA, who is her , Akshat, and they both are on file @ [facility]. LNOK: Akshat Living Arrangements: Lives w/her in ranch-style home w/2 steps to enter throught the garage w/handrails. Indep w/ADL's and does some home mgnt tasks. assists as needed and does all other home mgnt tasks and manages pt's meds and appts. Transportation:? DME: ?States has the following DME:?shower chair, BSC, W/C, BP cuff, recliner/lift chair, Bruna CGM system w/supplies, O2 through [employer]. Has concentrator and portable O2 tank that can bring in, if needed. Pt states O2 order was initially 3 l/m, but she has not been using it for past couple months. Per Tressa @ [employer], pt's current O2 orders are 2 l/m. Pt has a pulse ox @ home also. ?Pt states no need for further DME at this time.? HHC/SNF: No hx of either. Denies need for HHC. Pt wishes to return home and states has no concerns with going home at time of discharge.? CM?to follow for any increase in home oxygen needs and any further discharge planning/needs.? Pt and voice no further concerns/needs at this time.? Advised them to ask for?CM?if any further questions/concerns/needs arise.? They voice understanding. PLAN:??Home. Follow for any increase in O2 needs. DGiauque BSN?RN?CM
[2023-02-15] MEDS: 0.9% Saline Lock 10 ML Syringe IV (16:20)
[2023-02-15 16:45] LABS: Bedside Glucose 328 mg/dL (74-106)
[2023-02-15] MEDS: 0.9 % NaCl (Sterile) Posiflush 10 mL IV (21:29)
[2023-02-15] MEDS: FLUoxetine 20 MG Capsule PO (21:32)
[2023-02-15] MEDS: Insulin Glargine-YFGN 100 UNIT/ML Pen 16 UNIT SC (21:42)
[2023-02-15 22:43] LABS: Bedside Glucose 320 mg/dL (74-106)
--- NOTE | 2023-02-15 22:57 | CT_ITS ---
EXAM: CT ANGIOGRAPHY CHEST WITHOUT AND WITH INTRAVENOUS CONTRAST CLINICAL INDICATION: fever, hx mets to lungs, abn CXR; infxn vs. mets TECHNIQUE: Helically acquired angiography images were obtained of the chest without and with intravenous contrast. This CT exam was performed using one or more of the following dose reduction techniques: automated exposure control, adjustment of the mA and/or kV according to patient size, and/or use of iterative reconstruction technique. MIP reconstructed images were created and reviewed. CONTRAST: IV 75mL Isovue-370 COMPARISON: CTA chest 01/06/2023 FINDINGS: PULMONARY ARTERIES: Some decrease in size the previously identified pulmonary emboli in segmental pulmonary artery branches in the right lower lobe. No new/acute pulmonary emboli identified. Normal in caliber. AORTA: Unremarkable. Normal in caliber. No evidence of dissection. GREAT VESSELS OF AORTIC ARCH: Unremarkable. Normal in caliber. No evidence of dissection. LUNGS AND PLEURAL SPACES: Multiple metastatic pulmonary nodules throughout. Stable scarring in the right upper lobe. No pleural effusion or thickening. No pneumothorax. HEART: Unremarkable. Heart size is normal. No pericardial effusion. No significant coronary artery calcifications. MEDIASTINUM: Unremarkable. No mediastinal or hilar adenopathy. Esophagus is unremarkable. No hiatal hernia. THYROID: Unremarkable. No thyroid lesions. BONES/JOINTS: Degenerative changes of the spine. No suspicious lytic or blastic abnormality. LIVER: Stable large hepatic mass. TUBES, LINES AND DEVICES: Right chest port. CT/CTA Chest W/WO Contrast IMPRESSION: 1. Some decrease in size of the previously identified pulmonary emboli in segmental pulmonary artery branches in the right lower lobe. No new/acute pulmonary emboli identified. 2. Multiple metastatic pulmonary nodules again noted. Electronically Signed: Wilder Stevenson MD at 0:52 EDT ,
[2023-02-16] VITALS (8 sets, daily range): BP systolic 109–117; BP diastolic 49–59; PULSE 82–91; RESP 16–18; TEMP 36.7–37.1; O2SAT 93–97; BMI 23.8
[2023-02-16] MEDS: 0.9% Saline Lock 10 ML Syringe IV (05:20)
[2023-02-16] MEDS: Insulin Lispro 100 UNIT/ML INSULN.PEN SC (06:38)
[2023-02-16 07:22] LABS: Bedside Glucose 260 mg/dL (74-106)
[2023-02-16] MEDS: Spironolactone 50 MG Tablet PO (08:56)
[2023-02-16] MEDS: Aspirin 81 MG TAB.CHEW PO (08:56)
[2023-02-16] MEDS: Pantoprazole Sodium 20 MG Tablet PO (08:57)
[2023-02-16] MEDS: Senna Tablet 1 TABLET PO (08:57)
[2023-02-16] MEDS: APIXABAN 5 MG TABLET PO (08:57)
[2023-02-16] MEDS: dexAMETHasone 4 MG/ML Vial 6 MG IV (08:59)
[2023-02-16] MEDS: morphine SR 15 MG Tablet PO (09:04)
[2023-02-16] MEDS: 0.9 % NaCl (Sterile) Posiflush 10 mL IV ×2 (09:05→12:08)
[2023-02-16 09:33] LABS: Absolute Lymphocyte Count 0.95 X10^3/uL (0.83-4.51); Absolute Neutrophil Count 3.5 X10^3/uL (2.0-7.7); Basophil# 0.02 X10^3/uL; Basophil% 0.4 % (0-1); Eosinophil# 0.03 X10^3/uL; Eosinophils% 0.6 % (0-5); Hematocrit 27.8 % (37-47); Hemoglobin 8.7 g/dL (12.0-15.0); Lymphocyte # 0.95 X10^3/ul (0.83-4.51); Lymphocyte % 18.1 % (19-41); Mean Corp Hgb Conc 31.3 g/dL (32-36); Mean Corpuscular Hgb 32.5 pg (27.0-32.0); Mean Corpuscular Volume 103.7 fL (81-99); Mean Platelet Vol. 12.3 fl (6.2-12.0); Monocyte# 0.75 X10^3/uL; Monocyte% 14.3 % (0-10); NRBC Flagged by Analyzer 0 % (0-5); Neutrophil # 3.45 X10^3/uL (2.7-7.7); Neutrophil % 65.6 % (47-70); Platelet Count 144 K/mm3 (150-450); RBC Distribution Width CV 15.6 % (11.6-14.6); RBC Distribution Width SD 59.5 fl (35.1-43.9); Red Blood Count 2.68 M/mm3 (4.2-5.4); White Blood Count 5.3 K/mm3 (4.4-11.0)
[2023-02-16 09:52] LABS: Anion Gap 7 (5-15); BUN 19 mg/dL (7-18); BUN/Creat Ratio 19.9 RATIO (10-20); Calcium,Total 8.8 mg/dL (8.5-10.1); Chloride 105 mmol/L (98-107); Creatinine, Serum 0.95 mg/dL (0.55-1.02); EST Glomerular Filtration Rate 63 mL/min (>60); Est Glom Filt Rate - Afr Amer 76 mL/min (>60); Estimated Creatinine Clearance 61.14 ml/min; Glucose 231 mg/dL (74-106); Potassium 3.8 mmol/L (3.5-5.1); Sodium Level 135 mmol/L (136-145)
--- NOTE | 2023-02-16 11:16 | DS.PCM_ITS ---
Providers Date of Admission: 02/14/23 Date of Discharge: 02/16/23 Primary Care Physician: Dr. Nitin Falcon, DO Reason For Visit: BL PNA, ?COVID, SVT Diagnosis Discharge Diagnosis (1) COVID-19: Status: Acute Code(s): U07.1 - COVID-19 (2) Hypoxia: Status: Acute Code(s): R09.02 - Hypoxemia (3) Generalized weakness: Status: Acute Code(s): R53.1 - Weakness Plan #Hypoxia due to covid 19 infection and presumptive bilateral pneumonia * now on 1L of oxygen. * covid rapid antigen and PCR tests were positive. * CTA chest was negative for any evidence of PE * on remdesivir and decadron. * on IV vancomycin and zosyn * ID consulted * breathing treatment with bronchodilators * tirate oxygen to maintain sats >90% * #SVT and nonstemi * initial troponin was markedly elevated at 216, and trended upwards slightly * SVT resolved afer being given adenosine * consult cardiology * had 2D echo in December 2022 which showed EF of 60% with stage 1 diastolic dysfunction and normal LV size and function. * on aspirin and eliquis * discussed with Dr Castillo (cardiology); per discussion, her SVT and elevated troponins are likely due to covid. Since she recently had a 2D echo in December 2022, there is no need to do any further becki and to monitor for now. * #MEtastatic uterine leiomyosarcoma * s/p laparoscopic vaginal hysterectomy and bilateral salpingectomy with mets to the lungs nad liver * completed chemotherapy with adriamycin * #Chronic anemia and thrombocytopenia: due to cancer and chemotherapy. Will monitor #Type 2 diabetes mellitus: on ISS. Accuchecks ACHS #History of bilateral PE: occurred in December 2022. On eliquis #GERD: on PPI DVT prophylaxis: already on eliquis Code status; DNRCCA no intubation Medications at Discharge Home Medications flash glucose scanning reader (FreeStyle Bruna 14 Day [place]) #1 ea 05/21/19 flash glucose sensor (FreeStyle Bruna 14 Day Sensor kit) #1 ea 05/21/19 blood sugar diagnostic (OneTouch Ultra Blue Test Strip) #100 ea 11/09/20 blood-glucose meter (OneTouch Ultra2 Meter) #1 ea 11/09/20 insulin glargine 100 unit/mL (3 mL) subcutaneous pen 10 unit subcut QHS diabetes 08/18/22 wheel chair #1 ea 09/22/22 MAGIC MOUTH WASH (BMX) 180 mL suspension 15 ml PO .Q6HR PRN mouth wash 12/01/22 fluoxetine 20 mg capsule 20 mg PO DAILY depression 12/01/22 spironolactone 50 mg tablet (Aldactone) 50 mg PO DAILY edema 30 days #30 tabs 12/26/22 meclizine 25 mg tablet 25 mg PO DAILY PRN dizziness or vertigo 12/29/22 apixaban 5 mg tablet (Eliquis) 5 mg PO BID blood thin #74 tabs 01/06/23 morphine 15 mg immediate release tablet 15 mg PO BID pain 02/01/23 polyethylene glycol 3350 17 gram/dose oral powder (Miralax) 4 g PO DAILY PRN constipation 02/01/23 sennosides 8.6 mg tablet (Senna Lax) 17.2 mg PO BID stool softener 02/01/23 olanzapine 5 mg tablet 5 mg PO QHS nausea 02/14/23 omeprazole 20 mg capsule,delayed release 20 mg PO DAILY gerd 02/14/23 insulin aspart U-100 100 unit/mL (3 mL) subcutaneous pen 1 sliding scale dose subcut TIDCM diabetes 02/15/23 insulin aspart U-100 100 unit/mL (3 mL) subcutaneous pen (Novolog FlexPen U-100 Insulin aspart) 1 sliding scale dose subcut TID diabetes 02/15/23 dexamethasone 6 mg tablet 6 mg PO DAILY #8 tabs 02/16/23 doxycycline hyclate 100 mg tablet 100 mg PO BID #10 tabs 02/16/23 Hospital Course Operations None Procedures None Summary of Care Provided Minutes Spent on Discharge: 50 Hospital Course: Patient is a 62-year-old female with extensive past medical history as outlined which includes uterine high-grade leiomyosarcoma s/p laparoscopic-assisted vaginal hysterectomy and bilateral salpingectomy with mets to the lungs and liver currently undergoing chemotherapy. She was admitted via the ED on 02/14/2023 with a complaint of fever, fatigue and malaise. She had recently had a family reunion and had been exposed to several people. She had had a COVID vaccination and not had the boosters as well. On admission she was found to be febrile and was initially tachycardic with a heart rate up to 160s. EKG showed that she was in SVT which resolved after she was given adenosine. Initial troponin was also elevated at 216 with a repeat of 248. COVID test done was positive. Chest x-ray showed bilateral infiltrates. CTA of the chest showed some decrease in size of previously identified PE in the segmental pulmonary artery branches in the right lower lobe but no new or acute PE identified. She was admitted and managed for debility and malaise due to COVID-19 infection and concerns for superimposed pneumonia. She was started on IV ceftriaxone and azithromycin as well as remdesivir and Decadron. Her SVT did not recur during this admission. She has had a 2D echo in December 2022 which showed EF of 60% with stage 1 diastolic dysfunction and normal LV size and function. I did discuss the SVT and elevated troponins with Dr. Castillo of cardiology.per discussion, her SVT and elevated troponins are likely due to covid. Since she recently had a 2D echo in December 2022, there is no need to do any further workup and to monitor for now. Patient remained stable and was weaned off of oxygen. She had a walking p ulse ox which showed that she did not require any oxygen. She remained stable and was discharged home on 02/16/2023. She was discharged on p.o. Decadron 6 mg daily for 8 days. She is to follow-up with her primary care doctor within 1 to 2 weeks. She was discharged on PO doxycycline 100mg bid x 5 days. Patient seen and examined prior to discharge. She had no complaints and felt well and actually requested to be discharged as she felt much better. Review of systems otherwise negative. Labs and vitals reviewed. Home medication reviewed and reconciled. Physical Exam Const alert, oriented x3 and no apparent distress Constitutional Narrative: frail General Appearance: cooperative and comfortable HEENT normocephalic, head/scalp atraumatic, hearing grossly normal bilaterally and moist oral mucous membranes Mouth: oral and palatal mucosa normal Eyes PERRL and EOMs intact bilaterally Neck no lymphadenopathy and supple Lymph Lymphatic: no lymphadenopathy noted and no lymphedema noted Resp Resp Narrative: minimal breath sounds bibasally, no wheezes or crackles. On room air Cardio regular rate, regular rhythm, S1 normal heart sound, S2 normal heart sound and no murmurs GI normal to inspection, nondistended, normoactive bowel sounds, soft to palpation, non-tender and non-distended Extremity normal to inspection, full ROM, normal capillary refill, no clubbing, cyanosis or edema and no calf tenderness Skin no rashes or lesions noted and no wounds Skin Narrative: has a port in place Neuro oriented x3, CN's II-XII intact bilaterally, moves all extremities, no focal motor deficits, no sensory deficits noted and deep tendon reflexes 2+ bilaterally Motor Exam: strength 5/5 throughout and general weakness Psych thought process normal, cooperative and affect normal Weight / BMI Weight Weight: 156 lb 15.506 oz Body Mass Index (BMI) 23.8 ABG / Lab / Microbiology Data 02/16/23 09:15 02/16/23 09:15 Laboratory: Laboratory Results - last 24 hr 02/15/23 11:31: POC Glucose 299 H 02/15/23 16:17: POC Glucose 328 H 02/15/23 21:40: POC Glucose 320 H 02/16/23 06:37: POC Glucose 260 H 02/16/23 09:15: WBC 5.3, RBC 2.68 L, Hgb 8.7 L, Hct 27.8 L, MCV 103.7 H, MCH 32.5 H, MCHC 31.3 L, RDW Std Deviation 59.5 H, RDW Coeff of Flaco 15.6 H, Plt Count 144 L, MPV 12.3 H, Immature Gran % (Auto) 1.000 H, Neut % (Auto) 65.6, Lymph % (Auto) 18.1 L, [place] % (Auto) 14.3 H, Eos % (Auto) 0.6, Baso % (Auto) 0.4, Absolute Neuts (auto) 3.5, Absolute Lymphs (auto) 0.95, Nucleated RBC % 0, Sodium 135 L, Potassium 3.8, Chloride 105, Carbon Dioxide 23.0, Anion Gap 7, BUN 19 H, Creatinine 0.95, Estim Creat Clear Calc 61.14, Est GFR (MDRD) Af Amer 76, Est GFR (MDRD) Non-Af 63, BUN/Creatinine Ratio 19.9, Glucose 231 H, Calcium 8.8 Microbiology: Microbiology 02/14/23 20:40 Urine, Clean Catch Urine Culture - Final Culture exhibits no growth. 02/14/23 20:40 Urine, Random Legionella Antigen - Final 02/14/23 20:40 Urine, Clean Catch Streptococcus pneumoniae Antigen (M - Final 02/14/23 22:54 Mucosa - Nasopharyngeal Respiratory Panel (PCR) - Final 02/14/23 22:54 Mucosa - Nose Coronavirus COVID-19 PCR - Final SARS-CoV-2 (COVID 19 PCR) 02/14/23 20:00 Nasal Secretion SARS-CoV-2 & FLU Antigen (Rapid) - Final SARS-CoV-2 (COVID 19) D/C Instructions Discharge Diet: Low fat / Low cholesterol Call your doctor if you observe: Fever of 101 or Higher, Shortness of breath, Dizziness, Swelling in the ankles and Chest pain Meaningful Use Info Meaningful Use Diagnoses (Choose all that apply): None applicable Discharge Plan Admission Admit Date/Time: 02/14/23 23:15 Primary Reason for Your Visit: covid 19 infection Attending Provider: Nhung Tellez Primary Care Provider: Nitin Falcon Consulting Providers: Natali Cantu Instructions Patient Instructions: Coronavirus Disease 2019 (COVID-19): Overview Discharge Orders/Prescriptions Prescriptions: New doxycycline hyclate 100 mg tablet 100 mg PO BID Qty: 10 0RF dexamethasone 6 mg tablet 6 mg PO DAILY Qty: 8 0RF Continued (DME) FreeStyle Bruna 14 Day [place] Misc See Rx Instructions .ROUTE .MEDSUPPLY Qty: 1 3RF Rx Instructions: As directed (DME) FreeStyle Bruna 14 Day Sensor Kit See Rx Instructions .ROUTE .MEDSUPPLY Qty: 1 3RF Rx Instructions: As directed insulin glargine 100 unit/mL (3 mL) insulin pen 10 unit SC QHS Patient Comments: took 10 units at bedtime prior to procedure sennosides [Senna Lax] 8.6 mg tablet 17.2 mg PO BID morphine 15 mg tablet 15 mg PO BID MAGIC MOUTH WASH (BMX) 180 mL suspension 15 ml PO .Q6HR PRN (Reason: mouth wash) Rx Instructions: diphenhydramine 12.5 mg/5 mL oral liquid 60 mL; aluminum-mag hydroxide-s imethicone 400 mg-400 mg-40 mg/5 mL oral susp 60 mL; Lidocaine Viscous 2 % mucosal solution 60 mL; Per 180 mL fluoxetine 20 mg capsule 20 mg PO DAILY polyethylene glycol 3350 [Miralax] 17 gram/dose powder 4 g PO DAILY PRN (Reason: constipation) meclizine 25 mg tablet 25 mg PO DAILY PRN (Reason: dizziness or vertigo) Eliquis 5 mg tablet 5 mg PO BID Qty: 74 0RF Rx Instructions: 10 mg twice a day for the first week. Then 5 mg twice a day. omeprazole 20 mg capsule,delayed release(DR/EC) 20 mg PO DAILY olanzapine 5 mg tablet 5 mg PO QHS Patient Comments: TAKE ONE (1) TABLET BY MOUTH AT BEDTIME PALLIATIVE PATIENT insulin aspart U-100 100 unit/mL (3 mL) insulin pen 1 sliding scale dose SC TIDCM Rx Instructions: 8 units prior to arrival sliding scale insulin aspart U-100 [Novolog FlexPen U-100 Insulin] 100 unit/mL (3 mL) insulin pen 1 sliding scale dose subcut TID (DME) OneTouch Ultra Blue Test Strip Strip See Rx Instructions .ROUTE .MEDSUPPLY Qty: 100 3RF Rx Instructions: As directed (DME) blood-glucose meter [OneTouch Ultra2 Meter] Misc See Rx Instructions .ROUTE .MEDSUPPLY Qty: 1 0RF Rx Instructions: As directed (DME) wheel chair See Rx Instructions .Route .MEDSUPPLY Qty: 1 0RF Rx Instructions: As directed spironolactone [Aldactone] 50 mg tablet 50 mg PO DAILY 30 Days Qty: 30 3RF Rx Instructions: Skip Sundays and Wednesdays Referrals / Follow Up: Nitin Falcon DO [Primary Care Provider] - 03/30/23 4:30 pm (office will call you if they can get you in to see Dr. Falcon sooner.) Disposition Disposition (needs filled in before D/C Order can be placed): Home, Self Care Charges/Coding Visit Charges Inpatient E&M: 44750 Disch Hosp >30min
--- NOTE | 2023-02-16 13:57 | PHA.DC_ITS ---
Pharmacy [place] Med Reconciliation Pharmacy Service has performed discharge medication reconciliation for this patient. Face to face not completed d/t patient being in COVID precautions at this time. The patient's discharge medication list was reviewed for discrepancies and discrepancies were resolved. Medications at Discharge Home Medications flash glucose scanning reader (FreeStyle Bruna 14 Day [place]) #1 ea 05/21/19 flash glucose sensor (FreeStyle Bruna 14 Day Sensor kit) #1 ea 05/21/19 blood sugar diagnostic (OneTouch Ultra Blue Test Strip) #100 ea 11/09/20 blood-glucose meter (OneTouch Ultra2 Meter) #1 ea 11/09/20 insulin glargine 100 unit/mL (3 mL) subcutaneous pen 10 unit subcut QHS diabetes 08/18/22 wheel chair #1 ea 09/22/22 MAGIC MOUTH WASH (BMX) 180 mL suspension 15 ml PO .Q6HR PRN mouth wash 12/01/22 fluoxetine 20 mg capsule 20 mg PO DAILY depression 12/01/22 spironolactone 50 mg tablet (Aldactone) 50 mg PO DAILY edema 30 days #30 tabs 12/26/22 meclizine 25 mg tablet 25 mg PO DAILY PRN dizziness or vertigo 12/29/22 apixaban 5 mg tablet (Eliquis) 5 mg PO BID blood thin #74 tabs 01/06/23 morphine 15 mg immediate release tablet 15 mg PO BID pain 02/01/23 polyethylene glycol 3350 17 gram/dose oral powder (Miralax) 4 g PO DAILY PRN constipation 02/01/23 sennosides 8.6 mg tablet (Senna Lax) 17.2 mg PO BID stool softener 02/01/23 olanzapine 5 mg tablet 5 mg PO QHS nausea 02/14/23 omeprazole 20 mg capsule,delayed release 20 mg PO DAILY gerd 02/14/23 insulin aspart U-100 100 unit/mL (3 mL) subcutaneous pen 1 sliding scale dose subcut TIDCM diabetes 02/15/23 insulin aspart U-100 100 unit/mL (3 mL) subcutaneous pen (Novolog FlexPen U-100 Insulin aspart) 1 sliding scale dose subcut TID diabetes 02/15/23 dexamethasone 6 mg tablet 6 mg PO DAILY #8 tabs 02/16/23 doxycycline hyclate 100 mg tablet 100 mg PO BID #10 tabs 02/16/23
== END 2023-02-16 12:35 | disposition home or self-care (01) | DRG 177 ==
LOC: ED 19:57 → PCU 02-15 00:41
PROVIDERS: Admitting Provider Family Medicine; Emergency Provider Emergency Medicine; PCP Family Medicine; Visit Provider Student in an Organized Health Care Education/Training Program
DX: U07.1 COVID-19 (principal); J15.9 Unspecified bacterial pneumonia; J12.82 Pneumonia due to coronavirus disease 2019; I21.A1 Myocardial infarction type 2; C78.02 Secondary malignant neoplasm of left lung; C78.01 Secondary malignant neoplasm of right lung; I47.1 Supraventricular tachycardia; C78.7 Secondary malignant neoplasm of liver and intrahepatic bile duct; E11.40 Type 2 diabetes mellitus with diabetic neuropathy, unspecified; Z79.4 Long term (current) use of insulin; I10 Essential (primary) hypertension; K21.9 Gastro-esophageal reflux disease without esophagitis; E78.00 Pure hypercholesterolemia, unspecified; F32.A Depression, unspecified; D63.0 Anemia in neoplastic disease; D69.59 Other secondary thrombocytopenia; T45.1X5A Adverse effect of antineoplastic and immunosuppressive drugs, initial encounter; G89.3 Neoplasm related pain (acute) (chronic); R09.02 Hypoxemia; Z66 Do not resuscitate; Z79.01 Long term (current) use of anticoagulants; Z79.891 Long term (current) use of opiate analgesic; Z79.899 Other long term (current) drug therapy; Z85.42 Personal history of malignant neoplasm of other parts of uterus; Z86.711 Personal history of pulmonary embolism
CPT/HCPCS: 36415; 36591; 71046; 71275; 80048; 80053; 80061; 81001; 82728; 82962; 83605; 83615; 83735; 83880; 84100; 84145; 84443; 84484; 85025; 85379; 85610; 85652; 85730; 86140; 87040; 87086; 87428; 87449; 87633; 87635; 87641; 93005; 94668; 99285; J7030; J7040; J7050; Q9967; A4216; J0153; J0248; J2405

== ENCOUNTER 2023-03-01 12:30 | Outpatient (RCR) | payer OTHER, SELFPAY ==
--- NOTE | 2023-02-14 12:01 | HP.PTEVAL_ITS ---
Patient's Visit Information Visit Information Visit Information: FORREST PERES is a 62 year old F referred to Physical Therapy by WILLIE Cervantes with a diagnosis of Weakness from Leiomyosarcoma. Date of Evaluation: 02/14/23 Physical Therapist: Joyce Robertson DPT Visit Plan Frequency: 2x /Week Duration: 4 Weeks Plan: Aquatics: Focus on core/scap strength/stabilization, UE and LE strength- debility due to chemo- can move to 60 min appt as tolerated HEP Given IE: Standing marching, hip abduction, sit to stand, HR/TR, scapular retraction, arm circles, bicep curls, towel stereotype molder Subjective Subjective: She has been going through chemo for the last 18 weeks and she has lost a lot of fat and muscle all over. She has a lot of edema in her LE to throughout her abdomen. Her resting pulse is around 100. She has mets in her liver and lungs. Today she feels restriction in her breathing even due to the tumors being reduced. She is taking a break- next scans are Mar 02- consult Mar 09- the plan is if progressing she will begin another chemo. This is an optimal time to get this going- if not progressing she will have more of a break . No time for PT during chemo. She is taking morphine- she was sweeping the deck yesterday and had back pain for the first time. The pain went away. No other aches and pains mostly just the tiredness. She does her own dressing- they have a garden tub so her helps her in/out. She does laundry, dishes and some help in the kitchen. Takes care of her plants. Goals: be able to do her regular daily routine- she use to be able to do all of her own grocery shopping. She would like to be able to walk through a store and not be so tired. If she is walking through a store she does have pain through her chest. She wants more strength in her arms. She can walk about 20 min then she requires a break. - lives together and can help as needed. Stairs at home but she does not have to do them- 2 stairs to enter- HR- no issues getting in/out. Not driving due to Morphine. 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 PMHx/Meds: no changes 02/01/[address] Falcon Objective Objective: Posture: FH, RS- can correct but does not maintain Gait: slow ben- no deviation noted- no AD HR/TR: able with UE A Balance: EO: 30 sec no LOB EC: 15 sec increased sway- unable to tandem stance with right LE forwards 5 sec with left LE forwards- weight shift but unable to SLS ROM: WFL in all planes Strength: Scap: fair minus, Core: fair minus, UE: Shoulder: 4/5 throughout, Elbow: 4+/5 Outreach Representative: 30 on both- right hand dominate. Hip: 4/5 throughout, Knee: 4+/5 Ankle: 5/5 Flex: HS: severe, Gastroc: moderate Balance/Special Test Scores Lower Extremity Functional Score: 28 30 Second Chair Rise Test Seconds: 6 Goals Goal 1:: Patient will be I with HEP and progression Goal Time Frame: 4-6 Weeks Goal 2:: Patient will maintain proper posture t/o tx session to demo increased scap and core s/s Goal Time Frame: 4-6 Weeks Goal 3:: Patient will perform 10 sit to stands without UE A for 30 sec Goal Time Frame: 4-6 Weeks Goal 4:: Patient will [id number]% improvement Goal Time Frame: 4-6 Weeks Rehabilitation Potential Physical Therapy Diagnosis: Patient presents with hypomobility- she has decreased UE and LE strength, core and scapular strength/stabilization, flex and muscular endurance s/p chemo leading to decreased ability to perform ADL's. Rehabilitation Potential: Fair Anticipated Interventions Patient/Client Instruction: Educate patient on: Benefits of Fitness Program Therapeutic Exercise to Include: Strength training, Endurance training, Balance training, Coordination, Agility training, Body mechanics, Postural training, Flexibilty training, Gait and locomotor training, Neuromotor development, In an aquatic setting , Dynamic Lumbar Stabilization and Scapular Strength/Stabilization Text: Thank you for the opportunity to evaluate your patient. For Medicare and Medicare HMO plans, please review the plan of care and approve it. It will need to be FAXED BACK to us at [phone] for Medicare purposes. For Medicare only, by signing this I certify the plan of care. Please let me know if there are questions or concerns regarding this plan of care. Physician Signature: Date:
--- NOTE | 2023-07-20 09:05 | HP.PT.NRP ---
Patient Information Patient Information: FORREST PERES was seen in my office for initial evaluation on 02/14/23. The following Plan of Care was established for this patient: POC Established Initial Frequency: 2x /Week Initial Duration: 4 Weeks Anticipated Interventions Patient/Client Instruction: Educate patient on: Benefits of Fitness Program Therapeutic Exercise to Include: Strength training, Endurance training, Balance training, Coordination, Agility training, Body mechanics, Postural training, Flexibilty training, Gait and locomotor training, Neuromotor development, In an aquatic setting , Dynamic Lumbar Stabilization and Scapular Strength/Stabilization Last Seen Last Seen: This patient was last seen in our office . Pertinent comments regarding their Physical therapy will appear below: Appropriate to be discharged from PT At this point I will be discontinuing this patient from physical therapy. I would be happy to see this patient again in the future if found appropriate by the physician. Thank you! Joyce Robertson DPT Balance/Gait/Functional tests Balance/Special Test Scores Lower Extremity Functional Score: 28 30 Second Chair Rise Test Seconds: 6
== END 2023-03-01 19:00 | disposition home or self-care (01) ==
LOC: PT 12:30
PROVIDERS: PCP Family Medicine; Referring Provider Nurse Practitioner Family; Visit Provider Nurse Practitioner Family
DX: R53.1 Weakness (principal); C49.9 Malignant neoplasm of connective and soft tissue, unspecified
CPT/HCPCS: 97110; 97113; 97162

== ENCOUNTER → 2023-03-02 | Outpatient (CLI) | payer OTHER, SELFPAY ==
--- NOTE | 2023-03-02 08:15 | CT_ITS ---
INDICATION: Assess treatment response. 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 EXAMINATION: CT CHEST, ABDOMEN AND PELVIS WITH CONTRAST TECHNIQUE: Helically acquired images were obtained of the chest, abdomen, and pelvis following IV contrast. 2-D reconstructions reviewed. A radiation dose optimization technique was used for this scan. IV Contrast dosage and agent: 100 cc [id number]-300 Oral contrast: None. COMPARISON: CTA chest from 02/15/[address] abdomen and pelvis from 01/06/2023. FINDINGS: ----Chest: LUNGS, PLEURA AND LARGE AIRWAYS: Numerous bilateral pulmonary nodules again noted. Number of pulmonary nodules is grossly stable but majority of nodules have increased size in the interval, particularly within mid to lower lungs. Largest nodule located within medial right lower lobe now measures 2.6 cm maximum axial diameter compared with 2.1 cm on prior exam. Stable scarring superior right upper lobe. Small right and trace left pleural effusions now present. No pneumothorax. THYROID: Unremarkable as visualized. HEART AND PERICARDIUM: Heart size within normal limits. Trace residual pericardial effusion. VESSELS: Right jugular Mediport catheter tip remains within right ventricle. No thoracic aortic aneurysm or dissection. Great vessels are patent. No pulmonary arterial filling defects identified. MEDIASTINUM AND MARTELL: No pathologically enlarged mediastinal lymph nodes detected. Esophagus is unremarkable. BONES: Stable skeletal degenerative changes with no acute osseous abnormality. ----Abdomen/Pelvis: LIVER: Grossly stable size of heterogeneously enhancing mass occupying superior half of right lobe of liver extending into medial segment of left lobe. Mass was incompletely imaged on most recent contrast-enhanced chest CT, poorly visualized on prior unenhanced CT abdomen and pelvis. Mass measures grossly 15.8 cm maximum transverse diameter and 13.7 cm AP diameter. Low-attenuation areas again noted scattered throughout mass, likely areas of necrosis. Couple smaller subcentimeter low-attenuation lesions within liver, right and left lobe, are stable in size compared with prior CT abdomen and pelvis. Small amount of perihepatic ascites noted. GALLBLADDER AND BILIARY TREE: No radiopaque gallstones identified. No significant biliary ductal dilation. PANCREAS: Atrophic with no discrete lesion. SPLEEN: Normal size without focal cystic or solid mass. ADRENAL GLANDS: Unremarkable. KIDNEYS AND URETERS: Kidneys are normal size. No hydronephrosis. No concerning lesion. PERITONEUM: Small volume ascites. No free peritoneal air. BOWEL: No evidence of acute appendicitis. No bowel obstruction or significant bowel thickening. No focal inflammatory change. LYMPH NODES: 1.4 cm diameter low-attenuation nodular lesion within left lower quadrant located just anterior to common iliac artery bifurcation, was present on previous CT abdomen and pelvis and measured 18 mm diameter (series 3 axial image 81). There appears to be continuity with remnant left ovarian vein extending cephalad. Differential also includes slightly enlarged residual lymph node. No other evidence of pathologic adenopathy. VESSELS: Atherosclerosis with no abdominal aortic aneurysm. URINARY BLADDER: Unremarkable as visualized. REPRODUCTIVE ORGANS: Status post hysterectomy. No residual pelvic mass demonstrated. ABDOMINAL WALL: Mild generalized subcutaneous edema. Abdominal wall subcutaneous varices also noted. BONES: Stable skeletal degenerative changes with remnant orthopedic hardware tract within left proximal femur. No acute osseous abnormality. CT/CT Chest, Abd, Pel w/Contrast IMPRESSION: 1. Increasing size of numerous metastatic pulmonary nodules with grossly stable size of large confluent liver mass. Stable appearance of a couple smaller, indeterminate low-attenuation liver lesions (smaller metastatic foci versus cysts). 2. Developing small pleural effusions. Small volume ascites also present. 3. Equivocal left lower abdominal necrotic retroperitoneal lymph node (decreased in size) versus chronic thrombosed and/or metastatic lesion within remnant left ovarian vein. 4. Other stable and nonurgent findings within body of report. Electronically Signed: Kota Marroquin MD at 5:52 EDT ,
[2023-03-02] MEDS: 0.9% Saline Lock 10 ML Syringe IV (08:44)
== END | disposition home or self-care (01) ==
LOC: CT 08:14
PROVIDERS: PCP Family Medicine; Referring Provider Internal Medicine Hematology & Oncology; Visit Provider Internal Medicine Hematology & Oncology
DX: C49.9 Malignant neoplasm of connective and soft tissue, unspecified (principal); C78.00 Secondary malignant neoplasm of unspecified lung; C78.7 Secondary malignant neoplasm of liver and intrahepatic bile duct
CPT/HCPCS: 71260; 74177; Q9967; A4216

== ENCOUNTER 2023-03-04 09:54 | Emergency (ER) | payer OTHER, SELFPAY ==
[2023-03-04 09:55] VITALS: BP 104/65; PULSE 143; RESP 13; TEMP 37; O2SAT 93; BMI 25.1
[2023-03-04 09:58] VITALS: BP 104/65; PULSE 138; RESP 13; TEMP 37; O2SAT 94
--- NOTE | 2023-03-04 10:08 | RAD_ITS ---
STUDY: X-RAY CHEST REASON FOR EXAM: Female, 62 years old. shortness of breath TECHNIQUE: PA and lateral views of the chest. COMPARISON: 02/14/2023 FINDINGS: Right internal jugular chest port which is unchanged. No change in multiple pulmonary nodules consistent with metastatic disease. Elevated right hemidiaphragm which is unchanged. Small right pleural effusion. Normal size heart. Normal mediastinum and jessica. Normal visualized pulmonary arteries. Normal visualized aortic arch and descending thoracic aorta. Normal visualized thoracic spine. Normal visualized ribs, clavicles, and shoulders. There is no demonstrated abnormality of the visualized soft tissue structures of the upper abdomen. RAD/Chest PA and Lateral IMPRESSION: 1. No change in multiple pulmonary nodules consistent with metastatic disease. 2. Small right pleural effusion. Electronically Signed: Jf Smith MD at 11:10 EDT ,
--- NOTE | 2023-03-04 10:19 | EX.ED.DYSGE1 ---
HPI <SANDOVAL Carreon - Last Filed: 03/04/23 20:20> History of Present Illness Chief Complaint: Weakness Narrative Narrative: Patient presenting today due to hypoxia and tachycardia that started today. She was sent in by the on-call oncology [employer] with concerns for pneumonia or PE. She has a history of leiomyosarcoma with metastasis to the lungs and liver. This morning her took her vitals and her pulse was in the 140s bpm and her O2 saturation was around 86% on room air. He tried to place her on supplemental O2 but it did not help her heart rate. She reports that she feels like she cannot take a deep breath and has slight left-sided chest pain that is mild. She recently completed 6 treatments of chemotherapy. She is on Eliquis for prior PE that occurred in December 2022. She denies any fevers, chills, abdominal pain, nausea, and vomiting. PFSH <SANDOVAL Carreon - Last Filed: 03/04/23 20:20> [facility] Medical History Abdominal pain Acquired immunocompromised state Anemia Arthritis Back pain Cancer Chest pain CINV (chemotherapy-induced nausea and vomiting) Constipation COVID-19 Dehydration Diabetes Dyspnea on exertion Edema of both legs Encounter for chemotherapy management Encounter for education Fatigue Gastric reflux Generalized weakness High cholesterol History of hip fracture History of irregular heartbeat History of stress test Hx of fracture of left hip Hypercalcemia of malignancy Hyperlipemia Hypertension Insulin dependent diabetes mellitus Liver metastasis Lung metastases Malodorous urine Nausea Neuropathy Non-smoker Post-menopausal Retinopathy Shortness of breath on exertion Tachycardia Type 1 diabetes mellitus Wears glasses Home Medications flash glucose scanning reader (FreeStyle Bruna 14 Day [place]) #1 ea 05/21/19 [Rx Last Taken Unknown] flash glucose sensor (FreeStyle Bruna 14 Day Sensor kit) #1 ea 05/21/19 [Rx Last Taken Unknown] blood sugar diagnostic (OneTouch Ultra Blue Test Strip) #100 ea 11/09/20 [Rx Last Taken Unknown] blood-glucose meter (OneTouch Ultra2 Meter) #1 ea 11/09/20 [Rx Last Taken Unknown] insulin glargine 100 unit/mL (3 mL) subcutaneous pen 10 unit subcut QHS diabetes 08/18/22 [History Last Taken 09/22/22 21:00] wheel chair #1 ea 03/02/23 [Rx Last Taken Unknown] MAGIC MOUTH WASH (BMX) 180 mL suspension 15 ml PO .Q6HR PRN mouth wash 12/01/22 [History Last Taken Unknown] fluoxetine 20 mg capsule 20 mg PO DAILY depression 12/01/22 [History Last Taken Unknown] meclizine 25 mg tablet 25 mg PO DAILY PRN dizziness or vertigo 12/29/22 [History Last Taken Unknown] apixaban 5 mg tablet (Eliquis) 5 mg PO BID blood thin #74 tabs 01/06/23 [Rx Last Taken 02/14/23 20:00 5 mg] morphine 15 mg immediate release tablet 15 mg PO BID pain 02/01/23 [History Last Taken Unknown] polyethylene glycol 3350 17 gram/dose oral powder (Miralax) 4 g PO DAILY PRN constipation 02/01/23 [History Last Taken Unknown] sennosides 8.6 mg tablet (Senna Lax) 17.2 mg PO BID stool softener 02/01/23 [History Last Taken Unknown] olanzapine 5 mg tablet 5 mg PO QHS nausea 02/14/23 [History Last Taken 02/14/23] omeprazole 20 mg capsule,delayed release 20 mg PO DAILY gerd 02/14/23 [History Last Taken Unknown] insulin aspart U-100 100 unit/mL (3 mL) subcutaneous pen 1 sliding scale dose subcut TIDCM diabetes 02/15/23 [History Last Taken Unknown] insulin aspart U-100 100 unit/mL (3 mL) subcutaneous pen (Novolog FlexPen U-100 Insulin aspart) 1 sliding scale dose subcut TID diabetes 02/15/23 [History Last Taken Unknown] dexamethasone 6 mg tablet 6 mg PO DAILY #8 tabs 02/16/23 [Rx Last Taken Unknown] doxycycline hyclate 100 mg tablet 100 mg PO BID #10 tabs 02/16/23 [Rx Last Taken Unknown] metoprolol tartrate 25 mg tablet 25 mg PO BID 2 weeks #28 tabs 03/04/23 [Rx Last Taken Unknown] Allergy/AdvReac Type Severity Reaction Status Date / Time No Known Allergies Allergy Verified 03/04/23 09:55 Family History Mother Cancer Hypertension Arthritis Father Arthritis Myocardial infarction, Onset Age: 40 Heart disease Sister Diabetes Surgical History History of bunionectomy History of section History of colonoscopy History of endometrial ablation History of eye surgery History of hysterectomy for cancer Social History Smoking Status: Never smoker alcohol intake: current alcohol intake frequency: a few times a week Alcohol type: wine details: social substance use type: does not use caffeine: Yes what type of physical activity do you participate in: none seatbelt use: always do you feel safe at home: Yes additional social history: Akshat- Teacher at [employer] 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 ROS <SANDOVAL Carreon - Last Filed: 03/04/23 20:20> ROS ED Constitutional Constitutional ED: Denies chills or fever(s) Cardiovascular Cardiovascular: Reports chest pain and racing heartbeat; Denies palpitations Respiratory/Chest Respiratory/Chest: Reports dyspnea; Denies cough Gastrointestinal Gastrointestinal: Denies abdominal pain, nausea or vomiting Musculoskeletal Musculoskeletal: Denies arthralgias or myalgias Integumentary Denies rash Neurologic Neurologic: Denies paresthesias or weakness EXAM <SANDOVAL Carreon - Last Filed: 03/04/23 20:20> Physical Exam Const Vital Signs: 03/04/23 09:55 03/04/23 09:58 03/04/23 09:58 Temperature 98.6 F 98.6 F Temperature Source Oral Oral Pulse Rate 143 H 138 H 138 H Respiratory Rate 13 13 Respiratory Effort Respiratory Pattern Blood Pressure 104/65 104/65 Blood Pressure Mean 78 78 Pulse Ox 93 94 Oxygen Delivery Method Room Air Room Air 03/04/23 09:59 03/04/23 11:24 03/04/23 12:46 Temperature 97.8 F Temperature Source Pulse Rate 98 92 Respiratory Rate 14 Respiratory Effort Normal Non-Labored Respiratory Pattern Normal Blood Pressure 108/78 Blood Pressure Mean Pulse Ox 100 Oxygen Delivery Method Positive well nourished, well developed and no apparent distress General Appearance ED: well developed HEENT Reports normocephalic and head/scalp atraumatic Mouth ED: Yes moist mucous membranes normal Eyes PERRL and EOMs intact bilaterally Neck full ROM and supple Chest Wall inspection of chest normal Resp normal respiratory effort and clear to auscultation bilaterally Cardio regular rate and regular rhythm GI soft to palpation, non-tender, non-distended and no masses Back/Spine normal ROM and normal to inspection Extremity normal to inspection and full ROM Neuro oriented x3, CN's II-XII intact bilaterally, moves all extremities, no focal motor deficits and no sensory deficits noted Sensorium / Orientation: awake and alert Psych mental status grossly normal and thought process normal Skin no rashes or lesions noted and no wounds <Dr. Gamal Dove MD - Last Filed: 03/04/23 12:33> Physical Exam Const Vital Signs: 03/04/23 09:55 03/04/23 09:58 03/04/23 09:58 Temperature 98.6 F 98.6 F Temperature Source Oral Oral Pulse Rate 143 H 138 H 138 H Respiratory Rate 13 13 Respiratory Effort Respiratory Pattern Blood Pressure 104/65 104/65 Blood Pressure Mean 78 78 Pulse Ox 93 94 Oxygen Delivery Method Room Air Room Air 03/04/23 09:59 03/04/23 11:24 03/04/23 12:46 Temperature 97.8 F Temperature Source Pulse Rate 98 92 Respiratory Rate 14 Respiratory Effort Normal Non-Labored Respiratory Pattern Normal Blood Pressure 108/78 Blood Pressure Mean Pulse Ox 100 Oxygen Delivery Method MDM <SANDOVAL Carreon - Last Filed: 03/04/23 20:20> [facility] Narrative Medical decision making narrative: Patient presenting today due to hypoxia and tachycardia that started this morning. She reports that she feels like she cannot take a deep breath and has a mild left-sided chest discomfort that started today. Prior history of PE in December and is on Eliquis which she takes regularly. Patient is tachycardic on arrival 143 bpm, oxygen saturation 93% on room air. Patient does appear to be in SVT. She previously responded to adenosine when she was here in January with SVT, 6 mg of adenosine will be administered and patient consents. Patient was converted to normal sinus rhythm and will be observed. She reports improvement of her symptoms. Initial troponin elevated, similar to the last time when she had SVT, this will be trended. Chest x-ray obtained to rule out pneumonia, pneumothorax, and other cardiopulmonary abnormality and shows multiple pulmonary nodules and a right pleural effusion. Patient remained in normal sinus rhythm, attending spoke with on-call newscast producer, Dr. Morgan who recommends placing patient on 25 mg metoprolol tartrate twice daily and only taking the spironolactone as needed. This has been relayed to patient, she is comfortable with plan. She is to follow-up with cardiology outpatient. She will be discharged home in stable condition and is comfortable with plan. Lab Data Attestation: I reviewed the patient's lab results. Labs: Laboratory Results - last 24 hr 03/04/23 03/04/23 10:15 11:37 WBC 9.5 RBC 2.85 L Hgb 9.2 L Hct 29.7 L MCV 104.2 H MCH 32.3 H MCHC 31.0 L RDW Std Deviation 55.8 H RDW Coeff of Flaco 14.5 Plt Count 137 L MPV 12.0 Immature Gran % (Auto) 0.400 Neut % (Auto) 76.4 H Lymph % (Auto) 13.1 L [place] % (Auto) 8.5 Eos % (Auto) 1.3 Baso % (Auto) 0.3 Absolute Neuts (auto) 7.3 Absolute Lymphs (auto) 1.25 Nucleated RBC % 0 Sodium 133 L Potassium 5.1 Chloride 103 Carbon Dioxide 22.0 Anion Gap 8 BUN 16 Creatinine 0.86 Estim Creat Clear Calc 67.54 Est GFR (MDRD) Af Amer 85 Est GFR (MDRD) Non-Af 70 BUN/Creatinine Ratio 18.5 Glucose 344 H Calcium 9.3 Troponin I High Sens 186 H* 158 H* Radiography X-Ray: Read by ED Physician and Read by Radiologist Diagnostic Testing: Clinical Impression(s) from Imaging Studies Chest X-Ray 03/04/23 10:08 IMPRESSION: 1. No change in multiple pulmonary nodules consistent with metastatic disease. 2. Small right pleural effusion. Electronically Signed: Jf Smith MD at 11:10 EDT , EKG Initial EKG: Comments: Initial EKG 1010: 136 bpm, SVT, no ST elevation repeat EKG 1133: 95 bpm, normal sinus rhythm, no ST elevation, both EKGs reviewed and interpreted by attending ED physician <Dr. Gamal Dove MD - Last Filed: 03/04/23 12:33> MDM Lab Data Labs: Laboratory Results - last 24 hr 03/04/23 03/04/23 10:15 11:37 WBC 9.5 RBC 2.85 L Hgb 9.2 L Hct 29.7 L MCV 104.2 H MCH 32.3 H MCHC 31.0 L RDW Std Deviation 55.8 H RDW Coeff of Flaco 14.5 Plt Count 137 L MPV 12.0 Immature Gran % (Auto) 0.400 Neut % (Auto) 76.4 H Lymph % (Auto) 13.1 L [place] % (Auto) 8.5 Eos % (Auto) 1.3 Baso % (Auto) 0.3 Absolute Neuts (auto) 7.3 Absolute Lymphs (auto) 1.25 Nucleated RBC % 0 Sodium 133 L Potassium 5.1 Chloride 103 Carbon Dioxide 22.0 Anion Gap 8 BUN 16 Creatinine 0.86 Estim Creat Clear Calc 67.54 Est GFR (MDRD) Af Amer 85 Est GFR (MDRD) Non-Af 70 BUN/Creatinine Ratio 18.5 Glucose 344 H Calcium 9.3 Troponin I High Sens 186 H* 158 H* Radiography Diagnostic Testing: Clinical Impression(s) from Imaging Studies Chest X-Ray 03/04/23 10:08 IMPRESSION: 1. No change in multiple pulmonary nodules consistent with metastatic disease. 2. Small right pleural effusion. Electronically Signed: Jf Smith MD at 11:10 EDT , Management Discussion w/another healthcare provider: Ski Patroller (Cardiology Dr. Morgan, recommends metoprolol tartrate 25 mg twice daily, change spironolactone to prn, and follow-up in office; agrees w/ d/c home and close outpt f/u) and Other (Emma Norwood, H/O) Treatment and Re-Evaluation Comments:: I have personally performed a face to face assessment of the patient and have reviewed the ARIELA Note. I performed a substantive portion of the visit including all aspects of the following. My mckeon findings include: History is [this morning started feeling short of breath with some mild nonpleuritic left-sided chest discomfort, a little lightheaded no syncope.] Exam is [tachycardic, otherwise well-appearing lungs clear and equal bilaterally. Neurologically intact. Keenly alert.] Medical Decison Making [reviewed patient's recent outpatient CT chest, abdomen, pelvis 2 days ago that showed multiple metastases in the lungs along with bilateral small pleural effusions. No signs of infectious process. CTA performed about 2 weeks ago showed small residual pulmonary emboli in her right lower lobe, and no new pulmonary emboli. EKG here today shows SVT, this is similar to the EKG she had when she was in SVT when she saw myself 2 weeks ago. She responded to adenosine then, and she has no contraindications to doing that again, we did that after discussing pros and cons and verbally consenting her, and it resulted in the dysrhythmia breaking to sinus rhythm, which we verified on repeat EKG, which on my interpretation is normal showing no acute ischemic abnormalities. Labs noted, initial troponin slightly elevated nonspecifically similar but less than her prior episode. We will monitor her and repeat that, discussed with cardiology for recommendations going forward for pharmaceuticals prior to follow-up.] Other additions or changes: [None] <Dr. Gamal Dove MD - Last Filed: 03/04/23 12:33> Critical Care Time Critical Care Time: Yes Critical care time (excluding procedures): 30-74 minutes (32 min, not including procedure time), Including time spent:, Discussing w/Patient &/or Family/[employer] And Dies Supervisor, Discussing w/Consultants and Performing Direct Patient Care at Bedside Discharge Plan Triage Chief Complaint: Weakness ED Midlevel Provider: Whitney Perez ED Provider: Gamal Dove Dx/Rx/DC Orders Clinical Impression: Leiomyosarcoma, SVT (supraventricular tachycardia), Lung metastases Instructions: ED Understanding Supraventricular Tachycardia (SVT) Prescriptions: New metoprolol tartrate 25 mg tablet 25 mg PO BID 14 Days Qty: 28 0RF Continued (DME) FreeStyle Bruna 14 Day [place] Misc See Rx Instructions .ROUTE .MEDSUPPLY Qty: 1 3RF Rx Instructions: As directed (DME) FreeStyle Bruna 14 Day Sensor Kit See Rx Instructions .ROUTE .MEDSUPPLY Qty: 1 3RF Rx Instructions: As directed insulin glargine 100 unit/mL (3 mL) insulin pen 10 unit SC QHS Patient Comments: took 10 units at bedtime prior to procedure sennosides [Senna Lax] 8.6 mg tablet 17.2 mg PO BID morphine 15 mg tablet 15 mg PO BID MAGIC MOUTH WASH (BMX) 180 mL suspension 15 ml PO .Q6HR PRN (Reason: mouth wash) Rx Instructions: diphenhydramine 12.5 mg/5 mL oral liquid 60 mL; aluminum-mag hydroxide-simethicone 400 mg-400 mg-40 mg/5 mL oral susp 60 mL; Lidocaine Viscous 2 % mucosal solution 60 mL; Per 180 mL fluoxetine 20 mg capsule 20 mg PO DAILY polyethylene glycol 3350 [Miralax] 17 gram/dose powder 4 g PO DAILY PRN (Reason: constipation) meclizine 25 mg tablet 25 mg PO DAILY PRN (Reason: dizziness or vertigo) Eliquis 5 mg tablet 5 mg PO BID Qty: 74 0RF Rx Instructions: 10 mg twice a day for the first week. Then 5 mg twice a day. omeprazole 20 mg capsule,delayed release(DR/EC) 20 mg PO DAILY olanzapine 5 mg tablet 5 mg PO QHS Patient Comments: TAKE ONE (1) TABLET BY MOUTH AT BEDTIME PALLIATIVE PATIENT insulin aspart U-100 100 unit/mL (3 mL) insulin pen 1 sliding scale dose SC TIDCM Rx Instructions: 8 units prior to arrival sliding scale insulin aspart U-100 [Novolog FlexPen U-100 Insulin] 100 unit/mL (3 mL) insulin pen 1 sliding scale dose subcut TID doxycycline hyclate 100 mg tablet 100 mg PO BID Qty: 10 0RF dexamethasone 6 mg tablet 6 mg PO DAILY Qty: 8 0RF (DME) OneTouch Ultra Blue Test Strip Strip See Rx Instructions .ROUTE .MEDSUPPLY Qty: 100 3RF Rx Instructions: As directed (DME) blood-glucose meter [OneTouch Ultra2 Meter] Misc See Rx Instructions .ROUTE .MEDSUPPLY Qty: 1 0RF Rx Instructions: As directed (DME) wheel chair See Rx Instructions .Route .MEDSUPPLY Qty: 1 0RF Rx Instructions: As directed Discontinued spironolactone [Aldactone] 50 mg tablet 50 mg PO DAILY 30 Days Qty: 30 3RF Rx Instructions: Skip Sundays and Wednesdays Primary Care Provider: Nitin Falcon Referrals: Tono Castillo MD [Med Staff - Active Staff] - 5-7 Days Nitin Falcon, DO [Primary Care Provider] - Activity Restrictions/Additional Instructions: Please follow-up with Dr. Castillo. Return for any worsening of your symptoms. Begin taking the metoprolol twice a day and take the spironolactone as needed. Disposition Disposition: Home, Self Care Discharge Date/Time: 03/04/23 13:12
[2023-03-04 10:24] LABS: Absolute Lymphocyte Count 1.25 X10^3/uL (0.83-4.51); Absolute Neutrophil Count 7.3 X10^3/uL (2.0-7.7); Basophil# 0.03 X10^3/uL; Basophil% 0.3 % (0-1); Eosinophil# 0.12 X10^3/uL; Eosinophils% 1.3 % (0-5); Hematocrit 29.7 % (37-47); Hemoglobin 9.2 g/dL (12.0-15.0); Lymphocyte # 1.25 X10^3/ul (0.83-4.51); Lymphocyte % 13.1 % (19-41); Mean Corpuscular Hgb 32.3 pg (27.0-32.0); Mean Corpuscular Volume 104.2 fL (81-99); Monocyte# 0.81 X10^3/uL; Monocyte% 8.5 % (0-10); NRBC Flagged by Analyzer 0 % (0-5); Neutrophil # 7.29 X10^3/uL (2.7-7.7); Neutrophil % 76.4 % (47-70); Platelet Count 137 K/mm3 (150-450); RBC Distribution Width CV 14.5 % (11.6-14.6); RBC Distribution Width SD 55.8 fl (35.1-43.9); Red Blood Count 2.85 M/mm3 (4.2-5.4); White Blood Count 9.5 K/mm3 (4.4-11.0)
[2023-03-04 10:48] LABS: Anion Gap 8 (5-15); BUN 16 mg/dL (7-18); BUN/Creat Ratio 18.5 RATIO (10-20); Calcium,Total 9.3 mg/dL (8.5-10.1); Chloride 103 mmol/L (98-107); Creatinine, Serum 0.86 mg/dL (0.55-1.02); EST Glomerular Filtration Rate 70 mL/min (>60); Est Glom Filt Rate - Afr Amer 85 mL/min (>60); Estimated Creatinine Clearance 67.54 ml/min; Glucose 344 mg/dL (74-106); Potassium 5.1 mmol/L (3.5-5.1); Sodium Level 133 mmol/L (136-145); Troponin-I HS 186 pg/mL (3.0-54.0)
[2023-03-04] MEDS: Adenosine 6 MG/2 ML Syringe IV (11:23)
[2023-03-04 11:24] VITALS: PULSE 98
--- NOTE | 2023-03-04 11:24 | ED.RN ---
dr. jackson at bedside, for adenosine. 146-160 hr. 98-99 after adenosine.
[2023-03-04 12:08] LABS: Troponin-I HS 158 pg/mL (3.0-54.0)
[2023-03-04 12:46] VITALS: BP 108/78; PULSE 92; RESP 14; TEMP 36.6; O2SAT 100
== END 2023-03-04 13:12 | disposition home or self-care (01) ==
PROVIDERS: Physician Assistant; Emergency Provider Emergency Medicine; PCP Family Medicine; Visit Provider Emergency Medicine
DX: C49.3 Malignant neoplasm of connective and soft tissue of thorax (principal); C78.00 Secondary malignant neoplasm of unspecified lung; E10.40 Type 1 diabetes mellitus with diabetic neuropathy, unspecified; I47.1 Supraventricular tachycardia; Z79.01 Long term (current) use of anticoagulants; Z86.711 Personal history of pulmonary embolism; Z86.16 Personal history of COVID-19
CPT/HCPCS: 71046; 80048; 84484; 85025; 93005; 99282; A4216; J0153

== ENCOUNTER → 2023-03-10 | Outpatient (CLI) | payer OTHER, SELFPAY ==
--- NOTE | 2023-03-10 07:12 | MRI_ITS ---
HISTORY: ALTERED MENTAL STATUS METS SARCOMA. TECHNIQUE: Multiplanar and multisequence MR images of the brain were obtained before and after the intravenous administration of 15 mL Clariscan. 679 images. COMPARISON: 10/04/2022. FINDINGS: BRAIN PARENCHYMA: Mild foci and small zones of increased T2 FLAIR signal in the bilateral cerebral white matter No enhancing lesion in the brain parenchyma. No abnormal focus of restricted diffusion. No acute intracranial hemorrhage identified. CSF SPACES: Mild generalized volume loss again noted. No significant midline shift or other mass effect.No extra-axial fluid collection. Unremarkable optic chiasm, suprasellar region, and sella. VASCULAR SYSTEM: Major intracranial flow voids are maintained. PARANASAL SINUSES AND MASTOID AIR CELLS: Trace fluid in the mastoid air cells. ORBITS: Bilateral lens resections. MRI/Brain W/WO Contrast IMPRESSION: No evidence for acute infarct or enhancing intracranial mass. Mild chronic involutional and white matter changes. Electronically Signed: Vicky Michele MD at 13:37 EDT ,
[2023-03-10] MEDS: 0.9 % NaCl (Sterile) Posiflush 10 mL IV (08:45)
== END | disposition home or self-care (01) ==
PROVIDERS: PCP Family Medicine; Referring Provider Internal Medicine Hematology & Oncology; Visit Provider Internal Medicine Hematology & Oncology
DX: R41.82 Altered mental status, unspecified (principal); C78.7 Secondary malignant neoplasm of liver and intrahepatic bile duct; C78.00 Secondary malignant neoplasm of unspecified lung; C49.9 Malignant neoplasm of connective and soft tissue, unspecified
CPT/HCPCS: 70553; A9575

== ENCOUNTER 2023-03-17 10:45 | Outpatient (CLI) | payer OTHER, SELFPAY ==
[2023-03-17 10:53] LABS: Mucous, Urine 0 SEEN /hpf (<or=2+)
[2023-03-17 11:10] LABS: Glucose, Dipstick Normal (Normal); Ketone-Dipstick 15 mg/dl (Negative); Leukocyte Esterase-Dipstick 500 /ul (Negative); Nitrite-Dipstick Negative (Negative); Occult Blood-Urine 50 /ul (Negative); Protein-Dipstick 15 mg/dl (Negative); Specific Gravity, Urine 1.025 (1.002-1.030); Urine Urobilinogen 1 mg/dl (Normal)
[2023-03-17 11:23] LABS: Color, Urine Yellow (Yellow); Urine Bilirubin Dipstick 1 mg/dL (Negative)
[2023-03-17 11:24] LABS: Urine Clarity Cloudy (Clear)
[2023-03-17 11:26] LABS: Bacteria 2+ /hpf (None Seen); Squamous Epithelial Cells - UA 25-50 SEEN /hpf (5-10); White Blood Cells 10-25 SEEN /hpf (0-5)
[2023-03-17 11:27] LABS: Red Blood Cells-Urine 0-5 SEEN /hpf (0-5)
== END 2023-03-17 23:59 | disposition home or self-care (01) ==
LOC: LABSPEC 10:47
PROVIDERS: PCP Family Medicine; Referring Provider Pediatrics; Visit Provider Pediatrics
DX: R39.9 Unspecified symptoms and signs involving the genitourinary system (principal)
CPT/HCPCS: 81001; 87086